=== PATIENT | female | born 1955 | race Caucasian/White ===

== ENCOUNTER 2020-04-06 14:58 | Emergency (ER) | payer OTHER, MEDICARE, SELFPAY ==
[2020-04-06] VITALS (17 sets, daily range): BP systolic 116–147; BP diastolic 59–82; PULSE 64–93; RESP 12–20; TEMP 36.8; O2SAT 99–100
--- NOTE | ~2020-04-06 | CT_ITS ---
EXAMINATION: CT abdomen pelvis w con INDICATION: Epigastric abdominal pain and shortness of breath TECHNIQUE: Computed tomographic images of the abdomen and pelvis were obtained after the administrati on of 100 cc of Omnipaque 350 intravenous contrast. The dose-length product (DLP) was 490.06 mGy-cm. Automated exposure control and iterative reconstruction technique were employed. COMPARISON: 02/19/2013 FINDINGS: The lung bases are clear. The heart size is normal. There are changes of Juan Manuel fundoplicat ion. The gallbladder is surgically absent. There is mild enlargement of the common bile duct and cent ral intrahepatic ducts which is likely due to post cholecystectomy state. The liver, spleen, pancreas , and adrenal glands are normal. Cysts of the kidneys measure up to 11 mm on the right. There is calc ified atherosclerosis of the aorta and many of the other arteries. No pathologically enlarged abdomin al or pelvic lymph nodes are identified. There is no free intraperitoneal gas or evidence of bowel ob struction. There is moderate lumbar spondylosis. IMPRESSION: 1. No CT correlate for the patient's symptoms. Reviewed, dictated and finalized at location A.
--- NOTE | 2020-04-06 15:09 | ECG_ITS ---
Measurements Intervals [place] Rate: 87 P: 73 WI: 164 QRS: -26 QRSD: 104 T: 59 QT: 375 QTc: 453 Interpretive Statements SINUS RHYTHM DELAYED PRECORDIAL R/S TRANSITION BASELINE ARTIFACT- I, II, III, AVR, AVL, AVF BORDERLINE ECG Electronically Signed On 04-06-2020 15:46:51 CDT by Dion Joy D.O.
--- NOTE | 2020-04-06 15:14 | ED.ABDPAIN ---
HPI - Abdominal Pain General Chief Complaint: Chest Pain Stated Complaint: upper abd pain, sob Time Seen by Provider: 04/06/20 15:03 History of Present Illness HPI narrative: Patient is a 64-year-old female with history of anxiety and acid reflux who presents with epigastric pain. Symptoms constant for the last 3 days. Recently started on Carafate for bad acid reflux. Has history of having endoscopy in the past but nothing recently. She has mild nausea but no vomiting. Reports heartburn that goes up into the back of her mouth. No exertional chest pain. When she takes her antacids it does improve her discomfort slightly. Related Data Home Medications Medication Instructions Recorded Confirmed lisinopril-hydrochlorothiazide 1 tablet PO DAILY 04/06/20 Allergies Allergy/AdvReac Type Severity Reaction Status Date / Time ciprofloxacin Allergy Unknown Skin Verified 03/07/20 14:37 Reaction neomycin Allergy Unknown Skin Verified 03/07/20 14:37 Reaction Penicillins Allergy Unknown Unknown Verified 03/07/20 14:37 pitavastatin Allergy Unknown Unknown Verified 03/07/20 14:37 Quinolones Allergy Unknown Unknown Verified 03/07/20 14:37 LATEX Allergy Unknown BLISTERING Uncoded 03/07/20 14:37 RASH Review of Systems Review of Systems: All systems reviewed & are unremarkable except as noted in HPI and below Constitutional: Constitutional: Denies chills, Denies fever(s) and Denies weakness ENT: Denies nasal congestion and Denies sore throat Cardiovascular: Cardiovascular: Denies chest pain and Denies radiating jaw, neck or arm pain Respiratory: Respiratory: Denies cough, Denies dyspnea and Denies wheezing Gastrointestinal: Gastrointestinal: Reports abdominal pain, Reports heartburn, Reports nausea and Denies vomiting PMF Past Medical History Medical History (Updated 04/06/20 @ 17:18 by Gael Red MD) Atherosclerosis of aorta Dyskinesia of esophagus Dyspepsia Essential (primary) hypertension Gastroparesis Hypothyroidism (acquired) Irritable bowel syndrome with diarrhea Metabolic syndrome Mixed hyperlipidemia Patellar tendonitis of right knee Postgastric surgery syndromes Spinal stenosis, unspecified region other than cervical Surgical History Surgical History (Updated 04/06/20 @ 15:18 by Gael Red MD) History of endoscopy Social History Social History Smoking status: Never smoker Alcohol intake: never Gender identity (if verbalized by the patient): Female Exam Narrative: Exam Narrative: GENERAL: Well-appearing, well-nourished, and in no acute distress. HEAD: Normocephalic, atraumatic. ENT: Mucous membranes moist. CHEST: Clear to auscultation. No respiratory distress. HEART: Regular rate and rhythm. Normal peripheral pulses. ABDOMEN: Soft, mild epigastric tenderness without guarding, nondistended. EXTREMITIES: Normal range of motion. No edema. SKIN: Warm, dry, no rash. NEURO: Alert and oriented x3. Course Course Emergency Course: Informed results. Feeling better with Zofran. Will discharge home. Vital Signs Vital signs: Vital Signs Temperature 98.3 F 04/06/20 15:13 Pulse Rate 93 04/06/20 15:13 Respiratory Rate 12 04/06/20 15:13 Blood Pressure 147/82 H 04/06/20 15:13 Pulse Oximetry 100 04/06/20 15:13 Temperature 98.3 F 04/06/20 15:13 Pulse Rate 78 04/06/20 16:49 Respiratory Rate 12 04/06/20 16:49 Blood Pressure 145/67 H 04/06/20 16:01 Pulse Oximetry 100 04/06/20 16:49 MDM - Abdominal Pain Lab Data Result diagrams: 04/06/20 15:24 04/06/20 15:24 Labs: Lab Results 04/06/20 04/06/20 Range/Units 15:24 15:24 WBC 6.1 (4.5-10.0) K/mm3 RBC 3.93 L (4.2-5.4) M/mm3 Hgb 12.4 (12.0-15.0) g/dL Hct 36.9 L (37.0-47.0) % MCV 93.9 (80-100) fl MCH 31.6 (26-34) pg MCHC 33.6 (32-36) g/dl RDW 13.0 (11.5-14.5)
[2020-04-06] MEDS: BELLADONNA ALK/PHENOB ELIX 10 ML, MAG HYDROX/ALUMINUM HYD/SIMETH 30 ML, LIDOCAINE HCL 2... PO (15:24)
[2020-04-06 15:33] LABS: Basophils Percent Auto 0.7 % (0.2-1.2); Eosinophils Absolute Auto 0.1 K/mm3 (0-0.3); Eosinophils Percent Auto 0.8 % (0-4.4); Hematocrit 36.9 % (37.0-47.0); Hemoglobin 12.4 g/dL (12.0-15.0); Immature Granulocyte Absolute 0.02 K/mm3 (0.00-0.031); Immature Granulocyte Percent A 0.3 % (0-0.5); Lymphocytes Absolute Auto 1.26 K/mm3 (0.9-3.2); Lymphocytes Percent Auto 20.8 % (18.3-44.2); Mean Corpuscular HGB Conc 33.6 g/dl (32-36); Mean Corpuscular Hemoglobin 31.6 pg (26-34); Mean Corpuscular Volume 93.9 fl (80-100); Mean Platelet Volume 9.9 fl (7.4-10.4); Monocytes Absolute Auto 0.4 K/mm3 (0.1-0.6); Monocytes Percent Auto 6.4 % (2.6-8.5); Neutrophils Absolute Auto 4.3 K/mm3 (1.3-6.7); Platelet Count Result 242 k/mm3 (150-375); Red Blood Count 3.93 M/mm3 (4.2-5.4); White Blood Count 6.1 K/mm3 (4.5-10.0)
[2020-04-06] MEDS: ONDANSETRON INJ 4 MG/2 ML VIAL IV PUSH ×2 (15:33→16:42)
[2020-04-06 15:44] LABS: Alanine Aminotransferase 16 U/L (4-35); Albumin Level 4.7 g/dL (3.5-5.1); Alkaline Phosphatase 72 U/L (38-126); Aspartate Amino Transferase 25 U/L (14-36); Bilirubin,Total 0.3 mg/dL (0.2-1.3); Blood Urea Nitrogen 13 mg/dL (7-17); Calcium 9.3 mg/dL (8.4-10.2); Carbon Dioxide 25 mmol/L (22-30); Chloride 95 mmol/L (98-107); Estimated CRCL calculation 46 ml/min; Estimated Glomerular Filt Rate 50; Glucose 132 mg/dL (65-105); Lipase 160 U/L (23-300); Potassium 3.3 mmol/L (3.4-5.0); Sodium 132 mmol/L (137-145)
[2020-04-06 15:55] LABS: Troponin I < 0.012 ng/mL (0.000-0.034)
== END 2020-04-06 17:51 | disposition home or self-care (01) ==
PROVIDERS: Emergency Provider Emergency Medicine; PCP Family Medicine
DX: K21.9 Gastro-esophageal reflux disease without esophagitis (principal); R94.31 Abnormal electrocardiogram [ECG] [EKG]; I70.0 Atherosclerosis of aorta; K22.4 Dyskinesia of esophagus; I10 Essential (primary) hypertension; K31.84 Gastroparesis; E03.9 Hypothyroidism, unspecified; K58.0 Irritable bowel syndrome with diarrhea; E78.2 Mixed hyperlipidemia; E88.9 Metabolic disorder, unspecified
CPT/HCPCS: 36415; 74177; 80053; 83690; 84484; 85025; 93005; 96374; 96376; 99284; A9270; J2405; Q9967

== ENCOUNTER 2020-04-07 11:53 | Outpatient (CLI) | payer OTHER, MEDICARE, SELFPAY ==
--- NOTE | ~2020-04-07 | XR_ITS ---
EXAMINATION: XR chest 2V DATE: 04/07/2020 12:20 INDICATION: 2 weeks of cough TECHNIQUE: PA and lateral views of the chest were obtained. COMPARISON: Chest radiograph dated and CT dated 09/24/14 FINDINGS: The lungs remain clear with no focal airspace opacities, pulmonary edema, pleural effusion or pneumot horax. The cardiomediastinal silhouette is normal. Cholecystectomy clips in the right upper quadrant. Mild upper thoracic spondylosis. IMPRESSION: 1. No acute cardiopulmonary disease. Reviewed, dictated and finalized at location A.
== END 2020-04-07 11:54 | disposition home or self-care (01) ==
PROVIDERS: PCP Family Medicine; Visit Provider Family Medicine
DX: R05 Cough (principal)
CPT/HCPCS: 71046

== ENCOUNTER 2020-04-08 00:37 | Outpatient (NON) | payer OTHER, MEDICARE, SELFPAY ==
[2020-04-09 00:18] LABS: SARS-CoV-2 RNA PCR Negative
== END 2020-04-08 00:38 ==
PROVIDERS: PCP Family Medicine; Visit Provider Family Medicine
DX: R05 Cough (principal); Z20.828 Contact with and (suspected) exposure to other viral communicable diseases
CPT/HCPCS: 87635; C9803; U0003

== ENCOUNTER 2020-08-01 15:13 | Outpatient (CLI) | payer OTHER, MEDICARE, SELFPAY ==
--- NOTE | ~2020-08-01 | XR_ITS ---
EXAMINATION: XR chest 2V DATE: 08/01/2020 15:31 INDICATION: Shortness of breath. Cough. TECHNIQUE: Frontal and lateral views of the chest were obtained. COMPARISON: Chest 2 views 04/07/2020 FINDINGS: The chest demonstrates clear lungs without pneumonia, pleural effusion, or pneumothorax. Th e heart size is normal. Surgical clips in the right upper quadrant are likely from cholecystectomy. IMPRESSION: 1. No acute cardiopulmonary disease. Reviewed, dictated and finalized at location A.
== END 2020-08-01 15:14 | disposition home or self-care (01) ==
PROVIDERS: PCP Family Medicine; Visit Provider Family Medicine
DX: R06.02 Shortness of breath (principal); R05 Cough; I10 Essential (primary) hypertension; J44.9 Chronic obstructive pulmonary disease, unspecified
CPT/HCPCS: 71046

== ENCOUNTER 2020-12-05 09:59 | Outpatient (CLI) | payer MEDICARE, SELFPAY ==
--- NOTE | 2020-12-05 | ECG_ITS ---
Measurements Intervals [place] Rate: 68 P: 55 NM: 151 QRS: -12 QRSD: 94 T: 57 QT: 389 QTc: 416 Interpretive Statements SINUS RHYTHM BASELINE WANDER- I, II, AVR, AVL,A VF, V6 NORMAL ECG Electronically Signed On 12-05-2020 11:19:36 PRESENTATION MANAGER by Dion Joy D.O.
[2020-12-05 10:47] LABS: Hematocrit 38.9 % (37.0-47.0); Hemoglobin 13.2 g/dL (12.0-15.0)
[2020-12-05 10:58] LABS: Albumin Level 4.4 g/dL (3.5-5.1); Estimated Glomerular Filt Rate 50; Glucose 102 mg/dL (65-105)
== END 2020-12-05 10:00 | disposition home or self-care (01) ==
PROVIDERS: PCP Family Medicine; Visit Provider Orthopaedic Surgery
DX: J44.9 Chronic obstructive pulmonary disease, unspecified (principal); M17.11 Unilateral primary osteoarthritis, right knee
CPT/HCPCS: 36415; 82040; 82565; 82947; 85014; 85018; 93005

== ENCOUNTER 2020-12-22 09:47 | Outpatient (CLI) | payer MEDICARE, SELFPAY ==
[2020-12-22 11:05] LABS: Basophils Absolute Auto 0.1 K/mm3 (0.0-0.1); Eosinophils Absolute Auto 0.1 K/mm3 (0-0.3); Eosinophils Percent Auto 1.4 % (0-4.4); Hematocrit 38.5 % (37.0-47.0); Hemoglobin 12.8 g/dL (12.0-15.0); Immature Granulocyte Absolute 0.02 K/mm3 (0.00-0.031); Immature Granulocyte Percent A 0.4 % (0-0.5); Lymphocytes Absolute Auto 1.52 K/mm3 (0.9-3.2); Lymphocytes Percent Auto 29.7 % (18.3-44.2); Mean Corpuscular HGB Conc 33.2 g/dl (32-36); Mean Corpuscular Hemoglobin 31.7 pg (26-34); Mean Corpuscular Volume 95.3 fl (80-100); Mean Platelet Volume 9.9 fl (7.4-10.4); Monocytes Absolute Auto 0.4 K/mm3 (0.1-0.6); Monocytes Percent Auto 8.2 % (2.6-8.5); Neutrophils Percent Auto 59.3 % (45.5-73.1); Platelet Count Result 203 k/mm3 (150-375); Red Blood Count 4.04 M/mm3 (4.2-5.4); Red Cell Distribution Width 12.8 % (11.5-14.5); White Blood Count 5.1 K/mm3 (4.5-10.0)
[2020-12-22 11:13] LABS: Hemoglobin A1C 4.7 % (<5.7)
[2020-12-22 11:14] LABS: Urine Cotinine NEGATIVE
[2020-12-22 11:17] LABS: Anion Gap 8 mmol/L (8-16); Blood Urea Nitrogen 17 mg/dL (7-17); Calcium 8.6 mg/dL (8.4-10.2); Carbon Dioxide 29 mmol/L (22-30); Chloride 98 mmol/L (98-107); Estimated Glomerular Filt Rate 55; Glucose 99 mg/dL (65-105); Sodium 135 mmol/L (137-145)
== END 2020-12-22 09:48 | disposition home or self-care (01) ==
LOC: ANHSURGERY 09:54
PROVIDERS: Anesthesiology; PCP Family Medicine; Visit Provider Orthopaedic Surgery
DX: M17.11 Unilateral primary osteoarthritis, right knee (principal); I10 Essential (primary) hypertension; Z01.818 Encounter for other preprocedural examination
CPT/HCPCS: 36415; 80048; 80307; 83036; 85025; 87081

== ENCOUNTER → 2021-01-02 01:35 | Outpatient (CLI) | payer MEDICARE, SELFPAY ==
[2021-01-02 20:13] LABS: SARS-CoV-2 RNA PCR Negative
== END ==
PROVIDERS: PCP Family Medicine; Visit Provider Orthopaedic Surgery
DX: Z01.818 Encounter for other preprocedural examination (principal); Z20.822 Contact with and (suspected) exposure to COVID-19
CPT/HCPCS: C9803; U0003; U0005

== ENCOUNTER 2021-05-25 15:35 | Outpatient (CLI) | payer MEDICARE, SELFPAY ==
--- NOTE | 2021-05-25 | ECG_ITS ---
Measurements Intervals [place] Rate: 62 P: 10 [place]: 143 QRS: -14 QRSD: 97 T: 41 QT: 424 QTc: 432 Interpretive Statements SINUS RHYTHM NORMAL ECG Electronically Signed On 05-25-2021 19:59:11 CDT by Dion Joy D.O.
[2021-05-25 16:58] LABS: Hematocrit 36.1 % (37.0-47.0); Hemoglobin 11.9 g/dL (12.0-15.0)
[2021-05-25 17:08] LABS: Albumin Level 4.6 g/dL (3.5-5.1); Estimated Glomerular Filt Rate 55; Glucose 96 mg/dL (65-110)
== END 2021-05-25 15:36 | disposition home or self-care (01) ==
PROVIDERS: PCP Family Medicine; Visit Provider Orthopaedic Surgery
DX: Z01.818 Encounter for other preprocedural examination (principal); M17.11 Unilateral primary osteoarthritis, right knee; J44.9 Chronic obstructive pulmonary disease, unspecified; I10 Essential (primary) hypertension; I70.0 Atherosclerosis of aorta; E78.2 Mixed hyperlipidemia
CPT/HCPCS: 36415; 82040; 82565; 82947; 85014; 85018; 93005

== ENCOUNTER 2021-06-16 16:30 | Inpatient (IN) | payer MEDICARE, SELFPAY ==
[2021-06-16] VITALS (11 sets, daily range): BP systolic 110–136; BP diastolic 63–88; PULSE 69–88; RESP 12–20; TEMP 36.8; O2SAT 98–100
--- NOTE | ~2021-06-16 | XR_ITS ---
XR soft tissue neck 06/16/2021 17:21 Indication: Aspiration. Procedure: 3 views neck soft tissue is Comparison: 06/26/2017 Findings: No prevertebral soft tissue abnormality. Epiglottis and aryepiglottic folds are normal. No subglottic narrowing. Lung apices are normal. Impression: 1: No significant abnormality of the neck soft tissues. Reviewed, dictated and finalized at location A. Impression: 1: No significant abnormality of the neck soft tissues.
--- NOTE | ~2021-06-16 | CT_ITS ---
EXAMINATION: CT diagnostic chest wo con DATE: 06/16/2021 19:49 INDICATION: Chest pain. Aspiration. TECHNIQUE: Computed tomography (CT) of the chest was performed without intravenous contrast. The dose -length product was 150.96 mGy-cm. Automated exposure control and iterative reconstruction technique were employed. COMPARISON: CT dated 09/24/2014 FINDINGS: Heart size normal. No thoracic lymphadenopathy. There are changes of fundoplication with wr ap at the level of the diaphragm. There is fluid and contrast in the esophagus, consistent with recen t esophagram with possible reflux. Stable chronic rim calcified splenic artery aneurysms. Mild thorac ic spondylosis. No endobronchial lesions. No pneumomediastinum. No pneumothorax. No significant pleural effusion. Tra ce pericardial fluid. No thoracic lymphadenopathy. IMPRESSION: 1. No acute cardiopulmonary disease. Reviewed, dictated and finalized at location A.
--- NOTE | ~2021-06-16 | XR_ITS ---
EXAMINATION: XR chest 2V 06/16/2021 17:21 INDICATION: Possible aspiration. Shortness of breath. PROCEDURE: 2 view chest COMPARISON: Comparison to multiple prior studies sequentially, with oldest reviewed study dated 12/04. FINDINGS: The lungs are clear. The cardiomediastinal silhouette is within normal limits. There are no pleural effusions. There is no pneumothorax suspected. IMPRESSION: 1: NO ACUTE CARDIOPULMONARY DISEASE. Reviewed, dictated and finalized at location A.
--- NOTE | ~2021-06-16 | XR_ITS ---
EXAMINATION: XR barium swallow DATE: 06/16/2021 19:03 CDT INDICATION: Difficulty swallowing. Choking sensation. TECHNIQUE: Thin barium contrast with gas effervescent crystals were administered orally. Fluoroscopi c images of the esophagus were obtained in various projections. The hypopharynx was also examined. Th ereafter, overhead images of the thoracic esophagrus were performed. Fluroscopy time 0.9 minutesDap 2 .7. 62 fluoroscopic images. FINDINGS: The esophagus is normal in caliber, without mucosal lesions or strictures. There is normal esophageal peristalsis. There is no hiatal hernia. No discreet episode of gastroesophageal reflux i s seen during the course of this study. IMPRESSION: 1. Normal barium esophagram. Reviewed, dictated and finalized at location A.
--- NOTE | 2021-06-16 18:05 | ECG_ITS ---
Measurements Intervals [place] Rate: 68 P: 62 [place]: 147 QRS: -8 QRSD: 98 T: 93 QT: 434 QTc: 463 Interpretive Statements SINUS RHYTHM SEPTAL MYOCARDIAL INFARCTION , PROBABLY RECENT BASELINE ARTIFACT- I, II, III, AVR, AVF, V1, V3-V6 ABNORMAL ECG Electronically Signed On 06-16-2021 19:09:27 CDT by Dion Joy D.O.
--- NOTE | 2021-06-16 18:06 | ED.GENADULT ---
HPI - General Adult General Chief complaint: Unspecified <Amaris Abernathy PA-C - Last Filed: 06/16/21 22:30> Stated complaint: COUGHING SPELLS <Amaris Abernathy PA-C - Last Filed: 06/16/21 22:30> Time Seen by Provider: 06/16/21 17:55 <Amaris Abernathy PA-C - Last Filed: 06/16/21 22:30> Source: patient <Amaris Abernathy PA-C - Last Filed: 06/16/21 22:30> Mode of arrival: ambulatory <ALEX Carter Last Filed: 06/16/21 22:30> Limitations: no limitations <Amaris Abernathy PA-C - Last Filed: 06/16/21 22:30> History of Present Illness HPI narrative: This is a 65 year old female that presents to the ER for possible food impaction. Reports she was eating pizza last night and choked on a bite. Reports she was able to spit it back up. Reports since she has had a feeling of a foreign body in the esophagus. Reports a constant aching chest pain. Reports she has been continually coughing. She has been able to eat and drink since then and can tolerate her secretions. Denies fever. <Amaris Abernathy PA-C - Last Filed: 06/16/21 22:30> Related Data Home medications: Home Medications Medication Instructions Recorded Confirmed calcium citrate 200 mg (950 mg) 400 mg PO DAILY tablet 03/15/21 06/15/21 tablet magnesium amino acid chelate 100 166.7 mg PO tablet 03/15/21 06/15/21 mg tablet zinc 15 mg tablet 16.7 mg PO DAILY tablet 03/15/21 06/15/21 diclofenac sodium 1 % topical gel 2 g TOPICAL HS PRN 05/25/21 06/15/21 linaclotide 145 mcg capsule See Rx Instructions .ROUTE 05/25/21 06/15/21 .COMPLEX PRN cap lisinopril 10 See Rx Instructions .ROUTE 05/25/21 06/15/21 mg-hydrochlorothiazide 12.5 mg .COMPLEX tablet tablet cholecalciferol (vitamin D3) 250 750 mcg PO WEEKLY cap 06/15/21 06/15/21 mcg (10,000 unit) capsule <Amaris Abernathy PA-C - Last Filed: 06/16/21 22:30> Allergies/adverse reactions: Allergies Allergy/AdvReac Type Severity Reaction Status Date / Time ciprofloxacin Allergy Unknown Skin Verified 06/16/21 17:10 Reaction neomycin Allergy Unknown Skin Verified 06/16/21 17:10 Reaction Penicillins Allergy Unknown Unknown Verified 06/16/21 17:10 Quinolones Allergy Unknown Unknown Verified 06/16/21 17:10 Mxjwsft-Ijq-Oam Reductase Allergy Unknown Gastrointestinal Verified 06/16/21 17:10 Inhibitor Upset LATEX Allergy Unknown BLISTERING Uncoded 06/16/21 17:10 RASH <Amaris Abernathy PA-C - Last Filed: 06/16/21 22:30> Review of Systems Review of Systems: CONSTITUTIONAL: Denies fever CARDIOVASCULAR: Reports chest pain RESPIRATORY: Reports dyspnea. GASTROINTESTINAL: Denies abdominal pain, nausea, vomiting <Amaris Abernathy PA-C - Last Filed: 06/16/21 22:30> All systems reviewed & are unremarkable except as noted in HPI and below <Amaris Abernathy PA-C - Last Filed: 06/16/21 22:30> [facility] Past Medical History Medical History: Medical History Acquired cavovarus deformity of right foot Arthritis Atherosclerosis of aorta B12 deficiency Ga esophagus Paarowj-Mzgmu-Yjbcw disease Chronic insomnia Depression Dizziness Dyskinesia of esophagus Dyspepsia Esophageal web Essential (primary) hypertension Foot pain Gastroparesis Hypothyroidism Hypothyroidism (acquired) Internal derangement of right knee Irritable bowel syndrome with diarrhea Latex allergy status Metabolic syndrome Mixed hyperlipidemia Nausea and vomiting Neuritis of right sural nerve Other hyperlipidemia Other spondylosis with radiculopathy, cervical region Patellar tendonitis of right knee Peripheral neuropathy Postgastric surgery syndromes Prediabetes Seasonal allergies Secondary osteoarthritis, right shoulder Shellfish allergy Spinal stenosis, unspecified region other than cervical Unspecified vitamin D deficiency Unspecified vitamin D deficiency <Amaris Abernathy PA-C - Last Filed: 06/16/21 22:30
[2021-06-16 18:33] LABS: Basophils Percent Auto 0.5 % (0.2-1.2); Eosinophils Percent Auto 0.5 % (0-4.4); Hematocrit 37.5 % (37.0-47.0); Hemoglobin 12.7 g/dL (12.0-15.0); Immature Granulocyte Absolute 0.04 K/mm3 (0.00-0.031); Immature Granulocyte Percent A 0.5 % (0-0.5); Lymphocytes Absolute Auto 1.11 K/mm3 (0.9-3.2); Lymphocytes Percent Auto 14.1 % (18.3-44.2); Mean Corpuscular HGB Conc 33.9 g/dl (32-36); Mean Corpuscular Hemoglobin 31.7 pg (26-34); Mean Corpuscular Volume 93.5 fl (80-100); Monocytes Absolute Auto 0.5 K/mm3 (0.1-0.6); Monocytes Percent Auto 6.8 % (2.6-8.5); Neutrophils Absolute Auto 6.1 K/mm3 (1.3-6.7); Neutrophils Percent Auto 77.6 % (45.5-73.1); Platelet Count Result 216 k/mm3 (150-375); Red Blood Count 4.01 M/mm3 (4.2-5.4); Red Cell Distribution Width 12.8 % (11.5-14.5); White Blood Count 7.9 K/mm3 (4.5-10.0)
[2021-06-16 18:49] LABS: INR 0.9; Prothrombin Time 11.9 Seconds (11.1-14.7)
[2021-06-16 18:50] LABS: Alanine Aminotransferase 19 U/L (4-35); Albumin Level 4.6 g/dL (3.5-5.1); Alkaline Phosphatase 72 U/L (38-126); Anion Gap 8 mmol/L (8-16); Aspartate Amino Transferase 41 U/L (14-36); Bilirubin,Total 0.3 mg/dL (0.2-1.3); Blood Urea Nitrogen 19 mg/dL (7-17); Calcium 9.5 mg/dL (8.4-10.2); Carbon Dioxide 27 mmol/L (22-30); Chloride 100 mmol/L (98-107); Estimated CRCL calculation 40 ml/min; Estimated Glomerular Filt Rate 45; Glucose 114 mg/dL (65-110); Lipase 129 U/L (23-300); Partial Thromboplastin Time 28.8 SECONDS (22.3-36.8); Sodium 135 mmol/L (137-145)
--- NOTE | 2021-06-16 19:13 | PC.NURSE ---
Assumed care of pt at this time.
[2021-06-16] MEDS: ONDANSETRON INJ 4 MG/2 ML VIAL IV PUSH (20:11)
[2021-06-16] MEDS: MORPHINE SULFATE (*CRX) 4 MG/ML INJ IV PUSH (20:12)
[2021-06-16] MEDS: ASPIRIN 81 MG CHEWABLE TABLET 324 MG PO (21:39)
[2021-06-17] VITALS (25 sets, daily range): BP systolic 96–143; BP diastolic 44–79; PULSE 57–84; RESP 10–20; TEMP 35.7–36.9; O2SAT 10–100; BMI 26.6
[2021-06-17] MEDS: NITROGLYCERIN OINTMENT 1 INCH DOSE TRANSDERM ×5 (00:44→17:01)
--- NOTE | 2021-06-17 01:15 | ADMGEN ---
This patient, Schuyler Gutierrez, was admitted to IMU Room 202-01. Patient/family oriented to hospital policies and general routines including ID bracelet, bed and alarms, visiting hours, pain management, procedures, bathroom and other care routines, personal items, smoking policy, room service/diet, and visiting hours. Information on how to activate the Rapid Response Team has been discussed. Patient/Family are encouraged to report perceived risks to care and to ask questions if they do not understand what they are told or what they should do.
--- NOTE | 2021-06-17 01:23 | PM.IMHP ---
H&P: HPI History of Present Illness Date/Time: 06/17/21 00:23 Chief Complaint: Choked on a piece of pizza Narrative: 65-year-old female with past medical history of Irqolox-Pbqrf-Rqhen muscular dystrophy, hypothyroidism, hyperlipidemia, hypertension, metabolic syndrome and significant family history of coronary artery disease who presented to the ER with chest pain. The patient reported that around 6:00 p.m. on the she choked on a piece of pizza. She felt as if the PCP to may have gotten stuck. She was able to cough the Pizza beat up. She has been able to tolerate secretions and has been able to eat and drink since that time. She has had intermittent coughing spells ever since she choked. In the ER modified barium swallow demonstrated no explanation for the patient's symptoms. She had an EKG performed which demonstrated new Q-waves in V1 and V2 compared to EKG May 25, 2021. The patient reported that about 6 hours after she had her choking episode she actually developed substernal chest pain that was pressure-like in nature and radiated to her back. The pain was a 3/10 in intensity on arrival to the ER but has been as bad as a 6/10 in intensity previously. Pain with company by shortness of breath and intermittent episodes of lightheadedness. The pain would wax and wane but did not completely dissipate. At the time of my evaluation she reported to me that the pain felt as if her chest was going to cave in. Her pain spiked while I was in the room with her was a 6/10 in intensity. She denied any diaphoresis. She reports she has frequent nausea and intermittent heartburn symptoms due to chronic GERD but this pain is different than her usual GERD. What is concerning is that she has also been having dyspnea on exertion on a for the last couple months with symptoms occurring with minimal exertion. She went to her primary care physician's office 06/15/2021 due to lightheadedness occurred with position changes thought to be possible orthostasis. And she reports she had an EKG performed which demonstrated some bradycardia. An outpatient stress test was ordered at that time. In the ER troponin was performed and demonstrated significant elevation of 2.5. Patient had prior stress test in 2014 that was unremarkable. The patient had GI cocktail in the ER which did not improve her symptoms. She has had decreased activity since 2018 when she had Achilles tendon surgery in 2019 with subsequent peroneal tendon repair. She is having dyspnea with minimal exertion but denies chest pain prior to midnight on the . She denies any orthopnea, paroxysmal nocturnal dyspnea or lower extremity swelling. Review of Systems Review of Systems: 12 systems were reviewed with pertinent positives and negatives per HPI. Except as documented in the HPI, all other systems were reviewed and are negative. [facility] Past Medical History Medical History (Updated 06/17/21 @ 02:10 by Velma West DO) Acquired cavovarus deformity of right foot Arthritis Atherosclerosis of aorta B12 deficiency Ga esophagus Somyihj-Pjxjp-Qyjzu disease (~03/2021) Chronic insomnia Depression Dyskinesia of esophagus Esophageal web Essential (primary) hypertension Gastroparesis Hypothyroidism (acquired) Internal derangement of right knee Irritable bowel syndrome with diarrhea Latex allergy status Metabolic syndrome Mixed hyperlipidemia Neuritis of right sural nerve Other hyperlipidemia Other spondylosis with radiculopathy, cervical region Patellar tendonitis of right knee Peripheral neuropathy Postgastric surgery syndromes Prediabetes With last hemoglobin A1c 4.7 Seasonal allergies Secondary osteoarthritis, right shoulder Shellfish allergy Spinal stenosis, unspecified region other than cervical Unspecified vitamin D deficiency Surgical History Surgical History (Updated 06/17/21 @ 02:10 by Velma West DO) History of Achilles tendon repair (~2017) History of arthroscop
--- NOTE | 2021-06-17 01:42 | ECG_ITS ---
Measurements Intervals [place] Rate: 62 P: 63 [place]: 149 QRS: 8 QRSD: 96 T: 94 QT: 436 QTc: 443 Interpretive Statements SINUS RHYTHM SUBTLE ST ELEVATION IN HIGH LATERAL LEADS- CONSIDER ACUTE INFARCT SEPTAL INFARCT, PROBABLY RECENT BASELINE ARTIFACT- I, AVR, AVL ABNORMAL ECG Electronically Signed On 06-17-2021 15:53:13 CDT by Dion Joy D.O.
[2021-06-17] MEDS: MORPHINE SULFATE (*CRX) 2 MG/ML INJ (01:44)
[2021-06-17] MEDS: MORPHINE SULFATE (*CRX) 2 MG/ML INJ IV PUSH ×2 (03:28→08:01)
--- NOTE | 2021-06-17 06:00 | ECHO_ITS ---
Patient Info Name: Schuyler Gutierrez Age: 65 years : 1955 Gender: Female Ht: 64 in Wt: 158 lbs BSA: 1.82 m2 HR: 78 bpm BP: 104 / 51 mmHg Heart Rhythm: Sinus Rhythm Technical Quality: Good Exam Date: 06/17/2021 8:26 AM Exam Location: [facility] Pulmonary Exam Room: [facility] Patient Status: Outpatient Admit Date: 06/16/2021 Staff Ordering Physician: Amaris Abernathy PA-C Health Practice Manager: Fabby Matias RDCS Attending Provider: Velma West DO Referring Physician: Josemanuel BACA; Exam Type: CA echo doppler color flow Study Info Indications - elevated troponins R06.02 - Shortness of breath R07.89 - Other chest pain Complete two-dimensional, color flow and Doppler transthoracic echocardiogram is performed. Summary 1. Complete two-dimensional, color flow and Doppler transthoracic echocardiogram is performed. 2. Left ventricular chamber dimension is normal. 3. Left ventricular systolic function is mildly reduced, estimated at 50-55% with hypokinesis of the apex, apical lateral, mid inferoseptal, and mid anterior bee. There is severe hypokinesis apical septal and akinetic mid anteroseptal wall with relative sparing of the bases. Consider Takotsubo cardiomyopathy.. 4. There is no increased left ventricular wall thickness. 5. There is trace mitral valve regurgitation. 6. There is trace tricuspid valve regurgitation. 7. Mild pulmonary hypertension, estimated pulmonary arterial systolic pressure is 37 mmHg. Left Ventricle Left ventricular chamber dimension is normal. Left ventricular systolic function is mildly reduced, estimated at 50-55% with hypokinesis of the apex, apical lateral, mid inferoseptal, and mid anterior bee. There is severe hypokinesis apical septal and akinetic mid anteroseptal wall with relative sparing of the bases. Consider Takotsubo cardiomyopathy.. There is no increased left ventricular wall thickness. The left ventricular diastolic function is grade I diastolic dysfunction. Global longitudinal strain is mildly elevated at -17 %. Right Ventricle Right ventricular chamber dimension is normal. Right ventricular systolic function is normal. Left Atria Left atrial chamber dimension is normal. Right Atria Right atrial chamber dimension is normal. Aortic Valve The aortic valve is not well visualized. There is mild aortic valve sclerosis. There is no aortic valve stenosis. There is no aortic valve regurgitation. Pulmonic Valve The pulmonic valve is not well visualized. There is mild pulmonic regurgitation. Mitral Valve The mitral valve has normal leaflets. There is trace mitral valve regurgitation. The mitral valve annulus is moderately calcified. Tricuspid Valve The tricuspid valve leaflets are normal. There is trace tricuspid valve regurgitation. Mild pulmonary hypertension, estimated pulmonary arterial systolic pressure is 37 mmHg. Pericardium/Pleural The pericardium appears normal. There is trivial pericardial effusion. Inferior Vena Cava Normal inferior vena cava with >50% collapse upon inspiration consistent with normal right atrial pressure, 5 mmHg. Aorta The aortic root size at the sinus of Valsalva is normal. There is mild aortic atherosclerosis. Left Ventricular Outflow Tract Name Value Normal LVOT 2D ---
[2021-06-17 06:12] LABS: Cholesterol 245 mg/dL (0-200); HDL Direct 53 mg/dL; Triglycerides 76 mg/dL (<150)
[2021-06-17] MEDS: LEVOTHYROXINE SODIUM 75 MCG TABLET PO (06:13)
[2021-06-17 06:23] LABS: LDL Cholesterol Direct 121 mg/dL
--- NOTE | 2021-06-17 09:59 | PM.IMPN ---
Progress Note: A&P Assessment and Plan (1) Chest pain: Qualifiers: Chest pain type: unspecified Qualified Code(s): R07.9 - Chest pain, unspecified Code(s): R07.9 - Chest pain, unspecified Status: Acute (2) Elevated troponin: Code(s): R77.8 - Other specified abnormalities of plasma proteins Status: Acute (3) Dyspnea on exertion: Code(s): R06.00 - Dyspnea, unspecified Status: Acute (4) Non-ST elevation SD (NSTEMI): Code(s): I21.4 - Non-ST elevation (NSTEMI) myocardial infarction Status: Acute Assessment and Plan: EKG changes which are new with new Q-waves and T inversions in septal leads along with elevated troponin peaked at 2.[address]-elevation SD. Will suggest anticoagulation with and IV heparin/full-dose Lovenox Will need cardiac catheterization Cardiology on board await their recommendations Received full-dose aspirin 325 mg last evening. Will continue with aspirin 81 mg daily Beta-rocío will be added if tolerated Nitro paste for chest pain as ordered Add statin lipid profile with 245/53/121/76 goal LDL of less than 70 (5) Choking episode: Code(s): R09.89 - Other specified symptoms and signs involving the circulatory and respiratory systems Status: Acute Assessment and Plan: Likely a single event. CT chest chest x-ray and barium esophagogram unremarkable (6) Mixed hyperlipidemia: Code(s): E78.2 - Mixed hyperlipidemia Status: Acute (7) Metabolic syndrome: Code(s): E88.81 - Metabolic syndrome Status: Acute (8) Obesity (BMI 30.0-34.9): Code(s): E66.9 - Obesity, unspecified Status: Acute (9) Hypothyroidism (acquired): Code(s): E03.9 - Hypothyroidism, unspecified Status: Acute Assessment and Plan: Resume levothyroxine (10) Hypertension: Code(s): I10 - Essential (primary) hypertension Status: Acute Assessment and Plan: Resume home medication Subjective Date/time seen: 06/17/21 09:59 Interval history: HPI:65-year-old female with past medical history of Pejepos-Tqims-Ndvgw muscular dystrophy, hypothyroidism, hyperlipidemia, hypertension, metabolic syndrome and significant family history of coronary artery disease who presented to the ER with chest pain. The patient reported that around 6:00 p.m. on the she choked on a piece of pizza. She felt as if the piece may have gotten stuck. She was able to cough the Pizza beat up. She has been able to tolerate secretions and has been able to eat and drink since that time. She has had intermittent coughing spells ever since she choked. In the ER modified barium swallow demonstrated no explanation for the patient's symptoms. She had an EKG performed which demonstrated new Q-waves in V1 and V2 compared to EKG May 25, 2021. The patient reported that about 6 hours after she had her choking episode she actually developed substernal chest pain that was pressure-like in nature and radiated to her back. The pain was a 3/10 in intensity on arrival to the ER but has been as bad as a 6/10 in intensity previously. Pain with company by shortness of breath and intermittent episodes of lightheadedness. The pain would wax and wane but did not completely dissipate. At the time of my evaluation she reported to me that the pain felt as if her chest was going to cave in. Her pain spiked while I was in the room with her was a 6/10 in intensity. She denied any diaphoresis. She reports she has frequent nausea and intermittent heartburn symptoms due to chronic GERD but this pain is different than her usual GERD. What is concerning is that she has also been having dyspnea on exertion on a for the last couple months with symptoms occurring with minimal exertion. She went to her primary care physician's office 06/15/2021 due to lightheadedness occurred with position changes thought to be possible orthostasis. And she reports
--- NOTE | 2021-06-17 10:24 | PM.CNCAR ---
Assessment and Plan Assessment and plan (1) Non-ST elevation OR (NSTEMI): Code(s): I21.4 - Non-ST elevation (NSTEMI) myocardial infarction Status: Acute Assessment and Plan: Subacute NSTEMI with septal Q-waves, chest pain for nearly 24 hours prior to presentation elevated troponin presentation nearly at peak downward trending thus far. Chest pain is persistent. Etiologies include acute plaque rupture due to underlying CAD versus takotsubo or stress-induced cardiomyopathy secondary to the trauma of choking/possible aspiration resulting in abnormal EKG, elevated troponin and wall motion abnormalities on echocardiogram predominantly apical and mid segments with relative sparing of the bases. EF 50-55% anterior, anteroseptal, apical septal, apical lateral and apical wall motion abnormalities. Discussed with patient at length. All scenarios discussed, all questions answered to her satisfaction. Given the ongoing nature of her symptoms, EKG changes and elevated troponin along with wall motion abnormalities I have recommended coronary angiography to delineate her coronary anatomy. We discussed risks, benefits, alternatives including but not limited to infarction, bleeding, infection, stroke, and/or . Patient verbalized understanding and agreed to proceed with coronary angiography. Will give 4000 units IV heparin now, aspirin. Patient has a statin intolerance. Keep NPO. Discussed case with Dr. Thompson of Interventional Cardiology who agrees to proceed with coronary angiography today. Recommendations to follow. Discontinue subcutaneous enoxaparin for the time being. Continue nitroglycerin, supportive care, telemetry. 75 minutes spent in the care of this patient at bedside, examination, chart review, discussion with colleagues, and medical decision making. (2) Chest pain: Qualifiers: Chest pain type: unspecified Qualified Code(s): R07.9 - Chest pain, unspecified Code(s): R07.9 - Chest pain, unspecified Status: Acute Assessment and Plan: As above. Given abnormal EKG, elevated troponin and symptoms possible acute plaque rupture versus esophageal pain due to mechanical obstruction due to food/aspiration. There is a history of Ga's esophagus, history of Juan Manuel fundoplication, GERD, dysmotility and esophageal stricture status post dilatation remotely. Clearly, choking would not cause in of itself elevated troponin which he could have a subsequent acute cardiac event stemming from the stress of the episode although equally plausible takotsubo as noted above. (3) Choking episode: Code(s): R09.89 - Other specified symptoms and signs involving the circulatory and respiratory systems Status: Acute Assessment and Plan: As above, currently resolved. Will keep NPO for now. Patient denies hemoptysis or suggestion of esophageal tear/rupture as also excluded on barium esophagram and CT. (4) Hypertension: Code(s): I10 - Essential (primary) hypertension Status: Acute Assessment and Plan: Stable, controlled. (5) Mixed hyperlipidemia: Code(s): E78.2 - Mixed hyperlipidemia Status: Acute Assessment and Plan: Intolerant to statins unfortunately. LDL elevated 121. If CAD documented goal LDL less than 70. (6) Statin intolerance: Code(s): Z78.9 - Other specified health status Status: Acute Assessment and Plan: Alternatives we discussed as appropriate. (7) Ga esophagus: Code(s): K22.70 - Ga's esophagus without dysplasia Status: Acute Assessment and Plan: Per primary service, continue PPI. History of Present Illness History of Present Illness Consult date/time: Date of service: 06/17/21 10:24 Cardiology consultation at the request of Dr. West of the [facility] service for opinion regarding elevated troponin chest pain. Requesting physician: Velma West, DO Consult reason: chest pain
[2021-06-17] MEDS: SERTRALINE HCL 50 MG TABLET 100 MG PO (11:04)
[2021-06-17] MEDS: PANTOPRAZOLE 40 MG TABLET PO (11:04)
[2021-06-17] MEDS: lisinopriL 10 MG TABLET PO (11:05)
[2021-06-17] MEDS: HEPARIN SODIUM 5,000 UNITS/ML VIAL 4000 UNITS IV PUSH (11:05)
--- NOTE | 2021-06-17 13:37 | WPDHPUPDATE1 ---
History and Physical Update Update Date/Time: 06/17/21 13:37 History and Physical has been reviewed, including an updated exam of the patient. There are NO changes in the patient's condition. Risks, benefits, and alternatives have been discussed and questions answered. Patient agrees to proceed with procedure.
--- NOTE | 2021-06-17 13:38 | WPDMODSED ---
Moderate Sedation Note-Pt Data Patient Data Allergies Allergy/AdvReac Type Severity Reaction Status Date / Time ciprofloxacin Allergy Unknown Skin Verified 06/16/21 17:10 Reaction neomycin Allergy Unknown Skin Verified 06/16/21 17:10 Reaction Penicillins Allergy Unknown Unknown Verified 06/16/21 17:10 Quinolones Allergy Unknown Unknown Verified 06/16/21 17:10 Liqkvxg-Rly-Ngq Reductase Allergy Unknown Gastrointestinal Verified 06/16/21 17:10 Inhibitor Upset LATEX Allergy Unknown BLISTERING Uncoded 06/16/21 17:10 RASH Home Medications Medication Instructions Recorded Confirmed Type alprazolam 0.25 mg tablet 0.25 mg PO TID PRN #30 tablet 07/13/20 06/17/21 Rx hyoscyamine sulfate 0.125 mg 0.125 mg PO Q4-6H PRN #20 tablet 08/19/20 06/17/21 Rx sublingual tablet levothyroxine 75 mcg tablet 75 mcg PO DAILY #90 tablet 11/09/20 06/17/21 Rx calcium citrate 200 mg (950 mg) 400 mg PO DAILY tablet 03/15/21 06/17/21 History tablet magnesium amino acid chelate 100 166.7 mg PO DAILY tablet 03/15/21 06/17/21 History mg tablet zinc 15 mg tablet 16.7 mg PO DAILY tablet 03/15/21 06/17/21 History diclofenac sodium 1 % topical gel 2 g TOPICAL HS PRN 05/25/21 06/17/21 History linaclotide 145 mcg capsule See Rx Instructions .ROUTE 05/25/21 06/17/21 History .COMPLEX PRN cap lisinopril 10 1 tablet PO DAILY tablet 05/25/21 06/17/21 History mg-hydrochlorothiazide 12.5 mg tablet cholecalciferol (vitamin D3) 250 750 mcg PO WEEKLY cap 06/15/21 06/17/21 History mcg (10,000 unit) capsule hydrocodone 5 mg-acetaminophen 325 1 tablet PO Q6H PRN #30 tablet 06/15/21 06/17/21 Rx mg tablet pantoprazole 40 mg tablet,delayed 40 mg PO QAM #90 tablet 06/15/21 06/17/21 Rx release pseudoephedrine-acetaminophen 2 tablet PO PRN PRN 06/17/21 06/17/21 History [Acetaminophen Sinus Max Str] sertraline 100 mg PO DAILY 06/17/21 06/17/21 History trazodone 50 mg PO QHS PRN 06/17/21 06/17/21 History zolpidem 10 mg PO .q hs PRN 06/17/21 06/17/21 History Current Medications: Active Medications Hydrocodone Bitart/Acetaminophen (Hydrocodone/Acetaminophen (*Crx) 5-325 Mg Tablet) 1 tab PO Q6H PRN PRN Reason: Pain 4-6 Alprazolam (Alprazolam (*Crx) 0.25 Mg Tablet) 0.25 mg PO TID PRN PRN Reason: anxiety Aspirin (Aspirin 81 Mg Enteric Tablet) [facility] [place] Atorvastatin Calcium (Atorvastatin 40 Mg Tablet) 40 mg PO HS [facility] Hydrochlorothiazide (Hydrochlorothiazide 12.5 Mg Capsule) [facility] [place] [facility] Last Admin: 06/17/21 10:55 Dose: Not Given Documented by: Hyoscyamine (Hyoscyamine Sulfate 0.125 Mg Tablet) 0.125 mg PO Q4-6H PRN PRN Reason: dyspepsia Levothyroxine Sodium (Levothyroxine Sodium 75 Mcg Tablet) 75 mcg PO DAILY@0630 [facility] Last Admin: 06/17/21 06:13 Dose: 75 mcg Documented by: Lisinopril (Lisinopril 10 Mg Tablet) 10 mg PO [facility] Last Admin: 06/17/21 11:05 Dose: 10 mg Documented by: Metoprolol Tartrate (Metoprolol Tartrate 6.25 Mg Tablet) 6.25 mg PO Q12HR [facility] Morphine Sulfate (Morphine Sulfate (*Crx) 2 Mg/Ml Inj) 2 mg IV PUSH Q1H PRN PRN Reason: Chest Pain Last Admin: 06/17/21 08:01 Dose: 2 mg Documented by: Nitroglycerin (Nitroglycerin Ointment 1 Inch Dose) 1 inch TRANSDERM Q6HR [facility] Last Admin: 06/17/21 11:07 Dose: 1 inch Documented by: Pantoprazole Sodium (Pantoprazole 40 Mg Tablet) [facility] [place] [place] Last Admin: 06/17/21 11:04 Dose: 40 mg Documented by: Sertraline HCl (Sertraline Hcl 50 Mg Tablet) 100 mg PO DAILY [facility] Last Admin: 06/17/21 11:04 Dose: 100 mg Documented by: Trazodone HCl (Trazodone Hcl 50 Mg Tablet) 50 mg PO HS PRN PRN Reason: Sleep Sedation/Anesthesia: No previous sedation/anesthesia problems (including family history). [facility] Past Medical History Medical History Acquired cavovarus deformity of right foot Arthritis Atherosclerosis of aorta B12 deficiency Ga esophagus Pubygsb-Qwejp-Uarfx disease (
--- NOTE | 2021-06-17 14:35 | P.PCNCC_ITS ---
Cardiac Cath Procedure Note Date of procedure:: 06/17/21 Performing physician:: Richy Thompson MD Date of service 06/17/2021 Indication:: elevated troponins Brief clinical history:: this 65-year-old female with past history of hypothyroidism, depression who apparently choked on pizza. she struggled to get the pizza. after that she started to get chest pain associated with shortness of breath that is constant aggravated by ambulation. Troponins elevated. EKG shows subtle ST elevation in lead 1 and aVL. She has a strong family history for CAD and therefore we brought her in to medical laboratory technical officer to rule out nstemi Procedure Procedure performed:: 1-Moderate sedation that started at 2:09 p.m. and ended at 2:28 p.m.using 2mg of Versed and 50mcg fentanyl. The registered nurse was diana bledsoe. 2-Selective left and right coronary angiogram. 3-Left heart catheterization with measurement of LVEDP and measurement of gradient across aortic valve. 4- LV angiogram. 4-Right common femoral arterial angiogram. 5-Deployment of 6 Arabic Angio-Seal. Sedation/Medication given:: Moderate sedation. Access site:: Right common femoral artery. Estimated blood loss:: 10cc Procedure note:: After informed consent patient was brought in to medical laboratory technical officer with the was draped and prepped in usual manner. Moderate sedation was given and the right groin was infiltrated using 1% lidocaine. Five Arabic sheath was obtained using micropuncture needle and the modified Seldinger technique. Selective left coronary angiogram was done using JL4 catheter with the tip of the catheter placed in the left main coronary artery. Selective right coronary angiogram was done using JR4 catheter with the tip of the catheter placed to the right coronary artery. After that 5 Arabic pigtail catheter was advanced across the aortic valve into the left ventricle with measurement of LVEDP and measurement of gradient across aortic valve. Right common femoral arterial angiogram was done. Findings:: 1- left coronary artery is a large artery that divides into large LAD, large circumflex artery. Left main is Free of disease. 2- left anterior descending artery is a large artery that runs and wraps around the apex. Has proximal 30%. Medium size diagonal branch with minimal irregularities. 3- leftcircumflex artery is a large artery And has minimal irregularities. Medium size OM1 branch comes out proximally and has ostial 20%. 4- right coronary artery is Large artery and dominant and free of disease 5- LVEDP was 6 mm Hg and no gradient across aortic valve. 6- LV angiogram consistent with Takotsubo's cardiomyopathy. 6- opening arterial pressure was 140/80 and closing pressure was 100/70 7- right femoral artery angiogram shows no significant disease in the right common femoral artery. patient has high bifurcation of the femoral artery and the sheath entered the right SFA Conclusion:: takotsubo cardiomyopathy. nonobstructive Cad. Assessment and Plan Additional Plan 1- continue observation. 2- recommend José and beta-rocío. 3- recommend aspirin and Plavix for now. 4- repeat echocardiogram in 4 weeks from now.
[2021-06-17] MEDS: SODIUM CHLORIDE 0.9% IV 1,000 ML 70 ML IV CONT (16:56)
[2021-06-17] MEDS: HYDROcodone/acetaminophen (*CRX) 5-325 MG TABLET 1 TAB PO (20:11)
[2021-06-17] MEDS: METOPROLOL TARTRATE 6.25 MG TABLET PO (21:03)
--- NOTE | 2021-06-17 21:23 | PC.NURSE ---
This patient, Schuyler Gutierrez, was transferred to [ [facility]] on 06/17/21 at 2123. Personal belongings sent with patient. Report given to [ Pratima]. Appropriate documentation sent with patient.
--- NOTE | 2021-06-17 21:54 | PC.NURSE ---
This patient, Schuyler Gutierrez, was received from [ IMU] on 06/17/21 at 2130. Patient/family oriented to unit policies and routines. Pt assisted to bathroom. Right groin site c/d/i. No hematoma noted before or after ambulation to the bathroom
[2021-06-18] VITALS (16 sets, daily range): BP systolic 92–118; BP diastolic 48–66; PULSE 52–80; RESP 9–15; TEMP 36.2–37.7; O2SAT 98–100
[2021-06-18] MEDS: MORPHINE SULFATE (*CRX) 2 MG/ML INJ IV PUSH (00:03)
[2021-06-18] MEDS: LEVOTHYROXINE SODIUM 75 MCG TABLET PO (05:49)
[2021-06-18] MEDS: PANTOPRAZOLE 40 MG TABLET PO ×3 (08:39→20:19)
[2021-06-18] MEDS: ASPIRIN 81 MG ENTERIC TABLET PO (08:39)
[2021-06-18] MEDS: SERTRALINE HCL 50 MG TABLET 100 MG PO (08:39)
--- NOTE | 2021-06-18 09:34 | PM.IMPN ---
Progress Note: A&P Assessment and Plan (1) Chest pain: Qualifiers: Chest pain type: unspecified Qualified Code(s): R07.9 - Chest pain, unspecified Code(s): R07.9 - Chest pain, unspecified Status: Acute (2) Elevated troponin: Code(s): R77.8 - Other specified abnormalities of plasma proteins Status: Acute (3) Dyspnea on exertion: Code(s): R06.00 - Dyspnea, unspecified Status: Acute (4) Non-ST elevation SD (NSTEMI): Code(s): I21.4 - Non-ST elevation (NSTEMI) myocardial infarction Status: Acute (5) Choking episode: Code(s): R09.89 - Other specified symptoms and signs involving the circulatory and respiratory systems Status: Acute (6) Mixed hyperlipidemia: Code(s): E78.2 - Mixed hyperlipidemia Status: Acute (7) Metabolic syndrome: Code(s): E88.81 - Metabolic syndrome Status: Acute (8) Obesity (BMI 30.0-34.9): Code(s): E66.9 - Obesity, unspecified Status: Acute (9) Hypothyroidism (acquired): Code(s): E03.9 - Hypothyroidism, unspecified Status: Acute Assessment and Plan: Resume levothyroxine (10) Hypertension: Code(s): I10 - Essential (primary) hypertension Status: Acute Assessment and Plan: Resume home medication Additional Plan EKG changes which are new with new Q-waves and T inversions in septal leads along with elevated troponin peaked at 2.[address]-elevation SD. Will suggest anticoagulation with and IV heparin/full-dose Lovenox Will need cardiac catheterization Cardiology on board await their recommendations Received full-dose aspirin 325 mg last evening. Will continue with aspirin 81 mg daily Beta-rocío will be added if tolerated Nitro paste for chest pain as ordered Add statin lipid profile with 245/53/121/76 goal LDL of less than 70 choking Likely a single event. however does have h/o Ga's esophagus, history of Juan Manuel fundoplication, GERD, dysmotility and esophageal stricture status post dilatation CT chest, chest x-ray, and barium esophagogram unremarkable Chest pain elevated troponins consistent with non STEMI. The patient's troponin has climbed to 2.93. She has continued to have substernal chest pain that radiates through to her back. Repeat EKG is unchanged from initial 1 in the ER. I ordered nitropaste when I evaluate the patient in the ER. Despite nitropaste the patient is still having chest pain his improved from 6/10 intensity down to 3/10 in intensity. Will continue with p.r.n. morphine. The patient received full-dose aspirin in the ER. Cardiology has been consulted. Given the patient's continuous symptoms despite nitropaste and morphine administration have asked nursing staff to contact Cardiology to update on the patient's condition. Repeat EKG was performed and demonstrated stable Q-waves without any evidence of ST elevation. The patient has been admitted to the IMU. The ER provider told me that Cardiology did not want the patient received therapeutic Lovenox or heparin drip. However will place patient on Lovenox 40 mg subQ daily for DVT prophylaxis. 06/18/21 pt presented w CP after choking event. She has h/o Ga's esophagus, history of Juan Manuel fundoplication, GERD, dysmotility and esophageal stricture status post dilatation -> CT chest, chest x-ray, and barium esophagogram unremarkable will try modified GI cocktail for chest pain elevated troponin taken to labor relations manager -> mild CAD, LV angiogram consistent with Takotsubo's cardiomyopathy pt started on ACEi and BB, today she had had low BP and ACEi decreased and HCTZ d/c by Cardio anticipate dc home tomorrow Subjective Date/time seen: 06/18/21 09:34 patient is doing okay she has recently complained of ongoing chest pain to the nurse substernal Her blood pressures are low and she is symptomatic. This has been discussed with Cardiology recommendations appreciated Exam Narrative:
--- NOTE | 2021-06-18 11:39 | PM.PNCARD ---
Progress Note: A&P Assessment and Plan (1) Takotsubo cardiomyopathy: Code(s): I51.81 - Takotsubo syndrome Status: Acute Assessment and Plan: Chest pain after severe choking with elevated troponin mild LV dysfunction EF 50-55% with apical and mid segment wall motion abnormalities with minimal nonobstructive CAD and LHC consistent with takotsubo cardiomyopathy. -beta-rocío and MARTHA-inhibitor therapy as BP and heart rate permits. Discussed importance of medical support. Anticipate resolution of LV dysfunction and wall motion abnormalities within the next 2 weeks or so. Plan to repeat 2D echocardiogram as outpatient in 1 month. Observe overnight anticipate discharge home tomorrow if able to tolerate medications without symptomatic hypotension or new concerns. (2) CAD (coronary artery disease): Code(s): I25.10 - Atherosclerotic heart disease of elem coronary artery without angina pectoris Status: Acute Assessment and Plan: As above. Aspirin 81 mg daily. Ideally statin therapy advised. Patient intolerant to several statins in the past although she cannot call which ones specifically. Aggressive risk factor modification counseling. CAD incidentally discovered not involved with elevated troponin. Type 2 infarct secondary to takotsubo cardiomyopathy not acute coronary syndrome or NSTEMI as initially considered. Coronary angiography: Findings:: 1- left coronary artery is a large artery that divides into large LAD, large circumflex artery. Left main is Free of disease. 2- left anterior descending artery is a large artery that runs and wraps around the apex. Has proximal 30%. Medium size diagonal branch with minimal irregularities. 3- left circumflex artery is a large artery And has minimal irregularities. Medium size OM1 branch comes out proximally and has ostial 20%. 4- right coronary artery is Large artery and dominant and free of disease 5- LVEDP was 6 mm Hg and no gradient across aortic valve. 6- LV angiogram consistent with Takotsubo's cardiomyopathy. 6- opening arterial pressure was 140/80 and closing pressure was 100/70 (3) Chest pain: Qualifiers: Chest pain type: unspecified Qualified Code(s): R07.9 - Chest pain, unspecified Code(s): R07.9 - Chest pain, unspecified Status: Acute Assessment and Plan: Most likely residual GI from traumatic mechanical inflammation from choking although possible residual from myocardial involvement of takotsubo cardiomyopathy. Symptoms improving over time anticipate will continue in this regard. Discussed with primary service will alter GI medical management in hopes for symptomatic improvement. (4) Hypotension: Code(s): I95.9 - Hypotension, unspecified Status: Acute Assessment and Plan: Symptomatic with position change prompting medications to be held this morning. Will reduce lisinopril to 5 mg daily, discontinued hydrochlorothiazide. Low-dose metoprolol and lisinopril in a.m. as BP permits. Observe tolerance closely. Patient not stable for discharge home today. Check BMP, CBC given hematoma. If significant decline in hemoglobin (>2g) consider arterial Doppler right groin (5) Hematoma following angiography: Status: Acute Assessment and Plan: Stable. Continue to monitor throughout the day. Patient counseled red flag symptoms what report regards to enlargement, worsening pain. Explained natural progression and resolution over time (6) Elevated troponin: Code(s): R77.8 - Other specified abnormalities of plasma proteins Status: Acute Assessment and Plan: As above. Suspect related to type 2 infarction with takotsubo cardiomyopathy as opposed to acute coronary syndrome/plaque rupture as he has nonobstructive stable mild CAD on [facility] with angiogram and echocardiogram consistent with a takotsubo cardiomyopathy. (7) Choking episode: Code(s): R09.89 - Other specified symptoms and si
[2021-06-18 13:01] LABS: Hemoglobin 11.9 g/dL (12.0-15.0); Mean Corpuscular HGB Conc 33.1 g/dl (32-36); Mean Corpuscular Volume 96.8 fl (80-100); Mean Platelet Volume 10.1 fl (7.4-10.4); Platelet Count Result 197 k/mm3 (150-375); Red Blood Count 3.72 M/mm3 (4.2-5.4); Red Cell Distribution Width 13.1 % (11.5-14.5); White Blood Count 6.8 K/mm3 (4.5-10.0)
[2021-06-18 13:11] LABS: Anion Gap 11 mmol/L (8-16); Blood Urea Nitrogen 15 mg/dL (7-17); Calcium 8.8 mg/dL (8.4-10.2); Carbon Dioxide 26 mmol/L (22-30); Chloride 101 mmol/L (98-107); Estimated CRCL calculation 42 ml/min; Estimated Glomerular Filt Rate 55; Glucose 137 mg/dL (65-110); Potassium 3.5 mmol/L (3.4-5.0); Sodium 138 mmol/L (137-145)
[2021-06-18] MEDS: LIDOCAINE HCL 2% VISC SOLN 15 ML UDC PO (14:06)
[2021-06-18] MEDS: MAG HYDROX/AL HYDROX/SIMETH 30 ML UDC PO (14:06)
[2021-06-18] MEDS: SUCRALFATE 1 GM TABLET PO ×2 (16:23→20:20)
[2021-06-18] MEDS: METOPROLOL TARTRATE 6.25 MG TABLET PO (20:19)
[2021-06-18] MEDS: ATORVASTATIN 40 MG TABLET PO (20:20)
[2021-06-18] MEDS: HYDROcodone/acetaminophen (*CRX) 5-325 MG TABLET 1 TAB PO (21:56)
[2021-06-19] VITALS (12 sets, daily range): BP systolic 100–138; BP diastolic 55–77; PULSE 53–71; RESP 14–19; TEMP 36.2–37.1; O2SAT 100
[2021-06-19] MEDS: LEVOTHYROXINE SODIUM 75 MCG TABLET PO (06:32)
[2021-06-19] MEDS: SUCRALFATE 1 GM TABLET PO ×2 (06:34→11:20)
[2021-06-19] MEDS: ONDANSETRON INJ 4 MG/2 ML VIAL IV PUSH (09:23)
[2021-06-19] MEDS: ASPIRIN 81 MG ENTERIC TABLET PO (11:19)
[2021-06-19] MEDS: lisinopriL 10 MG TABLET PO (11:19)
[2021-06-19] MEDS: PANTOPRAZOLE 40 MG TABLET PO (11:20)
[2021-06-19] MEDS: METOPROLOL TARTRATE 6.25 MG TABLET PO (11:20)
[2021-06-19] MEDS: SERTRALINE HCL 50 MG TABLET 100 MG PO (11:20)
--- NOTE | 2021-06-19 12:01 | PM.PNCARD ---
Progress Note: A&P Assessment and Plan (1) Takotsubo cardiomyopathy: Code(s): I51.81 - Takotsubo syndrome Status: Acute Assessment and Plan: Chest pain after severe choking with elevated troponin mild LV dysfunction EF 50-55% with apical and mid segment wall motion abnormalities with minimal nonobstructive CAD and LHC consistent with takotsubo cardiomyopathy. -beta-rocío and MARTHA-inhibitor therapy as BP and heart rate permits. Discussed importance of medical support. Anticipate resolution of LV dysfunction and wall motion abnormalities within the next 2 weeks or so. Plan to repeat 2D echocardiogram as outpatient in 1 month. Blood pressure and heart rate tolerating beta-rocío and MARTHA-inhibitor. (2) CAD (coronary artery disease): Code(s): I25.10 - Atherosclerotic heart disease of [place] coronary artery without angina pectoris Status: Acute Assessment and Plan: As above. Aspirin 81 mg daily. Ideally statin therapy advised. Patient intolerant to several statins in the past although she cannot call which ones specifically. Aggressive risk factor modification counseling. CAD incidentally discovered not involved with elevated troponin. Type 2 infarct secondary to takotsubo cardiomyopathy not acute coronary syndrome or NSTEMI as initially considered. Coronary angiography: Findings:: 1- left coronary artery is a large artery that divides into large LAD, large circumflex artery. Left main is Free of disease. 2- left anterior descending artery is a large artery that runs and wraps around the apex. Has proximal 30%. Medium size diagonal branch with minimal irregularities. 3- left circumflex artery is a large artery And has minimal irregularities. Medium size OM1 branch comes out proximally and has ostial 20%. 4- right coronary artery is Large artery and dominant and free of disease 5- LVEDP was 6 mm Hg and no gradient across aortic valve. 6- LV angiogram consistent with Takotsubo's cardiomyopathy. 6- opening arterial pressure was 140/80 and closing pressure was 100/70 (3) Chest pain: Qualifiers: Chest pain type: unspecified Qualified Code(s): R07.9 - Chest pain, unspecified Code(s): R07.9 - Chest pain, unspecified Status: Acute Assessment and Plan: Most likely residual GI from traumatic mechanical inflammation from choking although possible residual from myocardial involvement of takotsubo cardiomyopathy. Symptoms improving over time anticipate will continue in this regard. Discussed with primary service will alter GI medical management in hopes for symptomatic improvement. (4) Hypotension: Code(s): I95.9 - Hypotension, unspecified Status: Acute Assessment and Plan: Symptomatic with position change prompting medications to be held this morning. Will reduce lisinopril to 5 mg daily, discontinued hydrochlorothiazide. Low-dose metoprolol and lisinopril in a.m. as BP permits. Observe tolerance closely. Patient not stable for discharge home today. Check BMP, CBC given hematoma. If significant decline in hemoglobin (>2g) consider arterial Doppler right groin (5) Hematoma following angiography: Status: Acute Assessment and Plan: Stable. Continue to monitor throughout the day. Patient counseled red flag symptoms what report regards to enlargement, worsening pain. Explained natural progression and resolution over time (6) Elevated troponin: Code(s): R77.8 - Other specified abnormalities of plasma proteins Status: Acute Assessment and Plan: As above. Suspect related to type 2 infarction with takotsubo cardiomyopathy as opposed to acute coronary syndrome/plaque rupture as he has nonobstructive stable mild CAD on [facility] with angiogram and echocardiogram consistent with a takotsubo cardiomyopathy. (7) Choking episode: Code(s): R09.89 - Other specified symptoms and signs involving the circulatory and respiratory systems
--- NOTE | 2021-06-19 13:00 | PC.NURSE ---
UPDATED PRANAV LOTT CORPORATE SAFETY COORDINATOR ON PT. CONDITION AND TOLERANCE OF MEDS TODAY. WILL UPDATE JULIET AGUILAR.
--- NOTE | 2021-06-19 13:55 | PC.NURSE ---
UPDATED JULIET PA ON PT. CONDITION TODAY AND VS, TOLERANCE OF MEDS. PLAN IS FOR DISCHARGE HOME. WILL CONTINUE TO MONITOR.
--- NOTE | 2021-06-19 14:10 | PM.DS ---
DS: Admitting Diagnosis Discharge Date 06/19/21 Admitting Diagnosis Choking episode, chest pain DS: Discharge Diagnosis Discharge Diagnosis (1) Takotsubo cardiomyopathy: Code(s): I51.81 - Takotsubo syndrome Status: Acute Assessment and Plan: She developed chest pain after her choking episode. Echo showed EF 50-55% with wall motion abnormalities and nonobstructive CAD, felt to be consistent with Takotsubo cardiomyopathy. She was seen in consultation by cardiology. Initiated on metoprolol and lisinopril. Repeat echo in 1 month and follow up with cardiology as an outpatient. (2) CAD (coronary artery disease): Code(s): I25.10 - Atherosclerotic heart disease of [place] coronary artery without angina pectoris Status: Acute Assessment and Plan: Had cardiac cath on 06/17/21 which showed nonobstructive CAD. Educated on lifestyle modification to improve cardiac risk factors. (3) Elevated troponin: Code(s): R77.8 - Other specified abnormalities of plasma proteins Status: Acute Assessment and Plan: Related to type 2 infarct secondary to takotsubo cardiomyopathy. Not related to ACS or NSTEMI. (4) Choking episode: Code(s): R09.89 - Other specified symptoms and signs involving the circulatory and respiratory systems Status: Acute Assessment and Plan: Choked on a piece of pizza on 06/15/21. She was able to cough up the pizza. She reports history of Ga's esophagus, Juan Manuel fundoplication, GERD, dysmotility, and esophageal stricture s/p esophageal dilation. Discussed dietary modifications including soft and bite sized diet and sips between bites. Aspiration precautions discussed. 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 (5) Mixed hyperlipidemia: Code(s): E78.2 - Mixed hyperlipidemia Status: Acute Assessment and Plan: Previously intolerant to statins but unsure which. Will trial atorvastatin. Follow up with PCP and cardiology. (6) Hypothyroidism (acquired): Code(s): E03.9 - Hypothyroidism, unspecified Status: Acute Assessment and Plan: Continue levothyroxine (7) Hypertension: Code(s): I10 - Essential (primary) hypertension Status: Acute Assessment and Plan: Blood pressures generally well controlled. She did have some episodes of soft BP following cardiac cath. HCTZ discontinued and lisinopril dose decreased to 5 mg daily. BP was stable with medication changes. DS: Summary Hospital Course Hospital Course: Date of admission: 06/16/2021 Date of discharge: 06/19/2021 Schuyler Gutierrez is a 65-year-old female with a history Ga's esophagus, esophageal dysmotility, gastroparesis, hypothyroidism, hyperlipidemia, and hypertension who presented to the emergency department on 06/16/2021 which she pain change checking today showed and associated aching chest pain. On presentation to the emergency department, her vital signs are stable, she was afebrile, CBC unremarkable, BUN and creatinine slightly elevated with additional electrolytes stable, CXR showed no acute cardiopulmonary findings, barium swallow was normal, chest CT again with no acute findings, and EKG noted to have Q-waves in V1 and V2, troponin was elevated at 2.47. She was admitted to the hospitalist service for further evaluation and management. She was seen in consultation by cardiology. Please see above for further details. She underwent cardiac catheterization and overall presentation felt to be consistent with Takotsubo cardiomyopathy. Her chest pain resolved. She will follow-up with cardiology as an outpatient for further monitoring. She will also follow up with GI as an outpatient for repeat EGD given her choking episode. Given her overall improvement, she was determined to no longer require inpatient care and was felt to be stable for discharge. She felt comfortable with plans for discharge home. Discussed wo
--- NOTE | 2021-06-19 16:20 | PC.NURSE ---
WHILE REVIEWING DISCHARGE INSTRUCTIONS W/ PT. DISCOVERED INCORRECT MEDICATION ON INSTRUCTIONS AND VERIFIED W/ PRANAV LOTT NP. PT. IS TO DISCONTINUE LISINOPRIL/HCTZ COMBINATION AND IS TO START TAKING LISINOPRIL 10MG PO DAILY. PRANAV LOTT NP STATES SHE WILL ELECTRONICALLY TRANSMIT A PRESCRIPTION TO [facility] FOR LISINOPRIL. THIS CLARIFIED W/ PT AND SHE VOICES UNDERSTANDING. ALSO, PT. IS TO BE TAKING METOPROLOL TARTRATE 6.25MG PO BID AND WAS CORRECTED ON DISCHARGE PAPERWORK. BOTH OF THESE DISCOVERED AFTER DISCHARGE MEDICATIONS FINALIZED FOR PRINTING AND COULD NOT BE CHANGED IN COMPUTER. PT. VOICES UNDERSTANDING OF THESE MEDICATION INSTRUCTIONS.
--- NOTE | 2021-06-19 16:40 | PC.NURSE ---
DISCHARGED HOME, OUT VIA WC, TO 'S WAITING CAR WITH ALL PERSONAL BELONGINGS AND DISCHARGE PACKET. R. GROIN SITE STATUS UNCHANGED. R. PEDAL PULSE STRONG. VOICES NO C/O. NO DISTRESS NOTED.
== END 2021-06-19 16:40 | disposition home or self-care (01) | DRG 281 ==
LOC: ANHED 22:01 → ANHIMU 06-17 00:15 → ANHCPC 06-19 07:13 → ANHIMU 06-20 15:07
PROVIDERS: Internal Medicine Cardiovascular Disease; Physician Assistant; Admitting Provider Internal Medicine; Emergency Provider Emergency Medicine; PCP Family Medicine; Visit Provider Physician Assistant
PROC: 4A023N7 Measurement of Cardiac Sampling and Pressure, Left Heart, Percutaneous Approach (ICD-10-PCS; CPT 93452; principal; 2021-06-17 13:35)
DX: I51.81 Takotsubo syndrome (principal); I21.A1 Myocardial infarction type 2; L76.32 Postprocedural hematoma of skin and subcutaneous tissue following other procedure; I25.10 Atherosclerotic heart disease of native coronary artery without angina pectoris; R09.89 Other specified symptoms and signs involving the circulatory and respiratory systems; E78.2 Mixed hyperlipidemia; E03.9 Hypothyroidism, unspecified; I10 Essential (primary) hypertension; K22.70 Barrett's esophagus without dysplasia; K22.8 Other specified diseases of esophagus; K31.84 Gastroparesis; I95.9 Hypotension, unspecified; R77.8 Other specified abnormalities of plasma proteins; R06.00 Dyspnea, unspecified; G71.00 Muscular dystrophy, unspecified; E88.81 Metabolic syndrome and other insulin resistance; E66.9 Obesity, unspecified; Z68.26 Body mass index [BMI] 26.0-26.9, adult; Z79.899 Other long term (current) drug therapy; Z78.9 Other specified health status; Z82.49 Family history of ischemic heart disease and other diseases of the circulatory system
CPT/HCPCS: 36415; 70360; 71046; 71250; 74220; 80048; 80053; 80061; 83690; 84484; 85025; 85027; 85610; 85730; 93005; 93306; 93458; 96374; 96375; 96376; 99285; A9270; C1887; C1894; G0378; J1644; J2250; J2270; J2405; J3010; J7030; J7040

== ENCOUNTER 2021-07-07 02:37 | Day surgery (SDC) | payer MEDICARE, SELFPAY ==
[2021-06-30 08:20] VITALS: BMI 27.5
--- NOTE | 2021-07-06 13:46 | PM.HPGS ---
History of Present Illness History of Present Illness Consent: Risks, benefits, and alternatives have been discussed and questions answered. Patient agrees to proceed with procedure. Chief complaint: dysphagia Narrative: Schuyler Gutierrez is a 65 year old female with dysphagia. Recently she had choked on a piece of the resulted in a hospitalization because of severe chest pain. She has had episodes since then of choking on dunn. Review of Systems Review of Systems: All systems reviewed & are unremarkable except as noted in HPI and below PMFSH Past Medical History Medical History Acquired cavovarus deformity of right foot Arthritis Atherosclerosis of aorta B12 deficiency Ga esophagus Jidacgb-Wqtqa-Ohnji disease (~03/2021) Chronic insomnia Depression Dyskinesia of esophagus Esophageal web Essential (primary) hypertension Gastroparesis Hypothyroidism (acquired) Internal derangement of right knee Irritable bowel syndrome with diarrhea Latex allergy status Metabolic syndrome Mixed hyperlipidemia Neuritis of right sural nerve Other hyperlipidemia Other spondylosis with radiculopathy, cervical region Patellar tendonitis of right knee Peripheral neuropathy Postgastric surgery syndromes Prediabetes With last hemoglobin A1c 4.7 Seasonal allergies Secondary osteoarthritis, right shoulder Shellfish allergy Spinal stenosis, unspecified region other than cervical Unspecified vitamin D deficiency Surgical History Surgical History History of Achilles tendon repair (~2017) History of arthroscopy of right knee History of cholecystectomy (~2009) History of endoscopy History of foot surgery (~2018) tendon repair History of hysterectomy (~1979) Due to uterine prolapse History of lumbar discectomy (~2009) History of Juan Manuel fundoplication (~1996) History of oophorectomy, unilateral History of tonsillectomy (~1959) Family History Family History Grandparent Diabetes mellitus Father Hypertension Family history of elevated blood lipids Acute myocardial infarction, Onset Age: 40 Heart disease Mother Family history of lung cancer Sibling Acute myocardial infarction, Onset Age: 65 [place] Heart disease Other Arthritis Social History Social History Social History: She lives in [place] with her of 47 years. They have 3 children. Her son recently moved back into the home with them and has a small dog. There middle daughter works as a nurse at [employer]. There youngest daughter was murdered. 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 She never smoked. She drinks 1 alcoholic beverage a year on average. She denies illicit substance use. She is a mostly sedentary lifestyle. Primary care physician: Dr. Juan Pablo Easton Code status: Full code Surrogate decision maker: Smoking status: Never smoker Additional smoking assessment comments: DENIES ANY FORM OF TOBACCO USE Alcohol intake: never Alcohol use details: Occasional Substance use: never Living arrangements: with family Gender identity (if verbalized by the patient): Female Spiritual care concerns: No Meds Home Medications and Allergies Home Medications Medication Instructions Recorded Confirmed Type hyoscyamine sulfate 0.125 mg 0.125 mg PO Q4-6H PRN #20 tablet 08/19/20 07/07/21 Rx sublingual tablet levothyroxine 75 mcg tablet 75 mcg PO DAILY #90 tablet 11/09/20 07/07/21 Rx calcium citrate 200 mg (950 mg) 400 mg PO DAILY tablet 03/15/21 07/07/21 History tablet magnesium amino acid chelate 100 166.7 mg PO DAILY tablet 03/15/21 07/07/21 History mg tablet zinc 15 mg tablet 16.7 mg PO DAILY tablet 03/15/21
[2021-07-07 10:39] VITALS: BMI 26.7
[2021-07-07 10:40] VITALS: BP 132/63; PULSE 67; RESP 16; TEMP 36.2; O2SAT 100
[2021-07-07] MEDS: LACTATED RINGERS 1,000 ML 150 ML IV CONT (10:50)
--- NOTE | 2021-07-07 10:52 | WPDANESEPPF ---
Anes - Initial Pre Proc Eval Procedure: Operation Date: 07/07/21 11:00 Proposed Procedures p Esophagogastroduodenoscopy - Sukhdeep Lizarraga MD Date/Time: 07/07/21 10:52 Surgeon: Sukhdeep Lizarraga MD Pre Op Diagnosis: dysphagia Patient Data Age: 65 Gender: F Height: 1.63 m Weight: 70.7 kg Last Vital Signs Temp 97.2 F L 07/07/21 10:40 Pulse 67 07/07/21 10:40 Resp 16 07/07/21 10:40 BP 132/63 07/07/21 10:40 Pulse Ox 100 07/07/21 10:40 Allergies Allergy/AdvReac Type Severity Reaction Status Date / Time ciprofloxacin Allergy Unknown Skin Verified 07/07/21 10:36 Reaction neomycin Allergy Unknown Skin Verified 07/07/21 10:36 Reaction Penicillins Allergy Unknown Unknown Verified 07/07/21 10:36 Quinolones Allergy Unknown Unknown Verified 07/07/21 10:36 Xmlupfm-Wts-Pzx Reductase Allergy Unknown Gastrointestinal Verified 07/07/21 10:36 Inhibitor Upset LATEX Allergy Intermediate BLISTERING Uncoded 07/07/21 10:36 RASH Home Medications Medication Instructions Recorded Confirmed Type hyoscyamine sulfate 0.125 mg 0.125 mg PO Q4-6H PRN #20 tablet 08/19/20 07/07/21 Rx sublingual tablet levothyroxine 75 mcg tablet 75 mcg PO DAILY #90 tablet 11/09/20 07/07/21 Rx calcium citrate 200 mg (950 mg) 400 mg PO DAILY tablet 03/15/21 07/07/21 History tablet magnesium amino acid chelate 100 166.7 mg PO DAILY tablet 03/15/21 07/07/21 History mg tablet zinc 15 mg tablet 16.7 mg PO DAILY tablet 03/15/21 07/07/21 History diclofenac sodium 1 % topical gel 2 g TOPICAL HS PRN 05/25/21 07/07/21 History linaclotide 145 mcg capsule See Rx Instructions .ROUTE 05/25/21 07/07/21 History .COMPLEX PRN cap cholecalciferol (vitamin D3) 250 750 mcg PO WEEKLY cap 06/15/21 07/07/21 History mcg (10,000 unit) capsule hydrocodone 5 mg-acetaminophen 325 1 tablet PO Q6H PRN #30 tablet 06/15/21 07/07/21 Rx mg tablet pseudoephedrine-acetaminophen 2 tablet PO PRN PRN 06/17/21 07/07/21 History sertraline 100 mg PO DAILY 06/17/21 07/07/21 History trazodone 50 mg PO QHS PRN 06/17/21 07/07/21 History zolpidem 10 mg PO .q hs PRN 06/17/21 07/07/21 History albuterol sulfate 1 inh INHALATION QID PRN #6.7 g 06/19/21 07/07/21 Rx aspirin 81 mg PO QAM #30 tablet 06/19/21 07/07/21 Rx atorvastatin 40 mg PO HS #30 tablet 06/19/21 07/07/21 Rx metoprolol tartrate 6.25 mg PO DAILY #30 tablet 06/19/21 07/07/21 Rx pantoprazole [Protonix] 40 mg PO BID #90 tablet 06/19/21 07/07/21 Rx lisinopril 5 mg PO DAILY #30 tablet 06/20/21 07/07/21 Rx alprazolam 0.25 mg tablet 0.25 mg PO TID PRN #30 tablet 06/29/21 07/07/21 Rx Patient hx anesthesia problems: none Family hx anesthesia problems: none Results Review: All pre-operative results and documents have been reviewed as part of the pre-operative evaluation. [facility] Past Medical History Medical History Acquired cavovarus deformity of right foot Arthritis Atherosclerosis of aorta B12 deficiency Ga esophagus Lbdfuie-Phshv-Rqzed disease (~03/2021) Chronic insomnia Depression Dyskinesia of esophagus Esophageal web Essential (primary) hypertension Gastroparesis Hypothyroidism (acquired) Internal derangement of right knee Irritable bowel syndrome with diarrhea Latex allergy status Metabolic syndrome Mixed hyperlipidemia Neuritis of right sural nerve Other hyperlipidemia Other spondylosis with radiculopathy, cervical region Patellar tendonitis of right knee Peripheral neuropathy Postgastric surgery syndromes Prediabetes With last hemoglobin A1c 4.7 Seasonal allergies Secondary osteoarthritis, right shoulder Shellfish allergy Spinal stenosis, unspecified region other than cervical Unspecified vitamin D deficiency Surgical History Surgical History History of Achilles tendon repair (~2017) History of arthroscopy of right knee History of cholecystectomy (~2009) Hi
[2021-07-07 11:21] VITALS: BP 115/60; PULSE 57; RESP 16; O2SAT 100
[2021-07-07 11:31] VITALS: BP 130/66; PULSE 61; RESP 24; O2SAT 100
[2021-07-07 11:41] VITALS: BP 147/66; PULSE 56; RESP 23; O2SAT 100
== END 2021-07-07 11:58 | disposition home or self-care (01) ==
PROVIDERS: PCP Family Medicine; Visit Provider Internal Medicine Gastroenterology
PROC: 0DJ08ZZ Inspection of Upper Intestinal Tract, Via Natural or Artificial Opening Endoscopic (ICD-10-PCS; CPT 43235; principal; 2021-07-07 11:00)
DX: R13.10 Dysphagia, unspecified (principal); Z98.84 Bariatric surgery status; G60.0 Hereditary motor and sensory neuropathy; I10 Essential (primary) hypertension; E78.2 Mixed hyperlipidemia; R73.03 Prediabetes; E55.9 Vitamin D deficiency, unspecified; G62.9 Polyneuropathy, unspecified; F32.9 Major depressive disorder, single episode, unspecified; E03.9 Hypothyroidism, unspecified; K58.0 Irritable bowel syndrome with diarrhea; Z79.82 Long term (current) use of aspirin; Z79.891 Long term (current) use of opiate analgesic; Z79.51 Long term (current) use of inhaled steroids
CPT/HCPCS: 43239; 88305; J7120

== ENCOUNTER 2021-07-11 10:32 | Outpatient (CLI) | payer MEDICARE, SELFPAY ==
--- NOTE | ~2021-07-11 | MM_ITS ---
EXAMINATION: MM screening [facility] BI w sarai HISTORY: Screening mammogram TECHNIQUE: Craniocaudal and mediolateral oblique 3-D tomosynthesis images were obtained and synthetic 2-D images were generated. CAD analysis was submitted and interpreted. COMPARISON: 07/31/2019, 02/07/2017, 09/23/2013 BREAST PARENCHYMAL COMPOSITION: There are scattered areas of fibroglandular density. FINDINGS: There is no evidence of suspicious mass, calcification, or architectural distortion to sugg est malignancy in either breast. There has been no suspicious interval change. IMPRESSION: 1. No mammographic evidence of malignancy. 2. Recommend routine screening mammography in one year. BI-RADS Category 1: Negative Reviewed, dictated and finalized at location A.
== END 2021-07-11 10:33 | disposition home or self-care (01) ==
PROVIDERS: PCP Family Medicine; Visit Provider Physician Assistant Medical
DX: Z12.31 Encounter for screening mammogram for malignant neoplasm of breast (principal)
CPT/HCPCS: 77063; 77067

== ENCOUNTER 2021-08-21 12:30 | Outpatient (CLI) | payer MEDICARE, SELFPAY ==
--- NOTE | 2021-08-21 14:19 | WPDPFTINT ---
PFT Procedure Performed PFT Procedure Performed Plethysmography (Lung Vol) Diffusing Cap (DLCO) Flow Vol Loop Spirometry w/o Bronchodil PFT Interpretation This is a pulmonary function test with spirometry, plethysmography and diffusing capacity. The test was performed and results interpreted in accordance with the 2019 and 2005 ATS/ERS Task Force guidelines respectively using the Global Lung Function Initiative-2012 reference equations. Patient demonstrated good effort and cooperation. Reproducibility criteria were met. The quality of the spirometry maneuver was Grade A. Findings: Spirometry: The contour the inspiratory and expiratory flow tracing are normal. The FVC is 3.18 L, 113% predicted. The FEV1 is 2.18 L, 108% predicted. The FEV1: FVC ratio 69%. Plethysmography: The total lung capacity is 4.92 L, 106% predicted. The functional residual capacity is 3.10 L, 121% predicted. The residual volume is 1.74 L, 96% predicted. Diffusing capacity: The absolute diffusion capacity is 18.1, 92% predicted. The diffusing capacity corrected for alveolar volume is 4.05, 110% predicted. In comparison to previous pulmonary function test in our laboratory on 02/15/2015 the FVC is unchanged from 3.30 L to 3.18 L. The FEV1 is unchanged from 2.33 L to 2.18 L. The total lung capacity is unchanged from 5.07 L to 4.92 L. The functional residual capacity is unchanged from 2.90 L to 3.10 L. The residual volume is unchanged from 1.77 L to 1.74 L. The absolute diffusion capacity is unchanged from 17.3 to 18.1. The diffusing capacity corrected for alveolar volume is unchanged from 3.70 to 4.05. Impression: There is a mild obstructive abnormality with a normal FEV1. The lung volumes are normal. The diffusing capacity is normal. When compared to previous pulmonary function test on 02/15/2015 there has been no significant change in the FVC, FEV1, total lung capacity, functional residual capacity, residual volume, absolute diffusion capacity and diffusing capacity corrected for alveolar volume.
== END 2021-08-21 12:31 | disposition home or self-care (01) ==
LOC: ANHPFT 12:31
PROVIDERS: PCP Family Medicine; Visit Provider Nurse Practitioner Adult Health
DX: Z87.09 Personal history of other diseases of the respiratory system (principal); R94.2 Abnormal results of pulmonary function studies
CPT/HCPCS: 94375; 94726; 94729

== ENCOUNTER → 2021-10-16 04:05 | Outpatient (CLI) | payer MEDICARE, SELFPAY ==
[2021-10-16 20:23] LABS: SARS-CoV-2 RNA PCR Negative
== END ==
PROVIDERS: PCP Family Medicine; Visit Provider Family Medicine
DX: R05.9 Cough, unspecified (principal); R52 Pain, unspecified; Z20.822 Contact with and (suspected) exposure to COVID-19
CPT/HCPCS: 87081; 87426; 87880; 99213; C9803; G0463; U0003; U0005

== ENCOUNTER 2021-10-16 16:52 | Emergency (ER) | payer MEDICARE, SELFPAY ==
[2021-10-16 17:20] VITALS: BP 148/87; PULSE 79; RESP 20; TEMP 36.3; O2SAT 100
--- NOTE | 2021-10-16 17:38 | ED.GENADULT ---
HPI - General Adult General Chief complaint: Upper Respiratory Infection Stated complaint: Runny Nose,Congestion,Headache,Shortness of breath Source: patient Mode of arrival: ambulatory Limitations: no limitations History of Present Illness HPI narrative: 66 y/o female. PMHx ESTRELLA, GERD, Asthma, Hypothyroid, HTN, Dyslipidemia. Presents to ED today with acute complaints of nasal congestion, sore throat, bilateral ear ache, as well as semi-productive cough and intermittent dyspnea for the past 1 week. She notes to have been exposed to two other family members in the home, who have had recent Covid 19 viral illness. Denies fever. No BRENNAN. No chest pain, palpitations, edema No GI upset. She is without additional acute c/o illness upon PE. Related Data Home Medications Medication Instructions Recorded Confirmed calcium citrate 200 mg (950 mg) 400 mg PO DAILY tablet 03/15/21 10/16/21 tablet magnesium amino acid chelate 100 166.7 mg PO DAILY tablet 03/15/21 10/16/21 mg tablet zinc 15 mg tablet 16.7 mg PO DAILY tablet 03/15/21 10/16/21 diclofenac sodium 1 % topical gel 2 g TOPICAL HS PRN 05/25/21 10/16/21 cholecalciferol (vitamin D3) 250 750 mcg PO WEEKLY cap 06/15/21 10/16/21 mcg (10,000 unit) capsule pseudoephedrine-acetaminophen 2 tablet PO PRN PRN 06/17/21 10/16/21 sertraline 100 mg PO DAILY 06/17/21 10/16/21 trazodone 50 mg PO QHS PRN 06/17/21 10/16/21 zolpidem 10 mg PO .q hs PRN 06/17/21 09/07/21 pantoprazole [Protonix] 40 mg PO DAILY 08/11/21 10/16/21 Allergies Allergy/AdvReac Type Severity Reaction Status Date / Time ciprofloxacin Allergy Unknown Skin Verified 10/16/21 17:22 Reaction neomycin Allergy Unknown Skin Verified 10/16/21 17:22 Reaction Penicillins Allergy Unknown Unknown Verified 10/16/21 17:22 Quinolones Allergy Unknown Unknown Verified 10/16/21 17:22 Crqzdel-QOH-AdS Reductase Allergy Unknown Gastrointestinal Verified 10/16/21 17:22 Inhibitor Upset [Bwxfiqe-Ggz-Fsi Reductase Inhibitor] LATEX Allergy Intermediate BLISTERING Uncoded 10/16/21 17:22 RASH Review of Systems Review of Systems: CONSTITUTIONAL: Denies fever, chills, sweats. EYES: Denies visual changes, redness, discharge. ENT: Positive rhinorrhea, congestion, otalgia. No sore throat. CARDIOVASCULAR: Denies chest pain, palpitations, edema. RESPIRATORY: Positive cough, dyspnea. GASTROINTESTINAL: Denies abdominal pain, nausea, vomiting, diarrhea. GENITOURINARY: Denies dysuria, hematuria, abnormal discharge SKIN: Denies rash or itching. MUSCULOSKELETAL: Denies acute back pain, joint pain, or myalgia. NEUROLOGIC: Denies numbness, or focal weakness. PSYCHIATRIC: Denies anxiety or depression. All systems reviewed & are unremarkable except as noted in HPI and below PMFSH Past Medical History Medical History Acquired cavovarus deformity of right foot Arthritis Atherosclerosis of aorta B12 deficiency Ga esophagus Nmdtxye-Osphs-Uzmbi disease (~03/2021) Chronic insomnia Depression Dyskinesia of esophagus Esophageal web Essential (primary) hypertension Gastroparesis Hypothyroidism (acquired) Internal derangement of right knee Irritable bowel syndrome with diarrhea Latex allergy status Metabolic syndrome Mixed hyperlipidemia Neuritis of right sural nerve Other hyperlipidemia Other spondylosis with radiculopathy, cervical region Patellar tendonitis of right knee Peripheral neuropathy Postgastric surgery syndromes Prediabetes With last hemoglobin A1c 4.7 Seasonal allergies Secondary osteoarthritis, right shoulder Shellfish allergy Spinal stenosis, unspecified region other than cervical Unspecified vitamin D deficiency Surgical History Surgical History History of Achilles tendon repair (~2017) History of arthroscopy of right knee History of cholecystectomy (~2009) History of end
== END 2021-10-16 18:05 | disposition home or self-care (01) ==
PROVIDERS: Emergency Provider Nurse Practitioner Adult Health; PCP Family Medicine
DX: J06.9 Acute upper respiratory infection, unspecified (principal); I70.0 Atherosclerosis of aorta; Z20.822 Contact with and (suspected) exposure to COVID-19; K22.70 Barrett's esophagus without dysplasia; I10 Essential (primary) hypertension; E03.9 Hypothyroidism, unspecified; E78.2 Mixed hyperlipidemia; G62.9 Polyneuropathy, unspecified; R73.03 Prediabetes; M19.211 Secondary osteoarthritis, right shoulder; E55.9 Vitamin D deficiency, unspecified
CPT/HCPCS: 87081; 87426; 87880; 99213; C9803; G0463

== ENCOUNTER 2021-11-22 11:00 | Outpatient (RCR) | payer MEDICARE, SELFPAY ==
--- NOTE | 2021-08-24 11:17 | PCCPR ---
08/22/21 Schuyler had bradycardia in the 40's pre and post exercise. Asked if she had been experiencing fatigue some lightheadedness and dizziness. States her [employer] office called and told her to hold her metoprolol x 1 week.
== END 2021-11-22 15:23 | disposition home or self-care (01) ==
LOC: ANHCPREHAB 11:00
PROVIDERS: PCP Family Medicine; Visit Provider Nurse Practitioner Adult Health
DX: I25.2 Old myocardial infarction (principal); I51.81 Takotsubo syndrome
CPT/HCPCS: 93798

== ENCOUNTER 2022-01-05 02:01 | Day surgery (SDC) | payer MEDICARE, SELFPAY ==
[2021-12-27 14:38] VITALS: BMI 26.4
--- NOTE | 2022-01-04 13:58 | WPDANESEPPF ---
Anes - Initial Pre Proc Eval Procedure: Operation Date: 01/05/22 08:00 Proposed Procedures p Colonoscopy - Sukhdeep Lizarraga MD Date/Time: 01/04/22 13:58 Surgeon: Sukhdeep Lizarraga MD Pre Op Diagnosis: Rectal bleeding Patient Data Age: 66 Gender: F Height: 1.63 m Weight: 70 kg Allergies Allergy/AdvReac Type Severity Reaction Status Date / Time ciprofloxacin Allergy Unknown Skin Verified 01/05/22 06:44 Reaction neomycin Allergy Unknown Skin Verified 01/05/22 06:44 Reaction Penicillins Allergy Unknown Unknown Verified 01/05/22 06:44 Quinolones Allergy Unknown Unknown Verified 01/05/22 06:44 Xuruilp-FKM-FeD Reductase Allergy Unknown Gastrointestinal Verified 01/05/22 06:44 Inhibitor Upset [Imuxhyg-Adk-Mzk Reductase Inhibitor] LATEX Allergy Intermediate BLISTERING Uncoded 01/05/22 06:44 RASH Home Medications Medication Instructions Recorded Confirmed Type calcium citrate 200 mg (950 mg) 400 mg PO DAILY tablet 03/15/21 01/05/22 History tablet magnesium amino acid chelate 100 166.7 mg PO DAILY tablet 03/15/21 01/05/22 History mg tablet zinc 15 mg tablet 16.7 mg PO DAILY tablet 03/15/21 01/05/22 History cholecalciferol (vitamin D3) 250 750 mcg PO WEEKLY cap 06/15/21 01/05/22 History mcg (10,000 unit) capsule pseudoephedrine-acetaminophen 2 tablet PO PRN PRN 06/17/21 01/05/22 History sertraline 100 mg PO DAILY 06/17/21 01/05/22 History trazodone 50 mg PO QHS PRN 06/17/21 01/05/22 History aspirin 81 mg PO QAM #30 tablet 06/19/21 01/05/22 Rx pantoprazole [Protonix] 40 mg PO DAILY 08/11/21 01/05/22 History linaclotide 145 mcg capsule See Rx Instructions .ROUTE 08/18/21 01/05/22 Rx .COMPLEX #90 cap albuterol sulfate [ProAir HFA] 2 puff INHALATION QID PRN #8.5 g 10/16/21 01/05/22 Rx atorvastatin 40 mg tablet See Rx Instructions .ROUTE 10/24/21 01/05/22 Rx .COMPLEX #30 tablet alprazolam 0.25 mg tablet 0.25 mg PO TID PRN #30 tablet 10/25/21 01/05/22 Rx levothyroxine 75 mcg tablet 75 mcg PO DAILY #90 tablet 11/20/21 01/05/22 Rx hyoscyamine sulfate 0.125 mg 0.125 mg PO Q4-6H PRN #20 tablet 11/28/21 01/05/22 Rx sublingual tablet cyclobenzaprine 10 mg tablet 10 mg PO TID PRN #30 tablet 12/14/21 01/05/22 Rx hydrocodone 5 mg-acetaminophen 325 1 tablet PO Q6H PRN #30 tablet 12/15/21 01/05/22 Rx mg tablet lisinopril-hydrochlorothiazide 1 tablet PO DAILY 12/27/21 01/05/22 History zolpidem 10 mg PO .q hs 12/27/21 01/05/22 History Patient hx anesthesia problems: none Family hx anesthesia problems: none Results Review: All pre-operative results and documents have been reviewed as part of the pre-operative evaluation. [facility] Past Medical History Medical History (Updated 01/05/22 @ 07:25 by Han Queen MD) Acquired cavovarus deformity of right foot Arthritis Atherosclerosis of aorta B12 deficiency Ga esophagus CAD (coronary artery disease) Oxwboqt-Apqgn-Gawym disease (~03/2021) Chronic insomnia Depression Diastolic CHF Dyskinesia of esophagus Esophageal web Essential (primary) hypertension Gastroparesis Hypothyroidism (acquired) Internal derangement of right knee Irritable bowel syndrome with diarrhea Latex allergy status Metabolic syndrome Mixed hyperlipidemia Neuritis of right sural nerve Non-ST elevation [place] (NSTEMI) Other hyperlipidemia Other spondylosis with radiculopathy, cervical region Patellar tendonitis of right knee Peripheral neuropathy Postgastric surgery syndromes Prediabetes With last hemoglobin A1c 4.7 Seasonal allergies Secondary osteoarthritis, right shoulder Shellfish allergy Spinal stenosis, unspecified region other than cervical Takotsubo cardiomyopathy Unspecified vitamin D deficiency Surgical History Surgical History History of Achilles tendon repair (~2017) History of arthroscopy of right knee History of cholecystectomy (~2009) History of endoscopy History of foot surger
[2022-01-05 06:45] VITALS: BP 121/70; PULSE 94; RESP 16; TEMP 36.7; O2SAT 100
--- NOTE | 2022-01-05 06:46 | WPDGICN ---
Assessment and Plan Assessment and plan (1) Colon cancer screening: Code(s): Z12.11 - Encounter for screening for malignant neoplasm of colon Status: Acute Assessment and Plan: Colonoscopy with possible biopsy or polypectomy or cautery or injection of substances. (2) Rectal bleeding: Code(s): K62.5 - Hemorrhage of anus and rectum Status: Acute Assessment and Plan: Colonoscopy to help determine etiology of bleeding. Suspect hemorrhoids. (3) Irritable bowel syndrome: Code(s): K58.9 - Irritable bowel syndrome without diarrhea Status: Acute Assessment and Plan: she has been using hyoscyamine but it did not help with her last episode GI Consult Note Consult date/time: 01/05/22 06:46 HPI: Schuyler Gutierrez is a 66 year old female Who was referred because of rectal bleeding. She has seen blood in her stools which is generally bright red. this happened after having 1 of her severe irritable bowel attacks characterized by cramping in the left lower quadrant, then the urge to have a bowel movement, becoming lightheaded, diaphoretic and nauseated. She mentioned that with the last attack she ended up on the floor because she was afraid she was going to faint. She does have hyoscyamine, which she takes at the onset of these attacks but it does not always work quickly enough. Review of Systems Review of Systems: All systems reviewed & are unremarkable except as noted in HPI and below PMFSH Past Medical History Medical History Acquired cavovarus deformity of right foot Arthritis Atherosclerosis of aorta B12 deficiency Ga esophagus Bhxsyyp-Zbctg-Dsxde disease (~03/2021) Chronic insomnia Depression Dyskinesia of esophagus Esophageal web Essential (primary) hypertension Gastroparesis Hypothyroidism (acquired) Internal derangement of right knee Irritable bowel syndrome with diarrhea Latex allergy status Metabolic syndrome Mixed hyperlipidemia Neuritis of right sural nerve Other hyperlipidemia Other spondylosis with radiculopathy, cervical region Patellar tendonitis of right knee Peripheral neuropathy Postgastric surgery syndromes Prediabetes With last hemoglobin A1c 4.7 Seasonal allergies Secondary osteoarthritis, right shoulder Shellfish allergy Spinal stenosis, unspecified region other than cervical Unspecified vitamin D deficiency Surgical History Surgical History History of Achilles tendon repair (~2017) History of arthroscopy of right knee History of cholecystectomy (~2009) History of endoscopy History of foot surgery (~2018) tendon repair History of hysterectomy (~1979) Due to uterine prolapse History of lumbar discectomy (~2009) History of Juan Manuel fundoplication (~1996) History of oophorectomy, unilateral History of tonsillectomy (~1959) Family History Family History Grandparent Diabetes mellitus Father Family history of elevated blood lipids Acute myocardial infarction, Onset Age: 40 Heart disease Hypertension Mother Family history of lung cancer Pulmonary disease Sibling Acute myocardial infarction, Onset Age: 65 [place] Heart disease Other Arthritis Social History Social History Social History: She lives in [place] with her of 47 years. They have 3 children. Her son recently moved back into the home with them and has a small dog. There middle daughter works as a nurse at [employer]. There youngest daughter was murdered. 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 She never smoked. She drinks 1 alcoholic beverage a year on average. She denies illicit substance use. She is a mostly sedentary lifestyle. Primary care physician: Dr. Salazar
[2022-01-05] MEDS: LACTATED RINGERS 1,000 ML 150 ML IV CONT (06:55)
[2022-01-05 08:09] VITALS: BP 94/61; PULSE 69; RESP 18; O2SAT 100
[2022-01-05 08:19] VITALS: BP 114/66; PULSE 75; RESP 18; O2SAT 100
[2022-01-05 08:29] VITALS: BP 126/74; PULSE 70; RESP 16; O2SAT 100
== END 2022-01-05 08:42 | disposition home or self-care (01) ==
PROVIDERS: PCP Family Medicine; Visit Provider Internal Medicine Gastroenterology
PROC: 0DJD8ZZ Inspection of Lower Intestinal Tract, Via Natural or Artificial Opening Endoscopic (ICD-10-PCS; CPT 45378; principal; 2022-01-05 08:00)
DX: Z12.11 Encounter for screening for malignant neoplasm of colon (principal); K64.8 Other hemorrhoids; K62.5 Hemorrhage of anus and rectum; K58.9 Irritable bowel syndrome, unspecified; G60.0 Hereditary motor and sensory neuropathy; I10 Essential (primary) hypertension; E03.9 Hypothyroidism, unspecified; E78.2 Mixed hyperlipidemia; F32.9 Major depressive disorder, single episode, unspecified; G62.9 Polyneuropathy, unspecified; R73.03 Prediabetes; E55.9 Vitamin D deficiency, unspecified; Z98.84 Bariatric surgery status; Z79.51 Long term (current) use of inhaled steroids; Z79.82 Long term (current) use of aspirin; E66.9 Obesity, unspecified; Z68.26 Body mass index [BMI] 26.0-26.9, adult
CPT/HCPCS: G0121; J2704; J7120

== ENCOUNTER → 2022-08-21 15:54 | Outpatient (CLI) | payer MEDICARE, SELFPAY ==
--- NOTE | ~2022-08-21 | XR_ITS ---
XR ankle RT min 3V DATE: 08/21/2022 16:15 INDICATION: Neuropathy TECHNIQUE: 4 views COMPARISON: 12/03/2017 right ankle FINDINGS: Moderate plantar and mild posterior calcaneal enthesopathy. There is mild lateral soft tissue swelling of the ankle. No fracture or dislocation of the ankle or d isruption of the ankle mortise. No periosteal reaction or bone destruction. IMPRESSION: Mild lateral ankle soft tissue swelling Plantar and posterior calcaneal enthesopathy Reviewed, dictated and finalized at location A. RA SUPERVISOR
== END ==
PROVIDERS: PCP Family Medicine; Visit Provider Family Medicine
DX: G57.81 Other specified mononeuropathies of right lower limb (principal); M79.89 Other specified soft tissue disorders; M77.31 Calcaneal spur, right foot
CPT/HCPCS: 73610

== ENCOUNTER 2022-09-19 09:30 | Outpatient (CLI) | payer MEDICARE, SELFPAY ==
--- NOTE | 2022-09-19 12:24 | WPDSIXMINUTE ---
Six Minute Walk Procedure Procedure Performed Pulmonary Stress Test (6 min walk) Six Minute Walk Six Minute Walk: This is a 6 minute walk test. The test was performed and interpreted in accordance with the 2014 ERS/ATS task force guidelines. Findings: The patient's resting room air oxygen saturation measured by pulse oximetry was 100% and heart rate was 81 bpm. Patient ambulated for 381 meters and oxygen saturation remained 95 to 99%. Heart rate at the end of the study was 105 bpm. The patient did not qualify for supplemental oxygen at rest or with ambulation. There are no prior studies for comparison.
--- NOTE | 2022-09-19 12:25 | P.PCNPFT_ITS ---
PFT Procedure Performed PFT Procedure Performed Spirometry with Pre/Post Bronchodilator Plethysmography (Lung Vol) Diffusing Cap (DLCO) Flow Vol Loop PFT Interpretation This is a pulmonary function test with pre and post-bronchodilator spirometry, plethysmography and diffusing capacity. The test was performed and results interpreted in accordance with the 2019 and 2005 ATS/ERS Task Force guidelines respectively using the Global Lung Function Initiative-2012 reference equations. Patient demonstrated good effort and cooperation. Reproducibility criteria were met. The quality of the pre bronchodilator spirometry maneuver was Grade B and post bronchodilator spirometry maneuver was Grade B. Findings: Spirometry: The contour the expiratory flow tracing is notch to in 2 of the 3 and normal in 1 of 3 pre bronchodilator efforts and notched in 2 of the 3 and normal in 1 of 3 post bronchodilator efforts. The contour the inspiratory flow tracing is normal. the pre bronchodilator FVC is 3.40 L, 115% predicted. The pre bronchodilator FEV1 is 2.31 L, 100% predicted. The pre bronchodilator FEV1: FVC ratio 68%. The post bronchodilator FVC is 3.23 L, representing a 5% decrease. The post bronchodilator FEV1 is 2.34 L, representing 1% increase. The post bronchodilator FEV1: FVC ratio 72%. Plethysmography: The total lung capacity is 5.18 L, 102% predicted. The functional residual capacity is 3.32 L, 115% predicted. The residual volume is 1.78 L, 83% predicted. Diffusing capacity: The diffusing capacity unadjusted for hemoglobin and carboxyhemoglobin is 16.6, 80% predicted. The diffusing capacity adjusted for alveolar volume is 4.08, 94% predicted. In comparison to prior pulmonary function testing on 08/21/2021 in which no bronchodilator was given the expiratory flow tracing was notched in 1 of 3 efforts, demonstrated a shoulder in 1 of 3 efforts, and was normal in 1 of 3 efforts. The pre bronchodilator FVC is unchanged from 3.18 L to 3.40 L. The pre bronchodilator FEV1 is unchanged from 2.18 L to 2.31 L. The total lung capacity is unchanged from 4.92 L to 5.18 L. The functional residual capacity is unchanged from 3.10 L to 3.32 L. The residual volume is unchanged from 1.74 L to 1.78 L. The diffusing capacity unadjusted for hemoglobin and carboxyhemoglob in is unchanged from 18.1 to 16.6. The diffusing capacity adjusted for alveolar volume is unchanged from 4.05 to 4.08. Impression: The expiratory flow tracing is notched in 2 of the 3 pre bronchod ilator and 2 of the 3 post dilator efforts. The notched pattern has been described with tracheobronchomalacia. Otherwise, the spirometry is normal without evidence of an obstructive abnormality. There is no significant improvement after inhaling a single dose of albuterol. The lung volumes are normal. The diffusing capacity is normal. In comparison to prior pulmonary function testing on 08/21/2021 the expiratory flow tracing was notched in 1 of 3 efforts on that test. There has been no significant change in the pre bronchodilator FVC, FEV1, total lung capacity, functional residual capacity, residual volume or diffusing capacity. Clinical correlation is recommended.
== END 2022-09-19 09:31 | disposition home or self-care (01) ==
PROVIDERS: PCP Family Medicine; Visit Provider Internal Medicine Critical Care Medicine
DX: R06.02 Shortness of breath (principal); R94.2 Abnormal results of pulmonary function studies
CPT/HCPCS: 94060; 94618; 94726; 94729

== ENCOUNTER 2022-11-21 09:12 | Outpatient (CLI) | payer MEDICARE, SELFPAY | END 2022-11-21 09:13 | disposition home or self-care (01) | PROVIDERS: PCP Family Medicine; Visit Provider Internal Medicine Critical Care Medicine | DX: J31.0 Chronic rhinitis (principal); R06.00 Dyspnea, unspecified; R06.89 Other abnormalities of breathing; J45.909 Unspecified asthma, uncomplicated | CPT/HCPCS: 36415; 82785; 86003 ==

== ENCOUNTER 2023-02-12 07:58 | Outpatient (CLI) | payer MEDICARE, SELFPAY ==
--- NOTE | ~2023-02-12 | MM_ITS ---
EXAMINATION: MM screening [facility] BI w sarai HISTORY: Screening mammogram TECHNIQUE: Craniocaudal and mediolateral oblique 3-D tomosynthesis images were obtained and synthetic 2-D images were generated. CAD analysis was submitted and interpreted. COMPARISON: 07/11/2021, 07/31/2019, 02/07/2017 BREAST PARENCHYMAL COMPOSITION: There are scattered areas of fibroglandular density. FINDINGS: No suspicious mass, calcification, or architectural distortion are identified in either edwige ast to suggest malignancy. There has been no suspicious interval change. IMPRESSION: 1. No mammographic evidence of malignancy. 2. Recommend routine screening mammography in one year. BI-RADS Category 1: Negative Reviewed, dictated and finalized at location A.
== END 2023-02-12 07:59 | disposition home or self-care (01) ==
LOC: ANHIMG 08:00
PROVIDERS: PCP Family Medicine; Visit Provider Family Medicine
DX: Z12.31 Encounter for screening mammogram for malignant neoplasm of breast (principal)
CPT/HCPCS: 77063; 77067

== ENCOUNTER 2023-03-14 10:29 | Outpatient (CLI) | payer MEDICARE, SELFPAY ==
[2023-03-14 11:38] LABS: Anion Gap 6 mmol/L (8-16); Blood Urea Nitrogen 19 mg/dL (7-17); Calcium 8.5 mg/dL (8.4-10.2); Carbon Dioxide 31 mmol/L (22-30); Chloride 98 mmol/L (98-107); Estimated Glomerular Filt Rate 49; Glucose 95 mg/dL (65-110); Potassium 3.7 mmol/L (3.4-5.0); Sodium 135 mmol/L (137-145)
== END 2023-03-14 10:30 | disposition home or self-care (01) ==
PROVIDERS: PCP Family Medicine; Visit Provider Nurse Practitioner Adult Health
DX: I42.8 Other cardiomyopathies (principal)
CPT/HCPCS: 36415; 80048

== ENCOUNTER 2023-04-02 16:51 | Outpatient (CLI) | payer MEDICARE, SELFPAY ==
--- NOTE | ~2023-04-02 | DEXA_ITS ---
Bone Density Report Name: ALFONSO HERNANDES Age: 67 Sex: Female Ethnicity: White Date of : 1955 Indication: postmenopausal; screening for osteoporosis; height loss; inflammatory bowel disease; hysterectomy; Referring Provider: ASHLEE AMIN Study: Bone densitometry was performed. Exam Date: April 02, 2023 Accession number: [id number] Bone Density: Region BMD T-score Z-score Classification AP Spine(L2, L3, L4) 1.206 1.2 3.2 Normal Femoral Neck (Left) 0.818 -0.3 1.4 Normal Total Hip (Left) 0.987 0.4 1.8 Normal Femoral Neck (Right) 0.712 -1.2 0.5 Osteopenia Total Hip (Right) 0.956 0.1 1.5 Normal Total Hip Mean 0.972 0.3 1.7 Normal World Health Organization criteria for BMD impression classify patients as: Normal (T-score at or above -1.0), Osteopenia (T-score between -1.0 and -2.5), or Osteoporosis (T-score at or below -2.5). 10-year Fracture Risk(1): Major Osteoporotic Fracture 8.7% Hip Fracture 0.9% Reported Risk Factors: [place] (), Neck BMD=0.712, BMI=31.5 (1) FRAX(R) Version 3.08. Fracture probability calculated for an untreated patient. Fracture probability may be lower if the patient has received treatment. Clinical Information Provided by Patient: Has used the following medications: Vitamin D Has the following medical conditions: Inflammatory bowel diseases, Hysterectomy Patient maximum height was 64 Menopause Age: 27 No regular weight bearing exercise Does not regularly consume dairy products Drinks caffeinated beverages Onset of menses at age 11 Number of children 3 Impression: The patient has low bone mass, based on the Right Femoral Neck T-score. The patient has an estimated ten-year risk of hip fracture of 0.9% and an estimated ten-year risk of major fracture of 8.7%, based on the WHO FRAX algorithm. Discussion: BONE DENSITY IS LOW AT ONE OR MORE SKELETAL SITES. This patient's lowest T-score is low at one or more skeletal sites. It meets the World Health Organization's (WHO) criteria for ?low bone mass? (T-score between -1.0 and -2.5). The patient's 10-year risk of fracture as calculated by FRAX is less than the threshold where pharmacological therapy is recommended by the National Osteoporosis Foundation (NOF). However, all treatment decisions require clinical judgment and consideration of individual patient factors, including patient preferences, comorbidities, previous drug use, risk factors not captured in the FRAX model (e.g., frailty, falls, vitamin D deficiency, increased bone turnover, interval significant decline in bone density) and possible under or overestimation of fracture risk by FRAX. The patient should follow a healthful lifestyle (good nutrition with adequate calcium and vitamin D, and appropriate weight-bearing exercise). F
== END 2023-04-02 16:52 | disposition home or self-care (01) ==
PROVIDERS: PCP Family Medicine; Visit Provider Nurse Practitioner Family
DX: E55.9 Vitamin D deficiency, unspecified (principal); Z79.51 Long term (current) use of inhaled steroids; M85.851 Other specified disorders of bone density and structure, right thigh
CPT/HCPCS: 77080

== ENCOUNTER 2023-07-08 18:32 | Emergency (ER) | payer MEDICARE, SELFPAY ==
--- NOTE | ~2023-07-08 | CT_ITS ---
CT of the Abdomen and Pelvis: Indication: Abdominal pain Technique: 2.5 mm axial scans were obtained through the abdomen and pelvis following intravenous adm inistration of 100 cc of Omnipaque 350. Dose reduction technique was used on this scan by utilizing a utomated exposure control and iterative reconstruction technique. The dose-length product (DLP) was 1 020.10 mGy-cm. COMPARISON: 04/06/2020 Findings: Scans through the lung bases demonstrates small hiatal hernia. The liver, spleen, pancreas, adrenals and kidneys are within normal limits. Cholecystectomy clips not ed. There are atherosclerotic calcifications of the aorta. No lymphadenopathy. No bowel obstruction or bowel wall thickening. There is no evidence to suggest acute appendicitis. Images through the pelvis were performed. Urinary bladder unremarkable. No adnexal mass seen. No asci janna. Impression: Small hiatal hernia, otherwise unremarkable exam. Reviewed, dictated and finalized at [facility]. Impression: Small hiatal hernia, otherwise unremarkable exam.
[2023-07-08 19:01] VITALS: BP 161/62; PULSE 82; RESP 20; TEMP 36.3; O2SAT 99
[2023-07-08 21:45] LABS: Basophils Percent Auto 0.6 % (0.2-1.2); Eosinophils Absolute Auto 0.3 K/mm3 (0-0.3); Eosinophils Percent Auto 3.7 % (0-4.4); Hematocrit 34.5 % (37.0-47.0); Hemoglobin 11.5 g/dL (12.0-15.0); Immature Granulocyte Absolute 0.02 K/mm3 (0.00-0.031); Immature Granulocyte Percent A 0.3 % (0-0.5); Lymphocytes Absolute Auto 1.51 K/mm3 (0.9-3.2); Lymphocytes Percent Auto 22.4 % (18.3-44.2); Mean Corpuscular HGB Conc 33.3 g/dl (32-36); Mean Corpuscular Hemoglobin 31.9 pg (26-34); Mean Corpuscular Volume 95.6 fl (80-100); Mean Platelet Volume 10.2 fl (7.4-10.4); Monocytes Absolute Auto 0.4 K/mm3 (0.1-0.6); Monocytes Percent Auto 6.5 % (2.6-8.5); Neutrophils Absolute Auto 4.5 K/mm3 (1.3-6.7); Neutrophils Percent Auto 66.5 % (45.5-73.1); Platelet Count Result 172 k/mm3 (150-375); Red Blood Count 3.61 M/mm3 (4.2-5.4); Red Cell Distribution Width 12.5 % (11.5-14.5); White Blood Count 6.7 K/mm3 (4.5-10.0)
[2023-07-08 21:53] LABS: Appearance Urine Clear (Clear); Bacteria Urine None Seen /hpf; Bilirubin Urine Negative (Negative); Blood Urine Negative (Negative); Color Urine Yellow (Yellow); Glucose Urine UA Negative (Negative); Ketones Urine Negative (Negative); Leukocyte Esterase Ur 3+ LEU/UL (Negative); Nitrate Urine Negative (Negative); Non Pathogenic Casts 0-2; Protein Urine Negative (Negative); RBC Urine 0-2 /hpf (0-2); Specific Grav Ur 1.005 (1.001-1.035); Squamous Epithelial Cell Urine Occasional /hpf (Few); Urobilinogen Urine 0.2 mg/dL (<2.0); WBC Urine 21-50 /hpf
[2023-07-08 21:55] LABS: Alanine Aminotransferase 29 U/L (6-35); Albumin Level 4.6 g/dL (3.5-5.1); Alkaline Phosphatase 82 U/L (38-126); Anion Gap 6 mmol/L (8-16); Aspartate Amino Transferase 32 U/L (14-36); Bilirubin,Total 0.7 mg/dL (0.2-1.3); Blood Urea Nitrogen 10 mg/dL (7-17); Calcium 8.7 mg/dL (8.4-10.2); Carbon Dioxide 28 mmol/L (22-30); Chloride 93 mmol/L (98-107); Estimated CRCL calculation 47 ml/min; Estimated Glomerular Filt Rate 55; Glucose 102 mg/dL (65-110); Lipase 59 U/L (23-300); Sodium 127 mmol/L (137-145)
[2023-07-08 21:57] LABS: Add Urine Microscopic? YES
[2023-07-09 01:54] VITALS: BP 159/68; PULSE 69; RESP 18; O2SAT 100
--- NOTE | 2023-07-09 02:40 | ED.GENADULT ---
HPI - General Adult General Chief complaint: Abdominal Pain Stated complaint: abd pain Time Seen by Provider: 07/09/23 01:42 History of Present Illness HPI narrative: Patient presents to the emergency department from home with her . She is concerned about left-sided abdominal discomfort that started a couple days ago. For the past few weeks she has had constipation. She is attempted multiple types of medications including enemas without improvement. She has had nausea without vomiting and denies fevers and chills. She feels like her abdomen is distended. She is very pleasant and her exam is grossly benign. Her added that the primary care provider was concerned she may have diverticulitis Related Data Home Medications Medication Instructions Recorded Confirmed losartan 25 mg tablet 25 mg PO DAILY 07/11/22 07/08/23 gabapentin 300 mg capsule 300 mg PO DAILY 01/16/23 07/08/23 Allergies Allergy/AdvReac Type Severity Reaction Status Date / Time shellfish derived Allergy Mild Itching Verified 07/09/23 01:53 ciprofloxacin Allergy Unknown Skin Verified 07/09/23 01:53 Reaction neomycin Allergy Unknown Skin Verified 07/09/23 01:53 Reaction Penicillins Allergy Unknown Unknown Verified 07/09/23 01:53 Quinolones Allergy Unknown Unknown Verified 07/09/23 01:53 Zxedxso-BGJ-GqC Reductase Allergy Unknown Gastrointestinal Verified 07/09/23 01:53 Inhibitor Upset [Dhefmmr-Nva-Zwi Reductase Inhibitor] LATEX Allergy Intermediate BLISTERING Uncoded 07/09/23 01:53 RASH Review of Systems Review of Systems: Review of systems negative except what is documented in the HPI [facility] Past Medical History Medical History Acquired cavovarus deformity of right foot Arthritis Atherosclerosis of aorta B12 deficiency Ga esophagus CAD (coronary artery disease) Qppmocn-Nujwv-Agwlt disease (~03/2021) Chronic insomnia Depression Diastolic CHF Dyskinesia of esophagus Esophageal web Essential (primary) hypertension Gastroparesis Hypothyroidism (acquired) Internal derangement of right knee Irritable bowel syndrome with diarrhea Latex allergy status Metabolic syndrome Mixed hyperlipidemia Neuritis of right sural nerve Non-ST elevation [place] (NSTEMI) Other hyperlipidemia Other spondylosis with radiculopathy, cervical region Patellar tendonitis of right knee Peripheral neuropathy Postgastric surgery syndromes Prediabetes With last hemoglobin A1c 4.7 Seasonal allergies Secondary osteoarthritis, right shoulder Shellfish allergy Spinal stenosis, unspecified region other than cervical Takotsubo cardiomyopathy Unspecified vitamin D deficiency Surgical History Surgical History History of Achilles tendon repair (~2017) History of arthroscopy of right knee History of cholecystectomy (~2009) History of endoscopy History of foot surgery (~2018) tendon repair History of hysterectomy (~1979) Due to uterine prolapse History of lumbar discectomy (~2009) History of Juan Manuel fundoplication (~1996) History of oophorectomy, unilateral History of tonsillectomy (~1959) Family History Family History Grandparent Diabetes mellitus Father Family history of elevated blood lipids Acute myocardial infarction, Onset Age: 40 Heart disease Hypertension Mother Family history of lung cancer Pulmonary disease Sibling Acute myocardial infarction, Onset Age: 65 [place] Heart disease Son History of acquired heart valve infection her son had open heart surgery and a valve replaced a few years ago due to infected valve Other Arthritis Social History Social History (Updated 07/08/23 @ 16:06 by Eden Laird MA) Social History: She lives in [place] with her of 47 years.
[2023-07-09] MEDS: GLYCERIN ADULT 1 SUPP.RECT RECTAL (03:28)
[2023-07-09] MEDS: ONDANSETRON INJ 4 MG/2 ML VIAL IV PUSH (03:28)
[2023-07-09] MEDS: DICYCLOMINE HCL 10 MG CAPSULE PO (03:28)
[2023-07-09] MEDS: cefTRIAXone 2 GM/NS 100 ML 2 GM/100 ML BAG IVPB (04:07)
[2023-07-09] MEDS: SODIUM CHLORIDE 0.9% IV 1,000 ML 999 ML IV CONT (04:07)
[2023-07-09 04:10] VITALS: BP 129/74; PULSE 64; RESP 18; O2SAT 100
[2023-07-09 05:01] VITALS: BP 147/62; PULSE 73; RESP 18; O2SAT 100
[2023-07-09 06:13] VITALS: BP 154/74; PULSE 66; O2SAT 99
[2023-07-09] MEDS: ONDANSETRON HCL ODT 4 MG TABLET (08:10)
[2023-07-09] MEDS: CEPHALEXIN 500 MG CAPSULE (08:10)
== END 2023-07-09 08:10 | disposition home or self-care (01) ==
PROVIDERS: Emergency Provider Emergency Medicine; PCP Family Medicine
DX: N39.0 Urinary tract infection, site not specified (principal); E87.1 Hypo-osmolality and hyponatremia; K59.00 Constipation, unspecified; R10.9 Unspecified abdominal pain; M19.90 Unspecified osteoarthritis, unspecified site; I25.10 Atherosclerotic heart disease of native coronary artery without angina pectoris; I11.0 Hypertensive heart disease with heart failure; I50.9 Heart failure, unspecified; E03.9 Hypothyroidism, unspecified
CPT/HCPCS: 36415; 74177; 80053; 81001; 83690; 85025; 87086; 87088; 96365; 96375; 96376; 99284; A9270; J0696; J2405; J7030; Q9967

== ENCOUNTER 2023-07-11 13:42 | Outpatient (CLI) | payer MEDICARE, SELFPAY ==
[2023-07-11 18:46] LABS: Anion Gap 12 mmol/L (8-16); Blood Urea Nitrogen 15 mg/dL (7-17); Calcium 9.1 mg/dL (8.4-10.2); Carbon Dioxide 26 mmol/L (22-30); Chloride 91 mmol/L (98-107); Estimated Glomerular Filt Rate 55; Glucose 118 mg/dL (65-110); Potassium 3.4 mmol/L (3.4-5.0); Sodium 129 mmol/L (137-145)
== END 2023-07-11 13:43 | disposition home or self-care (01) ==
LOC: ANHGOSHLAB 13:45
PROVIDERS: PCP Family Medicine; Visit Provider Family Medicine
DX: E87.1 Hypo-osmolality and hyponatremia (principal)
CPT/HCPCS: 36415; 80048

== ENCOUNTER 2023-07-12 20:21 | Inpatient (IN) | payer MEDICARE, SELFPAY ==
--- NOTE | ~2023-07-12 | CT_ITS ---
EXAMINATION: CT abdomen pelvis w con DATE: 07/12/2023 21:30 INDICATION: Abdominal pain. Constipation. TECHNIQUE: Computed tomography (CT) of the abdomen and pelvis was performed with 100 mL Omnipaque 350 intravenous contrast. Automated exposure control and iterative reconstruction technique were employe d. The dose-length product was 853.35 mGy-cm. COMPARISON: CT abdomen and pelvis 07/09/2023 FINDINGS: The visualized portions of the lung bases demonstrate mild atelectasis in lingula. No pleur al effusion. The heart size is normal. No pericardial effusion. There is a moderate-sized sliding hia sharad hernia. The liver is normal. There are changes of cholecystectomy. The spleen, pancreas, and adre nal glands are normal. There are cysts in the kidneys measuring up to 15 mm on the right. Aortic athe rosclerosis is noted. There is stool impaction in the sigmoid colon. There is liquid stool in the mor e proximal colon, which is distended. The small bowel is normal in caliber. There are no pathological ly enlarged lymph nodes. There is no free intraperitoneal fluid. Epidural electrodes are noted. There is moderate lumbar spondylosis. IMPRESSION: 1. Stool impaction in the sigmoid colon. 2. Moderate-sized sliding hiatal hernia. Reviewed, dictated and finalized at location E.
--- NOTE | ~2023-07-12 | XR_ITS ---
XR abdomen/kub 1V DATE: 07/14/2023 06:08 INDICATION: Fecal impaction. Abdominal pain. TECHNIQUE: Portable supine AP views on 07/14/2023 at 0601 [id number] hours COMPARISON: 07/12/2023 CT abdomen pelvis FINDINGS: Surgical clips overlie the right upper quadrant consistent with cholecystectomy. Battery pack overlies the posterior upper left back with leads extending to the thoracic spinal canal . Nonspecific bowel gas pattern without evidence of obstruction or significant amount fecal material wi thin the rectum or colon. The psoas shadows are intact. No visceromegaly is evident. The lung bases appear clear. Heart size appears normal. IMPRESSION: Nonspecific abdomen Reviewed, dictated and finalized at Location A. Reviewed, dictated and finalized at location A. IMPRESSION: Nonspecific abdomen
--- NOTE | 2023-07-12 20:31 | ED.ABDPAIN ---
HPI - Abdominal Pain General Chief Complaint: Abdominal Pain Stated Complaint: constipation Time Seen by Provider: 07/12/23 20:31 Source: patient and family History of Present Illness HPI narrative: Patient is 67 years old white female came to the emergency room with abdominal pain which started 2 weeks ago. Patient was seen by her family physician twice, came to our emergency room 1 week ago for the same symptoms with normal CAT scan of the abdomen and pelvis at that time. Last bowel movement 1 month ago. Patient reported eating and drinking well. Denies aggravating or relieving factors. History of IBS, cholecystectomy, hysterectomy, acid reflux surgery, spinal cord implant for chronic right foot pain placed February 2023. Patient had at least 3 Fleet enema, mag citrate at least 3 times, Linzess and MiraLAX without improvement. She denies any fever, chills, nausea, vomiting. Related Data Home Medications Medication Instructions Recorded Confirmed losartan 25 mg tablet 25 mg PO DAILY 07/11/22 07/11/23 gabapentin 300 mg capsule 300 mg PO DAILY 01/16/23 07/11/23 Allergies Allergy/AdvReac Type Severity Reaction Status Date / Time shellfish derived Allergy Mild Itching Verified 07/11/23 13:06 ciprofloxacin Allergy Unknown Skin Verified 07/11/23 13:06 Reaction neomycin Allergy Unknown Skin Verified 07/11/23 13:06 Reaction Penicillins Allergy Unknown Unknown Verified 07/11/23 13:06 Quinolones Allergy Unknown Unknown Verified 07/11/23 13:06 Vghstjz-OSJ-PxH Reductase Allergy Unknown Gastrointestinal Verified 07/11/23 13:06 Inhibitor Upset [Pgxgzhh-Skh-Aea Reductase Inhibitor] LATEX Allergy Intermediate BLISTERING Uncoded 07/11/23 13:06 RASH PMFSH Past Medical History Medical History Acquired cavovarus deformity of right foot Arthritis Atherosclerosis of aorta B12 deficiency Ga esophagus CAD (coronary artery disease) Yzuxten-Fymth-Yfswi disease (~03/2021) Chronic insomnia Depression Diastolic CHF Dyskinesia of esophagus Esophageal web Essential (primary) hypertension Gastroparesis Hypothyroidism (acquired) Internal derangement of right knee Irritable bowel syndrome with diarrhea Latex allergy status Metabolic syndrome Mixed hyperlipidemia Neuritis of right sural nerve Non-ST elevation [place] (NSTEMI) Other hyperlipidemia Other spondylosis with radiculopathy, cervical region Patellar tendonitis of right knee Peripheral neuropathy Postgastric surgery syndromes Prediabetes With last hemoglobin A1c 4.7 Seasonal allergies Secondary osteoarthritis, right shoulder Shellfish allergy Spinal stenosis, unspecified region other than cervical Takotsubo cardiomyopathy Unspecified vitamin D deficiency Surgical History Surgical History History of Achilles tendon repair (~2017) History of arthroscopy of right knee History of cholecystectomy (~2009) History of endoscopy History of foot surgery (~2018) tendon repair History of hysterectomy (~1979) Due to uterine prolapse History of lumbar discectomy (~2009) History of Juan Manuel fundoplication (~1996) History of oophorectomy, unilateral History of tonsillectomy (~1959) Family History Family History Grandparent Diabetes mellitus Father Family history of elevated blood lipids Acute myocardial infarction, Onset Age: 40 Heart disease Hypertension Mother Family history of lung cancer Pulmonary disease Sibling Acute myocardial infarction, Onset Age: 65 [place] Heart disease Son History of acquired heart valve infection her son had open heart surgery and a valve replaced a few years ago due to infected valve Other Arthritis Social History Social History (Updated 07/08/23 @ 16:06 by Eden Laird MA) Social History: She
[2023-07-12 20:34] VITALS: BP 164/86; PULSE 78; RESP 12; TEMP 36.6; O2SAT 100
[2023-07-12] MEDS: SODIUM CHLORIDE 0.9% IV 1,000 ML 999 ML IV CONT (20:52)
[2023-07-12] MEDS: HYDROmorphone HCL INJ (*CRX) 1 MG/ML SYR 0.5 MG IV PUSH (20:53)
[2023-07-12] MEDS: ONDANSETRON INJ 4 MG/2 ML VIAL IV PUSH (20:53)
[2023-07-12 20:55] LABS: Basophils Absolute Auto 0.1 K/mm3 (0.0-0.1); Basophils Percent Auto 0.7 % (0.2-1.2); Eosinophils Absolute Auto 0.1 K/mm3 (0-0.3); Hematocrit 39.1 % (37.0-47.0); Hemoglobin 13.4 g/dL (12.0-15.0); Immature Granulocyte Absolute 0.02 K/mm3 (0.00-0.031); Immature Granulocyte Percent A 0.3 % (0-0.5); Lymphocytes Absolute Auto 1.53 K/mm3 (0.9-3.2); Lymphocytes Percent Auto 22.4 % (18.3-44.2); Mean Corpuscular HGB Conc 34.3 g/dl (32-36); Mean Corpuscular Hemoglobin 32.1 pg (26-34); Mean Corpuscular Volume 93.5 fl (80-100); Mean Platelet Volume 9.5 fl (7.4-10.4); Monocytes Absolute Auto 0.6 K/mm3 (0.1-0.6); Monocytes Percent Auto 9.2 % (2.6-8.5); Neutrophils Absolute Auto 4.5 K/mm3 (1.3-6.7); Neutrophils Percent Auto 65.4 % (45.5-73.1); Platelet Count Result 233 k/mm3 (150-375); Red Blood Count 4.18 M/mm3 (4.2-5.4); Red Cell Distribution Width 12.3 % (11.5-14.5); White Blood Count 6.8 K/mm3 (4.5-10.0)
[2023-07-12 21:07] LABS: Alanine Aminotransferase 36 U/L (6-35); Albumin Level 5.3 g/dL (3.5-5.1); Alkaline Phosphatase 95 U/L (38-126); Anion Gap 10 mmol/L (8-16); Aspartate Amino Transferase 47 U/L (14-36); Bilirubin,Total 0.6 mg/dL (0.2-1.3); Blood Urea Nitrogen 8 mg/dL (7-17); Calcium 9.4 mg/dL (8.4-10.2); Carbon Dioxide 26 mmol/L (22-30); Chloride 94 mmol/L (98-107); Estimated CRCL calculation 51 ml/min; Estimated Glomerular Filt Rate > 60; Glucose 129 mg/dL (65-110); Lipase 109 U/L (23-300); Potassium 3.3 mmol/L (3.4-5.0); Sodium 130 mmol/L (137-145)
[2023-07-12 22:20] LABS: Appearance Urine Clear (Clear); Bilirubin Urine Negative (Negative); Blood Urine Negative (Negative); Color Urine Yellow (Yellow); Glucose Urine UA Negative (Negative); Ketones Urine Negative (Negative); Leukocyte Esterase Ur Negative LEU/UL (Negative); Nitrate Urine Negative (Negative); Protein Urine Negative (Negative); Specific Grav Ur 1.013 (1.001-1.035); Urobilinogen Urine 0.2 mg/dL (<2.0); pH Urine 7.5 (5.0-9.0)
[2023-07-12 22:23] LABS: Add Urine Microscopic? NO
[2023-07-12] MEDS: SODIUM CHLORIDE 0.9% IV 1,000 ML 125 ML IV CONT (22:30)
[2023-07-12 22:42] VITALS: BP 159/76; PULSE 60; RESP 12; O2SAT 100
--- NOTE | 2023-07-12 23:30 | PM.IMHP ---
H&P: HPI History of Present Illness Date/Time: 07/12/23 23:30 Chief Complaint: Patient came to the ER for evaluation with complaints of abdominal pain for last couple of weeks and chronic constipation Narrative: She is a very pleasant 67-year-old white female who has issues with the constipation on a chronic basis. She has a history of IBS and she used to have lot of diarrhea when she was young, which has now giving rise to constipation. She has used many nasy-bcp-vpsrvsh meds for constipation over the last month with minimal stool movements. She came to the ER for evaluation as she is having abdominal pain for the last couple of weeks he is slowly getting worse. Workup was done in the ER which showed stool impaction in the sigmoid colon. GI was consulted who plan to take her to the OR for colonoscopy in a.m. Review of Systems Review of Systems: she denies any chest pain, palpitations, fever rigor chills, dizziness, loss of consciousness PMFSH Past Medical History Medical History Acquired cavovarus deformity of right foot Arthritis Atherosclerosis of aorta B12 deficiency Ga esophagus CAD (coronary artery disease) Rpksuvc-Ikccf-Vbcqy disease (~03/2021) Chronic insomnia Depression Diastolic CHF Dyskinesia of esophagus Esophageal web Essential (primary) hypertension Gastroparesis Hypothyroidism (acquired) Internal derangement of right knee Irritable bowel syndrome with diarrhea Latex allergy status Metabolic syndrome Mixed hyperlipidemia Neuritis of right sural nerve Non-ST elevation [place] (NSTEMI) Other hyperlipidemia Other spondylosis with radiculopathy, cervical region Patellar tendonitis of right knee Peripheral neuropathy Postgastric surgery syndromes Prediabetes With last hemoglobin A1c 4.7 Seasonal allergies Secondary osteoarthritis, right shoulder Shellfish allergy Spinal stenosis, unspecified region other than cervical Takotsubo cardiomyopathy Unspecified vitamin D deficiency Surgical History Surgical History History of Achilles tendon repair (~2017) History of arthroscopy of right knee History of cholecystectomy (~2009) History of endoscopy History of foot surgery (~2018) tendon repair History of hysterectomy (~1979) Due to uterine prolapse History of lumbar discectomy (~2009) History of Juan Manuel fundoplication (~1996) History of oophorectomy, unilateral History of tonsillectomy (~1959) Family History Family History Grandparent Diabetes mellitus Father Family history of elevated blood lipids Acute myocardial infarction, Onset Age: 40 Heart disease Hypertension Mother Family history of lung cancer Pulmonary disease Sibling Acute myocardial infarction, Onset Age: 65 [place] Heart disease Son History of acquired heart valve infection her son had open heart surgery and a valve replaced a few years ago due to infected valve Other Arthritis Social History Social History Social History: She lives in [place] with her of 47 years. They have 3 children. Her son recently moved back into the home with them and has a small dog. There middle daughter works as a nurse at [employer]. There youngest daughter was murdered. 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 She never smoked. She drinks 1 alcoholic beverage a year on average. She denies illicit substance use. She is a mostly sedentary lifestyle. Primary care physician: Dr. Juan Pablo Easton Code status: Full code Surrogate decision maker: Smoking status: Never smoker Additional smoking assessment comments: DENIES ANY FORM OF TOBACCO USE Alcohol intake: never Alcohol use details: Occasional Substance use: never Sub
[2023-07-13 00:39] VITALS: BP 146/77; PULSE 59; RESP 12; O2SAT 100
[2023-07-13 00:55] VITALS: BMI 31.0
[2023-07-13 00:58] VITALS: BP 151/65; PULSE 62; RESP 18; TEMP 36.7; O2SAT 99
--- NOTE | 2023-07-13 01:21 | ADMGEN ---
This patient, Schuyler Gutierrez, was admitted to Medical Room 341-01. Patient/family oriented to hospital policies and general routines including ID bracelet, bed and alarms, visiting hours, pain management, procedures, bathroom and other care routines, personal items, smoking policy, room service/diet, and visiting hours. Information on how to activate the Rapid Response Team has been discussed. Patient/Family are encouraged to report perceived risks to care and to ask questions if they do not understand what they are told or what they should do.
[2023-07-13 04:11] VITALS: BP 160/57; PULSE 65; RESP 16; TEMP 36.8; O2SAT 100
[2023-07-13] MEDS: LEVOTHYROXINE SODIUM 75 MCG TABLET PO (06:07)
[2023-07-13] MEDS: ONDANSETRON INJ 4 MG/2 ML VIAL IV PUSH (06:09)
[2023-07-13] MEDS: KCL 20 MEQ/SW 100 ML 100 ML 50 MEQ IVPB (06:11)
--- NOTE | 2023-07-13 07:13 | WPDGICN ---
Assessment and Plan Assessment and plan (1) Fecal impaction of colon: Code(s): K56.41 - Fecal impaction Status: Acute Assessment and Plan: CT scan shows impaction in the sigmoid colon. The optimal way to address this would be with enemas. She had a colonoscopy last year which was unremarkable. (2) Spinal stenosis, unspecified region other than cervical: Code(s): M48.00 - Spinal stenosis, site unspecified Status: Acute Assessment and Plan: She has a spinal cord stimulator which has been present for a while. She is not on oral opiates (3) Irritable bowel syndrome: Code(s): K58.9 - Irritable bowel syndrome without diarrhea Status: Acute Assessment and Plan: she has had spells where her irritable bowel results in sudden urge to have a bowel movement, sometimes diaphoresis, and nausea. For this she uses hyoscyamine and ondansetron GI Consult Note Consult date/time: 07/13/23 07:13 HPI: Schuyler Gutierrez is a 67 year old female was admitted yesterday to the emergency room because of abdominal pain secondary to not having had a bowel movement for about 4 weeks. Prior to that she states that her bowels are fairly regular but occasionally she would take a Linzess tablet. There was no change in medication or her diet but she became aware the fact that she had not had a bowel movement she finally started taking laxatives, 1st MiraLax and then Linzess tablets. She has taking also citrated magnesium this past week and several Fleet enemas. None of these have resulted in a bowel movement. Since admission she has had a couple of loose stools but no solid has been passed. She does not feel any better than she did on admission. She had been nauseated but is not nauseated this morning. Review of Systems Review of Systems: All systems reviewed & are unremarkable except as noted in HPI and below PMFSH Past Medical History Medical History Acquired cavovarus deformity of right foot Arthritis Atherosclerosis of aorta B12 deficiency [place] esophagus CAD (coronary artery disease) Svbsfcj-Thdti-Wbexz disease (~03/2021) Chronic insomnia Depression Diastolic CHF Dyskinesia of esophagus Esophageal web Essential (primary) hypertension Gastroparesis Hypothyroidism (acquired) Internal derangement of right knee Irritable bowel syndrome with diarrhea Latex allergy status Metabolic syndrome Mixed hyperlipidemia Neuritis of right sural nerve Non-ST elevation [place] (NSTEMI) Other hyperlipidemia Other spondylosis with radiculopathy, cervical region Patellar tendonitis of right knee Peripheral neuropathy Postgastric surgery syndromes Prediabetes With last hemoglobin A1c 4.7 Seasonal allergies Secondary osteoarthritis, right shoulder Shellfish allergy Spinal stenosis, unspecified region other than cervical Takotsubo cardiomyopathy Unspecified vitamin D deficiency Surgical History Surgical History History of Achilles tendon repair (~2017) History of arthroscopy of right knee History of cholecystectomy (~2009) History of endoscopy History of foot surgery (~2018) tendon repair History of hysterectomy (~1979) Due to uterine prolapse History of lumbar discectomy (~2009) History of Juan Manuel fundoplication (~1996) History of oophorectomy, unilateral History of tonsillectomy (~1959) Family History Family History Grandparent Diabetes mellitus Father Family history of elevated blood lipids Acute myocardial infarction, Onset Age: 40 Heart disease Hypertension Mother Family history of lung cancer Pulmonary disease Sibling Acute myocardial infarction, Onset Age: 65 [place] Heart disease Son History of acquired heart valve infection her son had open heart surgery and a v
[2023-07-13] MEDS: SODIUM CHLORIDE 0.9% IV 1,000 ML 125 ML IV CONT ×2 (08:44→17:44)
[2023-07-13] MEDS: GABAPENTIN 300 MG CAPSULE PO (08:45)
[2023-07-13] MEDS: LOSARTAN POTASSIUM 25 MG TABLET PO (08:45)
[2023-07-13] MEDS: PANTOPRAZOLE 40 MG TABLET PO (08:46)
[2023-07-13] MEDS: SERTRALINE HCL 50 MG TABLET 100 MG PO (08:46)
[2023-07-13 09:39] VITALS: PULSE 66; O2SAT 97
--- NOTE | 2023-07-13 10:00 | PM.IMPN ---
Progress Note: A&P Assessment and Plan (1) Fecal impaction of colon: Code(s): K56.41 - Fecal impaction Status: Acute Assessment and Plan: acute on chronic constipation history of constipation and irritable bowel Takes linzess at home as needed Unable to have a substantial bowel movement for weeks CT scan shows impaction in the sigmoid colon. GI consulted and rec's appreciated. (2) Hypothyroidism (acquired): Code(s): E03.9 - Hypothyroidism, unspecified Status: Acute Assessment and Plan: TSH in 06/29 was 2.47, stable continue levothyroxine (3) Essential (primary) hypertension: Code(s): I10 - Essential (primary) hypertension Status: Acute Assessment and Plan: Blood pressures reviewed. stable, mildly HTN continue with home regimen (4) Spinal stenosis, unspecified region other than cervical: Code(s): M48.00 - Spinal stenosis, site unspecified Status: Acute Assessment and Plan: Implanted nerve stimulator pain is controlled No PO opiates Plan Feeding: Full liquids Analgesia:Tylenol and [place], try to limit narcotics Thromboembolic prophylaxis: SCDs Ulcer prophylaxis: PPI Glycemic control: N/A Bowel regimen: Enemas, linzess Lines: PIV Antibiotics: n/a Subjective Date/time seen: 07/13/23 10:00 Interval history: HPI obtained from chart, She is a very pleasant 67-year-old white female who has issues with the constipation on a chronic basis.? She has a history of IBS and she used to have lot of diarrhea when she was young, which has now giving rise to constipation.? She has used many ngim-ksx-vjkcwor meds for constipation over the last month with minimal stool movements.? She came to the ER for evaluation as she is having abdominal pain for the last couple of weeks he is slowly getting worse.? Workup was done in the ER which showed stool impaction in the sigmoid colon.?GI was consulted and rec's are appreciated. Interval history, 07/13- Very pleasant lady, seen today resting in bed and does not appear in acute distress. She states that she Stalls GI already today and they are not planning on colonoscopy at this time. Instead will attempt enemas and bowel motility agents for emptying. She does report bloating, nausea, and abdominal tenderness. She received enema today and only past liquid stool. Review of Systems Review of Systems: All systems reviewed & are unremarkable except as noted in HPI and below Exam Narrative: General: well appearing, well developed, well nourished, appears stated age. HEENT: normocephalic, atraumatic. Mucous membranes moist. EOMI, PERRLA, bilateral sclera anicteric, no conjunctival injection. Neck supple without JVD, lymphadenopathy, or bruit. Respiratory: clear to auscultation bilaterally. No rales/rhonic/wheezes. Cardiovascular: Regular rate and rhythm, normal S1-S2 upon auscultation. No murmurs, rubs, or clicks. PMI is nondisplaced, capillary re-fill less than 3 second. Abdomen: Soft, round, no pulsatile masses, non-distended and mildly tender. No rebound, no guarding. No CVA tenderness, no hepatosplenomegaly. Bowel sounds present hypoactive to four quadrants. No high pitch or tinkling sounds, resonant to percussion. Extremities: No cyanosis, clubbing, or edema present. Pulses are palpable 2/2. Active ROM to all four extremities. Neuro: Alert and orientated x 4. PERRLA. Cranial nerves 2-12 intact without focal deficit. Skin: Warm, dry, and intact, without rash, erythema, or lesion. Lines: piv Incisions:na Psych: pleasant, cooperative, normal speech, normal affect, no hallucinations, no dysarthria Objective Data Vital Signs Vital Signs: Vital Signs - 24 hr 07/12/23 20:34 07/12/23 22:42 07/13/23 00:39 Temperature 97.9 F Pulse Rate 78 60 59 L Respiratory Rate 12 12 12 Blood Pressure 164/86 H 159/76 H 146/77 H Pulse Oximetry 100 100 100 Oxygen Deliver
[2023-07-13] MEDS: BISACODYL 5 MG TABLET EC 20 MG PO (11:44)
[2023-07-13 14:00] VITALS: BP 129/60; PULSE 71; RESP 16; TEMP 36; O2SAT 100
[2023-07-13] MEDS: METOCLOPRAMIDE HCL INJ 10 MG/2 ML VIAL IV PUSH ×3 (14:36→23:48)
[2023-07-13 21:08] VITALS: BP 155/59; PULSE 80; RESP 18; TEMP 36.6; O2SAT 100
[2023-07-13] MEDS: POTASSIUM CHLORIDE 20 MEQ ER TABLET 40 MEQ PO (21:14)
[2023-07-13] MEDS: MONTELUKAST SODIUM 10 MG TABLET PO (21:15)
[2023-07-13] MEDS: traZODone HCL 50 MG TABLET PO (21:15)
[2023-07-13] MEDS: ZOLPIDEM TARTRATE (*CRX) 5 MG TABLET 10 MG PO (21:15)
[2023-07-13] MEDS: ATORVASTATIN 40 MG TABLET PO (21:15)
[2023-07-14 04:19] VITALS: BP 147/75; PULSE 73; RESP 16; TEMP 36.6; O2SAT 99
[2023-07-14] MEDS: SODIUM CHLORIDE 0.9% IV 1,000 ML 125 ML IV CONT (04:35)
[2023-07-14 06:19] LABS: Basophils Percent Auto 0.8 % (0.2-1.2); Eosinophils Absolute Auto 0.2 K/mm3 (0-0.3); Eosinophils Percent Auto 4.1 % (0-4.4); Hematocrit 29.3 % (37.0-47.0); Hemoglobin 9.8 g/dL (12.0-15.0); Immature Granulocyte Absolute 0.01 K/mm3 (0.00-0.031); Immature Granulocyte Percent A 0.2 % (0-0.5); Lymphocytes Absolute Auto 1.38 K/mm3 (0.9-3.2); Mean Corpuscular HGB Conc 33.4 g/dl (32-36); Mean Corpuscular Hemoglobin 32.5 pg (26-34); Mean Platelet Volume 9.8 fl (7.4-10.4); Monocytes Absolute Auto 0.4 K/mm3 (0.1-0.6); Monocytes Percent Auto 8.5 % (2.6-8.5); Neutrophils Absolute Auto 2.9 K/mm3 (1.3-6.7); Neutrophils Percent Auto 58.4 % (45.5-73.1); Platelet Count Result 170 k/mm3 (150-375); Red Blood Count 3.02 M/mm3 (4.2-5.4); Red Cell Distribution Width 12.8 % (11.5-14.5); White Blood Count 4.9 K/mm3 (4.5-10.0)
[2023-07-14 06:34] LABS: Anion Gap 4 mmol/L (8-16); Blood Urea Nitrogen 3 mg/dL (7-17); Calcium 7.5 mg/dL (8.4-10.2); Carbon Dioxide 21 mmol/L (22-30); Chloride 113 mmol/L (98-107); Estimated CRCL calculation 58 ml/min; Estimated Glomerular Filt Rate > 60; Glucose 92 mg/dL (65-110); Magnesium 2.5 mg/dL (1.6-2.3); Phosphorus 2.5 mg/dL (2.5-4.5); Potassium 4.1 mmol/L (3.4-5.0); Sodium 138 mmol/L (137-145)
[2023-07-14] MEDS: LEVOTHYROXINE SODIUM 75 MCG TABLET PO (06:43)
[2023-07-14] MEDS: METOCLOPRAMIDE HCL INJ 10 MG/2 ML VIAL IV PUSH ×2 (06:46→12:44)
--- NOTE | 2023-07-14 08:47 | WPDGIPROGNO ---
Progress Note: A&P Assessment and Plan (1) Fecal impaction of colon: Code(s): K56.41 - Fecal impaction Status: Acute Assessment and Plan: CT scan shows impaction in the sigmoid colon. The optimal way to address this would be with enemas. She had a colonoscopy last year which was unremarkable. 07/14/2023 KUB today looks good. No sign of fecal impaction. She states she had good results with the soapsuds enema and Dulcolax tablets. (2) Spinal stenosis, unspecified region other than cervical: Code(s): M48.00 - Spinal stenosis, site unspecified Status: Acute Assessment and Plan: She has a spinal cord stimulator which has been present for a while. She is not on oral opiates (3) Irritable bowel syndrome: Code(s): K58.9 - Irritable bowel syndrome without diarrhea Status: Acute Assessment and Plan: she has had spells where her irritable bowel results in sudden urge to have a bowel movement, sometimes diaphoresis, and nausea. For this she uses hyoscyamine and ondansetron I advised her to take MiraLax daily after discharge and to adjust accordingly. Plan From my perspective she can be discharged today Subjective Date/time seen: 07/14/23 08:47 she feels much better today. She had several semi formed and loose stools yesterday after the Dulcolax and enema. She feels that she could go home. Tolerating her diet. Exam Const: General: cooperative and healthy appearing Orientation/consciousness: patient oriented x3 HENMT: Head: normal to inspection Ears: hearing grossly normal bilaterally Mouth: Yes Normal oral and palatal mucosa present Eyes: General: appearance normal, both eyes and all related structures Neck: Neck: normal visual inspection Chest: Chest palpation & inspection: normal inspection of the chest Resp: Effort & Inspection: normal respiratory effort Auscultation: clear to auscultation bilaterally Cardio: Rate: regular rate Rhythm: regular rhythm GI: Inspection: normal to inspection GI Palp: No abdominal tenderness, Yes Soft to palpation and No Guarding due to palpation present (GI) Auscultation: normal bowel sounds Skin: General skin exam: normal color and no jaundice Neuro: General: patient oriented x3 Speech: normal speech Objective Data Vital Signs Vital Signs: Vital Signs - 24 hr 07/13/23 09:39 07/13/23 14:00 07/13/23 21:08 Temperature 36.0 C L 36.6 C Pulse Rate 66 71 80 Respiratory Rate 16 18 Blood Pressure 129/60 155/59 H Pulse Oximetry 97 100 100 Oxygen Delivery Room Air 07/13/23 20:00 07/14/23 04:19 Temperature 36.6 C Pulse Rate 73 Respiratory Rate 16 Blood Pressure 147/75 H Pulse Oximetry 99 Oxygen Delivery Room Air Intake/Output Intake/Output: Intake & Output 07/11/23 07/12/23 07/13/23 07/14/23 23:59 23:59 23:59 23:59 Intake Total 1000 3580 1000 Output Total 300 Balance 1000 3280 1000 Meds/Results Medications: Active Medications Generic Name Dose Route Start Last Admin Trade Name Freq PRN Reason Stop Dose Admin Acetaminophen 650 mg 07/13/23 05:18 Acetaminophen 325 Mg Tablet PO Q4H PRN Mild Pain (1-3) or Fever Hydrocodone Bitart/Acetaminophen 1 tab 07/13/23 05:22 Hydrocodone/Acetaminophen (*Crx) 5-325 Mg Tablet PO Q6H PRN Pain Rated 4-6 Al Hydrox/Mg Hydrox/Simethicone 30 ml 07/13/23 05:18 Mag Hydrox/Al Hydrox/Simeth 30 Ml Udc PO QID PRN Dyspepsia Albuterol 2 puff 07/13/23 05:22 Albuterol Sulfate (*Sp) Aerosol 1 Puff INHALATION QID PRN shortness of breath or wheezing Alprazolam 0.25 mg 07/13/23 05:22 Alprazolam (*Crx) 0.25 Mg Tablet PO TID PRN anxiety Atorvastatin Calcium 40 mg 07/13/23 21:00 07/13/23 21:15 Atorvastatin 40 Mg Tablet PO 40 mg QHS DONA Administration Cyclobenzaprine HCl 10 mg 07/13/23 05:22 Cyclobenzaprine Hcl 10 Mg Tablet PO TID PRN muscle spas
[2023-07-14] MEDS: GABAPENTIN 300 MG CAPSULE PO (08:51)
[2023-07-14] MEDS: LOSARTAN POTASSIUM 25 MG TABLET PO (08:52)
[2023-07-14] MEDS: SERTRALINE HCL 50 MG TABLET 100 MG PO (08:52)
[2023-07-14] MEDS: PANTOPRAZOLE 40 MG TABLET PO (08:52)
[2023-07-14] MEDS: HYDROcodone/acetaminophen (*CRX) 5-325 MG TABLET 1 TAB PO (08:55)
--- NOTE | 2023-07-14 09:17 | PM.DS ---
DS: Admitting Diagnosis Discharge Date 07-14 Admitting Diagnosis fecal impaction, abdominal pain DS: Discharge Diagnosis Discharge Diagnosis (1) Fecal impaction of colon: Code(s): K56.41 - Fecal impaction Status: Acute Assessment and Plan: acute on chronic constipation history of constipation and irritable bowel Takes linzess at home as needed Unable to have a substantial bowel movement for weeks CT scan shows impaction in the sigmoid colon. GI consulted and rec's appreciated. (2) Hypothyroidism (acquired): Code(s): E03.9 - Hypothyroidism, unspecified Status: Acute Assessment and Plan: TSH in 06/29 was 2.47, stable continue levothyroxine (3) Essential (primary) hypertension: Code(s): I10 - Essential (primary) hypertension Status: Acute Assessment and Plan: Blood pressures reviewed. stable, mildly HTN continue with home regimen (4) Spinal stenosis, unspecified region other than cervical: Code(s): M48.00 - Spinal stenosis, site unspecified Status: Acute Assessment and Plan: Implanted nerve stimulator pain is controlled No PO opiates Plan Feeding: Full liquids Analgesia:Tylenol and [place], try to limit narcotics Thromboembolic prophylaxis: SCDs Ulcer prophylaxis: PPI Glycemic control: N/A Bowel regimen: Enemas, linzess Lines: PIV Antibiotics: n/a DS: Summary Hospital Course Hospital Course: Interval history: HPI obtained from chart, She is a very pleasant 67-year-old white female who has issues with the constipation on a chronic basis.? She has a history of IBS and she used to have lot of diarrhea when she was young, which has now giving rise to constipation.? She has used many lnei-zvf-orelrmn meds for constipation over the last month with minimal stool movements.? She came to the ER for evaluation as she is having abdominal pain for the last couple of weeks he is slowly getting worse.? Workup was done in the ER which showed stool impaction in the sigmoid colon.?GI was consulted and rec's are appreciated. Interval history, 07/13- Very pleasant lady, seen today resting in bed and does not appear in acute distress.? She states that she Stalls GI already today and they are not planning on colonoscopy at this time.? Instead will attempt enemas and bowel motility agents for emptying.? She does report bloating, nausea, and abdominal tenderness.? She received enema today and only past liquid stool. 07/14- patient reports episodes of 15 stools in the last 24 hours. she said she was able to pass some fecal material as well. She feels well today and is ready to discharge home. GI is okay with discharge. Status at Discharge Cognitive/behavioral status at discharge: A&O x4, pleasant Time Spent with Patient Time attestation: Total time spent providing and/or coordinating discharge services: 40 Exam Narrative: General: well appearing, well developed, well nourished, appears stated age. HEENT: normocephalic, atraumatic. Mucous membranes moist. EOMI, PERRLA, bilateral sclera anicteric, no conjunctival injection. Neck supple without JVD, lymphadenopathy, or bruit. Respiratory: clear to auscultation bilaterally. No rales/rhonic/wheezes. Cardiovascular: Regular rate and rhythm, normal S1-S2 upon auscultation. No murmurs, rubs, or clicks. PMI is nondisplaced, capillary re-fill less than 3 second. Abdomen: Soft, round, no pulsatile masses, non-distended and mildly tender. No rebound, no guarding. No CVA tenderness, no hepatosplenomegaly. Bowel sounds present hypoactive to four quadrants. No high pitch or tinkling sounds, resonant to percussion. Extremities: No cyanosis, clubbing, or edema present. Pulses are palpable 2/2. Active ROM to all four extremities. Neuro: Alert and orientated x 4. PERRLA. Cranial nerves 2-12 intact without focal deficit. Skin: Warm, dry, and intact, without rash, erythema, or lesion.
[2023-07-14 10:47] LABS: Hematocrit 31.4 % (37.0-47.0); Hemoglobin 10.2 g/dL (12.0-15.0); Mean Corpuscular HGB Conc 32.5 g/dl (32-36); Mean Corpuscular Hemoglobin 32.2 pg (26-34); Mean Corpuscular Volume 99.1 fl (80-100); Mean Platelet Volume 9.7 fl (7.4-10.4); Platelet Count Result 168 k/mm3 (150-375); Red Blood Count 3.17 M/mm3 (4.2-5.4); White Blood Count 4.9 K/mm3 (4.5-10.0)
[2023-07-14 13:35] VITALS: BP 137/70; PULSE 74; RESP 16; TEMP 36.3; O2SAT 96
== END 2023-07-14 14:16 | disposition home or self-care (01) | DRG 389 ==
LOC: ANHED 22:12 → ANH3MED 07-14 13:25 → ANH3MEDSUR 07-15 06:42
PROVIDERS: Admitting Provider Family Medicine; Emergency Provider Emergency Medicine; PCP Family Medicine; Visit Provider Nurse Practitioner Acute Care
DX: K56.41 Fecal impaction (principal); I50.32 Chronic diastolic (congestive) heart failure; I51.81 Takotsubo syndrome; I25.10 Atherosclerotic heart disease of native coronary artery without angina pectoris; I70.0 Atherosclerosis of aorta; K58.9 Irritable bowel syndrome, unspecified; K22.70 Barrett's esophagus without dysplasia; K22.4 Dyskinesia of esophagus; K22.2 Esophageal obstruction; K31.84 Gastroparesis; K91.1 Postgastric surgery syndromes; E87.6 Hypokalemia; E03.9 Hypothyroidism, unspecified; E53.8 Deficiency of other specified B group vitamins; E78.2 Mixed hyperlipidemia; E55.9 Vitamin D deficiency, unspecified; I25.2 Old myocardial infarction; R73.03 Prediabetes; M48.00 Spinal stenosis, site unspecified; M47.22 Other spondylosis with radiculopathy, cervical region; M19.211 Secondary osteoarthritis, right shoulder; M21.6X1 Other acquired deformities of right foot; M79.671 Pain in right foot; G89.29 Other chronic pain; G62.9 Polyneuropathy, unspecified; G60.0 Hereditary motor and sensory neuropathy; F32.A Depression, unspecified; Z96.29 Presence of other otological and audiological implants
CPT/HCPCS: 36415; 74018; 74177; 80048; 80053; 81003; 83690; 83735; 84100; 85025; 85027; 96361; 96365; 96374; 96375; 96376; 99284; 99285; A9270; J0696; J1170; J2405; J2765; J3480; J7030; Q9967

== ENCOUNTER 2023-07-18 14:31 | Outpatient (CLI) | payer MEDICARE, SELFPAY ==
--- NOTE | ~2023-07-18 | XR_ITS ---
XR abdomen/kub 1V 07/18/2023 15:04 INDICATION: Constipation TECHNIQUE: KUB COMPARISON: 07/14/2023 FINDINGS: Bowel gas pattern is normal. Moderate colonic fecal loading. There is no evidence of free a ir, mass, organomegaly, ascites or obstruction. No abnormal calculi are seen. The bones appear inta ct. There is a battery pack overlying the left upper abdomen with spinal stimulator leads. There are cholecystectomy clips. There are pelvic phleboliths. There are splenic arterial calcifications. IMPRESSION: 1: No acute abdominal abnormality identified. Reviewed, dictated and finalized at location A.
== END 2023-07-18 14:32 | disposition home or self-care (01) ==
PROVIDERS: PCP Family Medicine; Visit Provider Internal Medicine Gastroenterology
DX: K56.41 Fecal impaction (principal)
CPT/HCPCS: 74018

== ENCOUNTER 2023-07-23 13:58 | Outpatient (CLI) | payer MEDICARE, SELFPAY ==
--- NOTE | ~2023-07-23 | XR_ITS ---
EXAMINATION: XR abdomen/kub 1V DATE: 07/23/2023 14:33 INDICATION: Constipation. Generalized abdominal pain. TECHNIQUE: A supine view of the abdomen on 2 radiographs was obtained. COMPARISON: CT abdomen and pelvis 07/12/2023 FINDINGS: There are no dilated loops of bowel. There is a moderate volume of stool in the colon. Surg ical clips in the right upper quadrant are likely from cholecystectomy. There are phleboliths in the pelvis. Epidural electrodes are noted. IMPRESSION: 1. Nonobstructive bowel gas pattern. Reviewed, dictated and finalized at location E.
== END 2023-07-23 13:59 | disposition home or self-care (01) ==
PROVIDERS: PCP Family Medicine; Visit Provider Physician Assistant
DX: K59.09 Other constipation (principal)
CPT/HCPCS: 74018

== ENCOUNTER 2023-08-05 01:41 | Day surgery (SDC) | payer MEDICARE, SELFPAY ==
[2023-07-29 14:58] VITALS: BMI 30.2
--- NOTE | 2023-08-05 11:46 | PM.HPGS ---
History of Present Illness History of Present Illness Consent: Risks, benefits, and alternatives have been discussed and questions answered. Patient agrees to proceed with procedure. Chief complaint: change in bowel habit, unspecified abdominal pain Narrative: Schuyler Gutierrez is a 67 year old female who was hospitalized earlier this month with fecal impaction.? She was having bowel movements and felt better discharge but she states that now she is miserable.? She is very uncomfortable in her upper abdomen in finds that she cannot eat much.? She has only had 3 small but soft stools since discharge.? This is despite taking Dulcolax? tablets twice a day, MiraLax twice a day, citrated magnesium twice last week, and increasing Linzess to b.i.d..? She was also started on lactulose syrup few days ago by her primary care provider.? She feels that she cannot eat.? She has a very full feeling in her upper abdomen Review of Systems Review of Systems: All systems reviewed & are unremarkable except as noted in HPI and below PMFSH Past Medical History Medical History Acquired cavovarus deformity of right foot Arthritis Atherosclerosis of aorta B12 deficiency Ga esophagus CAD (coronary artery disease) Alcaiwu-Hznoh-Wzqpe disease (~03/2021) Chronic insomnia Depression Diastolic CHF Dyskinesia of esophagus Esophageal web Essential (primary) hypertension Gastroparesis Hypothyroidism (acquired) Internal derangement of right knee Irritable bowel syndrome with diarrhea Latex allergy status Metabolic syndrome Mixed hyperlipidemia Neuritis of right sural nerve Non-ST elevation NE (NSTEMI) Other hyperlipidemia Other spondylosis with radiculopathy, cervical region Patellar tendonitis of right knee Peripheral neuropathy Postgastric surgery syndromes Prediabetes With last hemoglobin A1c 4.7 Seasonal allergies Secondary osteoarthritis, right shoulder Shellfish allergy Spinal stenosis, unspecified region other than cervical Takotsubo cardiomyopathy Unspecified vitamin D deficiency Surgical History Surgical History History of Achilles tendon repair (~2017) History of arthroscopy of right knee History of cholecystectomy (~2009) History of endoscopy History of foot surgery (~2018) tendon repair History of hysterectomy (~1979) Due to uterine prolapse History of lumbar discectomy (~2009) History of Juan Manuel fundoplication (~1996) History of oophorectomy, unilateral History of tonsillectomy (~1959) Family History Family History Grandparent Diabetes mellitus Father Family history of elevated blood lipids Acute myocardial infarction, Onset Age: 40 Heart disease Hypertension Mother Family history of lung cancer Pulmonary disease Sibling Acute myocardial infarction, Onset Age: 65 Massive NE Heart disease Son History of acquired heart valve infection her son had open heart surgery and a valve replaced a few years ago due to infected valve Other Arthritis Social History Social History Social History: She lives in [place] with her of 47 years. They have 3 children. Her son recently moved back into the home with them and has a small dog. There middle daughter works as a nurse at [employer]. There youngest daughter was murdered. 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 She never smoked. She drinks 1 alcoholic beverage a year on average. She denies illicit substance use. She is a mostly sedentary lifestyle. Primary care physician: Dr. Juan Pablo Easton Code status: Full code Surrogate decision maker: Smoking status: Never smoker Additional smoking assessment comments: DENIES ANY FORM O
[2023-08-05 12:25] VITALS: BMI 29.2
[2023-08-05 12:32] VITALS: BP 148/68; PULSE 80; RESP 20; TEMP 36.6; O2SAT 100
[2023-08-05] MEDS: LACTATED RINGERS 1,000 ML 150 ML IV CONT (12:32)
--- NOTE | 2023-08-05 12:33 | WPDANESEPPF ---
Anes - Initial Pre Proc Eval Procedure: Operation Date: 08/05/23 14:30 Proposed Procedures p Esophagogastroduodenoscopy & Colonoscopy - Sukhdeep Lizarraga MD Date/Time: 08/05/23 12:33 Surgeon: Sukhdeep Lizarraga MD Pre Op Diagnosis: change in bowel habit, unspecified abdominal pain Patient Data Age: 67 Gender: F Height: 1.6 m Weight: 75 kg Allergies Allergy/AdvReac Type Severity Reaction Status Date / Time shellfish derived Allergy Mild Itching Verified 08/05/23 12:23 ciprofloxacin Allergy Unknown Skin Verified 08/05/23 12:23 Reaction neomycin Allergy Unknown Skin Verified 08/05/23 12:23 Reaction Penicillins Allergy Unknown Unknown Verified 08/05/23 12:23 Quinolones Allergy Unknown Unknown Verified 08/05/23 12:23 LATEX Allergy Intermediate BLISTERING Uncoded 08/05/23 12:23 RASH Home Medications Medication Instructions Recorded Confirmed Type aspirin 81 mg tablet,delayed 81 mg PO QAM #30 tabs 06/19/21 07/29/23 Rx release albuterol sulfate 90 mcg/actuation 2 puff inhalation QID PRN 10/16/21 07/29/23 Rx aerosol inhaler (ProAir HFA) shortness of breath or wheezing #8.5 grams hyoscyamine sulfate 0.125 mg 0.125 mg PO Q4-6H PRN dyspepsia 11/28/21 07/29/23 Rx sublingual tablet #20 tabs cyclobenzaprine 10 mg tablet 10 mg PO TID PRN muscle spasm #30 12/14/21 07/29/23 Rx tabs losartan 25 mg tablet 25 mg PO DAILY 07/11/22 07/29/23 History gabapentin 300 mg capsule 300 mg PO DAILY PRN Pain 01/16/23 07/29/23 History alprazolam 0.25 mg tablet (Xanax) 0.25 mg PO TID PRN anxiety #30 tabs 04/29/23 07/29/23 Rx hydrocodone 5 mg-acetaminophen 325 1 tablet PO Q6H PRN pain #30 tabs 04/29/23 07/29/23 Rx mg tablet levothyroxine 75 mcg tablet 75 mcg PO DAILY #90 tabs 05/03/23 07/29/23 Rx montelukast 10 mg tablet 10 mg PO QHS #30 tabs 06/11/23 07/29/23 Rx (Singulair) ondansetron 4 mg disintegrating 4 mg PO Q8H PRN nausea and 07/09/23 07/29/23 Rx tablet vomiting #20 tabs zolpidem 10 mg tablet 10 mg PO QHS #30 tabs 07/10/23 07/29/23 Rx atorvastatin 40 mg tablet 40 mg PO QHS 07/13/23 07/29/23 History pantoprazole 40 mg tablet,delayed 40 mg PO QAM 07/13/23 07/29/23 History release (Protonix) sertraline 100 mg tablet 100 mg PO QAM 07/13/23 07/29/23 History trazodone 50 mg tablet 50 mg PO HS PRN Sleep 07/13/23 07/29/23 History lactulose 10 gram/15 mL (15 mL) 10 g (15 mL) PO DAILY PRN 07/19/23 07/29/23 Rx oral solution constipation #600 mL linaclotide 145 mcg capsule See Rx Instructions .Route 07/19/23 07/29/23 Rx (Linzess) .COMPLEX #90 caps Patient hx anesthesia problems: none Family hx anesthesia problems: none Results Review: All pre-operative results and documents have been reviewed as part of the pre-operative evaluation. [facility] Past Medical History Medical History Acquired cavovarus deformity of right foot Arthritis Atherosclerosis of aorta B12 deficiency Ga esophagus CAD (coronary artery disease) Nddpcvm-Kixwg-Yhpgw disease (~03/2021) Chronic insomnia Depression Diastolic CHF Dyskinesia of esophagus Esophageal web Essential (primary) hypertension Gastroparesis Hypothyroidism (acquired) Internal derangement of right knee Irritable bowel syndrome with diarrhea Latex allergy status Metabolic syndrome Mixed hyperlipidemia Neuritis of right sural nerve Non-ST elevation [place] (NSTEMI) Other hyperlipidemia Other spondylosis with radiculopathy, cervical region Patellar tendonitis of right knee Peripheral neuropathy Postgastric surgery syndromes Prediabetes With last hemoglobin A1c 4.7 Seasonal allergies Secondary osteoarthritis, right shoulder Shellfish allergy Spinal stenosis, unspecified region other than cervical Takotsubo cardiomyopathy Unspecified vitamin D deficiency Surgical History Surgical History History of Achilles tendon repair (~2018) Hi
--- NOTE | 2023-08-05 13:00 | SUR.OPER ---
EGD START: 1249; END: 1254. COLONOSCOPY START: 1300; END: 1313.
[2023-08-05 13:15] VITALS: BP 107/59; PULSE 60; RESP 16; O2SAT 100
[2023-08-05 13:25] VITALS: BP 124/64; PULSE 60; RESP 11; O2SAT 100
[2023-08-05 13:35] VITALS: BP 134/68; PULSE 61; RESP 14; O2SAT 100
== END 2023-08-05 13:45 | disposition home or self-care (01) ==
PROVIDERS: PCP Family Medicine; Visit Provider Internal Medicine Gastroenterology
PROC: 0DJ08ZZ Inspection of Upper Intestinal Tract, Via Natural or Artificial Opening Endoscopic (ICD-10-PCS; CPT 43235; principal; 2023-08-05 14:30)
DX: K59.00 Constipation, unspecified (principal); K22.70 Barrett's esophagus without dysplasia; K21.00 Gastro-esophageal reflux disease with esophagitis, without bleeding; K44.9 Diaphragmatic hernia without obstruction or gangrene; I25.10 Atherosclerotic heart disease of native coronary artery without angina pectoris; I11.0 Hypertensive heart disease with heart failure; I50.30 Unspecified diastolic (congestive) heart failure; E03.9 Hypothyroidism, unspecified; E78.2 Mixed hyperlipidemia; I25.2 Old myocardial infarction; E53.8 Deficiency of other specified B group vitamins; G60.0 Hereditary motor and sensory neuropathy; F51.04 Psychophysiologic insomnia; R73.03 Prediabetes; E55.9 Vitamin D deficiency, unspecified; F32.A Depression, unspecified; Z79.82 Long term (current) use of aspirin; Z79.51 Long term (current) use of inhaled steroids; Z79.891 Long term (current) use of opiate analgesic
CPT/HCPCS: 45378; 43239; 87081; 88305; J2001; J2704; J7120

== ENCOUNTER 2023-08-22 08:31 | Outpatient (CLI) | payer MEDICARE, SELFPAY ==
--- NOTE | ~2023-08-22 | NM_ITS ---
EXAM: NM gastric emptying study DATE: 08/22/2023 13:12 INDICATION: Gastroparesis. TECHNIQUE: A gastric emptying study was performed using the methodology of Stu BRENNAN, et al. J Nucl Med 2007; 48:568-572. The patient was given a meal consisting of 2 scrambled eggs labeled with 1.014 mCi Tc-99m sulfur colloid, 2 slices of toast, two packages of jam, and approximately 120 mL of water . Simultaneous anterior and posterior 1-min images of the abdomen were obtained with the patient supi ne at multiple time points over a total period of 4 hours. The geometric mean of anterior and posteri or views was determined, and the percentage retention was calculated for each time point. COMPARISON: Gastric emptying scan 01/16/2017, CT abdomen and pelvis 07/12/2023 FINDINGS: Gastric retention of the radiotracer-labeled meal was 53%, 37%, and 13% at the 1-hour, 2-h our, and 4-hour time points, respectively. With this technique, apparent rapid gastric emptying is dunne ggested by <30% gastric retention at 1 hour. Delayed gastric emptying is defined by gastric retention of >90% at 1 hour, >60% retention at 2 hours, or >10% retention at 4 hours. IMPRESSION: 1. Delayed gastric emptying. Reviewed, dictated and finalized at location A. [employer]ISION [employer]
== END 2023-08-22 08:32 | disposition home or self-care (01) ==
PROVIDERS: PCP Family Medicine; Visit Provider Internal Medicine Gastroenterology
DX: K30 Functional dyspepsia (principal); K31.84 Gastroparesis
CPT/HCPCS: 78264; A9541

== ENCOUNTER 2024-01-19 09:39 | Emergency (ER) | payer MEDICARE, SELFPAY ==
--- NOTE | ~2024-01-19 | CT_ITS ---
EXAMINATION: CT abdomen pelvis w con DATE: 01/19/2024 10:46 INDICATION: Left-sided abdominal pain TECHNIQUE: Computed tomography (CT) of the abdomen and pelvis was performed with 100 mL Omnipaque-350 intravenous contrast. Automated exposure control and iterative reconstruction technique were employe d. The dose-length product was 649.53 mGy-cm. COMPARISON: None FINDINGS: Lung bases are clear. Heart size is normal. No pericardial or pleural effusion. Small sliding-type hi atal hernia. Focal hepatic steatosis at the ligamentum teres. Cholecystectomy clips the gallbladder f maria. There are a couple subcentimeter low-attenuation hepatic cysts. Spleen, pancreas and bilateral adrenal glands are normal. There are bilateral renal cysts the largest on the right measuring 1.8 cm. Bladder is normal. Multiple phleboliths in the pelvis. Bowels including the appendix are normal. No free intraperitoneal gas or fluid. No pathologically enlarged abdominal or pelvic lymphadenopathy. Sp inal stimulator in the subcutaneous tissues at the left flank with leads extending into the central c anal at the level of T12 and extending cephalad beyond the superior margin of the [id number]-fm-pxrb which is at T8-T9. 7 mm anterolisthesis L4 on L5 with moderate associated disc height loss, severe bilater al facet osteoarthritis and without pars interarticularis defects. Otherwise mild lumbar spondylosis and mild to moderate lower thoracic spondylosis. IMPRESSION: 1. No acute intra-abdominal/pelvic process. 2. Small sliding-type hiatal hernia. Reviewed, dictated and finalized at location A.
[2024-01-19 09:37] VITALS: BP 174/78; PULSE 84; RESP 18; TEMP 36.6; O2SAT 100
--- NOTE | 2024-01-19 09:40 | ED.ABDPAIN ---
HPI - Abdominal Pain General Chief Complaint: Abdominal Pain Stated Complaint: Abd pain Time Seen by Provider: 01/19/24 09:40 Source: patient Mode of arrival: ambulatory Limitations: no limitations History of Present Illness HPI narrative: Schuyler is a 68-year-old female patient presenting to the emergency room today with complaints of left-sided abdominal pain for the past 4 days. She reports she does have associated nausea and vomiting with this. Feels as though she is dehydrated. Last bowel movement was 3-4 days ago. History of fecal impaction in July of 2023. Has seen Dr. Lizarraga and had colonoscopy and endoscopy done in July. Reports when this happened last they gave her an enema and that improved her symptoms. Rates her pain 05/16 currently stating it is an aching dull pain and constant. States she has not passed gas over the last 24 hours. She denies any chest pain or shortness of breath. Denies any fever, chills, or body aches. Denies any urinary symptoms. History of Ga's esophagus, hiatal hernia, GERD, and gastroparesis. Related Data Home Medications Medication Instructions Recorded Confirmed losartan 25 mg tablet 25 mg PO DAILY 07/11/22 12/02/23 gabapentin 300 mg capsule 300 mg PO DAILY PRN Pain 01/16/23 12/02/23 atorvastatin 40 mg tablet 40 mg PO QHS 07/13/23 12/02/23 sertraline 100 mg tablet 100 mg PO QAM 07/13/23 12/02/23 trazodone 50 mg tablet 50 mg PO HS PRN Sleep 07/13/23 12/02/23 fluticasone furoate 100 1 inh inhalation DAILY 12/02/23 12/02/23 mcg-vilanterol 25 mcg/dose inhalation powder tizanidine 4 mg capsule 4 mg PO TID PRN 12/02/23 12/02/23 Allergies Allergy/AdvReac Type Severity Reaction Status Date / Time shellfish derived Allergy Mild Itching Verified 01/19/24 09:46 ciprofloxacin Allergy Unknown Skin Verified 01/19/24 09:46 Reaction neomycin Allergy Unknown Skin Verified 01/19/24 09:46 Reaction Penicillins Allergy Unknown Unknown Verified 01/19/24 09:46 Quinolones Allergy Unknown Unknown Verified 01/19/24 09:46 LATEX Allergy Intermediate BLISTERING Uncoded 01/19/24 09:46 RASH Review of Systems Review of Systems: Pertinent positives per HPI. Patient denies any fever, chills, rash, headache, visual changes, dizziness, cough, runny nose, sore throat, shortness of breath, chest pain, palpitations, nausea, vomiting, diarrhea, constipation, or any urinary issues. [facility] Past Medical History Medical History Acquired cavovarus deformity of right foot Arthritis Atherosclerosis of aorta B12 deficiency Ga esophagus CAD (coronary artery disease) Gyuqwdi-Zwjvr-Ucaws disease (~03/2021) Chronic insomnia Depression Diastolic CHF Dyskinesia of esophagus Esophageal web Essential (primary) hypertension Gastroparesis Hypothyroidism (acquired) Internal derangement of right knee Irritable bowel syndrome with diarrhea Latex allergy status Metabolic syndrome Mixed hyperlipidemia Neuritis of right sural nerve Non-ST elevation MS (NSTEMI) Other hyperlipidemia Other spondylosis with radiculopathy, cervical region Patellar tendonitis of right knee Peripheral neuropathy Postgastric surgery syndromes Prediabetes With last hemoglobin A1c 4.7 Seasonal allergies Secondary osteoarthritis, right shoulder Shellfish allergy Spinal stenosis, unspecified region other than cervical Takotsubo cardiomyopathy Unspecified vitamin D deficiency Surgical History Surgical History History of Achilles tendon repair (~2017) History of arthroscopy of right knee History of cholecystectomy (~2009) History of endoscopy History of foot surgery (~2018) tendon repair History of hysterectomy (~1979) Due to uterine prolapse History of lumbar discectomy (~2009) History of Juan Manuel fundoplication (~1996) History of oophorectomy, unilateral History of tonsillectomy (~1959) Family
[2024-01-19] MEDS: SODIUM CHLORIDE 0.9% IV 1,000 ML 999 ML IV CONT (10:05)
[2024-01-19 10:14] LABS: Basophils Absolute Auto 0.1 K/mm3 (0.0-0.1); Basophils Percent Auto 0.5 % (0.2-1.2); Eosinophils Absolute Auto 0.1 K/mm3 (0-0.3); Eosinophils Percent Auto 1.4 % (0-4.4); Hematocrit 41.8 % (37.0-47.0); Hemoglobin 13.9 g/dL (12.0-15.0); Immature Granulocyte Absolute 0.05 K/mm3 (0.00-0.031); Immature Granulocyte Percent A 0.5 % (0-0.5); Lymphocytes Absolute Auto 1.31 K/mm3 (0.9-3.2); Lymphocytes Percent Auto 13.9 % (18.3-44.2); Mean Corpuscular HGB Conc 33.3 g/dl (32-36); Mean Corpuscular Hemoglobin 31.6 pg (26-34); Mean Platelet Volume 9.5 fl (7.4-10.4); Monocytes Absolute Auto 0.6 K/mm3 (0.1-0.6); Monocytes Percent Auto 6.2 % (2.6-8.5); Neutrophils Absolute Auto 7.3 K/mm3 (1.3-6.7); Neutrophils Percent Auto 77.5 % (45.5-73.1); Platelet Count Result 225 k/mm3 (150-375); Red Cell Distribution Width 13.3 % (11.5-14.5); White Blood Count 9.4 K/mm3 (4.5-10.0)
[2024-01-19 10:21] LABS: Appearance Urine Clear (Clear); Bacteria Urine None Seen /hpf; Bilirubin Urine Negative (Negative); Blood Urine Negative (Negative); Color Urine Yellow (Yellow); Glucose Urine UA Negative (Negative); Ketones Urine Trace mg/dL (Negative); Leukocyte Esterase Ur Trace LEU/UL (Negative); Nitrate Urine Negative (Negative); Non Pathogenic Casts 0-2; Protein Urine Negative (Negative); RBC Urine 0-2 /hpf (0-2); Specific Grav Ur 1.022 (1.001-1.035); Squamous Epithelial Cell Urine None Seen /hpf (Few); WBC Urine 0-5 /hpf (0-3)
[2024-01-19 10:28] LABS: Add Urine Microscopic? YES
[2024-01-19 10:28] LABS: Alanine Aminotransferase 36 U/L (6-35); Albumin Level 4.9 g/dL (3.5-5.1); Alkaline Phosphatase 90 U/L (38-126); Anion Gap 9 mmol/L (4-12); Aspartate Amino Transferase 30 U/L (14-36); Bilirubin,Total 0.7 mg/dL (0.2-1.3); Blood Urea Nitrogen 15 mg/dL (7-17); Calcium 9.4 mg/dL (8.4-10.2); Carbon Dioxide 27 mmol/L (22-30); Chloride 95 mmol/L (98-107); Estimated CRCL calculation 44 ml/min; Estimated Glomerular Filt Rate 55; Glucose 126 mg/dL (65-110); Lipase 160 U/L (23-300); Potassium 3.3 mmol/L (3.4-5.0); Sodium 131 mmol/L (137-145)
[2024-01-19 12:24] VITALS: BP 156/96; PULSE 63; RESP 18; O2SAT 100
[2024-01-19] MEDS: MORPHINE SULFATE (*CRX) 2 MG/ML INJ IV PUSH (12:25)
== END 2024-01-19 12:59 | disposition home or self-care (01) ==
PROVIDERS: Emergency Provider Nurse Practitioner Family; PCP Family Medicine
DX: R10.9 Unspecified abdominal pain (principal); K58.9 Irritable bowel syndrome, unspecified; I70.0 Atherosclerosis of aorta; I50.30 Unspecified diastolic (congestive) heart failure; I11.0 Hypertensive heart disease with heart failure; I25.2 Old myocardial infarction; E78.2 Mixed hyperlipidemia; E03.9 Hypothyroidism, unspecified; E53.8 Deficiency of other specified B group vitamins; E55.9 Vitamin D deficiency, unspecified; E88.810 Metabolic syndrome; K21.9 Gastro-esophageal reflux disease without esophagitis; K22.70 Barrett's esophagus without dysplasia; K44.9 Diaphragmatic hernia without obstruction or gangrene; K31.84 Gastroparesis; G60.0 Hereditary motor and sensory neuropathy; G62.9 Polyneuropathy, unspecified; Z90.49 Acquired absence of other specified parts of digestive tract; Z90.710 Acquired absence of both cervix and uterus; Z90.721 Acquired absence of ovaries, unilateral
CPT/HCPCS: 36415; 74177; 80053; 81001; 83690; 85025; 96361; 96374; 99284; J2270; J7030; Q9967

== ENCOUNTER 2024-02-22 09:46 | Outpatient (CLI) | payer MEDICARE, SELFPAY ==
--- NOTE | ~2024-02-22 | MM_ITS ---
EXAMINATION: MM screening jax BI w sarai HISTORY: Screening TECHNIQUE: Craniocaudal and mediolateral oblique 3-D tomosynthesis images were obtained and synthetic 2-D images were generated. CAD analysis was submitted and interpreted. COMPARISON: Comparison to multiple prior studies sequentially, with oldest reviewed study dated 01/2017. BREAST PARENCHYMAL COMPOSITION: Not dense: There are scattered areas of fibroglandular density. FINDINGS: There is no evidence of suspicious mass, calcification, or architectural distortion to sugg est malignancy in either breast. There has been no suspicious interval change. IMPRESSION: 1. No mammographic evidence of malignancy. 2. Recommend routine screening mammography in one year. BI-RADS Category 1: Negative Reviewed, dictated and finalized at location A.
== END 2024-02-22 09:47 | disposition home or self-care (01) ==
PROVIDERS: PCP Family Medicine; Visit Provider Family Medicine
DX: Z12.31 Encounter for screening mammogram for malignant neoplasm of breast (principal)
CPT/HCPCS: 77063; 77067

== ENCOUNTER 2024-12-22 15:16 | Outpatient (CLI) | payer MEDICARE, SELFPAY ==
--- NOTE | ~2024-12-22 | CT_ITS ---
Procedure: CT LE RT wo con Ordering provider: Cornell Salazar MD History: . Preoperative planning . Comparison: None. Technique: Thin slice axial CT of the No IV contrast was given. Sagittal and coronal reformatted imag es were also obtained and reviewed. The dose-length product was 1738.27 mGy-cm. Findings/impression: BONES: No evidence of fracture. JOINT SPACES: Moderate narrowing of the medial compartment suggestive of moderate osteoarthritis.. Ma rginal osteophytes seen in the knee and patella. The ankle joint is unremarkable. Mild to moderate osteoarthritic changes of the right hip is seen. SOFT TISSUES: Minimal knee joint effusion Reviewed, dictated and finalized at location A.
--- OUTSIDE RECORDS SUMMARY | 2024-12-22 17:12 | XMS_ITS | CONTINUITY OF CARE DOCUMENT ---
Author Name jimnupur adalberto Address Unknown Organization [facility] Address [address] [place] [address] Phone [phone] Care Team Providers Care [employer] Name Role Phone Ken Vidales MD Unavailable SHIRA ALBARRAN MD Unavailable [phone] SHIRA ALBARRAN MD Unavailable PROBLEMS Condition Status Date Provider Notes DIZZINESS active Rosaisis Cordobamidt HYPOTHYROIDISM active Rosa Staton HTN-12/13 ECHO LV 65 active ? Ken Vidales MD ENCOUNTERS Date Type Provider Location Encounter Diagnosis - In-person encounter Office Visit Ken Vidales MD [facility] - In-person encounter Office Visit Ken Vidales MD [facility] HTN-12/13 ECHO [address] 65 VITAL SIGNS Date Observation Value Provider blood pressure, diastolic 68 mm[Hg] Sen Murdock RN blood pressure, systolic 136 mm[Hg] Elijah Murdock RN pulse rate 58 /min Elijah Murdock RN oxygen saturation, oximetry 98 % Elijah Murdock RN respiratory rate E&M 16 /min Elijah giron RN weight E&M 174 [lb_av] Elijah Murdock RN blood pressure, diastolic 76 mm[Hg] Sen Murdock RN blood pressure, systolic 126 mm[Hg] Elijah Murdock RN pulse rate 66 /min Elijah Murdock RN oxygen saturation, oximetry 100 % Elijah Murdock RN respiratory rate E&M 18 /min Elijah giron RN weight E&M 179 [lb_av] Elijah Murdock RN RESULTS Date Observation Value Provider Reference Range Interpretation Location cholesterol/HDL ratio, serum 7.0 Vashti Gaitan triglyceride, serum, fasting 153 mg/dL Vashti Gaitan HDL cholesterol, serum 40 mg/dL Vashti Gaitan LDL cholesterol, serum 207 mg/dL Vashti Gaitan cholesterol, serum 278 mg/dL Vashti Gaitan HISTORY OF MEDICATION USE Medication Status Instructions Dates Provider Indications Com ments LISINOPRIL 10 MG ORAL TABLET active ONE TAB. DAILY Ken Vidales MD CRESTOR 10 MG ORAL TABLET active ONE TAB. DAILY Ken Vidales MD AMBIEN 10 MG ORAL TABLET active ONE TAB. AT BEDTIME Elijah Murdock RN CHLOROZOXAZONE active 500mg as needed for pain Elijah Murdock RN VICODIN 5-500 MG TABS active as needed Elijah Murdock RN BYSTOLIC TABLET completed 5mg one tab per day - Ken Vidales MD ZOLOFT 100 MG ORAL TABLET active ONE TAB. DAILY Elijah Murdock RN NEXIUM 40 MG ORAL CAPSULE DELAYED RELEASE active ONE TAB. DAILY Elijah Murdock RN LISINOPRIL-HYDROC HLOROTHIAZIDE 10-12.5 MG ORAL TABLET completed ONE TAB. DAILY - Ken Vidales MD SYNTHROID 75 MCG ORAL TABLET active ONE TAB. DAILY Elijah Murdock RN ASPIRIN 325 MG ORAL TABLET active one tab daily Rosa Staamandamidt SOCIAL HISTORY Date Observation Value Provider social history reviewed E&M reviewed Elijah Murdock RN social history E&M Marital Statu s: L diann with family/friends E thnicity: Elijah Murdock RN social history reviewed E&M reviewed Elijah Murdock RN physical exercise, f requency, days per week no [employer] caffeine use, averag e drinks per day yes [employer] alcohol use, average drinks per day none [employer] smoking status Non-smoker [employer] MENTAL STATUS Date Observation Value Provider assessment of judgme nt and insight E&M Alert and oriented to time, place and person. Mood and affect are normal. Elijah Murdock RN assessment of judgme nt and insight E&M Alert and oriented to time, place and person. Mood and affect are normal. Elijah Murdock RN INSURANCE PROVIDERS Payer name Policy type / Coverage type [employer] red constitution party ID [facility] [id number] TREATMENT PLAN Date Name Performer routine: H er updated medication list for this problem includes: Synthroid 75 Mcg Tabs (Levothyroxine sodium) ..... One tab. daily Labs Reviewed: C hol: 278 (01/28/2009) HDL: 40 (01/28/2009) LDL: 207 (01/28/2009) T (01/28/2009) Ken Vidales MD routine: T he following medications were removed from the medication list: Bystolic Tabs (Nebivolol hcl tabs) ..... 5mg one tab per day Her updated medication list for this problem includes: Aspirin 325 Mg Tabs (Aspirin) ..... One tab daily Lisinopril 10 Mg Tabs (Lisinopril) ..... One tab. daily BP today: 136/68 Prior BP: 126/76 (02/03/2009) N uclear Stress Findings: EF - 71%. L V within normal limits. N o scintigraphic evidence of stress induced ischemia or wall motion abnormality. [facility] (01/03/2009) E chocardiogram: EF - 65%. M itral annular calcification. R ight ventricular enlargement. M ild mitral regurgitaiton. M Ild tricuspid regurgitation. RVSP of 24mmHg. M ild pulmonary regurgitation. [facility] (01/03/2009) Ken Vidales MD routine: T he following medications were removed from the medication list: Bystolic Tabs (Nebivolol hcl tabs) ..... 5mg one tab per day Her updated medication list for this problem includes: Aspirin 325 Mg Tabs (Aspirin) ..... One tab daily Lisinopril 10 Mg Tabs (Lisinopril) ..... One tab. daily BP today: 136/68 Prior BP: 126/76 (02/03/2009) N uclear Stress Findings: EF - 71%. L V within normal limits. N o scintigraphic evidence of stress induced ischemia or wall motion abnormality. [facility] (01/03/2009) C HOL: 278 (01/28/2009) LDL: 207 (01/28/2009) HDL: 40 (01/28/2009) T (01/28/2009) E chocardiogram: EF - 65%. M itral annular calcification. R ight ventricular enlargement. M ild mitral regurgitaiton. M Ild tricuspid regurgitation. RVSP of 24mmHg. M ild pulmonary regurgitation. [facility] (01/03/2009) t his has not recurred Ken Vidales MD follow up: H er updated medication list for this problem includes: Synthroid 75 Mcg Tabs (Levothyroxine sodium) ..... One tab. daily Ken Vidales MD follow up: T he following medications were removed from the medication list: Lisinopril-hydrochlorothiazide 10-12.5 Mg Tabs (Lisinopril-hydrochlorothiazide) ..... One tab. daily Her updated medication list for this problem includes: Aspirin 325 Mg Tabs (Aspirin) ..... One tab daily Bystolic Tabs (Nebivolol hcl tabs) ..... 5mg one tab per day BP today: 126/76 Prior BP: / () N uclear Stress Findings: EF - 71%. L V within normal limits. N o scintigraphic evidence of stress induced ischemia or wall motion abnormality. [facility] (01/03/2009) Ken Vidales MD follow up: T he following medications were removed from the medication list: Lisinopril-hydrochlorothiazide 10-12.5 Mg Tabs (Lisinopril-hydrochlorothiazide) ..... One tab. daily Her updated medication list for this problem includes: Aspirin 325 Mg Tabs (Aspirin) ..... One tab daily Bystolic Tabs (Nebivolol hcl tabs) ..... 5mg one tab per day BP today: 126/76 Prior BP: / () N uclear Stress Findings: EF - 71%. L V within normal limits. N o scintigraphic evidence of stress induced ischemia or wall motion abnormality. [facility] (01/03/2009) Ken Vidales MD follow up: T he following medications were removed from the medication list: Lisinopril-hydrochlorothiazide 10-12.5 Mg Tabs (Lisinopril-hydrochlorothiazide) ..... One tab. daily Her updated medication list for this problem includes: Aspirin 325 Mg Tabs (Aspirin) ..... One tab daily Bystolic Tabs (Nebivolol hcl tabs) ..... 5mg one tab per day BP today: 126/76 will see if stopping prinivil will try her on 5 mg po once daily bystolic . Ken Vidales MD
--- OUTSIDE RECORDS SUMMARY | 2024-12-22 17:13 | XMS_ITS ---
Author Organization [facility] Address [address] [place] [address] Care Team Providers Care Furniture Finisher Helper Name Role Phone Juan Pablo Easton M.D. Primary Care Provider Debbie Tovar Unavailable [phone] Marleen Atwood Unavailable Unavailable REASON FOR VISIT Medication Medications Medication SIG (Take, Route, Frequency, Duration) Notes Start Date End Date Status BREO ELLIPTA 200 mcg-25 mcg/inh 1 puff(s) inhaled once a day for 30 days 03/04/2024 Active Encounters Encounter Location Date Provider Diagnosis [facility] [address] [place] [address] 03/04/2024 Debbie Mccann Plan Of Treatment Medication Medication Name Sig Start Date Stop Date Notes BREO ELLIPTA 200 mcg-25 mcg/inh 1 puff(s ) inhaled once a day for 30 days 03/04/2024 Progress Notes * Marysol GUTIERREZOB:1955 (68 yo F)Acc No.[id number]:03/04/2024 Patient: Schuyler GUILLEN :1955 A ge:68 Y S ex:Female Address:[place] [address] * Refills Start Breo Ellipta powder, 200 mcg-25 mcg/inh, inhaled, 1, 1 puff(s), once a day, 30 days, Refills=5 * true * Date: Generated for Printi ng/Faxing/eTransmitting on: 0 12/22/2024 05:12 PM CDT
--- OUTSIDE RECORDS SUMMARY | 2024-12-22 17:13 | XMS_ITS | Clinical Summary ---
Author Organization [facility] [address] Address [address] [place] [address] Care Team Providers Care Certified Ophthalmic Assistant Name Role Phone Juan Pablo Easton MD Primary Care Provider [phone] Allergies Active Allergy Reactions Criticality Noted Date Comments Ciprofloxacin Rash Medium Latex Rash Medium Reaction: Rash, , Neomycin Other (See comments) Low 12/19/2023 Unknown Penicillins Anaphylaxis High Quinolones Rash Medium Reaction: rash, Shellfish Containing Products Angioedema High 02/15/2022 Medications ALPRAZolam (XANAX) 0.25 mg tabletIndication s:anxiety Take 1 tablet (0.25 mg total) by mouth 3 (three) times a day as needed for anxiety Active hyoscyamine (LEVSIN) 0.125 mg SL tabletIndication s:Irritable Bowel Syndrome Take 1 tablet (0.125 mg total) by mouth as needed for cramping or diarrhea 1 Active linaCLOtide (LINZESS) 145 mcg capsuleIndicatio ns:chronic idiopathic constipation Take 1 capsule (145 mcg total) by mouth Medrol Dose Pack scheduling ONLY Active ondansetron (ZOFRAN) 4 mg tablet Take 1 tablet (4 mg total) by mouth every 8 (eight) hours as needed for nausea or vomiting Active pantoprazole DR (PROTONIX) 40 mg EC tabletIndication s:Treatment of Non-Bleeding Gastric Disorder,reflux Take 1 tablet (40 mg total) by mouth every morning Active sertraline (ZOLOFT) 100 mg tabletIndication s:Anxiety with Depression Take 1 tablet (100 mg total) by mouth every morning 0 Active zolpidem (AMBIEN) 10 mg tabletIndication s:Sleep-Onset Insomnia Take 1 tablet (10 mg total) by mouth nightly as needed for sleep 0 Active traZODone (DESYREL) 50 mg tabletIndication s:insomnia associated with depression Take 1 tablet (50 mg total) by mouth nightly as needed for sleep Active albuterol HFA (PROVENTIL HFA,VENTOLIN HFA,PROAIR HFA) 90 mcg/actuation inhalerIndicatio ns:Chronic Obstructive Pulmonary Disease Inhale 2 puffs every 6 (six) hours as needed for wheezing or shortness of breath Active HYDROcodone-acet aminophen (NORCO) 5-325 mg per tablet Take 1 tablet by mouth every 6 (six) hours as needed for pain 3 Active Constulose 10 gram/15 mL solution Take 15 mL (10 g total) by mouth as needed (constipation) 3 Active polyethylene glycol (MIRALAX) 17 gram/dose bulk powder Take 17 g by mouth every morning Active aspirin 81 mg enteric coated tablet Take 1 tablet (81 mg total) by mouth daily Active fluticasone propion-salmeter oL (ADVAIR DISKUS) 250-50 mcg/dose diskus inhaler Inhale 1 puff 2 (two) times a day 4 Active lidocaine (LIDODERM) 5 % PLACE 1 PATCH ON SKIN EVERY DAY. REMOVE AND DISCARD PATCH WITHIN 12 HOURS OR DIRECTED BY MD 30 patch 3 4 Active traMADoL (ULTRAM) 50 mg tablet Take 1-2 tablets (50-100 mg total) by mouth every 6 (six) hours as needed for pain for up to 7 days 42 tablet 4 Active atorvastatin (LIPITOR) 40 mg tabletIndication s:hyperlipidemia Take 1 tablet (40 mg total) by mouth nightly 90 tablet 3 4 Active cyclobenzaprine (FLEXERIL) 10 mg tabletIndication s:Muscle spasm of back Take 1 tablet (10 mg total) by mouth 3 (three) times a day as needed for muscle spasms 90 tablet 3 4 Active levothyroxine (SYNTHROID) 88 mcg tablet Take 1 tablet (88 mcg total) by mouth daily 4 Active hydroCHLOROthiaz princess (MICROZIDE) 12.5 mg capsule TAKE 1 CAPSULE BY MOUTH DAILY IN THE MORNING 90 capsule 1 4 Active losartan (COZAAR) 25 mg tablet TAKE 1 TABLET(25 MG) BY MOUTH DAILY 90 tablet 1 5 Active celecoxib (CeleBREX) 200 mg capsule Take 1 capsule (200 mg total) by mouth daily 5 Active guaiFENesin-code ine (GUAITUSS AC) liquid 100-10 mg/5 mL Take 5 mL by mouth 4 (four) times a day as needed for congestion 4 025 Discontin ued(Thera py completed ) Active Problems Problem Noted Date Diagnosed Date Sacroiliitis 04/28/2024 Lumbar radiculopathy 02/13/2024 Dorsalgia of thoracic region 02/13/2024 Pain in pacemaker pocket due to device 3 Stage 3a chronic kidney disease 06/28/2023 Postop check 03/05/2023 S/P insertion of spinal cord stimulator 03/01/20 23 Post laminectomy syndrome 01/14/2023 Neuroma 07/31/2022 Orthostatic hypotension 07/03/2022 Abnormal PFTs (pulmonary function tests) 022 Neuroma of lower extremity 06/27/2022 Overview (06/27/2022): Added automatically from request for surgery [id number] Entrapment neuropathy of right sural nerve 04/24 Complex regional pain syndro me type 2 of right lower extremity 04/24/2022 Cough due to MARTHA inhibitor 03/21/2022 Nonischemic cardiomyopathy 10/24/2021 Coronary artery disease 10/24/2021 Statin myopathy 10/24/2021 H/O cardiomyopathy 10/24/2021 Shortness of breath 02/24/2015 Overview (01/10/2017): SOB (shortness of breath) Chest pain 02/24/2015 Overview (01/10/2017): Chest pain Palpitations 02/24/2015 Overview (01/10/2017): Palpitations Hypertension 02/24/2015 Overview (01/10/2017): HTN (hypertension) Mixed hyperlipidemia 02/24/2015 Overview (01/10/2017): HLD (hyperlipidemia) Irritable bowel syndrome 04/20/2013 Diarrhea 08/25/2012 Difficulty in swallowing 08/25/2012 Never smoked tobacco 08/25/2012 Abdominal pain 08/25/2012 Encounters Date Type Department Care Team Description 12/02/2024 7:28 AM STEP FINISHER - 12/02/2024 11:59 PM STEP FINISHER Hospital Encounter [facility] at the [address] [place], [place] [id number] Chelita Ray MD PhD Sacroiliitis (Primary Dx); Lumbar radiculopathy; Chronic pain of right knee; Dorsalgia of thoracic region; S/P insertion of spinal cord stimulator; Post laminectomy syndrome Discharge Disposition: Discharge to home or self care from Last 3 Months Immunizations Immunization Administration Dates Next Due Influenza, Quadrivalent, Hig h Dose, Preservative Free, Intrr 08/01/2022 Surgical History Surgery Date Site/Laterality Comments CHOLECYSTECTOMY 10/07/2009 - 10/06/2010 Cholecystectomy LUMBAR DISCECTOMY 10/07/2007 - 10/06/2008 Discectomy, lumbar CARDIAC CATHETERIZATION 06/17/2021 Nonobstructive CAD KNEE ARTHROSCOPY W/ LATERAL RELEASE 10/07/2019 - 10/06/2020 FRACTURE SURGERY 10/07/2017 - 10/06/2018 ankle, again 2019 HYSTERECTOMY 10/07/1979 - 10/06/1980 TONSILECTOMY, ADENOIDECTOMY, BILATERAL MYRINGOTOMY AND TUBES child NERVE GRAFT 10/07/2021 - 10/06/2022 Right right foot ABDOMINAL SURGERY 1998 FLUORO GUIDED ASPIRATION OR INJECTION INTERMEDIATE JOINT RIGHT 01/10/2023 Right SPINAL CORD STIMULATOR IMPLANT 10/07/2018 - 10/06/2019 Medical History Medical History Date Comments Hx Other Medical surgery for FRANCISCO D; Comments: [facility]U 02/24/2015 - Hx Other Medical IBS, sensitive stomach, hypothyroidism, depression; Comments: [facility] 02/24/2015 - Hx Other Medical Hysterectomy; C omments: ELU 02/24/2015 - Hx Other Medical Chronic back pa in; Comments: ELU 02/24/2015 - Asthma COPD (chronic obstructive pu lmonary disease) ([facility]) Hypertension Thyroid disease Diastolic dysfunction Cardiomyopathy (HCC) 06/16/2021 Takotsubo c ardiomyopathy Bpmnxfr-Vbzhe-Roven disease GERD (gastroesophageal reflu x disease) 1989 Arthritis 2006 Depression 2002 Heart disease 2020 Shortness of breath Cataract 2018 Migraines 2004 PONV (postoperative nausea a nd vomiting) Low back pain Constipation Plantar fasciitis L Family History Medical History Relation Name Comments Early Brother Alek Clark Heart attack Brother Alek Clark Hyperlipidemia Brother Alek Clark Hyperlipidem ia; Early Father Alek Clark Heart attack Father Alek Clark Hypertension Father Alek Clark Other Father Alek Clark [place] 48 yo, CABG 50, of massive [place] 53; Cancer Mother Sybil Clark Lung cancer Mother Sybil Clark Cancer, lung; Other Other Uncle, cousin d ied young of heart dz; Diabetes Paternal Grandmother May Lewis Hyperlipidemia Sister Hyperlipidemi a; Anesthesia problems Neg Hx Relation Name Status Comments Brother Alek Clark Father Alek Clark Mother Sybil Clark Other Paternal Grandmother May Lewis Sister Social History Tobacco Use Types Packs/Day Years Used Date Smoking Tobacco: Never Smokeless Tobacco: Never Tobacco Cessation:Counseling Given: Not Answered Alcohol Use Standard Drinks/Week Comments No 0 (1 standard drink = 0.6 oz pur e alcohol) AUDIT-C Answer Date Recorded Q1: How often do you have a drink containing alcohol? Never 12/02/2024 Q2: How many drinks containi ng alcohol do you have on a typical day when you are drinking? Patient does not drink Q3: How often do you have si x or more drinks on one occasion? Never 12/02/2024 Hunger Vital Sign Answer Date Recorded Within the past 12 months, y ou worried that your food would run out before you got the money to buy more. Never true 06/16/20 24 Within the past 12 months, t he food you bought just didn't last and you didn't have money to get more. Never true 06/16/2024 Personal Safety Answer Date Recorded Have you ever been in or are you currently in a harmful physical or emotional relationship or is someone making you feel afraid or unsafe? Denies 09/04/2023 Comments No Sex and Gender Information Value Date Recorded Sex Assigned at Not on file Legal Sex Female 3:40 AM STEP FINISHER Gender Identity Not on file Sexual Orientation Not on file Obstetrics History Last Filed Vital Signs Vital Sign Reading Time Taken Comments Blood Pressure 161/97 12/02/2024 8:40 AM STEP FINISHER Pulse 89 12/02/2024 8:40 AM STEP FINISHER Temperature 36.3 C (97.3 F) 12/02/2024 7:31 AM STEP FINISHER Respiratory Rate 16 12/02/2024 8:40 AM STEP FINISHER Oxygen Saturation 100% 12/02/2024 8:40 AM STEP FINISHER Inhaled Oxygen Concentration - - Weight 80.4 kg (177 lb 3.2 oz) 12/02/2024 7:31 A M STEP FINISHER Height 161.3 cm (5' 3.5 ) 12/02/2024 7:31 AM STEP FINISHER Body Mass Index 30.9 12/02/2024 7:31 AM STEP FINISHER Plan of Treatment Health Maintenance Due Date Last Done Comments Breast Cancer Screening-Mammogram 1954 Depression Screening 1954 Hepatitis C Screening 1954 Osteoporosis Screening-Bone Density Scan 1954 DTaP/Tdap/Td Vaccine (1 - Tdap) 1965 Hepatitis B Screening 1972 Pneumococcal vaccine 65+ (1 of 1 - PCV) 2004 Zoster Vaccine (1 of 2) 2004 Well Visit 65+ 2019 Colon Cancer Screening-Colonoscopy 11/03/2022 11/03/2012 Covid-19 Vaccine (5 - 2023-2 5 season) 2024 02/23/2022, 08/18/2021, 12/29/2020, Additional history exists Influenza Vaccine (#1) 2024 3, 08/01/2022, 07/07/2020, Additional history exists Fall Risk Assessment 09/04/2024 09/04/2023 Colon Cancer Screening-CT Colonography Discontinued 11/03/2012 Colon Cancer Screening-DNA Stool Discontinued 11/03/19 13 Colon Cancer Screening-FIT Discontinued 11/03/2012 Colon Cancer Screening-Sigmoidoscopy Discontinued 11/03/2012 Goals Goal Patient Goal Type Associated Problems Recent Progress Patient-Stated? Author CCM Chronic Pain Care Plan Chronic Care Management On track(2023 1:38 PM STEP FINISHER) Lizette Hughes RN Note: Problem: Chronic Pain Goals: 1. Minimize further functional decline 2. Maximize quality of life 3. Control pain Strategies: - Activity/exercise program recommendation - Conservative stepwise pain medicine strategy with multi-disciplinary approach - Recommend healthy lifestyle strategies and compensatory methods as needed Medical Devices Implanted Type Area Therapist Physical Device Identifier Shelf Expiration Date Model / Serial / Lot Eterna Implantable Pulse Generator Implanted:Qty: 1 on 02/22/2023 by Chelita Ray MD PhD at [facility] Other - see comments N/A: Back [employer] [id number] 10/17/2024 [id number] / [id number] / Description:Implantable puls e generator reference # 38567 - PART OF KIT [employer] Avance 4-5mm 50mm Allograft Natural Connection Graft Soft Tissue [id number] - [id number] Implanted:Qty: 1 on 07/31/2022 by Padmini Mcnamara MD at [facility] Right: Ankle [employer] 12/05/2023 [id number] / / [id number] Description:Implanted proxim al to right ankle. [employer] Lambert-Lock [place] Lead 1192 - [id number] Implanted:Qty: 2 on 02/22/2023 by Chelita Ray MD PhD at [facility] N/A: Back [employer] [id number] 10/21/2024 1192 / / [id number] [employer] Octrode 60cm 8 Electrode Lead Percutaneous Kit Neurostimulator [id number] - [id number] - [id number] Implanted:Qty: 1 on 02/22/2023 by Chelita Ray MD PhD at [facility] N/A: Back [employer] [id number] 02/04/2025 [id number] / [id number] / [employer] Octrode 60cm 8 Electrode Lead Percutaneous Kit Neurostimulator [id number] - [id number] - [id number] Implanted:Qty: 1 on 02/22/2023 by Chelita Ray MD PhD at [facility] N/A: Back [employer] [id number] 02/04/2025 [id number] / [id number] / [employer] Generator Neurostimulator Spine Rechargeable Eterna [id number] - [id number] Implanted:Qty: 1 on 02/22/2023 by Chelita Ray MD PhD at [facility] N/A: Back [employer] [id number] / / Explanted Type Area Therapist Physical Device Identifier Shelf Expiration Date Model / Serial / Lot [employer] Invisible One Lead Trial System Spinal Cord Stimulation 1-Lead Trial Sys - [id number] - [id number] Implanted:Qty: 1 on 01/10/2023 by Alcon Ayers MD at [facility] Explanted: 023 by Chelita Ray MD PhD (Quantity not on file) [employer] 10/04/2024 1-LEAD TRIAL SYS / [id number] / Procedures Procedure Name Priority Date/Time Associated Diagnosis Comments PAIN MGMT IMAGING SI JOINT LEFT Schedule Routine, Read Routine (OP Routine) 12/02/2024 8:39 AM STEP FINISHER Sacroiliitis COLONOSCOPY REPORT 11/03/2012 from Last 3 Months or Most Recently Relevant to Health Maintenance Results * Imaging SI Joint Injection Left ([id number]) (12/02/2024 8:39 AM STEP FINISHER) Narrative [facility] - 12/02/2024 8:40 AM STEP FINISHER The images from this study are not interpreted by Radiology. Please refer to the physician's procedure / OR operative note. us Chelita Ray MD PhD IMG PAIN MGMT PROCEDURES Final Result [facility] * COLONOSCOPY REPORT (11/03/2012) Anatomical Region Laterality Modality Other Narrative 11/03/2012 Ordered by an unspecified provider. us Historical Provider MD CARVAJAL PROCEDURE ORDERABLES F inal Result from Last 3 Months or Most Recently Relevant to Health Maintenance Insurance MEDICARE [facility] MEDICARE [facility] MEDICARE [facility] Advance Directives For more information, please contact: [phone] * Full Code (Latest Code Status on File) Date Activated Date Inactivated Comments 07/31/2022 4:32 PM 08/01/2022 4:34 PM Care Teams Certified Ophthalmic Assistant Relationship Specialty Start Date End Date Juan Pablo Easton MD PCP - General 02/24/15
--- OUTSIDE RECORDS SUMMARY | 2024-12-22 17:13 | XMS_ITS | Encounter Summary ---
Author Organization [facility] Healthcare Address [address] [place] [address] Care Team Providers Care Rubber Mixer Name Role Phone Juan Pablo Easton MD Primary Care Provider [phone] Encounter Details Date Type Department Care Team (Late st Contact Info) Description 10/30/2023 Telephone [facility] the [place] [facility] [address] [facility] [address] [place] [address] Chelita Ray MD PhD [address] [facility] [id number] [place], [place] [id number] Social History Tobacco Use Types Packs/Day Years Used Date Smoking Tobacco: Never Smokeless Tobacco: Never Alcohol Use Standard Drinks/Week Comments No 0 (1 standard drink = 0.6 oz pur e alcohol) AUDIT-C Answer Date Recorded Q1: How often do you have a drink containing alcohol? Never 11/01/2023 Q2: How many drinks containi ng alcohol do you have on a typical day when you are drinking? Patient does not drink Q3: How often do you have si x or more drinks on one occasion? Never 11/01/2023 Hunger Vital Sign Answer Date Recorded Within the past 12 months, y ou worried that your food would run out before you got the money to buy more. Never true 11/01/19 24 Within the past 12 months, t he food you bought just didn't last and you didn't have money to get more. Never true 11/01/2023 Personal Safety Answer Date Recorded Have you ever been in or are you currently in a harmful physical or emotional relationship or is someone making you feel afraid or unsafe? Denies 09/04/2023 Comments No Sex and Gender Information Value Date Recorded Sex Assigned at Not on file Legal Sex Female 3:40 AM RADIOACTIVITY TECHNICIAN Gender Identity Not on file Sexual Orientation Not on file documented as of this encounter Functional Status * Audit-C Score Answer Date of Assessment Author 0 11/01/2023 1:00 PM Nisreen Leal RN * Question Answer Date of Assessment Author Q1: How often do you have a drink containing alcohol? Never 11/01/2023 1:00 PM Nisreen Leal RN Q2: How many drinks containing alcohol do you have on a typical day when you are drinking? Patient does not drink 11/01/2023 1:00 PM Nisreen Leal RN Q3: How often do you have six or more drinks on one occasion? Never 11/01/2023 1:00 PM Nisreen Leal RN documented as of this encounter Plan of Treatment Not on file documented as of this encounter Goals Goal Patient Goal Type Associated Problems Recent Progress Patient-Stated? Author CCM Chronic Pain Care Plan Chronic Care Management On track(2023 1:38 PM RADIOACTIVITY TECHNICIAN) Lizette Hughes, ASH Note: Problem: Chronic Pain Goals: 1. Minimize further functional decline 2. Maximize quality of life 3. Control pain Strategies: - Activity/exercise program recommendation - Conservative stepwise pain medicine strategy with multi-disciplinary approach - Recommend healthy lifestyle strategies and compensatory methods as needed documented as of this encounter Visit Diagnoses Not on filedocumented in this encounter Care Teams Rubber Mixer Relationship Specialty Start Date End Date Juan Pablo Easton MD PCP - General 02/24/15 documented as of this encounter
--- OUTSIDE RECORDS SUMMARY | 2024-12-22 17:13 | XMS_ITS | Referral Summary ---
Author Organization [facility] [address] Address [address] [place] [address] Care Team Providers Care Vender Name Role Phone Juan Pablo Easton MD Primary Care Provider [phone] [phone] Encounters Date Type Department Care Team Description 12/02/2024 7:28 AM NET DEVELOPMENT MANAGER - 12/02/2024 11:59 PM NET DEVELOPMENT MANAGER Hospital Encounter [facility] [address] [facility] [address] [place] [address] Chelita Ray MD PhD Sacroiliitis (Primary Dx); Lumbar radiculopathy; Chronic pain of right knee; Dorsalgia of thoracic region; S/P insertion of spinal cord stimulator; Post laminectomy syndrome Discharge Disposition: Discharge to home or self care from Last 3 Months Allergies Active Allergy Reactions Criticality Noted Date [...] PATCH WITHIN 12 HOURS OR DIRECTED BY 30 patch 3 4 Active traMADoL (ULTRAM) [...] (06/27/2022): Added automatically from request for surgery [id number] Entrapment neuropathy of right sural nerve 04/24 [...] Never smoked tobacco 08/25/2012 Abdominal pain 08/25/2012 Immunizations Immunization Administration Dates Next Due Influenza, Quadrivalent, Hig h Dose, Preservative Free, Intrr 08/01/2022 Social History Tobacco Use Types Packs/Day Years [...] on file Legal Sex Female 3:40 AM NET DEVELOPMENT MANAGER Gender Identity Not on file Sexual Orientation Not on file Last Filed Vital Signs Vital Sign Reading Time Taken Comments Blood Pressure 161/97 12/02/2024 8:40 AM NET DEVELOPMENT MANAGER Pulse 89 12/02/2024 8:40 AM NET DEVELOPMENT MANAGER Temperature 36.3 C (97.3 F) 12/02/2024 7:31 AM NET DEVELOPMENT MANAGER Respiratory Rate 16 12/02/2024 8:40 AM NET DEVELOPMENT MANAGER Oxygen Saturation 100% 12/02/2024 8:40 AM NET DEVELOPMENT MANAGER Inhaled Oxygen Concentration - - Weight 80.4 kg (177 lb 3.2 oz) 12/02/2024 7:31 A M NET DEVELOPMENT MANAGER Height 161.3 cm (5' 3.5 ) 12/02/2024 7:31 AM NET DEVELOPMENT MANAGER Body Mass Index 30.9 12/02/2024 7:31 AM NET DEVELOPMENT MANAGER Plan of Treatment Not on file Goals Goal Patient Goal Type Associated Problems Recent Progress Patient-Stated? Author CCM Chronic Pain Care Plan Chronic Care Management On track(2023 1:38 PM NET DEVELOPMENT MANAGER) No Lizette Resendiz, ASH Note: Problem: Chronic Pain Goals: 1. Minimize further functional decline 2. Maximize quality of life 3. Control pain Strategies: - Activity/exercise program recommendation - Conservative stepwise pain medicine strategy with multi-disciplinary approach - Recommend healthy lifestyle strategies and compensatory methods as needed Medical Devices Implanted Type Area Criminal Justice Department Chair Device Identifier Shelf Expiration Date Model / Serial / Lot Eterna Implantable Pulse Generator Implanted:Qty: 1 on 02/22/2023 by Chelita Ray MD PhD at [facility] Other - see comments N/A: Back [employer] [id number] 10/17/2024 [id number] / [id number] / Description:Implantable puls e generator reference # 57728 - PART OF KIT [employer] Avance 4-5mm 50mm Allograft Natural Connection Graft Soft Tissue [id number] - [id number] Implanted:Qty: 1 on 07/31/2022 by Padmini Mcnamara MD at [facility] Right: Ankle [employer] 12/05/2023 [id number] / / [id number] Description:Implanted proxim al to right ankle. [employer] Lambert-Lock [place] Lead 1192 - [id number] Implanted:Qty: 2 on 02/22/2023 by Chelita Ray MD PhD at [facility] N/A: Back [employer] [id number] 10/21/2024 1192 / / [id number] [employer] Octrode 60cm 8 Electrode Lead Percutaneous Kit Neurostimulator [id number] - [id number] - [id number] Implanted:Qty: 1 on 02/22/2023 by Chelita Ray MD PhD at [facility] N/A: Back [employer] [id number] 02/04/2025 [id number] / [id number] / [employer] Octrode 60cm 8 Electrode Lead Percutaneous Kit Neurostimulator [id number] - [id number] - [id number] Implanted:Qty: 1 on 02/22/2023 by Chelita Ray MD PhD at [facility] N/A: Back [employer] [id number] 02/04/2025 [id number] / [id number] / [employer] Generator Neurostimulator Spine Rechargeable Eterna [id number] - [id number] Implanted:Qty: 1 on 02/22/2023 by Chelita Ray MD PhD at [facility] N/A: Back [employer] [id number] / / Explanted Type Area Criminal Justice Department Chair Device Identifier Shelf Expiration Date Model / Serial / Lot [employer] Invisible One Lead Trial System Spinal Cord Stimulation 1-Lead Trial s - [id number] - [id number] Implanted:Qty: 1 on 01/10/2023 by Alcon Ayers MD at [facility] Explanted: 023 by Chelita Ray MD PhD (Quantity not on file) [employer] 10/04/2024 1-LEAD TRIAL [facility] / [id number] / Procedures Procedure Name Priority Date/Time Associated Diagnosis Comments PAIN MGMT IMAGING SI JOINT LEFT Schedule Routine, Read Routine (OP Routine) 12/02/2024 8:39 AM NET DEVELOPMENT MANAGER Sacroiliitis COLONOSCOPY REPORT 11/03/2012 from Last 3 Months or Most Recently Relevant to Health Maintenance Results * Imaging SI Joint Injection Left ([id number]) (12/02/2024 8:39 AM NET DEVELOPMENT MANAGER) Narrative [facility] - 12/02/2024 8:40 AM NET DEVELOPMENT MANAGER The images from this study are not interpreted by Radiology. Please refer to the physician's procedure / OR operative note. Chelita Ray MD PhD IMG PAIN MGMT PROCEDURES Final Result [facility] * COLONOSCOPY REPORT (11/03/2012) Anatomical Region Laterality Modality Other Narrative 11/03/2012 Ordered by an unspecified provider. Historical Provider GI PROCEDURE ORDERABLES F inal Result from Last 3 Months or Most Recently Relevant to Health Maintenance [place] [address] [facility] MEDICARE [facility] Member Subscriber Plan / Payer (Ef fective 2020-Present) Name:Schuyler Gutierrez Relation to Subscriber:Self Name:Schuyler Gutierrez Payer ID:[id number] Group ID:[id number] Type:COMMERCIAL Address: [place] [id number] Advance Directives For more information, please contact: [phone] * Full Code (Latest Code Status on File) Date Activated Date Inactivated Comments 07/31/2022 4:32 PM 08/01/2022 4:34 PM Care Teams Vender Relationship Specialty Start Date End Date Juan Pablo Easton MD PCP - General 02/24/15
--- OUTSIDE RECORDS SUMMARY | 2024-12-22 17:13 | XMS_ITS | Encounter Summary ---
Author Organization [facility] Healthcare Address [address] [place] [address] Care Team Providers Care Neonatal Intensive Care Unit Nurse Name Role Phone Juan Pablo Easton MD Primary Care Provider [phone] Encounter Details Date Type Department Care Team (Late st Contact Info) Description 05/16/2022 Documentation [facility] Surgeon [address] [place] [address] Breanne Walter MD [address] [facility] [address] [place] [address] Social History Tobacco Use Types Packs/Day Years Used Date Smoking Tobacco: Never Smokeless Tobacco: Never Alcohol Use Standard Drinks/Week Comments No 0 (1 standard drink = 0.6 oz pur e alcohol) AUDIT-C Answer Date Recorded Q1: How often do you have a drink containing alc ohol? Never 05/08/2022 Q2: How many drinks containi ng alcohol do you have on a typical day when you are drinking? 1 or 2 05/08/2022 Q3: How often do you have six or more drinks on one occasion? 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 Author CCM Chronic Pain Care Plan Chronic Care Management On track(2023 1:38 PM COMPUTER NUMERIC CONTROL SETTER) Lizette Hughes, RN Note: Problem: Chronic Pain Goals: 1. Minimize further functional decline 2. Maximize quality of life 3. Control pain Strategies: - Activity/exercise program recommendation - Conservative stepwise pain medicine strategy with multi-disciplinary approach - Recommend healthy lifestyle strategies and compensatory methods as needed documented as of this encounter Visit Diagnoses Not on filedocumented in this encounter Care Teams Neonatal Intensive Care Unit Nurse Relationship Specialty Start Date End Date Juan Pablo Easton MD PCP - General 02/24/15 documented as of this encounter
--- OUTSIDE RECORDS SUMMARY | 2024-12-22 17:13 | XMS_ITS ---
Author Organization [facility] Address [address] [place] [address] Care Team Providers Care Gasoline Tractor Operator Name Role Phone Juan Pablo Easton M.D. Primary Care Provider Debbie Tovar Unavailable [phone] Marleen Atwood Unavailable Unavailable [employer], Provider Unavailable Unavailab le Allergies Allergen (clinical drug ingredient) Drug/Non Drug Allergy documented on EMR Reaction Allergy Type Onset Date Status Ciprofloxacin Unknown Drug Allergy Act noa neomycin Neomycin Unknown Drug Allergy Active Penicillin rash/shortness of breath Drug Allergy Active quinapril Quinapril Unknown Drug Allergy Active REASON FOR VISIT [facility] To [facility] Conversion Encounter Medications Medication SIG (Take, Route, Frequency, Duration) Notes Start Date End Date Status HYDROcodone Bitartrate ER 10 MG 1 cap(s) orally every 12 hours Active Zanaflex 4 MG 2 cap(s) orally 3 times a day Active Trelegy Ellipta 100 MCG-62.5 MCG-25 MCG/INH 1 PUFF(S) INHALED ONCE A DAY for 30 DAYS *Please review and pick correct strength-formula tion from [facility] options. If intended option is not shown, discontinue and re-order from Quick Search* Active Azelastine HCl 137 MCG/SPRAY 2 spray(s) intranasally 2 times a day for 30 days Active ALBUTEROL (EQV-PROAIR HFA) 90 MCG/INH 2 PUFF(S) INHALED EVERY 6 HOURS for 30 DAYS *Please review for potential replacement for e-prescription and drug interaction check* Active Azithromycin 250 MG 2 tablets on the first day, then 1 tablet daily for 4 days orally once a day for 5 days 11/26/2023 Active Breo Ellipta 200 MCG-25 MCG/INH 1 PUFF(S) INHALED ONCE A DAY for 30 DAYS *Please review and pick correct strength-formula tion from [facility] options. If intended option is not shown, discontinue and re-order from Quick Search* 03/04/2024 Active Levocetirizine Dihydrochloride 5 MG 1 tab(s) orally once a day (in the evening) for 30 days Active Losartan Potassium 25 MG 1 tab(s) orally once a day Active Pantoprazole Sodium 40 MG 1 tab(s) orall y once a day Active Advair Diskus 250 MCG-50 MCG 1 INH INHALED 2 TIMES A DAY for 30 DAYS *Please review and pick correct strength-formula tion from [facility] options. If intended option is not shown, [...] Active Encounters Encounter Location Date Provider Diagnosis [place] [address] [address] 03/21/2024 Provider [facility]-Harry Cough, unspecified R05.9 and [...] MCG-25 MCG/INH 1 PUFF(S) INHALED ONCE A DAY for 30 DAYS *Please review and pick correct strength-formulatio n from [facility] options. If intended option is not shown, discontinue and re-order from Quick Search* Azelastine HCl 137 MCG/SPRAY 2 spray(s) intranasally 2 times a day for 30 days ALBUTEROL (EQV-PROAIR HFA) 90 MCG/INH 2 PUFF(S) INHALED EVERY 6 HOURS for 30 DAYS *Please review for potential replacement for e-prescription and drug interaction check* Azithromycin 250 MG 2 tablets on the first day, then 1 tablet daily for 4 days orally once a day for 5 days 11/26/2023 Breo Ellipta 200 MCG-25 MCG/INH 1 PUFF(S) INHALED ONCE A DAY for 30 DAYS 03/04/2024 *Please review and pick correct strength[facility]ulatio [facility] options. If intended option is not shown, discontinue and re-order from Quick Search* Levocetirizine Dihydrochloride 5 MG 1 tab(s) orally once a day (in the evening) for 30 days Advair Diskus 250 MCG-50 MCG 1 INH INHALED 2 TIMES A DAY for 30 DAYS 11/26/2023 *Please review and pick correct strength-formulatio n from [facility] options. If intended option is not shown, discontinue and re-order from Quick Search* Progress Notes * Marysol GUTIERREZOB:1955 (69 yo F)Acc No.[id number]:03/21/2024 Patient: Schuyler GUILLEN Provider: Shahid Mcdonald :1955 A ge:68 Y S ex:Female Date:03/21/2024 Address:[address] [place], [place] [id number] Pcp:Juan Pablo Easton M.D. Subjective: * Chief Complaints: * 1 . [facility] To [facility] Conversion Encounter. * Medical History: * Medications: [...] * Electronic signature of Kathrin VILLATORO-Migration on 12/22/2024 at 05:13 PM CDT Sign off status: Pending * Provider: Shahid che Migration Date: 0 03/21/2024 Generated for Terence gutierrez/Cris/Aleksander on: 0 12/22/2024 05:13 PM CDT
--- OUTSIDE RECORDS SUMMARY | 2024-12-22 17:13 | XMS_ITS ---
Author Organization [facility] Address [address] [place] [address] Care Team Providers Care Food Service Worker Name Role Phone Juan Pablo Easton M.D. Primary Care Provider Juan [facility] REASON FOR VISIT pain medication Medications Medication SIG (Take, Route, Frequency, Duration) Notes Start Date End Date Status HYDROcodone-Acetaminophen 5-325 MG 1 tablet Orally every 6 hrs As needed; discontinue Tramadol while taking this medication 09/09/2024 Active CeleBREX 200 MG 1 capsule Orally Onc e a day for 30 days 09/09/2024 Active Encounters Encounter Location Date Provider Diagnosis 1 OF [facility] S[facility] [address] [facility] [address] [place] [address] 09/08/2024 Juan Serrano Plan Of Treatment Medication Medication Name Sig Start Date Stop Date Notes HYDROcodone-Acetaminophen 5- 325 MG 1 tablet Orally every 6 hrs 09/09/2024 CeleBREX 200 MG 1 capsule Orally Onc e a day for 30 days 09/09/2024 Progress Notes * Sherwin GUTIERREZ:1955 (68 yo F)Acc No.[id number]:09/08/2024 Patient: Schuyler GUILLEN :1955 A ge:68 Y S ex:Female Address:[address] [place], [address] * Refills Start CeleBREX Capsule, 200 MG, Orally, 30, 1 capsule, Once a day, 30 days, Refills=1 Start HYDROcodone-Acetaminophen Tablet, 5-325 MG, Orally, 10, 1 tablet, every 6 hrs, Refills=0 * true * Date: Generated for Terence gutierrez/Cris/Aleksander on: 0 12/22/2024 05:12 PM CDT
--- OUTSIDE RECORDS SUMMARY | 2024-12-22 17:13 | XMS_ITS ---
Author Organization [facility] Address [address] [place] [address] Care Team Providers Care Complex Director Name Role Phone Juan Pablo Easton M.D. Primary Care Provider Debbie Tovar Unavailable [phone] Marleen Atwood Unavailable Unavailable REASON FOR VISIT [facility] follow-up Encounters Encounter Location Date Provider Diagnosis [facility] [address] [place] [address] 02/18/2024 Debbie Mccann Plan Of Treatment No Information Progress Notes * Arcadio HERNANDESMissyOB:1955 (69 yo F)Acc No.[id number]:02/18/2024 Progress Notes Patient: Schuyler GUILLEN Provider: Vance Mccann MD :1955 A ge:68 Y S ex:Female Date:02/18/2024 [id number] Pcp:Juan Pablo Easton M.D. Subjective: * Chief Complaints: * 1 . [facility] follow-up. * Medical History: Objective: * Vitals: Assessment: Plan: * Treatment: * Billing Information: * Visit Code: * Procedure Codes: * Electronic signature of Sudha Mccann MD on 12/22/2024 at 05:13 PM CDT Sign off status: Pending * Provider: Vance Mccann MD Date: 0 02/18/2024 Generated for Troyi ng/Fagustavo/eTransmitting on: 0 12/22/2024 05:13 PM CDT
--- OUTSIDE RECORDS SUMMARY | 2024-12-22 17:13 | XMS_ITS | Encounter Summary ---
Author Organization [facility] Healthcare Address [address] [place] [address] Care Team Providers Care Wood And Hardware Outfitter Name Role Phone Juan Pablo Easton MD Primary Care Provider [phone] [phone] Reason for Visit * Reason Onset Date Comments PMC Preprocedure 08/24/2024 Encounter Details Date Type Department Care Team (Late st Contact Info) Description 08/24/2024 Telephone [facility] [place] [facility] [address] [facility] [address] [place], [place] [id number] Chelita Ray MD PhD [address] [facility] [phone] [place], [place] [id number] PMC Preprocedure Social History Tobacco Use Types Packs/Day Years Used Date Smoking Tobacco: Never Smokeless Tobacco: Never Alcohol Use Standard Drinks/Week Comments No 0 (1 standard drink = 0.6 oz pur e alcohol) AUDIT-C Answer Date Recorded Q1: How often do you have a drink containing alcohol? Never 08/27/2024 Q2: How many drinks containi ng alcohol do you have on a typical day when you are drinking? Patient does not drink Q3: How often do you have si x or more drinks on one occasion? Never 08/27/2024 Hunger Vital Sign Answer Date Recorded Within [...] on file Legal Sex Female 3:40 AM HEAD OF HISTORY Gender Identity Not on file Sexual Orientation Not on file documented as of this encounter Functional Status documented as of this encounter Plan of Treatment Not on file documented as of this encounter Goals Goal Patient Goal Type Associated Problems Recent Progress Patient-Stated? Author CCM Chronic Pain Care Plan Chronic Care Management On track(2023 1:38 PM HEAD OF HISTORY) No Lizette Resendiz, ASH Note: Problem: Chronic Pain Goals: 1. Minimize further functional decline 2. Maximize quality of life 3. Control pain Strategies: - Activity/exercise program recommendation - Conservative stepwise pain medicine strategy with multi-disciplinary approach - Recommend healthy lifestyle strategies and compensatory methods as needed documented as of this encounter Visit Diagnoses Not on filedocumented in this encounter Care Teams Wood And Hardware Outfitter Relationship Specialty Start Date End Date Juan Pablo Easton MD PCP - General 02/24/15 documented as of this encounter
--- OUTSIDE RECORDS SUMMARY | 2024-12-22 17:13 | XMS_ITS | Encounter Summary ---
Author Organization [facility] Healthcare Address [address] [place] [address] Care Team Providers Care Fbi Sharpshooter Name Role Phone Juan Pablo Easton MD Primary Care Provider [phone] [phone] Reason for Visit * Reason Onset Date Comments Scheduling Appointments 03/20/2024 Encounter Details Date Type Department Care Team (Late st Contact Info) Description 03/20/2024 Telephone [facility] [place] [facility] [address] [facility] [address] [place] [address] Chelita Ray MD PhD [address] [facility] [phone] [place], [place] [id number] Scheduling Appointments Social History Tobacco Use Types Packs/Day Years Used Date Smoking Tobacco: Never Smokeless Tobacco: Never Alcohol Use Standard Drinks/Week Comments No 0 (1 standard drink = 0.6 oz pur e alcohol) AUDIT-C Answer Date Recorded Q1: How often do you have a drink containing alcohol? Never 02/13/2024 Q2: How many drinks containi ng alcohol do you have on a typical day when you are drinking? Patient does not drink Q3: How often do you have si x or more drinks on one occasion? 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 Author CCM Chronic Pain Care Plan Chronic Care Management On track(2023 1:38 PM PLANTING MACHINE CREWMAN) No Lizette Resendiz, ASH Note: Problem: Chronic Pain Goals: 1. Minimize further functional decline 2. Maximize quality of life 3. Control pain Strategies: - Activity/exercise program recommendation - Conservative stepwise pain medicine strategy with multi-disciplinary approach - Recommend healthy lifestyle strategies and compensatory methods as needed documented as of this encounter Visit Diagnoses Not on filedocumented in this encounter Care Teams Fbi Sharpshooter Relationship Specialty Start Date End Date Juan Pablo Easton MD PCP - General 02/24/15 documented as of this encounter
--- OUTSIDE RECORDS SUMMARY | 2024-12-22 17:14 | XMS_ITS | Patient Health Record ---
Author Organization [facility] Address [address] [place] [address] Care Team Providers Care Product Controller Name Role Phone Juan Pablo Easton M.D. Primary Care Provider Jaycee Debbie Viera Unavailable [phone] Marleen Atwood Unavailable Unavailable [employer], Provider Unavailable Unavailab le Allergies Allergen (clinical drug ingredient) Drug/Non Drug Allergy documented on EMR Reaction Allergy Type Onset Date Status Ciprofloxacin Unknown Drug Allergy Act noa neomycin Neomycin Unknown Drug Allergy Active Penicillin rash/shortness of breath Drug Allergy Active quinapril Quinapril Unknown Drug Allergy Active Reason For Referral No Information Medications Medication SIG (Take, Route, Frequency, Duration) Notes Start Date End Date Status traZODone HCl 50 MG as directed orally Active Gabapentin 300 MG 1 cap(s) orally 3 times a day Active HYDROcodone Bitartrate ER 10 MG 1 cap(s) orally every 12 hours Active AZITHROMYCIN 5 DAY DOSE PACK 250 mg 2 tablets on the first day, then 1 tablet daily for 4 days orally once a day for 5 days 11/26/2023 Active Advair Diskus 250 MCG-50 MCG 1 INH INHALED 2 TIMES A DAY for 30 DAYS *Please review and pick correct strength-formula tion from Medispan options. If intended option is not shown, discontinue and re-order from Quick Search* 11/26/2023 Active Zanaflex 4 MG 2 cap(s) orally 3 times a day Active Zolpidem Tartrate 10 MG 1 tab(s) orally once a day (at bedtime) Active BREO ELLIPTA 200 mcg-25 mcg/inh 1 puff(s) inhaled once a day for 30 days 03/04/2024 Active LEVOCETIRIZINE 5 mg 1 tab(s) orally once a day (in the evening) for 30 days Active TRAZODONE 50 mg as directed orally Active AZELASTINE NASAL 137 mcg/inh 2 spray(s) intranasally 2 times a day for 30 days Active Azithromycin 250 MG 2 tablets on the first day, then 1 tablet daily for 4 days orally once a day for 5 days 11/26/2023 Active GABAPENTIN 300 mg 1 cap(s) orally 3 times a day Active HYDROCODONE 10 mg 1 cap(s) orally every 12 hours Active ZANAFLEX 4 mg 2 cap(s) orally 3 times a day Active Breo Ellipta 200 MCG-25 MCG/INH 1 PUFF(S) INHALED ONCE A DAY for 30 DAYS *Please review and pick correct strength-formula tion from PunchTab options. If intended option is not shown, discontinue and re-order from Quick Search* 03/04/2024 Active ASPIRIN 81 mg 1 tab(s) orally once a day Active TRELEGY ELLIPTA 100 mcg-62.5 mcg-25 mcg/inh 1 puff(s) inhaled once a day for 30 days Active HYDROCHLOROTHIAZIDE 12.5 mg 1 tab(s) orally once a day Active ZOLPIDEM 10 mg 1 tab(s) orally once a day (at bedtime) Active Aspirin 81 MG 1 tab(s) orally once a day Active hydroCHLOROthiazide 12.5 MG 1 tab(s) orally once a day Active ALBUTEROL (EQV-PROAIR HFA) 90 MCG/INH 2 PUFF(S) INHALED EVERY 6 HOURS for 30 DAYS *Please review for potential replacement for e-prescription and drug interaction check* Active Losartan Potassium 25 MG 1 tab(s) orally once a day Active Pantoprazole Sodium 40 MG 1 tab(s) orall y once a day Active Levothyroxine Sodium 75 MCG 1 tab(s) orally once a day Active Sertraline HCl 100 MG 1 tab(s) orally once a day Active Trelegy Ellipta 100 MCG-62.5 MCG-25 MCG/INH 1 PUFF(S) INHALED ONCE A DAY for 30 DAYS *Please review and pick correct strength-formula tion from PunchTab options. If intended option is not shown, discontinue and re-order from Quick Search* Active Azelastine HCl 137 MCG/SPRAY 2 spray(s) intranasally 2 times a day for 30 days Active Levocetirizine Dihydrochloride 5 MG 1 tab(s) orally once a day (in the evening) for 30 days Active ADVAIR DISKUS 250 mcg-50 mcg 1 INH inhaled 2 times a day for 30 days 11/26/2023 Active LOSARTAN 25 mg 1 tab(s) orally once a day Active PANTOPRAZOLE 40 mg 1 tab(s) orally once a day Active LEVOTHYROXINE 75 mcg (0.075 mg) 1 tab(s) orally once a day Active SERTRALINE 100 mg 1 tab(s) orally once a day Active Social History Tobacco Use: Social History Observation Description Date Details (start date - stop date) Never Smoker NA - NA Smoking Smart Form: Question Answer Notes Are you a: never smoker Problems Problem Type SNOMED Code ICD Code Onset Dates Problem Status W/U Status Risk Notes Problem Allergy to penicillin (58582097) Allergy status to penicillin (Z88.0) Active confirmed Problem Chronic allergic conjunctivitis (38884160) Other chronic allergic conjunctivitis (H10.45) Active confirmed Problem Allergic rhinitis caused by pollen (disorder) (08386387) Allergic rhinitis due to pollen (J30.1) Active confirmed Problem Allergic rhinitis (26278857) Other allergic rhinitis (J30.89) Active confirmed Problem Allergic rhinitis caused by animal hair and dander (753541658589085) Allergic rhinitis due to animal (cat) (dog) hair and dander (J30.81) Active confirmed Problem Cough (finding) (10692497) Cough, unspecified (R05.9) Active confirmed Encounters Encounter Location Date Provider Diagnosis [address] [address] 03/21/2024 Provider Nivia Cough, unspecified R05.9 and Allergic rhinitis due to pollen J30.1 [facility] [address] [place] [address] 03/04/2024 Debbie Mccann Assessments Encounter Date Diagnosis (ICD Code) Assessment Notes Treatment Notes Treatment Clinical Notes Section Notes 03/21/2024 Cough, unspecified (ICD-10 - R05.9) 03/21/2024 Allergic rhinitis due to pollen (ICD-10 - J30.1) Plan Of Treatment No Information Insurance Providers Payer Name Payer Address Payer Phone Subscriber Number Group Number Insured Name Patient Relationship to Insured Coverage Start Date Coverage End Date [employer] (Medicare) Attention Claims [address] [place] [address] [phone] [id number] Schuyler Gutierrez Self - patient is the insured [facility] [address] [place] [address] [id number] Schuyler Gutierrez Self - patient is the insured Medical (General) History Medical History History ICD Code Hypertension Surgical History Surgery Date(Month/Year) cholecystectomy Foot surgery Tonsillectomy hysterectomy
--- OUTSIDE RECORDS SUMMARY | 2024-12-22 17:14 | XMS_ITS | Clinical Summary ---
Author Organization [facility] [employer] Address [address] [place] [address] Care Team Providers Care Guard Immigration Name Role Phone Juan Pablo Easton MD Primary Care Provider [phone] Source Comments [facility] [employer],non-owned Affiliates and Associated Physician Practices is amultiple site organization consisting of ambulatory clinics and hospital sitesin [place], [place], [place] and [place]. This disclosure is being madepursuant to the Care Everywhere program and may not contain all information available regarding this patient. Last updated 18.[facility] [employer] [facility] Social History Tobacco Use Types Packs/Day Years Used Date Smoking Tobacco: Never Assessed Sex and Gender Information Value Date Recorded Sex Assigned at Not on file Gender Identity Not on file Sexual Orientation Not on file Plan of Treatment Health Maintenance Due Date Last Done Comments BONE DENSITY TESTING 1955 COLOGUARD (AGES 45-75) - COL ON CA SCREENING 1955 COLON MONITORING 1955 COLONOSCOPY - COLON CA SCREENING 1954 CT COLONOGRAPHY - COLON CA SCREENING 1955 Colorectal Cancer Screening 1955 FIT - COLON CA SCREENING 1955 FLEX SIG - COLON CA SCREENING 1955 LIPID TESTING 1955 MAMMOGRAM 1955 MEDICARE AWV 12 MONTHS 1955 HEPATITIS C SCREENING 09/16/1972 DTAP/TDAP/TD VACCINES (1 - Tdap) 1973 PNEUMOCOCCAL VACCINE 50+ (1 of 1 - PCV) 2004 ZOSTER VACCINE (1 of 2) 2004 COVID-19 VACCINE (1 - 2024-2 5 season) 2024 INFLUENZA VACCINE (#1) 2024 DEPRESSION SCREENING 10/07/2024 Respiratory Syncytial Virus (RSV) Vaccine Pt: or over 60 yrs (1 - 1-dose 75+ series) 2029 HEPATITIS B VACCINE Aged Out No longe r eligible based on patient's age to complete this topic HIB VACCINE Aged Out No longer eligi ble based on patient's age to complete this topic HPV VACCINE Aged Out No longer eligi ble based on patient's age to complete this topic MENINGOCOCCAL (Group B) VACC INE SHARED DECISION-MAKING Aged Out No longer eligibl e based on patient's age to complete this topic MENINGOCOCCAL GROUPS A/C/Y/W VACCINE Aged Out No longer eligible b ased on patient's age to complete this topic Care Teams Guard Immigration Relationship Specialty Start Date End Date Juan Pablo Easton MD [address] [place] [id number] PCP - General 10/08/19
--- OUTSIDE RECORDS SUMMARY | 2024-12-22 17:14 | XMS_ITS | Continuity of Care Document ---
Author Organization [facility] Address [address] [place] [address] Phone Care Team Providers Care Credit Union Manager Name Role Phone Ricky Gray Unavailable Unavailable Advance Directives Directive Yes / No Effective Date File Name No Information Encounters Encounter Description Practice Location Reason(s) For Visit Diagnoses Date Provider Providers Copied on Encounter [facility], [address], [place], [place], [id number], [place] tel:[phone] [facility] [place] [facility] No Information Dec-0 6-200 0 Doisy Edward. [address] , [address], [place], [address], [place]. tel:[phone] Family History Family Member Type Diagnosis Age At Onset No Information Payers Payer name Insurance type Covered democrat ID Authoriza tion(s) No Information Social History Type Description Quantity Date Captured Comments Sex Female Smoking Status No Information Chief Complaint And Reason For Visit No Information Reason For Referral Reason For Referral No Information History Of Present Illness Encounter Date Complaint History Of Prese nt Illness No Information Functional Status Date Functional Assessmen t No Information Instructions Date Instruction Additional Infor mation No Information Assessments Type Assessment Date No Information Patient Care Teams Name Effective Dates (start - stop) Status Members No Information
--- OUTSIDE RECORDS SUMMARY | 2024-12-22 17:14 | XMS_ITS | Clinical Summary ---
Author Organization [facility] Address [address] [place] [address] Care Team Providers Care Regional Project Manager Name Role Phone Juan Pablo Easton MD Primary Care Provider [phone] Social History Tobacco Use Types Packs/Day Years Used Date Smoking Tobacco: Never Assessed Comments Unknown Sex and Gender Information Value Date Recorded Sex Assigned at Not on file Legal Sex Female 5:52 PM CDT Gender Identity Not on file Sexual Orientation Not on file Plan of Treatment Health Maintenance Due Date Last Done Comments Colorectal Cancer Screening Colonoscopy (10 Years) 1954 Hepatitis C 1972 DTaP, Tdap and Td Vaccines ( 1 - Tdap) 1973 Mammogram Screening 1994 Zoster Vaccines (1 of 2) 2004 Annual Medicare Wellness Visit 2019 Dexa Scan (General) 2019 Pneumococcal Vaccine: 65+ Years (1 of 1 - PCV) 2019 COVID-19 Vaccine (2 - 2023-2 5 season) 2024 12/01/2020 Influenza Adult (#1) 2024 07/07/2020, 07/23/2019 RSV Immunization or 60+ Years (1 - 1-dose 75+ series) 2029 Meningococcal B Vaccine Aged Out No l onger eligible based on patient's age to complete this topic Meningococcal Vaccine Aged Out No luan freeman eligible based on patient's age to complete this topic RSV Immunizations Under 20 Months Aged Out No longer eligible b ased on patient's age to complete this topic Insurance MEDICARE [facility] Care Teams Regional Project Manager Relationship Specialty Start Date End Date Juan Pablo Easton MD PCP - General FAMILY PRACTICE 01/23/21
--- OUTSIDE RECORDS SUMMARY | 2024-12-22 17:14 | XMS_ITS ---
Author Organization 1 OF Toni carl [facility] Address [address] [place] [address] Care Team Providers Care Railroad Engineer Name Role Phone Juan Pablo Easton M.D. Primary Care Provider Jaycee Juan Eisenberg [facility] REASON FOR VISIT Pain in left foot Encounters Encounter Location Date Provider Diagnosis 1 OF Toni Serrano [facility] [address] [place] [address] 09/08/2024 Juan Serrano Plan Of Treatment No Information Progress Notes * Sherwin GUTIERREZ:1955 (68 yo F)Acc No.[id number]:09/08/2024 Patient: Peter POWERSSALEEMSchuyler :1955 A ge:68 Y S ex:Female Address[place], [address] * true * Date: Generated for Printi ng/Faxing/eTransmitting on: 0 12/22/2024 05:13 PM CDT
--- OUTSIDE RECORDS SUMMARY | 2024-12-22 17:14 | XMS_ITS | Patient Health Record ---
Author Organization 1 ANAIS carl [facility] Address [address] [place] [address] Care Team Providers Care Costing Analyst Name Role Phone Juan Pablo Easton M.D. Primary Care Provider Jaycee Juan Eisenberg Unavailable [phone] Allergies Allergen (clinical drug ingredient) Drug/Non Drug Allergy documented on EMR Reaction Allergy Type Onset Date Status ciprofloxacin (uncoded) Unknown Allergy Active Latex latex (uncoded) Unknown Allergy Acti ve penicillin (uncoded) Unknown Allergy Active Reason For Referral No Information Medications Medication SIG (Take, Route, Frequency, Duration) Notes Start Date End Date Status Flexeril Active traMADol HCl Active Atorvastatin Calcium Active HYDROcodone-Acetaminophen 5-325 MG 1 tablet Orally every 6 hrs As needed; discontinue Tramadol while taking this medication 09/09/2024 Active Pantoprazole Sodium Active Medrol (Vadim) 4 MG as directed Orally a s directed for 6 days 07/23/2024 Active Zolpidem Tartrate Ac tive Levothyroxine Sodium Active Celecoxib 200 MG Take 1 capsule by [facility] once daily for 30 Active Sertraline HCl Activ e Losartan Potassium A ctive Aspirin Active Social History Tobacco Use: Social History Observation Description Date Details (start date - stop date) Never Smoker NA - NA Tobacco Use/Smoking Question Answer Notes Are you a nonsmoker Problems Problem Type SNOMED Code ICD Code Onset Dates Problem Status W/U Status Risk Notes Problem 244765060 Gout of right foot, unspecified cause, unspecified chronicity (M10.9) Active confirmed Problem 22630659904210673 Plantar fasciitis of left foot (M72.2) Active confirmed Problem 360872927 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 Problem 95912782 Vitamin D deficiency (E55.9) Active confirmed Problem 94922168304758916 Congenital pes cavus, 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) Active confirmed Problem 8624377774851193 Gouty arthritis of right foot (M10.9) Active confirmed Problem 622652250 Dzgdmlx-Uzpka-T ooth disease (G60.0) Active confirmed Problem 106761220457846 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 Problem 440457033 Neuritis of right lower extremity (G57.91) Active confirmed Vital Signs Height 63 in 08/31/2024 Weight 170 lbs 08/31/2024 BMI 30.11 kg/m2 08/31/2024 Encounters Encounter Location Date Provider Diagnosis 1 OF Toni Serrano [place] [address] [place] [address] 07/06/2024 Juan Serrano Plantar fasciitis of left foot M72.2 ; Congenital pes cavus, left foot Q66.72 and Foot pain, left M79.672 1 OF Toni Serrano [place] [address] [place] [address] 07/23/2024 Juan Serrano Plantar fasciitis of left foot M72.2 ; Congenital pes cavus, left foot Q66.72 and Foot pain, left M79.672 1 OF Toni Serrano [place] [address] [place] [address] 08/31/2024 Juan Serrano Plantar fasciitis of left foot M72.2 ; Entrapment neuropathy of right sural nerve G57.31 ; Congenital pes cavus, left foot Q66.72 and Foot pain, left M79.672 1 OF Toni Serrano [place] [address] [place] [address] 07/06/2024 Juan Serrano 1 OF Toni Serrano [place] [address] [place] [address] 09/01/2024 Juan Serrano 1 OF Toni Serrano [place] [address] [place] [address] 09/08/2024 Juan Serrano 1 OF Toni Pina Zach [facility] [address] [place] [address] 09/08/2024 Juan Serrano 1 OF Toni Pina Zach [facility] [address] [place] [address] 09/09/2024 Juan Serrano Assessments Encounter Date Diagnosis (ICD Code) Assessment Notes Treatment Notes Treatment Clinical Notes Section Notes 07/06/2024 Plantar fasciitis of left foot (ICD-10 - M72.2) Patient visit today included a review of medical history, review of systems, physical exam and discussion of exam findings, test results, and discussed the nature and etiology of plantar fasciitis as well as treatment options. I discussed the importance of wearing good supportive shoes and avoiding ambulation in slippers, flip flops or walking barefoot and I encouraged the patient to wear a good quality athletic sneaker whenever possible. Recommended local [employer] shoe store or a reputable [employer] specialty store in the area for new shoes SHANNON. Discussed treatment options today including Rx and topical NSAIDs, prefab orthotics, custom orthotics, steroid injections, physical therapy, use of a night splint, immobilization and surgery as a last resort if conservative options fail to provide relief. Dispensed literature regarding plantar fasciitis. Treatment today consisting of: ultra sound guided injection 07/06/2024 Congenital pes cavus, left foot (ICD-10 - Q66.72) 07/23/2024 Plantar fasciitis of left foot (ICD-10 - M72.2) Patient advised her custom orthotic does not provide good support to the left foot and recommended we try building up the medial arch of the left orthotic. Additionally today I applied foot strapping to the left foot for temporary support and will combine this with a Medrol Dosepak. 08/31/2024 Plantar fasciitis of left foot (ICD-10 - M72.2) E[place]ka was added to arch custom orthotics. Considered doing another injection or oral steroid if pain worsens. 08/31/2024 Entrapment neuropathy of right sural nerve (ICD-10 - G57.31) . Rx provided for refill of TPS topical pain cream. Patient reminded she can apply the cream up to qid. Pt to follow up as prn for this condition 08/31/2024 Congenital pes cavus, left foot (ICD-10 - Q66.72) 07/23/2024 Congenital pes cavus, left foot (ICD-10 - Q66.72) Patient does have a significant pes cavus deformity bilateral and last year the patient reported to me at her visit that another bread room hand had told her she had Faxbrqc-Xjxza-Gpqp h disease however today I advised does not appear she has any symptoms of Lznqabk-Heyna-Uulg h and this may not have been a accurate diagnosis. She does have a neurologist that she sees regularly for her continued pain of the right foot and I recommended she consider asking her neurologist whether or not she might have Csmnpjs-Jhatb-Ivro h disease. 07/06/2024 Foot pain, left (ICD-10 - M79.672) 08/31/2024 Foot pain, left (ICD-10 - M79.672) 07/23/2024 Foot pain, left (ICD-10 - M79.672) 08/31/2024 Other Plan Of Treatment No Information Insurance Providers Payer Name Payer Address Payer Phone Subscriber Number Group Number Insured Name Patient Relationship to Insured Coverage Start Date Coverage End Date Medicare [address] [place], [place] [phone] [id number] Schuyler Gutierrez Self - patient is the insured [facility] [address] [place] [address] [id number] plan g Schuyler Gutierrze Self - patient is the insured Medical (General) History Medical History History ICD Code Arthritis, depression, gerd/ reflux, high cholesterol, high blood pressure, migraines, thyroid problems, Heart attack Surgical History Surgery Date(Month/Year) postcalcaneal spur resection 06/2018
--- OUTSIDE RECORDS SUMMARY | 2024-12-22 17:14 | XMS_ITS ---
Author Organization 1 OF Tnoi carl [facility] Address [address] [place] [address] Care Team Providers Care Job Recruiter Name Role Phone Juan Pablo Easton M.D. Primary Care Provider Jaycee Juan Eisenberg [facility] REASON FOR VISIT Left foot Encounters Encounter Location Date Provider Diagnosis 1 OF Toni Serrano [facility] [address] [place] [address] 09/09/2024 Juan Serrano Plan Of Treatment No Information Progress Notes * Sherwin GUTIERREZ:1955 (68 yo F)Acc No.[id number]:09/09/2024 Patient: Schuyler GUILLEN :1955 A ge:68 Y S ex:Female Address:[place], [address] * true * Date: Generated for Troyi ng/Fapamg/eTransmitting on: 0 12/22/2024 05:13 PM CDT
== END 2024-12-22 15:17 | disposition home or self-care (01) ==
PROVIDERS: PCP Family Medicine; Visit Provider Orthopaedic Surgery
DX: Z01.818 Encounter for other preprocedural examination (principal); M17.11 Unilateral primary osteoarthritis, right knee
CPT/HCPCS: 73700

== ENCOUNTER 2025-01-02 08:30 | Outpatient (CLI) | payer MEDICARE, SELFPAY ==
--- OUTSIDE RECORDS SUMMARY | 2025-01-02 08:38 | XMS_ITS ---
Author Organization [facility] Address [address] [place] [address] Care Team Providers Care Grain Commodity Manager Name Role Phone Juan Pablo Easton M.D. Primary Care Provider Debbie Tovar Unavailable [phone] Marleen Atwood Unavailable Unavailable ZZ-Migration, Provider Unavailable Unavailab le Allergies Allergen (clinical drug ingredient) Drug/Non Drug Allergy documented on EMR Reaction Allergy Type Onset Date Status Ciprofloxacin Unknown Drug Allergy Act noa neomycin Neomycin Unknown Drug Allergy Active Penicillin rash/shortness of breath Drug Allergy Active quinapril Quinapril Unknown Drug Allergy Active REASON FOR VISIT [facility] To [facility] Conversion Encounter Medications Medication SIG (Take, Route, Frequency, Duration) Notes Start Date End Date Status HYDROcodone Bitartrate ER 10 MG 1 cap(s) orally every 12 hours Active Zanaflex 4 MG 2 cap(s) orally 3 times a day Active Trelegy Ellipta 100 MCG-62.5 MCG-25 MCG/INH 1 PUFF(S) INHALED ONCE A DAY for 30 DAYS *Please review and pick correct strength-formula tion from [facility] options. If intended option is not shown, [...] review and pick correct strength-formula tion from [employer] options. If intended option is not shown, [...] review and pick correct strength-formula tion from [employer] options. If intended option is not shown, [...] Encounters Encounter Location Date Provider Diagnosis [place] [address] [address] 03/21/2024 Provider IRVING-Harry Cough, unspecified R05.9 and [...] review and pick correct strength-formulatio n from [employer] options. If intended option is not shown, [...] review and pick correct strength-formulatio n from [facility] options. If intended option is not shown, discontinue and re-order from Quick Search* Levocetirizine Dihydrochloride 5 MG 1 tab(s) orally once a day (in the evening) for 30 days Advair Diskus 250 MCG-50 MCG 1 INH INHALED 2 TIMES A DAY for 30 DAYS 11/26/2023 *Please review and pick correct strength-formulatio n from [facility] options. If intended option is not shown, discontinue and re-order from Quick Search* Progress Notes * Marysol GUTIERREZOB:1955 (69 yo F)Acc No.[id number]:03/21/2024 Patient: Schuyler GUILLEN Provider: Shahid Mcdonald :1955 A ge:68 Y S ex:Female Date:03/21/2024 Address:[address] [place], [place] [id number] Pcp:Juan Pablo Easton M.D. Subjective: * Chief Complaints: * [facility] Conversion Encounter. * Medical History: * Medications: [...] * Electronic signature of Kathrin VILLATORO-Migration on 01/02/2025 at 08:38 AM CDT Sign off status: Pending * Provider: Shahid che Migration Date: 0 03/21/2024 Generated for Terence gutierrez/Cris/Aleksander on: 0 01/02/2025 08:38 AM CDT
--- OUTSIDE RECORDS SUMMARY | 2025-01-02 08:38 | XMS_ITS | Encounter Summary ---
Author Organization [facility] Address [address] [place] [address] Care Team Providers Care Industrial Plant Custodian Name Role Phone Juan Pablo Easton MD Primary Care Provider [phone] Reason for Visit * Reason Onset Date Comments Scheduling Appointments 03/20/2024 Encounter Details Date Type Department Care Team (Late st Contact Info) Description 03/20/2024 Telephone [facility] [place] [facility] [address] [facility] [address] [place] [address] Chelita Ray MD PhD [address] [facility] [phone] [place], [place] [id number] Scheduling Appointments Social History Tobacco Use Types [...] on file Legal Sex Female 3:40 AM ECONOMICS PROFESSOR Gender Identity Not on file Sexual Orientation Not on file documented as of this encounter Plan of Treatment Not on file documented as of this encounter Goals Goal Patient Goal Type Associated Problems Recent Progress Patient-Stated? Author CCM Chronic Pain Care Plan Chronic Care Management On track(2023 1:38 PM ECONOMICS PROFESSOR) No Lizette Resendiz, ASH Note: Problem: Chronic Pain Goals: 1. Minimize further functional decline 2. Maximize quality of life 3. Control pain Strategies: - Activity/exercise program recommendation - Conservative stepwise pain medicine strategy with multi-disciplinary approach - Recommend healthy lifestyle strategies and compensatory methods as needed documented as of this encounter Visit Diagnoses Not on filedocumented in this encounter Care Teams Industrial Plant Custodian Relationship Specialty Start Date End Date Juan Pablo Easton MD PCP - General 02/24/15 documented as of this encounter
--- OUTSIDE RECORDS SUMMARY | 2025-01-02 08:38 | XMS_ITS | Continuity of Care Document ---
Author Organization [facility] Address [address] [place] [address] Phone Care Team Providers Care Mental Health Tech Name Role Phone Ricky Gray Unavailable Unavailable Advance Directives Directive Yes / No Effective Date File Name No Information Encounters Encounter Description Practice Location Reason(s) For Visit Diagnoses Date Provider Providers Copied on Encounter [facility], [address], [place], [place], [id number], [place] tel:[phone] No Information Dec-0 6-200 0 Doisy Edward. [address] , [address], [place], [address], [place]. tel:[phone] Family History Family Member Type Diagnosis Age At Onset No Information Payers Payer name Insurance type Covered libertarian ID Authoriza tion(s) No Information Social History [...]
--- OUTSIDE RECORDS SUMMARY | 2025-01-02 08:38 | XMS_ITS ---
Author Organization [facility] Address [address] [place] [address] Care Team Providers Care Filtration Operator Name Role Phone Juan Pablo Easton M.D. Primary Care Provider Debbie Tovar Unavailable [phone] Marleen Atwood Unavailable Unavailable REASON FOR VISIT Medication Medications Medication SIG (Take, Route, Frequency, Duration) Notes Start Date End Date Status BREO ELLIPTA 200 mcg-25 mcg/inh 1 puff(s) inhaled once a day for 30 days 03/04/2024 Active Encounters Encounter Location Date Provider Diagnosis [facility] [address] [place] [address] 03/04/2024 Debbie Mccann Plan Of Treatment Medication Medication Name Sig Start Date Stop Date Notes BREO ELLIPTA 200 mcg-25 mcg/inh 1 puff(s ) inhaled once a day for 30 days 03/04/2024 Progress Notes * Marysol GUTIERREZOB:1955 (68 yo F)Acc No.[id number]:03/04/2024 Patient: Schuyler GUILLEN :1955 A ge:68 Y S ex:Female Address:[place] [address] * Refills Start Breo Ellipta powder, 200 mcg-25 mcg/inh, inhaled, 1, 1 puff(s), once a day, 30 days, Refills=5 * true * Date: Generated for Printi ng/Faxing/eTransmitting on: 0 01/02/2025 08:38 AM CDT
--- OUTSIDE RECORDS SUMMARY | 2025-01-02 08:38 | XMS_ITS | Encounter Summary ---
Author Organization [facility] Healthcare Address [address] [place] [address] Care Team Providers Care Database Dba Name Role Phone Juan Pablo Easton MD Primary Care Provider [phone] Encounter Details Date Type Department Care Team (Late st Contact Info) Description 10/30/2023 Telephone [facility] [place] [facility] [address] [facility] [address] [place] [address] Chelita Ray MD PhD [address] [facility] [phone] [place], [place] [phone] Social History Tobacco Use Types Packs/Day Years [...] on file Legal Sex Female 3:40 AM MANAGER UNIVERSAL Gender Identity Not on file Sexual Orientation [...] Chronic Care Management On track(2023 1:38 PM MANAGER UNIVERSAL) Lizette Hughes, ASH Note: Problem: Chronic Pain Goals: 1. Minimize further functional decline 2. Maximize quality of life 3. Control pain Strategies: - Activity/exercise program recommendation - Conservative stepwise pain medicine strategy with multi-disciplinary approach - Recommend healthy lifestyle strategies and compensatory methods as needed documented as of this encounter Visit Diagnoses Not on filedocumented in this encounter Care Teams Database Dba Relationship Specialty Start Date End Date Juan Pablo Easton MD PCP - General 02/24/15 documented as of this encounter
--- OUTSIDE RECORDS SUMMARY | 2025-01-02 08:38 | XMS_ITS | Clinical Summary ---
Author Organization [facility] [address] Address [address] [place] [address] Care Team Providers Care Store Host Name Role Phone Juan Pablo Easton MD Primary Care Provider [phone] Allergies Active Allergy Reactions Criticality Noted Date [...] mouth as needed for cramping or diarrhea 06/15/20 21 Active linaCLOtide (LINZESS) 145 mcg capsuleIndicatio ns:chronic [...] (100 mg total) by mouth every morning 10/07/18 70 Active zolpidem (AMBIEN) 10 mg tabletIndication s:Sleep-Onset Insomnia Take 1 tablet (10 mg total) by mouth nightly as needed for sleep 10/07/18 70 Active traZODone (DESYREL) 50 mg tabletIndication s:insomnia [...] 6 (six) hours as needed for pain 03/22/20 23 Active Constulose 10 gram/15 mL solution Take 15 mL (10 g total) by mouth as needed (constipation ) 07/19/20 23 Active polyethylene glycol (MIRALAX) 17 gram/dose bulk powder Take 17 g by mouth every morning Active aspirin 81 mg enteric coated tablet Take 1 tablet (81 mg total) by mouth daily Active fluticasone propion-salmeter oL (ADVAIR DISKUS) 250-50 mcg/dose diskus inhaler Inhale 1 puff 2 (two) times a day 11/26/19 24 Active lidocaine (LIDODERM) 5 % PLACE 1 PATCH ON SKIN EVERY DAY. REMOVE AND DISCARD PATCH WITHIN 12 HOURS OR DIRECTED BY MD 30 patch 3 03/13/20 24 Active traMADoL (ULTRAM) 50 mg tablet Take 1-2 tablets (50-100 mg total) by mouth every 6 (six) hours as needed for pain for up to 7 days 42 tablet 04/28/20 24 Active atorvastatin (LIPITOR) 40 mg tabletIndication s:hyperlipidemia Take 1 tablet (40 mg total) by mouth nightly 90 tablet 3 05/07/20 24 Active cyclobenzaprine (FLEXERIL) 10 mg tabletIndication s:Muscle spasm of back Take 1 tablet (10 mg total) by mouth 3 (three) times a day as needed for muscle spasms 90 tablet 3 06/02/20 24 Active levothyroxine (SYNTHROID) 88 mcg tablet Take 1 tablet (88 mcg total) by mouth daily 06/09/20 24 Active losartan (COZAAR) 25 mg tablet TAKE 1 TABLET(25 MG) BY MOUTH DAILY 90 tablet 1 10/19/19 25 Active celecoxib (CeleBREX) 200 mg capsule Take 1 capsule (200 mg total) by mouth daily 11/16/19 25 Active hydroCHLOROthiaz princess (MICROZIDE) 12.5 mg capsule TAKE 1 CAPSULE BY MOUTH DAILY IN THE MORNING 90 capsule 1 12/29/19 25 Active hydroCHLOROthiaz princess (MICROZIDE) 12.5 mg capsule TAKE 1 CAPSULE BY MOUTH DAILY IN THE MORNING 90 capsule 1 06/29/20 24 025 Discontinued Active Problems Problem Noted Date Diagnosed Date [...] (06/27/2022): Added automatically from request for surgery [id number] Entrapment neuropathy of right sural nerve 04/24 [...] Department Care Team Description 12/02/2024 7:28 AM ENGINEER - 12/02/2024 11:59 PM ENGINEER Hospital Encounter [facility] Medicine [address] [facility] [address] [place] [address] Chelita Ray MD PhD Sacroiliitis (Primary Dx); [...] Other Medical surgery for FRANCISCO D; Comments: MADELYNU 02/24/2015 - Hx Other Medical IBS, sensitive stomach, hypothyroidism, depression; Comments: MADELYNU 02/24/2015 - Hx Other Medical Hysterectomy; C omments: DESTIN 02/24/2015 - Hx Other Medical Chronic back pa in; Comments: ELU 02/24/2015 - Asthma COPD (chronic obstructive pu lmonary disease) ([facility]) Hypertension Thyroid disease Diastolic dysfunction Cardiomyopathy (HCC) 06/16/2021 Takotsubo c ardiomyopathy Dfowoyw-Jfftt-Hjoqt disease GERD (gastroesophageal reflu x disease) 1989 [...] Father Alek Clark Other Father Alek Clark [place] 48 yo, CABG 50, of massive [place] 53; Cancer Mother Sybil Clark Lung cancer Mother Sybil Clark Cancer, lung; Other Other Uncle, cousin d ied young of heart dz; Diabetes Paternal Grandmother May Joshua Hyperlipidemia Sister Hyperlipidemi a; Anesthesia problems Neg [...] on file Legal Sex Female 3:40 AM ENGINEER Gender Identity Not on file Sexual Orientation Not on file Obstetrics History Last Filed Vital Signs Vital Sign Reading Time Taken Comments Blood Pressure 161/97 12/02/2024 8:40 AM ENGINEER Pulse 89 12/02/2024 8:40 AM ENGINEER Temperature 36.3 C (97.3 F) 12/02/2024 7:31 AM ENGINEER Respiratory Rate 16 12/02/2024 8:40 AM ENGINEER Oxygen Saturation 100% 12/02/2024 8:40 AM ENGINEER Inhaled Oxygen Concentration - - Weight 80.4 kg (177 lb 3.2 oz) 12/02/2024 7:31 A M ENGINEER Height 161.3 cm (5' 3.5 ) 12/02/2024 7:31 AM ENGINEER Body Mass Index 30.9 12/02/2024 7:31 AM ENGINEER Plan of Treatment Health Maintenance Due Date [...] Chronic Care Management On track(2023 1:38 PM ENGINEER) Lizette Hughes, RN Note: Problem: Chronic Pain Goals: 1. Minimize further functional decline 2. Maximize quality of life 3. Control pain Strategies: - Activity/exercise program recommendation - Conservative stepwise pain medicine strategy with multi-disciplinary approach - Recommend healthy lifestyle strategies and compensatory methods as needed Medical Devices Implanted Type Area Steel Welder Device Identifier Shelf Expiration Date Model / Serial / Lot Eterna Implantable Pulse Generator Implanted:Qty: 1 on 02/22/2023 by Chelita Ray MD PhD at [facility] Other - see comments N/A: Back [employer] [id number] 10/17/2024 [id number] / [id number] / Description:Implantable puls e generator reference # 06073 - PART OF KIT Axogen Inc Avance 4-5mm 50mm Allograft Natural Connection Graft Soft Tissue [id number] - [id number] Implanted:Qty: 1 on 07/31/2022 by Padmini Mcnamara MD at [facility] Right: Ankle [employer] Inc 12/05/2023 [id number] / / [id number] Description:Implanted proxim al to right ankle. [employer] Lambert-Lock [place] Lead 1192 - [id number] Implanted:Qty: 2 on 02/22/2023 by Chelita Ray MD PhD at [facility] N/A: Back [employer] [id number] 10/21/2024 1192 / / [id number] [employer] Octrode 60cm 8 Electrode Lead Percutaneous Kit Neurostimulator 3186ans - [id number] - [id number] Implanted:Qty: 1 on 02/22/2023 by Chelita aRy MD PhD at [facility] N/A: Back [employer] [id number] 02/04/2025 [id number] / [id number] / [employer] Octrode 60cm 8 Electrode Lead Percutaneous Kit Neurostimulator [id number] - [id number] - [id number] Implanted:Qty: 1 on 02/22/2023 by Chelita Ray MD PhD at [facility] N/A: Back [employer] [id number] 02/04/2025 [id number] / [id number] / [employer] Generator Neurostimulator Spine Rechargeable Eterna [id number] - [id number] Implanted:Qty: 1 on 02/22/2023 by Chelita Ray MD PhD at [facility] N/A: Back [employer] [id number] / / Explanted Type Area Steel Welder Device Identifier Shelf Expiration Date Model / Serial / Lot [employer] Invisible One Lead Trial System Spinal Cord Stimulation 1-Lead Trial Sys - [id number] - [id number] Implanted:Qty: 1 on 01/10/2023 by Alcon Ayers MD at [facility] Explanted: 023 by Chelita Ray MD PhD (Quantity not on file) [employer] 10/04/2024 1-LEAD TRIAL SYS / [id number] / Procedures Procedure Name Priority Date/Time Associated Diagnosis Comments PAIN MGMT IMAGING SI JOINT LEFT Schedule Routine, Read Routine (OP Routine) 12/02/2024 8:39 AM ENGINEER Sacroiliitis COLONOSCOPY REPORT 11/03/2012 from Last 3 Months or Most Recently Relevant to Health Maintenance Results * Imaging SI Joint Injection Left (69310) (12/02/2024 8:39 AM ENGINEER) Narrative [facility] - 12/02/2024 8:40 AM ENGINEER The images from this study are not interpreted by Radiology. Please refer to the physician's procedure / OR operative note. us Chelita Ray MD PhD IMG PAIN MGMT PROCEDURES Final Result [facility] * COLONOSCOPY REPORT (11/03/2012) Anatomical Region Laterality Modality Other Narrative 11/03/2012 Ordered by an unspecified provider. us Historical Provider MD GI PROCEDURE ORDERABLES F inal Result from Last 3 Months or Most Recently Relevant to Health Maintenance Insurance MEDICARE [facility] MEDICARE [facility] MEDICARE [facility] Advance Directives For more information, please contact: [phone] * Full Code (Latest Code Status on File) Date Activated Date Inactivated Comments 07/31/2022 4:32 PM 08/01/2022 4:34 PM Care Teams Store Host Relationship Specialty Start Date End Date Juan Pablo Easton MD PCP - General 02/24/15
--- OUTSIDE RECORDS SUMMARY | 2025-01-02 08:38 | XMS_ITS | Referral Summary ---
Author Organization [facility] [address] Address [address] [place] [address] Care Team Providers Care Senior Microstrategy Developer Name Role Phone Juan Pablo Easton MD Primary Care Provider [phone] [phone] Encounters Date Type Department Care Team Description 12/02/2024 7:28 AM ANIMAL SCIENCE PROFESSOR - 12/02/2024 11:59 PM ANIMAL SCIENCE PROFESSOR Hospital Encounter [facility] [place] [facility] [address] [facility] Advanced Medicine [address] [place] [address] Chelita Ray MD PhD Sacroiliitis (Primary Dx); [...] HOURS OR DIRECTED BY 30 patch 3 03/13/20 24 Active traMADoL [...] (06/27/2022): Added automatically from request for surgery [id number] Entrapment neuropathy of right sural nerve 04/24 [...] on file Legal Sex Female 3:40 AM ANIMAL SCIENCE PROFESSOR Gender Identity Not on file Sexual Orientation Not on file Last Filed Vital Signs Vital Sign Reading Time Taken Comments Blood Pressure 161/97 12/02/2024 8:40 AM ANIMAL SCIENCE PROFESSOR Pulse 89 12/02/2024 8:40 AM ANIMAL SCIENCE PROFESSOR Temperature 36.3 C (97.3 F) 12/02/2024 7:31 AM ANIMAL SCIENCE PROFESSOR Respiratory Rate 16 12/02/2024 8:40 AM ANIMAL SCIENCE PROFESSOR Oxygen Saturation 100% 12/02/2024 8:40 AM ANIMAL SCIENCE PROFESSOR Inhaled Oxygen Concentration - - Weight 80.4 kg (177 lb 3.2 oz) 12/02/2024 7:31 A M ANIMAL SCIENCE PROFESSOR Height 161.3 cm (5' 3.5 ) 12/02/2024 7:31 AM ANIMAL SCIENCE PROFESSOR Body Mass Index 30.9 12/02/2024 7:31 AM ANIMAL SCIENCE PROFESSOR Plan of Treatment Not on file Goals Goal Patient Goal Type Associated Problems Recent Progress Patient-Stated? Author CCM Chronic Pain Care Plan Chronic Care Management On track(2023 1:38 PM ANIMAL SCIENCE PROFESSOR) Lizette Hughes, RN Note: Problem: Chronic Pain Goals: 1. Minimize further functional decline 2. Maximize quality of life 3. Control pain Strategies: - Activity/exercise program recommendation - Conservative stepwise pain medicine strategy with multi-disciplinary approach - Recommend healthy lifestyle strategies and compensatory methods as needed Medical Devices Implanted Type Area Director Of Capital Giving Device Identifier Shelf Expiration Date Model / Serial / Lot Eterna Implantable Pulse Generator Implanted:Qty: 1 on 02/22/2023 by Chelita Ray MD PhD at [facility] Other - see comments N/A: Back [employer] [id number] 10/17/2024 04892 / [id number] / Description:Implantable puls e generator reference # 95900 - PART OF KIT [employer]ogen Inc Avance 4-5mm 50mm Allograft Natural Connection Graft Soft Tissue [id number] - [id number] Implanted:Qty: 1 on 07/31/2022 by Padmini Mcnamara MD at [facility] Right: Ankle [employer] Inc 12/05/2023 [id number] / / [id number] Description:Implanted proxim al to right ankle. [employer] Lambert-Lock [place] Lead 1192 - [id number] Implanted:Qty: 2 on 02/22/2023 by Chelita Ray MD PhD at [facility] N/A: Back [employer] [id number] 10/21/2024 1192 / / [id number] [employer] Octrode 60cm 8 Electrode Lead Percutaneous Kit Neurostimulator 3186ans - [id number] - [id number] Implanted:Qty: 1 on 02/22/2023 by Chelita Ray MD PhD at [facility] N/A: Back [employer] [id number] 02/04/2025 [id number] / [id number] / [employer] Octrode 60cm 8 Electrode Lead Percutaneous Kit Neurostimulator 3186ans - [id number] - [id number] Implanted:Qty: 1 on 02/22/2023 by Chelita Ray MD PhD at [facility] N/A: Back [employer] [id number] 02/04/2025 [id number] / [id number] / [employer] Generator Neurostimulator Spine Rechargeable Eterna [id number] - [id number] Implanted:Qty: 1 on 02/22/2023 by Chelita Ray MD PhD at [facility] N/A: Back [employer] [id number] / / Explanted Type Area Director Of Capital Giving Device Identifier Shelf Expiration Date Model / Serial / Lot [employer] Invisible One Lead Trial System Spinal Cord Stimulation 1-Lead Trial Sys - [id number] - [id number] Implanted:Qty: 1 on 01/10/2023 by Alcon Ayers MD at [facility] Explanted: 023 by Chelita Ray MD PhD (Quantity not on file) [employer] 10/04/2024 1-LEAD TRIAL SYS / [id number] / Procedures Procedure Name Priority Date/Time Associated Diagnosis Comments PAIN MGMT IMAGING SI JOINT LEFT Schedule Routine, Read Routine (OP Routine) 12/02/2024 8:39 AM ANIMAL SCIENCE PROFESSOR Sacroiliitis COLONOSCOPY REPORT 11/03/2012 from Last 3 Months or Most Recently Relevant to Health Maintenance Results * Imaging SI Joint Injection Left (72419) (12/02/2024 8:39 AM ANIMAL SCIENCE PROFESSOR) Narrative [facility] - 12/02/2024 8:40 AM ANIMAL SCIENCE PROFESSOR The images from this study are not [...] Recently Relevant to Health Maintenance Insurance MEDICARE [facility] MEDICARE [facility] MEDICARE [facility] Advance Directives For more information, please contact: [phone] * Full Code (Latest Code Status on File) Date Activated Date Inactivated Comments 07/31/2022 4:32 PM 08/01/2022 4:34 PM Care Teams Senior Microstrategy Developer Relationship Specialty Start Date End Date Juan Pablo Easton MD PCP - General 02/24/15
--- OUTSIDE RECORDS SUMMARY | 2025-01-02 08:38 | XMS_ITS ---
Author Organization [facility] Address [address] [place] [address] Care Team Providers Care Screen Examiner Name Role Phone Juan Pablo Easton M.D. Primary Care Provider Debbie Tovar Unavailable [phone] Marleen Atwood Unavailable Unavailable REASON FOR VISIT [facility] follow-up Encounters Encounter Location Date Provider Diagnosis [facility] [address] [place] [address] 02/18/2024 Debbie Mccann Plan Of Treatment No Information Progress Notes * Arcadio GUTIERREZMissyOB:1955 (69 yo F)Acc No.[id number]:02/18/2024 Progress Notes Patient: Schuyler GUILLEN Provider: Vance Mccann MD :1955 A ge:68 Y S ex:Female Date:02/18/2024 [facility] Pcp:Juan Pablo Easton M.D. Subjective: * Chief Complaints: * 1 . [facility] follow-up. * Medical History: Objective: * Vitals: Assessment: Plan: * Treatment: * Billing Information: * Visit Code: * Procedure Codes: * Electronic signature of Sudha Mccann MD on 01/02/2025 at 08:38 AM CDT Sign off status: Pending * Provider: Vance Mccann MD Date: 0 02/18/2024 Generated for Troyi ng/Fagustavo/eTransmitting on: 0 01/02/2025 08:38 AM CDT
--- OUTSIDE RECORDS SUMMARY | 2025-01-02 08:38 | XMS_ITS | CONTINUITY OF CARE DOCUMENT ---
Author Name jimnupur adalberto Address Unknown Organization [facility] Address [address] [place] [address] Phone [phone] Care Team Providers Care Real Estate Loan Processor Name Role Phone Ken Vidales MD Unavailable [phone] SHIRA ALBARRAN MD Unavailable [phone] SHIRA ALBARRAN MD Unavailable PROBLEMS Condition Status Date Provider Notes DIZZINESS active Rosaisis Cordobamidt HYPOTHYROIDISM active Rosa Staton HTN-12/13 ECHO LV 65 active ? Ken Vidales MD ENCOUNTERS Date Type Provider Location Encounter Diagnosis - In-person encounter Office Visit Ken Vidales MD [place] [facility] - In-person encounter Office Visit Ken Vidales MD [place] [facility] HTN-12/13 ECHO LV 65 VITAL SIGNS [...] Payer name Policy type / Coverage type [place] red constitution party ID [facility] [id number] TREATMENT PLAN Date Name Performer routine: H [...] stress induced ischemia or wall motion abnormality. [facility] (01/03/2009) E chocardiogram: EF - 65%. M itral annular calcification. R ight ventricular enlargement. M ild mitral regurgitaiton. M Ild tricuspid regurgitation. RVSP of 24mmHg. M ild pulmonary regurgitation. [facility] (01/03/2009) Ken Vidales MD routine: T he [...] stress induced ischemia or wall motion abnormality. [facility] (01/03/2009) C HOL: 278 (01/28/2009) LDL: 207 (01/28/2009) HDL: 40 (01/28/2009) T (01/28/2009) E chocardiogram: EF - 65%. M itral annular calcification. R ight ventricular enlargement. M ild mitral regurgitaiton. M Ild tricuspid regurgitation. RVSP of 24mmHg. M ild pulmonary regurgitation. [facility] (01/03/2009) t his has not recurred Ken [...] stress induced ischemia or wall motion abnormality. [facility] (01/03/2009) Ken Vidales MD follow up: [...] stress induced ischemia or wall motion abnormality. [facility] (01/03/2009) Ken Vidales MD follow up: [...]
--- OUTSIDE RECORDS SUMMARY | 2025-01-02 08:38 | XMS_ITS | Encounter Summary ---
Author Organization [facility] Healthcare Address [address] [place] [address] Care Team Providers Care Remote Sensing Surveyor Name Role Phone Juan Pablo Easton MD Primary Care Provider [phone] Reason for Visit * Reason Onset Date Comments PMC Preprocedure 08/24/2024 Encounter Details Date Type Department Care Team (Late st Contact Info) Description 08/24/[address] [facility] [address] [facility] [address] [place], [place] [id number] Chelita Ray MD PhD [address] [facility] [id number] [place], [place] [id number] PMC Preprocedure Social History Tobacco Use Types [...] on file Legal Sex Female 3:40 AM SCENE AND LIGHTING DESIGN LECTURER Gender Identity Not on file Sexual Orientation Not on file documented as of this encounter Functional Status documented as of this encounter Plan of Treatment Not on file documented as of this encounter Goals Goal Patient Goal Type Associated Problems Recent Progress Patient-Stated? Author CCM Chronic Pain Care Plan Chronic Care Management On track(2023 1:38 PM SCENE AND LIGHTING DESIGN LECTURER) No Lizette Resendiz, ASH Note: Problem: Chronic Pain Goals: 1. Minimize further functional decline 2. Maximize quality of life 3. Control pain Strategies: - Activity/exercise program recommendation - Conservative stepwise pain medicine strategy with multi-disciplinary approach - Recommend healthy lifestyle strategies and compensatory methods as needed documented as of this encounter Visit Diagnoses Not on filedocumented in this encounter Care Teams Remote Sensing Surveyor Relationship Specialty Start Date End Date Juan Pablo Easton MD PCP - General 02/24/15 documented as of this encounter
--- OUTSIDE RECORDS SUMMARY | 2025-01-02 08:38 | XMS_ITS | Encounter Summary ---
Author Organization [facility] Healthcare Address [address] [place] [address] Care Team Providers Care Control Cabinet Assembler Name Role Phone Juan Pablo Easton MD Primary Care Provider [phone] Encounter Details Date Type Department Care Team (Late st Contact Info) Description 05/16/2022 Documentation [facility] Surgeon [address] [place] [address] Breanne Walter MD [address] [facility] [address] [place] [address] Social History Tobacco Use Types Packs/Day Years [...] on file Legal Sex Female 3:40 AM COMMERCIAL DRONE PILOT Gender Identity Not on file Sexual Orientation Not on file documented as of this encounter Plan of Treatment Not on file documented as of this encounter Goals Goal Patient Goal Type Associated Problems Recent Progress Patient-Stated? Author CCM Chronic Pain Care Plan Chronic Care Management On track(2023 1:38 PM COMMERCIAL DRONE PILOT) Lizette Hughes, RN Note: Problem: Chronic Pain Goals: 1. Minimize further functional decline 2. Maximize quality of life 3. Control pain Strategies: - Activity/exercise program recommendation - Conservative stepwise pain medicine strategy with multi-disciplinary approach - Recommend healthy lifestyle strategies and compensatory methods as needed documented as of this encounter Visit Diagnoses Not on filedocumented in this encounter Care Teams Control Cabinet Assembler Relationship Specialty Start Date End Date Juan Pablo Easton MD PCP - General 02/24/15 documented as of this encounter
--- OUTSIDE RECORDS SUMMARY | 2025-01-02 08:38 | XMS_ITS ---
Author Organization 1 OF Toni carl [facility] Address [address] [place] [address] Care Team Providers Care Chain Splitter Name Role Phone Juan Pablo Easton M.D. Primary Care Provider Juan [facility] REASON FOR VISIT pain medication Medications Medication SIG (Take, Route, Frequency, Duration) Notes Start Date End Date Status HYDROcodone-Acetaminophen 5-325 MG 1 tablet Orally every 6 hrs As needed; discontinue Tramadol while taking this medication 09/09/2024 Active CeleBREX 200 MG 1 capsule Orally Onc e a day for 30 days 09/09/2024 Active Encounters Encounter Location Date Provider Diagnosis 1 OF Toni Serrano [facility] [address] [facility] [address] [place] [address] 09/08/2024 Juan Serrano Plan Of Treatment Medication Medication Name Sig Start Date Stop Date Notes HYDROcodone-Acetaminophen 5- 325 MG 1 tablet Orally every 6 hrs 09/09/2024 CeleBREX 200 MG 1 capsule Orally Onc e a day for 30 days 09/09/2024 Progress Notes * Sherwin GUTIERREZ:1955 (68 yo F)Acc No.[id number]:09/08/2024 Patient: Schuyler GUILLEN :1955 A ge:68 Y S ex:Female Address:[address] [place], [address] * Refills Start CeleBREX Capsule, 200 MG, Orally, 30, 1 capsule, Once a day, 30 days, Refills=1 Start HYDROcodone-Acetaminophen Tablet, 5-325 MG, Orally, 10, 1 tablet, every 6 hrs, Refills=0 * true * Date: Generated for Terence gutierrez/Cris/Aleksander on: 0 01/02/2025 08:38 AM CDT
--- OUTSIDE RECORDS SUMMARY | 2025-01-02 08:39 | XMS_ITS | Patient Health Record ---
Author Organization 1 ANAIS carl [facility] Address [address] [facility] [address] [place] [address] Care Team Providers Care Product Introduction Manager Name Role Phone Juan Pablo Easton M.D. Primary Care Provider Jaycee Juan Eisenberg Unavailable Allergies Allergen (clinical drug ingredient) Drug/Non Drug [...] Zolpidem Tartrate Ac tive Levothyroxine Sodium Active Sertraline HCl Activ e Losartan Potassium A ctive Celecoxib 200 MG Take [address] 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 Problem 94971548 Vitamin D deficiency (E55.9) Active confirmed Problem 38893940053138587 Congenital pes cavus, 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) Active confirmed Problem 7096925103086450 Gouty arthritis of right foot (M10.9) Active confirmed Problem 004824188 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) Active confirmed Problem 337143687118671 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 Problem 238951537 Neuritis of right lower extremity (G57.91) Active confirmed Vital Signs Height 63 in 08/31/2024 Weight 170 lbs 08/31/2024 BMI 30.11 kg/m2 08/31/2024 Encounters Encounter Location Date Provider Diagnosis 1 OF Toni Serrano [place] [address] [place] [address] 07/06/2024 Juan Serrano Plantar fasciitis of left foot M72.2 ; Congenital pes cavus, left foot Q66.72 and Foot pain, left M79.672 1 OF Toni Serrano [place] [address] [place] [address] 07/23/2024 Juan Serrano Plantar fasciitis of left foot M72.2 ; Congenital pes cavus, left foot Q66.72 and Foot pain, left M79.672 1 OF Toni Serrano [place] [address] [place] [address] 08/31/2024 Juan Serrano Plantar fasciitis of left foot M72.2 ; Entrapment neuropathy of right sural nerve G57.31 ; Congenital pes cavus, left foot Q66.72 and Foot pain, left M79.672 1 OF Toni Serrano [place] [address] [place] [address] 07/06/2024 Juan Serrano 1 OF Toni Serrano [place] [address] [place] [address] 09/01/2024 Juan Serrano 1 OF Toni Serrano [place] [address] [place] [address] 09/08/2024 Juan Serrano 1 OF Toni Pina Zach [facility] [address] [place] [address] 09/08/2024 Juan Serrano 1 OF Toni Pina Zach [facility] [address] [place] [address] 09/09/2024 Juan Serrano Assessments Encounter Date Diagnosis [...] [employer] shoe store or a reputable [employer] specialty store in the area for new [...] fasciitis of left foot (ICD-10 - M72.2) [place] was added to arch custom orthotics. Considered [...] to me at her visit that another automotive electrical fitter had told her she had Datstqu-Lonlv-Wddg h disease however today I advised does not appear she has any symptoms of Wfllxup-Rdpmv-Nmli h and this may not have been a accurate diagnosis. She does have a neurologist that she sees regularly for her continued pain of the right foot and I recommended she consider asking her neurologist whether or not she might have Puyfrjq-Qoypn-Radj h disease. 07/06/2024 Foot pain, left (ICD-10 - M79.672) 08/31/2024 Foot pain, left (ICD-10 - M79.672) 07/23/2024 Foot pain, left (ICD-10 - M79.672) 08/31/2024 Other Plan Of Treatment No Information Insurance Providers Payer Name Payer Address Payer Phone Subscriber Number Group Number Insured Name Patient Relationship to Insured Coverage Start Date Coverage End Date Medicare [address] [place], [place] [id number] Schuyler Gutierrez Self - patient is the insured [facility] [address] [place] [address] [id number] plan g Schuyler Gutierrez Self - patient is the insured Medical (General) History Medical History History ICD Code Arthritis, depression, gerd/ reflux, high cholesterol, high blood pressure, migraines, thyroid problems, Heart attack Surgical History Surgery Date(Month/Year) postcalcaneal spur resection 06/2018
--- OUTSIDE RECORDS SUMMARY | 2025-01-02 08:39 | XMS_ITS | Clinical Summary ---
Author Organization [facility] Address [address] [place] [address] Care Team Providers Care Processor Inspector Name Role Phone Juan Pablo Easton MD Primary Care Provider [phone] Source Comments [facility],non-owned Affiliates and Associated Physician Practices is amultiple site organization consisting of ambulatory clinics and hospital sitesin [place], [place], [place] and [place]. This disclosure is being madepursuant to the Care Everywhere program and may not contain all information available regarding this patient. Last updated 18.[facility] Social History Tobacco Use Types Packs/Day Years [...] age to complete this topic Care Teams Processor Inspector Relationship Specialty Start Date End Date Juan Pablo Easton MD [address] [place] [address] PCP - General 10/08/19
--- OUTSIDE RECORDS SUMMARY | 2025-01-02 08:39 | XMS_ITS ---
Author Organization 1 OF Toni carl [facility] Address [address] [place] [address] Care Team Providers Care Curtain Framer Name Role Phone Juan Pablo Easton M.D. Primary Care Provider Jaycee Juan Eisenberg [facility] [phone] REASON FOR VISIT Left foot Encounters Encounter Location Date Provider Diagnosis 1 OF Toni Serrano [facility] [address] [place] [address] 09/09/2024 Juan Serrano Plan Of Treatment No Information Progress Notes * Sherwin GUTIERREZ:1955 (68 yo F)Acc No.[id number]:09/09/2024 Patient: Schuyler GUILLEN :1955 A ge:68 Y S ex:Female Address:[place], [address] * true * Date: Generated for Troyi ng/Fapamg/eTransmitting on: 0 01/02/2025 08:38 AM CDT
--- OUTSIDE RECORDS SUMMARY | 2025-01-02 08:39 | XMS_ITS | Clinical Summary ---
Author Organization [facility] Address [address] [place] [address] Care Team Providers Care Precast Worker Name Role Phone Juan Pablo Easton MD Primary Care Provider [phone] Social History Tobacco Use Types Packs/Day Years [...] age to complete this topic Insurance [facility] Care Teams Precast Worker Relationship Specialty Start Date End Date Juan Pablo Easton MD PCP - General FAMILY PRACTICE 01/23/21
--- OUTSIDE RECORDS SUMMARY | 2025-01-02 08:39 | XMS_ITS ---
Author Organization 1 OF Toni carl [facility] Address [address] [place] [address] Care Team Providers Care Resident In Diagnostic Radiology Name Role Phone Juan Pablo Easton M.D. Primary Care Provider Jaycee Juan Eisenberg [facility] [phone] REASON FOR VISIT Pain in left foot Encounters Encounter Location Date Provider Diagnosis [address] [facility] [address] [place] [address] 09/08/2024 Juan Serrano Plan Of Treatment No Information Progress Notes * Sherwin GUTIERREZ:1955 (68 yo F)Acc No.[id number]:09/08/2024 Patient: Peter POWERSSALEEMSchuyler :1955 A ge:68 Y S ex:Female Address:[place], [address] * true * Date: Generated for Printi ng/Faxing/eTransmitting on: 0 01/02/2025 08:39 AM CDT
[2025-01-02 09:32] LABS: Hematocrit 37.2 % (37.0-47.0); Hemoglobin 12.1 g/dL (12.0-15.0)
[2025-01-02 09:46] LABS: Albumin Level 4.4 g/dL (3.5-5.1); Estimated Glomerular Filt Rate 45
== END 2025-01-02 08:31 | disposition home or self-care (01) ==
LOC: ANHLAB 08:36
PROVIDERS: PCP Family Medicine; Visit Provider Orthopaedic Surgery
DX: I10 Essential (primary) hypertension (principal); E55.9 Vitamin D deficiency, unspecified
CPT/HCPCS: 36415; 82040; 82565; 85014; 85018

== ENCOUNTER 2025-01-11 10:27 | Outpatient (CLI) | payer MEDICARE, SELFPAY ==
--- OUTSIDE RECORDS SUMMARY | 2025-01-11 11:58 | XMS_ITS | CONTINUITY OF CARE DOCUMENT ---
Author Name jimnupur adalberto Address Unknown Organization [facility] Address [address] [facility] [facility] [address] [place] [address] Phone [phone] Care Team Providers Care Supervisor Putty And Caluking Name Role Phone Ken Vidales MD Unavailable SHIRA ALBARRAN MD Unavailable [phone] SHIRA ALBARRAN MD Unavailable PROBLEMS Condition Status Date Provider Notes DIZZINESS active Rosaisis Cordobamidt HYPOTHYROIDISM active Rosa Staton HTN-12/13 ECHO LV 65 active ? Ken Vidales MD ENCOUNTERS Date Type Provider Location Encounter Diagnosis - In-person encounter Office Visit Ken Vidales MD [place] [facility] - In-person encounter Office Visit Ken Vidales MD [place] [facility] HTN-12/13 ECHO LV 65 VITAL SIGNS [...] Payer name Policy type / Coverage type [place] red constitution party ID [facility] [id number] TREATMENT PLAN Date Name Performer routine: H [...] stress induced ischemia or wall motion abnormality. [facility] (01/03/2009) E chocardiogram: EF - 65%. M itral annular calcification. R ight ventricular enlargement. M ild mitral regurgitaiton. M Ild tricuspid regurgitation. RVSP of 24mmHg. M ild pulmonary regurgitation. [facility] (01/03/2009) Ken Vidales MD routine: [...] stress induced ischemia or wall motion abnormality. [facility] (01/03/2009) C HOL: 278 (01/28/2009) LDL: 207 (01/28/2009) HDL: 40 (01/28/2009) T (01/28/2009) E chocardiogram: EF - 65%. M itral annular calcification. R ight ventricular enlargement. M ild mitral regurgitaiton. M Ild tricuspid regurgitation. RVSP of 24mmHg. M ild pulmonary regurgitation. [facility] (01/03/2009) t his has not [...] stress induced ischemia or wall motion abnormality. [facility] (01/03/2009) Ken Vidales MD follow up: [...] stress induced ischemia or wall motion abnormality. [facility] (01/03/2009) Ken Vidales MD follow up: [...]
--- OUTSIDE RECORDS SUMMARY | 2025-01-11 11:59 | XMS_ITS | Encounter Summary ---
Author Organization [facility] Healthcare Address [address] [place] [address] Care Team Providers Care Blueprint Processor Name Role Phone Juan Pablo Easton MD Primary Care Provider [phone] Encounter Details Date Type Department Care Team (Late st Contact Info) Description 05/16/2022 Documentation [facility] Surgeon [address] [place] [address] Breanne Walter MD [address] [place] [address] [place] [address] Social History Tobacco Use Types Packs/Day Years [...] on file Legal Sex Female 3:40 AM LIME HIDE INSPECTOR Gender Identity Not on file Sexual Orientation Not on file documented as of this encounter Plan of Treatment Not on file documented as of this encounter Goals Goal Patient Goal Type Associated Problems Recent Progress Patient-Stated? Author CCM Chronic Pain Care Plan Chronic Care Management On track(2023 1:38 PM LIME HIDE INSPECTOR) Lizette Hughes, RN Note: Problem: Chronic Pain Goals: 1. Minimize further functional decline 2. Maximize quality of life 3. Control pain Strategies: - Activity/exercise program recommendation - Conservative stepwise pain medicine strategy with multi-disciplinary approach - Recommend healthy lifestyle strategies and compensatory methods as needed documented as of this encounter Visit Diagnoses Not on filedocumented in this encounter Care Teams Blueprint Processor Relationship Specialty Start Date End Date Juan Pablo Easton MD PCP - General 02/24/15 documented as of this encounter
--- OUTSIDE RECORDS SUMMARY | 2025-01-11 11:59 | XMS_ITS | Clinical Summary ---
Author Organization [facility] [address] Address [address] [place] [address] Care Team Providers Care Welder Apprentice Arc Name Role Phone Juan Pablo Easton MD Primary Care Provider +1 -[phone] Allergies Active Allergy Reactions Criticality Noted Date [...] (06/27/2022): Added automatically from request for surgery [id number] Entrapment neuropathy of right sural nerve 04/24 [...] Department Care Team Description 12/02/2024 7:28 AM FRAME GATE MORTISER OPERATOR - 12/02/2024 11:59 PM FRAME GATE MORTISER OPERATOR Hospital Encounter [facility] Medicine [address] [facility] [address] [place] [address] Chelita Ray MD PhD Sacroiliitis (Primary Dx); [...] Asthma COPD (chronic obstructive pu lmonary disease) ([facility]) Hypertension Thyroid disease Diastolic dysfunction Cardiomyopathy (HCC) 06/16/2021 Takotsubo c ardiomyopathy Harpfbw-Hvbzz-Calxk disease GERD (gastroesophageal reflu x disease) 1989 [...] Father Alek Clark Other Father Alek Clark [place] 48 yo, CABG 50, of massive [place] 53; Cancer Mother Sybil Clark Lung cancer [...] on file Legal Sex Female 3:40 AM FRAME GATE MORTISER OPERATOR Gender Identity Not on file Sexual Orientation Not on file Obstetrics History Last Filed Vital Signs Vital Sign Reading Time Taken Comments Blood Pressure 161/97 12/02/2024 8:40 AM FRAME GATE MORTISER OPERATOR Pulse 89 12/02/2024 8:40 AM FRAME GATE MORTISER OPERATOR Temperature 36.3 C (97.3 F) 12/02/2024 7:31 AM FRAME GATE MORTISER OPERATOR Respiratory Rate 16 12/02/2024 8:40 AM FRAME GATE MORTISER OPERATOR Oxygen Saturation 100% 12/02/2024 8:40 AM FRAME GATE MORTISER OPERATOR Inhaled Oxygen Concentration - - Weight 80.4 kg (177 lb 3.2 oz) 12/02/2024 7:31 A M FRAME GATE MORTISER OPERATOR Height 161.3 cm (5' 3.5 ) 12/02/2024 7:31 AM FRAME GATE MORTISER OPERATOR Body Mass Index 30.9 12/02/2024 7:31 AM FRAME GATE MORTISER OPERATOR Plan of Treatment Health Maintenance Due Date [...] 2024 02/23/2022, 08/18/2021, 12/29/2020, Additional history exists Fall Risk Assessment 09/04/2024 09/04/2023 Influenza Vaccine (Season Ended) 2025 06/28/2023, 08/01/2022, 07/07/2020, Additional history exists Colon Cancer Screening-CT Colonography Discontinued 11/03/2012 Colon Cancer Screening-DNA Stool Discontinued 11/03/19 13 Colon Cancer Screening-FIT Discontinued 11/03/2012 Colon Cancer Screening-Sigmoidoscopy Discontinued 11/03/2012 Goals Goal Patient Goal Type Associated Problems Recent Progress Patient-Stated? Author CCM Chronic Pain Care Plan Chronic Care Management On track(2023 1:38 PM FRAME GATE MORTISER OPERATOR) Lizette Hughes, RN Note: Problem: Chronic Pain Goals: 1. Minimize further functional decline 2. Maximize quality of life 3. Control pain Strategies: - Activity/exercise program recommendation - Conservative stepwise pain medicine strategy with multi-disciplinary approach - Recommend healthy lifestyle strategies and compensatory methods as needed Medical Devices Implanted Type Area Adolescent Coordinator Device Identifier Shelf Expiration Date Model / Serial / Lot Eterna Implantable Pulse Generator Implanted:Qty: 1 on 02/22/2023 by Chelita Ray MD PhD at [facility] Other - see comments N/A: Back [employer] [id number] 10/17/2024 [id number] / [id number] / Description:Implantable puls e generator reference # 59659 - PART OF KIT Axogen Inc Avance 4-5mm 50mm Allograft Natural Connection Graft Soft Tissue [id number] - [id number] Implanted:Qty: 1 on 07/31/2022 by Padmini Mcnamara MD at [facility] Right: Ankle Axogen Inc 12/05/2023 [id number] / / [id number] Description:Implanted proxim al to right ankle. [employer] Lambert-Lock [place] Lead 1192 - [id number] Implanted:Qty: 2 on 02/22/2023 by Chelita Ray MD PhD at [facility] N/A: Back [employer] [id number] 10/21/2024 1192 / / [id number] [employer] Octrode 60cm 8 Electrode Lead Percutaneous Kit Neurostimulator 3186ans - [id number] - [id number] Implanted:Qty: 1 on 02/22/2023 by Chelita Ray MD PhD at [facility] N/A: Back [employer] [id number] 02/04/2025 [id number] / [id number] / [employer] Octrode 60cm 8 Electrode Lead Percutaneous Kit Neurostimulator 3186ans - [id number] - [id number] Implanted:Qty: 1 on 02/22/2023 by Chelita Ray MD PhD at [facility] N/A: Back [employer] [id number] 02/04/2025 [id number] / [id number] / [employer] Generator Neurostimulator Spine Rechargeable Eterna [id number] - [id number] Implanted:Qty: 1 on 02/22/2023 by Chelita Ray MD PhD at [facility] N/A: Back [employer] [id number] / / Explanted Type Area Adolescent Coordinator Device Identifier Shelf Expiration Date Model / Serial / Lot [employer] Invisible One Lead Trial System Spinal Cord Stimulation 1-Lead Trial Sys - [id number] - [id number] Implanted:Qty: 1 on 01/10/2023 by Alcon Ayers MD at [facility] Explanted: 023 by Chelita Ray MD PhD (Quantity not on file) [employer] 10/04/2024 1-LEAD TRIAL SYS / [id number] / Procedures Procedure Name Priority Date/Time Associated Diagnosis Comments PAIN MGMT IMAGING SI JOINT LEFT Schedule Routine, Read Routine (OP Routine) 12/02/2024 8:39 AM FRAME GATE MORTISER OPERATOR Sacroiliitis COLONOSCOPY REPORT 11/03/2012 from Last 3 Months or Most Recently Relevant to Health Maintenance Results * Imaging SI Joint Injection Left ([id number]) (12/02/2024 8:39 AM FRAME GATE MORTISER OPERATOR) Narrative [facility]_PACS[facility] - 12/02/2024 8:40 AM FRAME GATE MORTISER OPERATOR The images from this study are not [...] Recently Relevant to Health Maintenance Insurance MEDICARE [facility] MEDICARE [facility] MEDICARE [facility] Advance Directives For more information, please contact: [phone] * Full Code (Latest Code Status on File) Date Activated Date Inactivated Comments 07/31/2022 4:32 PM 08/01/2022 4:34 PM Care Teams Welder Apprentice Arc Relationship Specialty Start Date End Date Juan Pablo Easton MD PCP - General 02/24/15
--- OUTSIDE RECORDS SUMMARY | 2025-01-11 11:59 | XMS_ITS ---
Author Organization [facility] Address [address] [place] [address] Care Team Providers Care Secretary Specialist Name Role Phone Juan Pablo Easton M.D. Primary Care Provider Debbie Tovar Unavailable [phone] Marleen Atwood Unavailable Unavailable ZZ-Migration, Provider Unavailable Unavailab le Allergies Allergen (clinical drug ingredient) Drug/Non Drug Allergy documented on EMR Reaction Allergy Type Onset Date Status Ciprofloxacin Unknown Drug Allergy Act noa neomycin Neomycin Unknown Drug Allergy Active Penicillin rash/shortness of breath Drug Allergy Active quinapril Quinapril Unknown Drug Allergy Active REASON FOR VISIT [facility] To [facility] Conversion Encounter Medications Medication SIG (Take, Route, Frequency, Duration) Notes Start Date End Date Status HYDROcodone Bitartrate ER 10 MG 1 cap(s) orally every 12 hours Active Zanaflex 4 MG 2 cap(s) orally 3 times a day Active Trelegy Ellipta 100 MCG-62.5 MCG-25 MCG/INH 1 PUFF(S) INHALED ONCE A DAY for 30 DAYS *Please review and pick correct strength-formula tion from [facility] options. If intended option is not shown, [...] review and pick correct strength-formula tion from [employer] options. If intended option is not shown, [...] review and pick correct strength-formula tion from [employer] options. If intended option is not shown, [...] Encounters Encounter Location Date Provider Diagnosis [place] [address] [address] 03/21/2024 Provider IRVING-Harry Cough, unspecified R05.9 and [...] review and pick correct strength-formulatio n from [employer] options. If intended option is not shown, [...] review and pick correct strength-formulatio n from [facility] options. If intended option is not shown, discontinue and re-order from Quick Search* Levocetirizine Dihydrochloride 5 MG 1 tab(s) orally once a day (in the evening) for 30 days Advair Diskus 250 MCG-50 MCG 1 INH INHALED 2 TIMES A DAY for 30 DAYS 11/26/2023 *Please review and pick correct strength-formulatio n from [facility] options. If intended option is not shown, discontinue and re-order from Quick Search* Progress Notes * Marysol GUTIERREZOB:1955 (69 yo F)Acc No.[id number]:03/21/2024 Patient: Schuyler GUILLEN Provider: Shahid Mcdonald :1955 A ge:68 Y S ex:Female Date:03/21/2024 Address:[address] [place], [place] [id number] Pcp:Juan Pablo Easton M.D. Subjective: * Chief Complaints: * [facility] . [facility] Conversion Encounter. * Medical History: * Medications: [...] * Electronic signature of Kathrin VILLATORO-Migration on 01/11/2025 at 09:24 AM CDT Sign off status: Pending * Provider: Shahid che Migration Date: 0 03/21/2024 Generated for Terence gutierrez/Cris/Aleksander on: 0 01/11/2025 09:24 AM CDT
--- OUTSIDE RECORDS SUMMARY | 2025-01-11 11:59 | XMS_ITS | Clinical Summary ---
Author Organization [facility] Address [address] [place] [address] Care Team Providers Care Gold Prospector Name Role Phone Juan Pablo Easton MD Primary Care Provider [phone]- [phone] Source Comments [facility],non-owned Affiliates and Associated Physician Practices is amultiple site organization consisting of ambulatory clinics and hospital sitesin [place], [place], [place] and [place]. This disclosure is being madepursuant to the Care Everywhere program and may not contain all information available regarding this patient. Last updated 18.[facility] Social History Tobacco Use Types Packs/Day Years [...] VACCINE (1 - 2024-2 5 season) 2024 DEPRESSION SCREENING 10/07/2024 INFLUENZA VACCINE (Season Ended) 2025 Respiratory Syncytial Virus (RSV) Vaccine Pt: or [...] age to complete this topic Care Teams Gold Prospector Relationship Specialty Start Date End Date Juan Pablo Easton MD [address] [place] [id number] PCP - General 10/08/19
--- OUTSIDE RECORDS SUMMARY | 2025-01-11 11:59 | XMS_ITS ---
Author Organization 1 OF Toni carl [facility] Address [address] [place] [address] Care Team Providers Care Reinsurance Accountant Name Role Phone Juan Pablo Easton M.D. Primary Care Provider Juan [facility] REASON FOR VISIT pain medication Medications Medication SIG (Take, Route, Frequency, Duration) Notes Start Date End Date Status HYDROcodone-Acetaminophen 5-325 MG 1 tablet Orally every 6 hrs As needed; discontinue Tramadol while taking this medication 09/09/2024 Active CeleBREX 200 MG 1 capsule Orally Onc e a day for 30 days 09/09/2024 Active Encounters Encounter Location Date Provider Diagnosis 1 OF Toni Serrano [facility] [address] [email or web address] [address] [place] [address] 09/08/2024 Juan Serrano Plan Of Treatment Medication Medication Name Sig Start Date Stop Date Notes HYDROcodone-Acetaminophen 5- 325 MG 1 tablet Orally every 6 hrs 09/09/2024 CeleBREX 200 MG 1 capsule Orally Onc e a day for 30 days 09/09/2024 Progress Notes * Sherwin GUTIERREZ:1955 (68 yo F)Acc No.[id number]:09/08/2024 Patient: Scuhyler GUILLEN :1955 A ge:68 Y S ex:Female Address:[address] [place], [address] * Refills Start CeleBREX Capsule, 200 MG, Orally, 30, 1 capsule, Once a day, 30 days, Refills=1 Start HYDROcodone-Acetaminophen Tablet, 5-325 MG, Orally, 10, 1 tablet, every 6 hrs, Refills=0 * true * Date: Generated for Terence gutierrez/Cris/Aleksander on: 0 01/11/2025 11:58 AM CDT
--- OUTSIDE RECORDS SUMMARY | 2025-01-11 11:59 | XMS_ITS | Encounter Summary ---
Author Organization [facility] Address [address] [place] [address] Care Team Providers Care Car Starter Name Role Phone Juan Pablo Easton MD Primary Care Provider +1 -[phone] Encounter Details Date Type Department Care Team (Late st Contact Info) Description 10/30/2023 Telephone [facility] [place] [facility] [address] [facility] Advanced Medicine [address] [place] [address] Chelita Ray MD PhD [address] [facility] [id number] [place], [place] [id number] Social History Tobacco Use Types Packs/Day Years [...] on file Legal Sex Female 3:40 AM RN APPEALS Gender Identity Not on file Sexual Orientation [...] Chronic Care Management On track(2023 1:38 PM RN APPEALS) Lizette Hughes, ASH Note: Problem: Chronic Pain Goals: 1. Minimize further functional decline 2. Maximize quality of life 3. Control pain Strategies: - Activity/exercise program recommendation - Conservative stepwise pain medicine strategy with multi-disciplinary approach - Recommend healthy lifestyle strategies and compensatory methods as needed documented as of this encounter Visit Diagnoses Not on filedocumented in this encounter Care Teams Car Starter Relationship Specialty Start Date End Date Juan Pablo Easton MD PCP - General 02/24/15 documented as of this encounter
--- OUTSIDE RECORDS SUMMARY | 2025-01-11 11:59 | XMS_ITS | Encounter Summary ---
Author Organization [facility] Address [address] [place] [address] Care Team Providers Care Daytime Caregiver Name Role Phone Juan Pablo Easton MD Primary Care Provider +1 -[phone] Reason for Visit * Reason Onset Date Comments Scheduling Appointments 03/20/2024 Encounter Details Date Type Department Care Team (Late st Contact Info) Description 03/20/2024 Telephone [facility] [place] [facility] [address] [facility] [address] [place] [address] Chelita Ray MD PhD [address] [facility] [id number] [place], [place] [id number] Scheduling Appointments Social History Tobacco Use Types [...] on file 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 Author CCM Chronic Pain Care Plan Chronic Care Management On track(2023 1:38 PM LUBRICATION TECHNICIAN) No Lizette Resendiz, ASH Note: Problem: Chronic Pain Goals: 1. Minimize further functional decline 2. Maximize quality of life 3. Control pain Strategies: - Activity/exercise program recommendation - Conservative stepwise pain medicine strategy with multi-disciplinary approach - Recommend healthy lifestyle strategies and compensatory methods as needed documented as of this encounter Visit Diagnoses Not on filedocumented in this encounter Care Teams Daytime Caregiver Relationship Specialty Start Date End Date Juan Pablo Easton MD PCP - General 02/24/15 documented as of this encounter
--- OUTSIDE RECORDS SUMMARY | 2025-01-11 11:59 | XMS_ITS ---
Author Organization [facility] Address [address] [place] [address] Care Team Providers Care Directional Driller Name Role Phone Juan Pablo Easton M.D. Primary Care Provider Debbie Tovar Unavailable [phone] Marleen Atwood Unavailable Unavailable REASON FOR VISIT [facility] follow-up Encounters Encounter Location Date Provider Diagnosis [facility] [address] [place] [address] 02/18/2024 Debbie Mccann Plan Of Treatment No Information Progress Notes * Marysol GUTIERREZOB:1955 (69 yo F)Acc No.[id number]:02/18/2024 Progress Notes Patient: Schuyler GUILLEN Provider: Vance cMcann MD :1955 A ge:68 Y S ex:Female Date:02/18/2024 [facility] [facility] Pcp:Juan Pablo Easton M.D. Subjective: * Chief Complaints: * 1 . [facility] follow-up. * Medical History: Objective: * Vitals: Assessment: Plan: * Treatment: * Billing Information: * Visit Code: * Procedure Codes: * Electronic signature of Sudha Mccann MD on 01/11/2025 at 11:59 AM CDT Sign off status: Pending * Provider: Vance Mccann MD Date: 0 02/18/2024 Generated for Troyi brenda/Fagustavo/eTransmitting on: 0 01/11/2025 11:59 AM CDT
--- OUTSIDE RECORDS SUMMARY | 2025-01-11 11:59 | XMS_ITS | Referral Summary ---
Author Organization [facility] [address] Address [address] [place] [address] Care Team Providers Care Physical Trainer Name Role Phone Juan Pablo Easton MD Primary Care Provider +1 [phone] Encounters Date Type Department Care Team Description 12/02/2024 7:28 AM J2EE SOFTWARE ENGINEER - 12/02/2024 11:59 PM J2EE SOFTWARE ENGINEER Hospital Encounter [facility] [place] [facility] [address] [facility] Advanced Medicine [address] [place] [address] Chelita Ray MD PhD Sacroiliitis (Primary Dx); [...] (06/27/2022): Added automatically from request for surgery [id number] Entrapment neuropathy of right sural nerve 04/24 [...] on file Legal Sex Female 3:40 AM J2EE SOFTWARE ENGINEER Gender Identity Not on file Sexual Orientation Not on file Last Filed Vital Signs Vital Sign Reading Time Taken Comments Blood Pressure 161/97 12/02/2024 8:40 AM J2EE SOFTWARE ENGINEER Pulse 89 12/02/2024 8:40 AM J2EE SOFTWARE ENGINEER Temperature 36.3 C (97.3 F) 12/02/2024 7:31 AM J2EE SOFTWARE ENGINEER Respiratory Rate 16 12/02/2024 8:40 AM J2EE SOFTWARE ENGINEER Oxygen Saturation 100% 12/02/2024 8:40 AM J2EE SOFTWARE ENGINEER Inhaled Oxygen Concentration - - Weight 80.4 kg (177 lb 3.2 oz) 12/02/2024 7:31 A M J2EE SOFTWARE ENGINEER Height 161.3 cm (5' 3.5 ) 12/02/2024 7:31 AM J2EE SOFTWARE ENGINEER Body Mass Index 30.9 12/02/2024 7:31 AM J2EE SOFTWARE ENGINEER Plan of Treatment Not on file Goals Goal Patient Goal Type Associated Problems Recent Progress Patient-Stated? Author CCM Chronic Pain Care Plan Chronic Care Management On track(2023 1:38 PM J2EE SOFTWARE ENGINEER) Lizette Hughes, RN Note: Problem: Chronic Pain Goals: 1. Minimize further functional decline 2. Maximize quality of life 3. Control pain Strategies: - Activity/exercise program recommendation - Conservative stepwise pain medicine strategy with multi-disciplinary approach - Recommend healthy lifestyle strategies and compensatory methods as needed Medical Devices Implanted Type Area Supervisor Pipe Finishing Device Identifier Shelf Expiration Date Model / Serial / Lot Eterna Implantable Pulse Generator Implanted:Qty: 1 on 02/22/2023 by Chelita Ray MD PhD at [facility] Other - see comments N/A: Back [employer] [id number] 10/17/2024 [id number] / [id number] / Description:Implantable puls e generator reference # 61635 - PART OF KIT [employer] Inc Avance 4-5mm 50mm Allograft Natural Connection Graft Soft Tissue [id number] - [id number] Implanted:Qty: 1 on 07/31/2022 by Padmini Mcnamara MD at [facility] Right: Ankle [employer] Inc 12/05/2023 [id number] / / [id number] Description:Implanted proxim al to right ankle. [employer] Lambert-Lock [place] Lead 1192 - [id number] Implanted:Qty: 2 on 02/22/2023 by Chelita Ray MD PhD at [facility] N/A: Back [employer] [id number] 10/21/2024 1192 / / [id number] [employer] Octrode 60cm 8 Electrode Lead Percutaneous Kit Neurostimulator 3186ans - [id number] - [id number] Implanted:Qty: 1 on 02/22/2023 by Chelita Ray MD PhD at [facility] N/A: Back [employer] [id number] 02/04/2025 [id number] / [id number] / [employer] Octrode 60cm 8 Electrode Lead Percutaneous Kit Neurostimulator 3186ans - [id number] - [id number] Implanted:Qty: 1 on 02/22/2023 by Chelita Ray MD PhD at [facility] N/A: Back [employer] [id number] 02/04/2025 [id number] / [id number] / [employer] Generator Neurostimulator Spine Rechargeable Eterna [id number] - [id number] Implanted:Qty: 1 on 02/22/2023 by Chelita Ray MD PhD at [facility] N/A: Back [employer] [id number] / / Explanted Type Area Supervisor Pipe Finishing Device Identifier Shelf Expiration Date Model / Serial / Lot [employer] Invisible One Lead Trial System Spinal Cord Stimulation 1-Lead Trial Sys - [id number] - [id number] Implanted:Qty: 1 on 01/10/2023 by Alcon Ayers MD at [facility] Explanted: 023 by Chelita Ray MD PhD (Quantity not on file) [employer] 10/04/2024 1-LEAD TRIAL SYS / [id number] / Procedures Procedure Name Priority Date/Time Associated Diagnosis Comments PAIN MGMT IMAGING SI JOINT LEFT Schedule Routine, Read Routine (OP Routine) 12/02/2024 8:39 AM J2EE SOFTWARE ENGINEER Sacroiliitis COLONOSCOPY REPORT 11/03/2012 from Last 3 Months or Most Recently Relevant to Health Maintenance Results * Imaging SI Joint Injection Left ([id number]) (12/02/2024 8:39 AM J2EE SOFTWARE ENGINEER) Narrative [facility]_PACS[facility] - 12/02/2024 8:40 AM J2EE SOFTWARE ENGINEER The images from this study are [...] Recently Relevant to Health Maintenance Insurance MEDICARE [facility] MEDICARE [facility] MEDICARE [facility] Advance Directives For more information, please contact: [phone] * Full Code (Latest Code Status on File) Date Activated Date Inactivated Comments 07/31/2022 4:32 PM 08/01/2022 4:34 PM Care Teams Physical Trainer Relationship Specialty Start Date End Date Juan Pablo Easton MD PCP - General 02/24/15
--- OUTSIDE RECORDS SUMMARY | 2025-01-11 11:59 | XMS_ITS | Clinical Summary ---
Author Organization [facility] Address [address] [place] [address] Care Team Providers Care Advertising Space Clerk Name Role Phone Juan Pablo Easton MD Primary Care Provider +1- [phone] Social History Tobacco Use Types Packs/Day Years [...] Dexa Scan (General) 2019 Pneumococcal Vaccine: 65+ Ye ars (1 of 1 - PCV) 2019 COVID-19 Vaccine (2 - 2023-2 5 season) 2024 12/01/2020 RSV Immunization or 60+ Years (1 - 1-dose 75+ series) 2029 Meningococcal B Vaccine Aged Out No l onger eligible based on patient's age to complete this topic Meningococcal Vaccine Aged Out No luan freeman eligible based on patient's age to complete this topic RSV Immunizations Under 20 Months Aged Out No longer eligible based on patient's age to complete this topic Insurance MEDICARE [facility] Care Teams Advertising Space Clerk Relationship Specialty Start Date End Date Juan Pablo Easton MD PCP - General FAMILY PRACTICE 01/23/21
--- OUTSIDE RECORDS SUMMARY | 2025-01-11 11:59 | XMS_ITS | Encounter Summary ---
Author Organization [facility] Healthcare Address [address] [place] [address] Care Team Providers Care Automation Engineering Technician Name Role Phone Juan Pablo Easton MD Primary Care Provider [phone] Reason for Visit * Reason Onset Date Comments PMC Preprocedure 08/24/2024 Encounter Details Date Type Department Care Team (Late st Contact Info) Description 08/24/2024 Telephone [facility] [address] 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 Author CCM Chronic Pain Care Plan Chronic Care Management On track(2023 1:38 PM PHOTOVOLTAIC INSTALLER) No Lizette Resendiz, ASH Note: Problem: Chronic Pain Goals: 1. Minimize further functional decline 2. Maximize quality of life 3. Control pain Strategies: - Activity/exercise program recommendation - Conservative stepwise pain medicine strategy with multi-disciplinary approach - Recommend healthy lifestyle strategies and compensatory methods as needed documented as of this encounter Visit Diagnoses Not on filedocumented in this encounter Care Teams Automation Engineering Technician Relationship Specialty Start Date End Date Juan Pablo Easton MD PCP - General 02/24/15 documented as of this encounter
--- OUTSIDE RECORDS SUMMARY | 2025-01-11 11:59 | XMS_ITS ---
Author Organization [facility] Address [address] [place] [address] Care Team Providers Care Tetryl Boiling Tub Operator Name Role Phone Juan Pablo Easton M.D. Primary Care Provider Jaycee Juan [facility] [phone] REASON FOR VISIT Left foot Encounters Encounter Location Date Provider Diagnosis [facility] [address] [place] [address] 09/09/2024 Juan Serrano Plan Of Treatment No Information Progress Notes * Sherwin GUTIERREZ:1955 (68 yo F)Acc No.[id number]:09/09/2024 Patient: Schuyler GUILLEN :1955 A ge:68 Y S ex:Female Address:[place], [address] * true * Date: Generated for Troyi brenda/Harinig/eTransmitting on: 0 01/11/2025 11:59 AM CDT
--- OUTSIDE RECORDS SUMMARY | 2025-01-11 11:59 | XMS_ITS | Continuity of Care Document ---
Author Organization [facility] Address [address] [place] [address] Phone Care Team Providers Care Mountain Bike Guide Name Role Phone Ricky Gray Unavailable Unavailable Advance Directives Directive Yes / No Effective Date File Name No Information Encounters Encounter Description Practice Location Reason(s) For Visit Diagnoses Date Provider Providers Copied on Encounter [facility], [address], [place], [place], [id number], [place] tel:[phone] [facility] No Information Dec-0 6-200 0 Doisy Edward. [address] , [address], [place], [address], [place]. tel:[phone] Family History Family Member Type Diagnosis Age [...]
--- OUTSIDE RECORDS SUMMARY | 2025-01-11 12:00 | XMS_ITS | Patient Health Record ---
Author Organization [facility] Address [address] [place] [address] Care Team Providers Care Hair Preparer Name Role Phone Juan Pablo Easton M.D. Primary Care Provider Jaycee Debbie Viera Unavailable [phone] Marleen Atwood Unavailable Unavailable [employer], Provider Unavailable [...] review and pick correct strength-formula tion from LeanData options. If intended option is not shown, [...] review and pick correct strength-formula tion from LeanData options. If intended option is not shown, [...] Status Risk Notes Problem Allergy to penicillin (47533954) Allergy status to penicillin (Z88.0) Active confirmed Problem Chronic allergic conjunctivitis (38560119) Other chronic allergic conjunctivitis (H10.45) Active confirmed Problem Allergic rhinitis caused by pollen (disorder) (75268236) Allergic rhinitis due to pollen (J30.1) Active confirmed Problem Allergic rhinitis (84147223) Other allergic rhinitis (J30.89) Active confirmed Problem Allergic rhinitis caused by animal hair and dander (689606716343663) Allergic rhinitis due to animal (cat) (dog) hair and dander (J30.81) Active confirmed Problem Cough (finding) (58503186) Cough, unspecified (R05.9) Active confirmed Encounters Encounter Location Date Provider Diagnosis [facility] [address] [facility] [address] [place] [address] 03/04/2024 Debbie Mccann [address] [address] 03/21/2024 Provider Nivia Cough, unspecified R05.9 and [...] Coverage Start Date Coverage End Date [employer] (Medicare) Attention Claims [address] [place] [address] [id number] Schuyler Gutierrez Self - patient is the insured [facility] [address] [place] [address] [id number] Schuyler Gutierrez Self - patient is the insured Medical (General) History Medical History History ICD Code Hypertension Surgical History Surgery Date(Month/Year) cholecystectomy Foot surgery Tonsillectomy hysterectomy
[2025-01-11 12:09] LABS: Cholesterol 137 mg/dL (0-200); HDL Direct 61 mg/dL; Triglycerides 83 mg/dL (<150)
[2025-01-11 12:21] LABS: LDL Cholesterol Direct 44 mg/dL
[2025-01-11 12:35] LABS: Vitamin D 25 Hydroxy 19.4 ng/mL
[2025-01-11 13:10] LABS: Hepatitis C Virus Antibody Negative (Negative)
[2025-01-11 20:15] LABS: Add Urine Microscopic? YES; Appearance Urine Clear (Clear); Bacteria Urine None Seen /hpf; Bilirubin Urine Negative (Negative); Blood Urine Negative (Negative); Color Urine Yellow (Yellow); Glucose Urine UA Negative (Negative); Ketones Urine Negative (Negative); Leukocyte Esterase Ur Trace LEU/UL (Negative); Nitrate Urine Negative (Negative); Non Pathogenic Casts 0-2; Protein Urine Negative (Negative); RBC Urine 0-2 /hpf (0-2); Specific Grav Ur 1.009 (1.001-1.035); Squamous Epithelial Cell Urine None Seen /hpf (Few); Urobilinogen Urine 0.2 mg/dL (<2.0); WBC Urine 0-5 /hpf (0-3); pH Urine 7.5 (5.0-9.0)
== END 2025-01-11 10:28 | disposition home or self-care (01) ==
PROVIDERS: PCP Family Medicine; Visit Provider Nurse Practitioner Family
DX: R35.0 Frequency of micturition (principal); E78.2 Mixed hyperlipidemia; E55.9 Vitamin D deficiency, unspecified; Z11.59 Encounter for screening for other viral diseases
CPT/HCPCS: 36415; 80061; 81001; 82306; 86803

== ENCOUNTER 2025-03-31 11:34 | Outpatient (CLI) | payer MEDICARE, SELFPAY ==
--- NOTE | 2025-03-31 12:37 | ECG_ITS ---
Test Date: 2025-03-31 13:04:44 Measurements Intervals [place] Rate: 64 P: 57 UT: 163 QRS: -35 QRSD: 101 T: 37 QT: 423 QTc: 437 Interpretive Statements SINUS RHYTHM LEFT AXIS DEVIATION PATTERN CONSISTENT WITH PULMONARY DISEASE VOLTAGE CRITERIA FOR LVH BASELINE ARTIFACT- I, II, III, AVR, AVL, AVF, V1-V6 BORDERLINE ECG No previous ECG available for comparison Electronically Signed On 03-31-2025 13:16:03 CDT by Dion Joy D.O.
[2025-03-31 13:08] LABS: Basophils Absolute Auto 0.1 K/mm3 (0.0-0.1); Eosinophils Absolute Auto 0.2 K/mm3 (0-0.3); Eosinophils Percent Auto 3.1 % (0-4.4); Hematocrit 35.8 % (37.0-47.0); Hemoglobin 11.7 g/dL (12.0-15.0); Immature Granulocyte Absolute 0.02 K/mm3 (0.00-0.031); Immature Granulocyte Percent A 0.3 % (0-0.5); Lymphocytes Absolute Auto 1.43 K/mm3 (0.9-3.2); Lymphocytes Percent Auto 24.6 % (18.3-44.2); Mean Corpuscular HGB Conc 32.7 g/dl (32-36); Mean Corpuscular Hemoglobin 30.8 pg (26-34); Mean Corpuscular Volume 94.2 fl (80-100); Mean Platelet Volume 9.1 fl (7.4-10.4); Monocytes Absolute Auto 0.4 K/mm3 (0.1-0.6); Monocytes Percent Auto 7.6 % (2.6-8.5); Neutrophils Absolute Auto 3.7 K/mm3 (1.3-6.7); Neutrophils Percent Auto 63.4 % (45.5-73.1); Platelet Count Result 184 k/mm3 (150-375); Red Cell Distribution Width 13.2 % (11.5-14.5); White Blood Count 5.8 K/mm3 (4.5-10.0)
[2025-03-31 13:27] LABS: Urine Cotinine NEGATIVE
[2025-03-31 13:41] LABS: Albumin Level 4.6 g/dL (3.5-5.1)
[2025-03-31 13:42] LABS: Anion Gap 10 mmol/L (4-12); Blood Urea Nitrogen 18 mg/dL (7-17); Calcium 9.3 mg/dL (8.4-10.2); Carbon Dioxide 28 mmol/L (22-30); Chloride 95 mmol/L (98-107); Estimated Glomerular Filt Rate 47; Glucose 101 mg/dL (65-110); Potassium 3.6 mmol/L (3.4-5.0); Sodium 133 mmol/L (137-145)
[2025-03-31 13:46] LABS: Hemoglobin A1C 5.4 % (<5.7)
[2025-03-31 14:18] LABS: MRSA (PCR) NOT DETECTED (NOT DETECTE)
== END 2025-03-31 11:35 | disposition home or self-care (01) ==
PROVIDERS: Anesthesiology; PCP Family Medicine; Visit Provider Orthopaedic Surgery
DX: M17.11 Unilateral primary osteoarthritis, right knee (principal); Z01.818 Encounter for other preprocedural examination; N28.9 Disorder of kidney and ureter, unspecified; Z79.899 Other long term (current) drug therapy
CPT/HCPCS: 36415; 80048; 80307; 82040; 83036; 85025; 87641; 93005

== ENCOUNTER 2025-04-25 10:58 | Emergency (ER) | payer MEDICARE, SELFPAY ==
--- NOTE | ~2025-04-25 | CT_ITS ---
CT of the Abdomen and Pelvis: Indication: Flank pain Technique: 2.5 mm axial scans were obtained through the abdomen and pelvis following intravenous adm inistration of 100 cc of Omnipaque 350. Dose reduction technique was used on this scan by utilizing a utomated exposure control and iterative reconstruction technique. The dose-length product (DLP) was 5 83.51 mGy-cm. Findings: Scans through the lung bases are unremarkable. Small hiatal hernia present. The liver, spleen, pancreas, adrenals and kidneys are within normal limits. Cholecystectomy clips are present. There are atherosclerotic calcifications of the aorta. No lymphadenopathy. No bowel obstruction or bowel wall thickening. There is no evidence to suggest acute appendicitis. Images through the pelvis were performed. Urinary bladder unremarkable. Status post hysterectomy. No pelvic mass. No ascites. Impression: No acute abnormality. Small hiatal hernia. Reviewed, dictated and finalized at [facility]. Impression: No acute abnormality. Small hiatal hernia.
--- OUTSIDE RECORDS SUMMARY | 2025-04-25 11:01 | XMS_ITS | Patient Health Record ---
Author Organization [facility] [place] ([address]) Address [address] [place] [address] Care Team Providers Care Public Health Doctor Name Role Phone Juan Pablo Easton M.D. Primary Care Provider Debbie Tovar Unavailable [phone] Marleen Atwood Unavailable Unavailable Allergies Allergen (clinical drug ingredient) Drug/Non [...] a day; Duration: 5 days 11/26/2023 Active Advair Diskus 250 [...] mcg-25 mcg/inh 1 puff(s) inhaled once a day; Duration: 30 days 03/04/2024 Active LEVOCETIRIZINE 5 mg 1 tab(s) orally once a day (in the evening); Duration: 30 days Active TRAZODONE 50 mg as directed orally Active AZELASTINE NASAL 137 mcg/inh 2 spray(s) intranasally 2 times a day; Duration: 30 days Active Azithromycin 250 MG 2 tablets on the first day, then 1 tablet daily for 4 days orally once a day; Duration: 5 days 11/26/2023 Active GABAPENTIN 300 mg 1 cap(s) orally 3 times a day Active HYDROCODONE 10 mg 1 cap(s) orally every 12 hours Active ZANAFLEX 4 mg 2 cap(s) orally 3 times a day Active Breo Ellipta 200 MCG-25 MCG/INH 1 PUFF(S) INHALED ONCE A DAY; Duration: 30 DAYS *Please review and pick correct strength-formula tion from Everfi options. If intended option is not shown, discontinue and re-order from Quick Search* 03/04/2024 Active ASPIRIN 81 mg 1 tab(s) orally once a day Active TRELEGY ELLIPTA 100 mcg-62.5 mcg-25 mcg/inh 1 puff(s) inhaled once a day; Duration: 30 days Active HYDROCHLOROTHIAZIDE 12.5 mg 1 [...] review and pick correct strength-formula tion from Everfi options. If intended option is not shown, discontinue and re-order from Quick Search* Active Azelastine HCl 137 MCG/SPRAY 2 spray(s) intranasally 2 times a day; Duration: 30 days Active Levocetirizine Dihydrochloride 5 MG 1 tab(s) orally once a day (in the evening); Duration: 30 days Active ADVAIR DISKUS 250 mcg-50 mcg 1 INH inhaled 2 times a day; Duration: 30 days 11/26/2023 Active LOSARTAN 25 mg [...] Status Risk Notes Problem Allergy to penicillin (44575025) Allergy status to penicillin (Z88.0) Active confirmed Problem Chronic allergic conjunctivitis (83670036) Other chronic allergic conjunctivitis (H10.45) Active confirmed Problem Allergic rhinitis caused by pollen (disorder) (62414043) Allergic rhinitis due to pollen (J30.1) Active confirmed Problem Allergic rhinitis (18244537) Other allergic rhinitis (J30.89) Active confirmed Problem Allergic rhinitis caused by animal hair and dander (380063480710183) Allergic rhinitis due to animal (cat) (dog) hair and dander (J30.81) Active confirmed Problem Cough (finding) (50027634) Cough, unspecified (R05.9) Active confirmed Plan Of Treatment No Information Insurance Providers Payer Name Payer Address Payer Phone Subscriber Number Group Number Insured Name Patient Relationship to Insured Coverage Start Date Coverage End Date [employer] (Medicare) Attention Claims [address] [place] [address] [id number] Schuyler Gutierrez Self - patient is the insured [facility] [address] [place] [address] [id number] Schuyler Gutierrez Self - patient is the insured Medical (General) History Medical History History ICD Code Hypertension Surgical History Surgery Date(Month/Year) cholecystectomy Foot surgery Tonsillectomy hysterectomy
--- OUTSIDE RECORDS SUMMARY | 2025-04-25 11:01 | XMS_ITS | Clinical Summary ---
Author Organization [facility] [address] Address [address] [place] [address] Care Team Providers Care Hospital Attendant Name Role Phone Juan Pablo Easton MD Primary Care Provider [phone] Allergies Active Allergy Reactions Criticality Noted Date [...] 2 (two) times a day 4 Active traMADoL (ULTRAM) 50 mg tablet Take 1-2 tablets (50-100 mg total) by mouth every 6 (six) hours as needed for pain for up to 7 days 42 tablet 4 Active atorvastatin (LIPITOR) 40 mg tabletIndication s:hyperlipidemia Take 1 tablet (40 mg total) by mouth nightly 90 tablet 3 4 Active levothyroxine (SYNTHROID) 88 mcg tablet Take 1 tablet (88 mcg total) by mouth daily 4 Active losartan (COZAAR) 25 mg tablet TAKE 1 TABLET(25 MG) BY MOUTH DAILY 90 tablet 1 5 Active celecoxib (CeleBREX) 200 mg capsule Take 1 capsule (200 mg total) by mouth daily 5 Active cyclobenzaprine (FLEXERIL) 10 mg tabletIndication s:Muscle spasm of back TAKE 1 TABLET(10 MG) BY MOUTH THREE TIMES DAILY NEEDED FOR MUSCLE SPASMS 90 tablet 3 5 Active hydroCHLOROthiaz princess (HYDRODIURIL) 25 mg tablet Take 1 tablet (25 mg total) by mouth daily 5 Active lidocaine (LIDODERM) 5 % Place 1 patch on the skin daily for 12 hours Remove & discard patch within 12 hours or as directed by . 30 patch 3 5 Active lidocaine (LIDODERM) 5 % PLACE 1 PATCH ON SKIN EVERY DAY. REMOVE AND DISCARD PATCH WITHIN 12 HOURS OR DIRECTED BY 30 patch 3 4 025 Discontin ued(Reord er) Active Problems Problem Noted Date Diagnosed Date [...] (06/27/2022): Added automatically from request for surgery [id number] Entrapment neuropathy of right sural nerve 04/24 [...] Never smoked tobacco 08/25/2012 Abdominal pain 08/25/2012 Resolved Problems Problem Noted Date Diagnosed Date Resolved Date Preoperative cardiovascular examination 03/04/2025 03/04/2025 Encounters Date Type Department Care Team Description 03/04/2025 11:30 AM CDT Office Visit [facility] Card[facility] [address] [place] [address] Tamiko Wiley MD Coronary artery disease involving nez perce coronary artery of nez perce heart without angina pectoris (Primary Dx); Primary hypertension; Mixed hyperlipidemia; Statin myopathy; H/O cardiomyopathy; Preoperative cardiovascular examination from Last 3 Months Immunizations Immunization Administration [...] Asthma COPD (chronic obstructive pu lmonary disease) ([facility]) Hypertension Thyroid disease Diastolic dysfunction Cardiomyopathy (HCC) 06/16/2021 Takotsubo c ardiomyopathy Cmhqkec-Hlzoy-Vaxzo disease GERD (gastroesophageal reflu x disease) 1989 Arthritis 2006 Depression 2002 Heart disease 2020 Shortness of breath Cataract 2019 Migraines 2004 PONV (postoperative nausea a nd vomiting) Low back pain Constipation Plantar fasciitis L Family History Medical History Relation Name Comments Early Brother Alek Clark Heart attack Brother Alek Clark Hyperlipidemia Brother Alek Clark Hyperlipidem ia; Early Father Alek Clark Heart attack Father Alek Clark Hypertension Father Alek Clark Other Father Alek Clark [place] 48 yo, CABG 50, of massive [place] 53; Cancer Mother Sybil Clark Lung cancer [...] on file Legal Sex Female 3:40 AM POLICEWOMAN Gender Identity Not on file Sexual Orientation Not on file Obstetrics History Last Filed Vital Signs Vital Sign Reading Time Taken Comments Blood Pressure 130/62 03/04/2025 11:34 AM CDT Pulse 83 03/04/2025 11:34 AM CDT Temperature 36.3 C (97.3 F) 12/02/2024 7:31 AM POLICEWOMAN Respiratory Rate 16 12/02/2024 8:40 AM POLICEWOMAN Oxygen Saturation 98% 03/04/2025 11:34 AM CDT Inhaled Oxygen Concentration - - Weight 80.3 kg (177 lb) 03/04/2025 11:34 AM CDT Height 160 cm (5' 3) 03/04/2025 11:34 AM CDT Body Mass Index 31.35 03/04/2025 11:34 AM CDT Plan of Treatment Health Maintenance Due Date [...] Fall Risk Assessment 09/04/2024 09/04/2023 Influenza Vaccine (#1) 2025 3, 08/01/2022, 07/07/2020, Additional history exists Colon Cancer Screening-CT Colonography Discontinued 11/03/2012 Colon Cancer Screening-DNA Stool Discontinued 11/03/19 13 Colon Cancer Screening-FIT Discontinued 11/03/2012 Colon Cancer Screening-Sigmoidoscopy Discontinued 11/03/2012 Goals Goal Patient Goal Type Associated Problems Recent Progress Patient-Stated? Author CCM Chronic Pain Care Plan Chronic Care Management On track(2023 1:38 PM POLICEWOMAN) Lizette Hughes, RN Note: Problem: Chronic Pain Goals: 1. Minimize further functional decline 2. Maximize quality of life 3. Control pain Strategies: - Activity/exercise program recommendation - Conservative stepwise pain medicine strategy with multi-disciplinary approach - Recommend healthy lifestyle strategies and compensatory methods as needed Medical Devices Implanted Type Area Civil Drafter Device Identifier Shelf Expiration Date Model / Serial / Lot Eterna Implantable Pulse Generator Implanted:Qty: 1 on 02/22/2023 by Chelita Ray MD PhD at [facility] Other - see comments N/A: Back [employer] [id number] 10/17/2024 [id number] / [id number] / Description:Implantable puls e generator reference # 72128 - PART OF KIT [employer] Avance 4-5mm 50mm Allograft Natural Connection Graft Soft Tissue [id number] - [id number] Implanted:Qty: 1 on 07/31/2022 by Padmini Mcnamara MD at [facility] Right: Ankle [employer] 12/05/2023 [id number] / / [id number] Description:Implanted proxim al to right ankle. [employer] [place] Lead 1192 - [id number] Implanted:Qty: 2 on 02/22/2023 by Chelita Ray MD PhD at [facility] N/A: Back [employer] [id number] 10/21/2024 1192 / / [id number] [employer] Octrode 60cm 8 Electrode Lead Percutaneous Kit Neurostimulator [id number] - [id number] - [id number] Implanted:Qty: 1 on 02/22/2023 by Chelita Ray MD PhD at [facility] N/A: Back [employer] [id number] 02/04/2025 [id number] / [id number] / [employer] Octrode 60cm 8 Electrode Lead Percutaneous Kit Neurostimulator [id number] - [id number] - [id number] Implanted:Qty: 1 on 02/22/2023 by Chelita Ray MD PhD at [facility] N/A: Back [employer] [id number] 02/04/2025 [id number] / [id number] / [employer] Generator Neurostimulator Spine Rechargeable Eterna [id number] - [id number] Implanted:Qty: 1 on 02/22/2023 by Chelita Ray MD PhD at [facility] N/A: Back [employer] [id number] / / Explanted Type Area Civil Drafter Device Identifier Shelf Expiration Date Model / Serial / Lot [employer] Invisible One Lead Trial System Spinal Cord Stimulation 1-Lead Trial s - [id number] - [id number] Implanted:Qty: 1 on 01/10/2023 by Alcon Ayers MD at [facility] Explanted: 023 by Chelita Ray MD PhD (Quantity not on file) [employer] 10/04/2024 1-LEAD TRIAL SYS / [id number] / Procedures Procedure Name Priority Date/Time Associated Diagnosis Comments ELECTROCARDIOGRAM REPORT Routine 025 11:58 AM CDT Primary hypertension H/O cardiomyopathy Preoperative cardiovascular examination POCT LIPID PANEL Routine 03/04/2025 11:2 9 AM CDT Mixed hyperlipidemia Coronary artery disease involving nez perce coronary artery of nez perce heart without angina pectoris COLONOSCOPY REPORT 11/03/2012 from Last 3 Months or Most Recently Relevant to Health Maintenance Results * Electrocardiogram Report (03/04/2025 11:58 AM CDT) us [facility] Allan Wiley MD ECG ORDERABLES Final R esult * POCT lipid panel (03/04/2025 11:29 AM CDT) Cholesterol, POC 127 <200 MG/DL HDL, POC 57 >=40 mg/dL Triglycerides, POC 83 <=149 mg/dL LDL Cholesterol POC 54 <=129 mg/dL Chol/HDL Ratio, POC 0.9 NONE Non-HDL Cholesterol, POC 70 NONE mg/dL Cholesterol Total, POC 127 30 - 199 mg/dL Capillary blood 03/04/2025 1 1:29 AM CDT [facility] Allan Wiley MD POINT OF CARE TEST ORDAlejandra MANLEY Final Result * COLONOSCOPY REPORT (11/03/2012) Anatomical Region Laterality Modality Other Narrative 11/03/2012 Ordered by an unspecified provider. Historical Provider GI PROCEDURE ORDERABLES F inal Result from Last 3 Months or Most Recently Relevant to Health Maintenance Insurance MEDICARE [facility] MEDICARE [facility] MEDICARE [facility] Advance Directives For more information, please contact: [phone] * Full Code (Latest Code Status on File) Date Activated Date Inactivated Comments 07/31/2022 4:32 PM 08/01/2022 4:34 PM Care Teams Hospital Attendant Relationship Specialty Start Date End Date Juan Pablo Easton MD PCP - General 02/24/15
--- OUTSIDE RECORDS SUMMARY | 2025-04-25 11:01 | XMS_ITS | Referral Summary ---
Author Organization [facility] [address] [facility] [address] Address [address] [place] [address] Care Team Providers Care Supervisor Mold Cleaning And Storage Name Role Phone Juan Pablo Easton MD Primary Care Provider +1 -[phone] Encounters Date Type Department Care Team Description 03/04/2025 11:30 AM CDT Office Visit [facility] Cardiology [address] [place] [address] Tamiko Wiley MD Coronary artery disease involving buckland coronary artery of buckland heart without angina pectoris (Primary Dx); Primary hypertension; Mixed hyperlipidemia; Statin myopathy; H/O cardiomyopathy; Preoperative cardiovascular examination from Last 3 Months Allergies Active Allergy [...] mouth as needed for cramping or diarrhea Active linaCLOtide (LINZESS) 145 mcg capsuleIndicatio ns:chronic [...] within 12 hours or as directed by MD. 30 patch 3 5 Active lidocaine (LIDODERM) 5 % PLACE 1 PATCH ON SKIN EVERY DAY. REMOVE AND DISCARD PATCH WITHIN 12 HOURS OR DIRECTED BY MD 30 patch 3 4 025 Discontin ued(Reord [...] (06/27/2022): Added automatically from request for surgery [id number] Entrapment neuropathy of right sural nerve 04/24 [...] Resolved Date Preoperative cardiovascular examination 03/04/2025 03/04/2025 Immunizations Immunization Administration Dates Next Due Influenza, [...] on file Legal Sex Female 3:40 AM TAR ROOFER Gender Identity Not on file Sexual Orientation Not on file Last Filed Vital Signs Vital Sign Reading Time Taken Comments Blood Pressure 130/62 03/04/2025 11:34 AM CDT Pulse 83 03/04/2025 11:34 AM CDT Temperature 36.3 C (97.3 F) 12/02/2024 7:31 AM TAR ROOFER Respiratory Rate 16 12/02/2024 8:40 AM TAR ROOFER Oxygen Saturation 98% 03/04/2025 11:34 AM CDT Inhaled Oxygen Concentration - - Weight 80.3 kg (177 lb) 03/04/2025 11:34 AM CDT Height 160 cm (5' 3) 03/04/2025 11:34 AM CDT Body Mass Index 31.35 03/04/2025 11:34 AM CDT Plan of Treatment Not on file Goals Goal Patient Goal Type Associated Problems Recent Progress Patient-Stated? Author CCM Chronic Pain Care Plan Chronic Care Management On track(2023 1:38 PM TAR ROOFER) No Lizette Resendiz, ASH Note: Problem: Chronic Pain Goals: 1. Minimize further functional decline 2. Maximize quality of life 3. Control pain Strategies: - Activity/exercise program recommendation - Conservative stepwise pain medicine strategy with multi-disciplinary approach - Recommend healthy lifestyle strategies and compensatory methods as needed Medical Devices Implanted Type Area Service Unit Operator Device Identifier Shelf Expiration Date Model / Serial / Lot Eterna Implantable Pulse Generator Implanted:Qty: 1 on 02/22/2023 by Chelita Ray MD PhD at [facility] Other - see comments N/A: Back [employer] [id number] 10/17/2024 [id number] / [id number] / Description:Implantable puls e generator reference # [id number] - PART OF KIT [employer] Avance 4-5mm 50mm Allograft Natural Connection Graft Soft Tissue [id number] - [id number] Implanted:Qty: 1 on 07/31/2022 by Padmini Mcnamara MD at [facility] Right: Ankle [employer] 12/05/2023 [id number] / / [id number] Description:Implanted proxim al to right ankle. [employer] Lambert-Lock [place] Lead 1192 - [id number] Implanted:Qty: 2 on 02/22/2023 by Chelita Ray MD PhD at [facility] N/A: Back [employer] [id number] 10/21/2024 1192 / / [id number] [employer] Octrode 60cm 8 Electrode Lead Percutaneous Kit Neurostimulator [id number] - [id number] - [id number] Implanted:Qty: 1 on 02/22/2023 by Chelita Ray MD PhD at [facility] N/A: Back [employer] [id number] 02/04/2025 [id number] / [id number] / [employer] Octrode 60cm 8 Electrode Lead Percutaneous Kit Neurostimulator [id number] - [id number] - [id number] Implanted:Qty: 1 on 02/22/2023 by Chelita Ray MD PhD at [facility] N/A: Back [employer] [id number] 02/04/2025 [id number] / [id number] / [employer] Generator Neurostimulator Spine Rechargeable Eterna [id number] - [id number] Implanted:Qty: 1 on 02/22/2023 by Chelita Ray MD PhD at [facility] N/A: Back [employer] [id number] / / Explanted Type Area Service Unit Operator Device Identifier Shelf Expiration Date Model / Serial / Lot [employer] Invisible One Lead Trial System Spinal Cord Stimulation 1-Lead Trial Sys - [id number] - [id number] Implanted:Qty: 1 on 01/10/2023 by Alcon Ayers MD at [facility] Explanted: 023 by Chelita Ray MD PhD (Quantity not on file) [employer] 10/04/2024 1-LEAD TRIAL SYS / [id number] / Procedures Procedure Name Priority Date/Time Associated Diagnosis Comments ELECTROCARDIOGRAM REPORT Routine 025 11:58 AM CDT Primary hypertension H/O cardiomyopathy Preoperative cardiovascular examination POCT LIPID PANEL Routine 03/04/2025 11:2 9 AM CDT Mixed hyperlipidemia Coronary artery disease involving buckland coronary artery of buckland heart without angina pectoris COLONOSCOPY REPORT 11/03/2012 from Last 3 Months or Most Recently Relevant to Health Maintenance Results * Electrocardiogram Report (03/04/2025 11:58 AM CDT) Tamiko Wiley MD ECG ORDERABLES Final R esult * POCT lipid panel (03/04/2025 11:29 AM CDT) Cholesterol, POC 127 <200 MG/DL HDL, POC 57 >=40 mg/dL Triglycerides, POC 83 <=149 mg/dL LDL Cholesterol POC 54 <=129 mg/dL Chol/HDL Ratio, POC 0.9 NONE Non-HDL Cholesterol, POC 70 NONE mg/dL Cholesterol Total, POC 127 30 - 199 mg/dL Capillary blood 03/04/2025 1 1:29 AM CDT Tamiko Wiley MD POINT OF CARE TEST ORDE RABLES Final Result * COLONOSCOPY REPORT (11/03/2012) Anatomical Region Laterality Modality Other Narrative 11/03/2012 Ordered by an unspecified provider. [facility] Provider GI PROCEDURE ORDERABLES F inal Result from Last 3 Months or Most Recently Relevant to Health Maintenance Insurance MEDICARE [facility] MEDICARE [facility] MEDICARE AARP Advance Directives For more information, please contact: [phone] * Full Code (Latest Code Status on File) Date Activated Date Inactivated Comments 07/31/2022 4:32 PM 08/01/2022 4:34 PM Care Teams Supervisor Mold Cleaning And Storage Relationship Specialty Start Date End Date Juan Pablo Easton MD PCP - General 02/24/15
--- OUTSIDE RECORDS SUMMARY | 2025-04-25 11:01 | XMS_ITS | Encounter Summary ---
Author Organization [facility] Address [address] [place] [address] Care Team Providers Care Aerial Sprayer Name Role Phone Juan Pablo Easton MD Primary Care Provider [phone] [phone] Encounter Details Date Type Department Care Team (Late st Contact Info) Description 10/30/2023 Telephone [facility] [place] [facility] [address] 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 Minimize further functional decline 2. Maximize quality of life 3. Control pain Strategies: - Activity/exercise program recommendation - Conservative stepwise pain medicine strategy with multi-disciplinary approach - Recommend healthy lifestyle strategies and compensatory methods as needed documented as of this encounter Visit Diagnoses Not on filedocumented in this encounter Care Teams Aerial Sprayer Relationship Specialty Start Date End Date Juan Pablo Easton MD PCP - General 02/24/15 documented as of this encounter
--- OUTSIDE RECORDS SUMMARY | 2025-04-25 11:01 | XMS_ITS | Clinical Summary ---
Author Organization [facility] Address [address] [place] [address] Care Team Providers Care Trucksmith Name Role Phone Juan Pablo Easton MD Primary Care Provider +1- [phone] Source Comments [facility],non-owned Affiliates and Associated Physician Practices is amultiple site organization consisting of ambulatory clinics and hospital sitesin [place], [place], [place] and [place]. This disclosure is being madepursuant to the Care Everywhere program and may not contain all information available regarding this patient. Last updated 18.[facility] Trending Taste Social History Tobacco Use Types Packs/Day Years Used Date Smoking Tobacco: Never Assessed Comments Unknown Sex and Gender Information Value Date Recorded Sex Assigned at Not on file Legal Sex Female 6:31 AM PROFESSOR OF SPECIAL EDUCATION Gender Identity Not on file Sexual Orientation [...] VACCINE (1 of 2) 2004 COVID-19 VACCINE (2023-2 5 season) 2024 DEPRESSION SCREENING 10/07/2024 INFLUENZA VACCINE (#1) 2025 Respiratory Syncytial Virus (RSV) Vaccine Pt: [...] patient's age to complete this topic Insurance [facility] MEDICARE MEDICARE Care Teams Trucksmith Relationship Specialty Start Date End Date Juan Pablo Easton MD [address] [place] [address] PCP - General 10/08/19
--- OUTSIDE RECORDS SUMMARY | 2025-04-25 11:01 | XMS_ITS | Patient Health Record ---
Author Organization [address] [facility] Address [address] [facility] [place] [address] Care Team Providers Care Business Administration Professor Name Role Phone Juan Pablo Easton M.D. [...] 4 MG as directed Orally a s directed; Duration: 6 days 07/23/2024 Active Zolpidem Tartrate Ac tive Celecoxib 200 MG Take 1 capsule by [facility] once daily; Duration: 30 days Active Levothyroxine Sodium Active Sertraline HCl Activ e Losartan Potassium A ctive Aspirin Active Social History Tobacco Use: Social History Observation Description Date Details (start date - stop date) Never Smoker NA - NA Tobacco Use/Smoking Question Answer Notes Are you a nonsmoker Problems Problem Type SNOMED Code ICD Code Onset Dates Problem Status W/U Status Risk Notes Problem Gout (45759626) Gout of right foot, unspecified cause, unspecified chronicity (M10.9) Active confirmed Problem Plantar fasciitis of left foot (36066092694187248) Plantar fasciitis of left foot (M72.2) Active confirmed 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 Problem Vitamin D deficiency (42293357) Vitamin D deficiency (E55.9) Active confirmed Problem 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) (28110030644325451) Congenital pes cavus, 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) Active confirmed Problem Gouty arthritis of right foot (9107331976822057) Gouty arthritis of right foot (M10.9) Active confirmed 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) Qvghvmn-Nwkyz-B ooth disease (G60.0) Active confirmed Problem Common peroneal nerve lesion (795841492) 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 Problem Mononeuropathy of lower limb (275854774) Neuritis of right lower extremity (G57.91) Active confirmed Vital Signs Height 63 in 08/31/2024 Weight 170 lbs 08/31/2024 BMI 30.11 kg/m2 08/31/2024 Encounters Encounter Location Date Provider Diagnosis 1 OF Toni Serrano [facility] [address] [place] [address] 07/06/2024 Juan Serrano Plantar fasciitis of left foot M72.2 ; Congenital pes cavus, left foot Q66.72 and Foot pain, left M79.672 1 OF Toni Serrano [facility] [address] [place] [address] 07/23/2024 Juan Serrano Plantar fasciitis of left foot M72.2 ; Congenital pes cavus, left foot Q66.72 and Foot pain, left M79.672 1 OF Toni Serrano [facility] [address] [place] [address] 08/31/2024 Juan Serrano Plantar fasciitis of left foot M72.2 ; Entrapment neuropathy of right sural nerve G57.31 ; Congenital pes cavus, left foot Q66.72 and Foot pain, left M79.672 1 OF Toni Serrano [facility] [address] [place] [address] 07/06/2024 Juan Serrano 1 OF Toni Serrano [facility] [address] [place] [address] 09/01/2024 Juan Serrano 1 OF Toni Serrano [facility] [address] [place] [address] 09/08/2024 Juan Serrano 1 OF Toni Serrano [facility] [address] [place] [address] 09/08/2024 Juan Serrano 1 OF Toni Serrano [facility] [address] [place] [address] 09/09/2024 Juan Serrano Assessments Encounter Date Diagnosis [...] [employer] shoe store or a reputable running specialty store in the area for new [...] fasciitis of left foot (ICD-10 - M72.2) [place] was added to arch custom orthotics. Considered [...] to me at her visit that another neurology specialist had told her she had Ircwuea-Rnuqc-Vcpm h disease however today I advised does not appear she has any symptoms of Taxgniw-Wpafa-Ebil h and this may not have been a accurate diagnosis. She does have a neurologist that she sees regularly for her continued pain of the right foot and I recommended she consider asking her neurologist whether or not she might have Sczanow-Nnrrz-Ftdp h disease. 07/06/2024 Foot pain, left (ICD-10 - M79.672) 08/31/2024 Foot pain, left (ICD-10 - M79.672) 07/23/2024 Foot pain, left (ICD-10 - M79.672) 08/31/2024 Other Plan Of Treatment No Information Insurance Providers Payer Name Payer Address Payer Phone Subscriber Number Group Number Insured Name Patient Relationship to Insured Coverage Start Date Coverage End Date Medicare [address] [facility], [place] [id number] Schuyler Gutierrez Self - patient is the insured [facility] MEDICARE SUPPLEMENT [address] [place] [address] [id number] plan g Schuyler Gutierrez Self - patient is the insured Medical (General) History Medical History History ICD Code Arthritis, depression, gerd/ reflux, high cholesterol, high blood pressure, migraines, thyroid problems, Heart attack Surgical History Surgery Date(Month/Year) postcalcaneal spur resection 06/2018
--- OUTSIDE RECORDS SUMMARY | 2025-04-25 11:01 | XMS_ITS | Encounter Summary ---
Author Organization [facility] Healthcare Address [address] [place] [address] Care Team Providers Care Mental Health Consultant Name Role Phone Juan Pablo Easton MD Primary Care Provider [phone] Reason for Visit * Reason Onset Date Comments PMC Preprocedure 08/24/2024 Encounter Details Date Type Department Care Team (Late st Contact Info) Description 08/24/2024 Telephone [facility] [place] [facility] [address] [facility] Advanced Medicine [address] [place], [place] [phone] Chelita Ray MD PhD [address] [facility] [phone] [place], [place] [id number] PMC Preprocedure Social History Tobacco Use Types [...] on file Legal Sex Female 3:40 AM PROCUREMENT CLERK Gender Identity Not on file Sexual Orientation Not on file documented as of this encounter Functional Status documented as of this encounter Plan of Treatment Not on file documented as of this encounter Goals Goal Patient Goal Type Associated Problems Recent Progress Patient-Stated? Author CCM Chronic Pain Care Plan Chronic Care Management On track(2023 1:38 PM PROCUREMENT CLERK) No Lizette Resendiz, ASH Note: Problem: Chronic Pain Goals: 1. Minimize further functional decline 2. Maximize quality of life 3. Control pain Strategies: - Activity/exercise program recommendation - Conservative stepwise pain medicine strategy with multi-disciplinary approach - Recommend healthy lifestyle strategies and compensatory methods as needed documented as of this encounter Visit Diagnoses Not on filedocumented in this encounter Care Teams Mental Health Consultant Relationship Specialty Start Date End Date Juan Pablo Easton MD PCP - General 02/24/15 documented as of this encounter
--- OUTSIDE RECORDS SUMMARY | 2025-04-25 11:01 | XMS_ITS | Encounter Summary ---
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 Author CCM Chronic Pain Care Plan Chronic Care Management On track(2023 1:38 PM FITNESS SUPERVISOR) No Lizette Resendiz RN Note: Problem: Chronic Pain Goals: 1. Minimize further functional decline 2. Maximize quality of life 3. Control pain Strategies: - Activity/exercise program recommendation - Conservative stepwise pain medicine strategy with multi-disciplinary approach - Recommend healthy lifestyle strategies and compensatory methods as needed documented as of this encounter Procedures Procedure Name Priority Date/Time Associated Diagnosis Comments SCAN - LABS 12/04/2024 documented in this encounter Results * SCAN - LABS (12/04/2024) us Provider Scanning Final Result documented in this encounter Visit Diagnoses Not on filedocumented in this encounter Care Teams Clinical Research Analyst Relationship Specialty Start Date End Date Juan Pablo Easton MD PCP - General 02/24/15 documented as of this encounter
--- OUTSIDE RECORDS SUMMARY | 2025-04-25 11:01 | XMS_ITS | Clinical Summary ---
Author Organization [facility] Address [address] [place] [address] Care Team Providers Care Slip Tender Name Role Phone Juan Pablo Easton MD Primary Care Provider +1- [phone] Social History Tobacco Use Types Packs/Day Years [...] 1 - Tdap) 1973 Mammogram Screening 1994 Pneumococcal Vaccine: 50+ Ye ars (1 of 1 - PCV) 2004 Zoster Vaccines (1 of 2) 2004 Annual Medicare Wellness Visit 2019 Dexa Scan (General) 2019 COVID-19 Vaccine (2 - 2023-2 5 [...] age to complete this topic Insurance MEDICARE [facility] Care Teams Slip Tender Relationship Specialty Start Date End Date Juan Pablo Easton MD PCP - General FAMILY PRACTICE 01/23/21
--- OUTSIDE RECORDS SUMMARY | 2025-04-25 11:01 | XMS_ITS | Continuity of Care Document ---
Author Organization [facility] Address [address] [place] [address] Phone Care Team Providers Care Circuits Engineer Name Role Phone Ricky Gray Unavailable Unavailable Advance Directives Directive Yes / No Effective Date File Name No Information Encounters Encounter Description Practice Location Reason(s) For Visit Diagnoses Date Provider Providers Copied on Encounter [facility], [address], [place], [place], [id number], [place] tel:[phone] [facility] No Information Dec-0 6-200 0 Doisy Edward. [address], [place], [address], [place]. tel:[phone] Family History Family Member Type Diagnosis Age At Onset No Information Payers Payer name Insurance type Covered constitution party ID Authoriza tion(s) No Information Social History [...]
--- OUTSIDE RECORDS SUMMARY | 2025-04-25 11:01 | XMS_ITS | Encounter Summary ---
Author Organization [facility] Healthcare Address [address] [place] [address] Care Team Providers Care Electric Motor Winder Name Role Phone Juan Pablo Easton MD Primary Care Provider [phone] [phone] Reason for Visit * Reason Onset Date Comments Scheduling Appointments 01/19/2025 Encounter Details Date Type Department Care Team (Late st Contact Info) Description 01/19/2025 Telephone [facility] at the [place] [facility] [address] [facility] Advanced Medicine [address] [place] [address] Chelita Ray MD PhD [address] [facility] [phone] [place], [place] [phone] Scheduling Appointments Social History Tobacco Use Types [...] on file 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 Author CCM Chronic Pain Care Plan Chronic Care Management On track(2023 1:38 PM SUPERVISORY FORESTER) No Lizette Resendiz, ASH Note: Problem: Chronic Pain Goals: 1. Minimize further functional decline 2. Maximize quality of life 3. Control pain Strategies: - Activity/exercise program recommendation - Conservative stepwise pain medicine strategy with multi-disciplinary approach - Recommend healthy lifestyle strategies and compensatory methods as needed documented as of this encounter Visit Diagnoses Not on filedocumented in this encounter Care Teams Electric Motor Winder Relationship Specialty Start Date End Date Juan Pablo Easton MD PCP - General 02/24/15 documented as of this encounter
--- OUTSIDE RECORDS SUMMARY | 2025-04-25 11:01 | XMS_ITS ---
Author Organization [facility] [place] ([address]) Address [address] [place] [address] Care Team Providers Care Sas Bi Developer Name Role Phone Juan Pablo Easton M.D. Primary Care Provider Jaycee Debbie Viera Unavailable [phone] Marleen Atwood Unavailable Unavailable REASON FOR VISIT ARC follow-up Encounters Encounter Location Date Provider Diagnosis [facility] [place] [address] [place] [address] 02/18/2024 Debbie Mccann Plan Of Treatment No Information Progress Notes * Marysol HERNANDESOB:1955 (69 yo F)Acc No.[id number]:02/18/2024 Progress Notes Patient: Schuyler GUILLEN Provider: Vance Mccann MD :1955 A ge:68 Y S ex:Female Date:02/18/2024 [facility] Pcp:Juan Pablo Easton M.D. Subjective: * Chief Complaints: * 1 . ARC follow-up. * Medical History: Objective: * Vitals: Assessment: Plan: * Treatment: * Billing Information: * Visit Code: * Procedure Codes: * Electronic signature of Sudha Mccann MD on 04/25/2025 at 11:01 AM CDT Sign off status: Pending * Provider: Vance Mccann MD Date: 0 02/18/2024 Generated for Printi ng/Faxing/eTransmitting on: 0 04/25/2025 11:01 AM CDT
--- OUTSIDE RECORDS SUMMARY | 2025-04-25 11:01 | XMS_ITS | Encounter Summary ---
Author Organization [facility] Healthcare Address [address] [place] [address] Care Team Providers Care Salesperson Yard Goods Name Role Phone Juan Pablo Easton MD Primary Care Provider [phone] [phone] Reason for Visit * Reason Onset Date Comments Scheduling Appointments 03/20/2024 Encounter Details Date Type Department Care Team (Late st Contact Info) Description 03/20/2024 Telephone [facility] at [facility] [place] [facility] [address] [facility] Advanced Medicine [address] [place] [address] Chelita Ray MD PhD [address] [facility] [phone] [place], [place] [phone] Scheduling Appointments Social History Tobacco Use Types [...] on file 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 Author CCM Chronic Pain Care Plan Chronic Care Management On track(2023 1:38 PM STRATEGY CONSULTANT) No Lizette Resendiz, ASH Note: Problem: Chronic Pain Goals: 1. Minimize further functional decline 2. Maximize quality of life 3. Control pain Strategies: - Activity/exercise program recommendation - Conservative stepwise pain medicine strategy with multi-disciplinary approach - Recommend healthy lifestyle strategies and compensatory methods as needed documented as of this encounter Visit Diagnoses Not on filedocumented in this encounter Care Teams Salesperson Yard Goods Relationship Specialty Start Date End Date Juan Pablo Easton MD PCP - General 02/24/15 documented as of this encounter
--- OUTSIDE RECORDS SUMMARY | 2025-04-25 11:01 | XMS_ITS ---
Author Organization [email or web address] ([address]) Address [address] [place] [address] Care Team Providers Care Poultry Husbandman Name Role Phone Juan Pablo Easton M.D. Primary Care Provider Jaycee Debbie Viera Unavailable [phone] Marleen Atwood Unavailable Unavailable [employer], Provider Unavailable Unavailab le Allergies Allergen (clinical drug ingredient) Drug/Non Drug Allergy documented on EMR Reaction Allergy Type Onset Date Status Ciprofloxacin Unknown Drug Allergy Act noa neomycin Neomycin Unknown Drug Allergy Active Penicillin rash/shortness of breath Drug Allergy Active quinapril Quinapril Unknown Drug Allergy Active [facility] Conversion Encounter Medications Medication SIG (Take, Route, Frequency, Duration) Notes Start Date End Date Status HYDROcodone Bitartrate ER 10 MG 1 cap(s) orally every 12 hours Active Zanaflex 4 MG 2 cap(s) orally 3 times a day Active Trelegy Ellipta 100 MCG-62.5 MCG-25 MCG/INH 1 PUFF(S) INHALED ONCE A DAY; Duration: 30 DAYS *Please review and pick correct strength-formula tion from [facility] options. If intended option is not [...] review and pick correct strength-formula tion from [employer] options. If intended option is not shown, [...] review and pick correct strength-formula tion from [employer] options. If intended option is not shown, [...] Active Encounters Encounter Location Date Provider Diagnosis [address] [address] 03/21/2024 Provider IRVING-Harry Cough, unspecified R05.9 and [...] review and pick correct strength-formulatio n from [employer] options. If intended option is not shown, [...] review and pick correct strength-formulatio n from [facility] [employer] options. If intended option is not shown, discontinue and re-order from [employer]* Levocetirizine Dihydrochloride 5 MG 1 tab(s) orally once a day (in the evening); Duration: 30 days Advair Diskus 250 MCG-50 MCG 1 INH INHALED 2 TIMES A DAY; Duration: 30 DAYS 11/26/2023 *Please review and pick correct strength-formulatio n from [employer] options. If intended option is not shown, discontinue and re-order from Quick Search* Progress Notes * Arcadio GUTIERREZMissyOB:1955 (69 yo F)Acc No.[id number]:03/21/2024 Patient: Schuyler GUILLEN Provider: Shahid Mcdonald :1955 A ge:68 Y S ex:Female Date:03/21/2024 Address:[address] [place], [place] [id number] Pcp:Juan Pablo Easton M.D. Subjective: * Chief Complaints: * [facility] . [facility]. * Medical History: * Medications: [...] * Electronic signature of Kathrin VILLATORO-Migration on 04/25/2025 at 11:01 AM CDT Sign off status: Pending * Provider: Shahid che Migration Date: 03/21/2024 Generated for Terence gutierrez/Cris/Aleksander on: 04/25/2025 11:01 AM CDT
--- OUTSIDE RECORDS SUMMARY | 2025-04-25 11:02 | XMS_ITS | Patient Health Record ---
Author Organization [facility] Address [address] [place] [address] Support Name Relationship Address Phone Unavailable Emergency Contact Unknown Unavailabl e Schuyler Gutierrez Guarantor Unknown [phone] Allergies Allergen (clinical drug ingredient) Drug/Non Drug Allergy documented on EMR Reaction Allergy Type Onset Date Status Latex Gloves Unknown Drug Allergy Acti ve Penicillins Unknown Drug Allergy Activ e Reason For Referral No Information Medications Medication SIG (Take, Route, Fr equency, Duration) Notes Start Date End Date Status Lisinopril Active Esomeprazole Sodium Active Levothyroxine Sodium Active Sertraline HCl Activ e Livalo Active Problems Problem Type SNOMED Code ICD Code Onset Dates Problem Status W/U Status Risk Notes Problem Essential hypertension (I10) Active confirmed Problem 11953844 Hypothyroidism, unspecified type (E03.9) Active confirmed Plan Of Treatment No Information Insurance Providers Payer Name Payer Address Payer Phone Subscriber Number Group Number Insured Name Patient Relationship to Insured Coverage Start Date Coverage End Date [facility] RE- CHOICE PLUS (HRA) [address] [address] [place] [address] [id number] Schuyler Gutierrez Self - patient is the insured 6 Medical (General) History Medical History History ICD Code Essential hypertension I10 Hypothyroidism, unspecified type Surgical History Surgery Date(Month/Year) hysterectomy Gallbladder back surgery
--- OUTSIDE RECORDS SUMMARY | 2025-04-25 11:02 | XMS_ITS ---
Author Organization 1 OF Toni carl [facility] Address [address] [facility] [address] [place] [address] Care Team Providers Care Communications Engineer Name Role Phone Juan Pablo Easton M.D. Primary Care Provider Juan Lancaster REASON FOR VISIT LT PF Encounters Encounter Location Date Provider Diagnosis 1 OF Toni Serrano [facility] [address] [facility] [address] [place] [address] 08/20/2024 Juan Serrano Plan Of Treatment No Information Progress Notes * Marysol GUTIERREZOB:1955 (69 yo F)Acc No.[id number]:08/20/2024 Progress Notes Patient: Schuyler GUILLEN Provider: Toni Serrano DPM :1955 A ge:68 Y S ex:Female Date:08/20/2024 [address] [id number] Pcp:Juan Pablo Easton M.D. Subjective: * Chief Complaints: * 1 . LT PF. * HPI: Marie Rondon assisting with visit:: HPI/Rooming: . ..... P rimary reason for visit:: 68 year old female RTO for LT PF. At the last visit patient was given medrol pack, her f oot was strapped, and pt was advised to discuss possible CMT with her neurologist. Today the pt reports. * Medical History: Objective: * Vitals: * Examination: G eneral Examination: Constitutional / Appearance: N o acute distress , Well nourished, Appropriate personal hygiene. Mental status: C ooperative, Oriented to person, place and time, Mood and affect: normal, Judgement and intellect: normal with appropriate response to questions. Shoes today: X XXX. Exam unchanged from prior visit: w ith no significant changes in appearance or condition of feet . Assessment: Plan: * Treatment: * Images: * Electronic signature of Laurie Serrano DPM on 04/25/2025 at 11:01 AM CDT Sign off status: Pending * Provider: Toni Serrano DPM Date: 1 10/20/2023 Generated for Terence gutierrez/Cris/Aleksander on: 0 04/25/2025 11:01 AM CDT History and Physical Notes * HPI (History [...]
[2025-04-25 11:05] VITALS: BP 151/54; PULSE 99; RESP 18; TEMP 36.9; O2SAT 100
--- NOTE | 2025-04-25 11:11 | PC.NURSE ---
Pt c/o lower abdominal and back pain. Bowel sounds present in all 4 quads. Tender on palpation to suprapubic area.
--- OUTSIDE RECORDS SUMMARY | 2025-04-25 11:29 | XMS_ITS | Clinical Summary ---
Author Organization [facility] Address [address] [place] [address] Care Team Providers Care Skilled Nursing Facilities Professional Name Role Phone Juan Pablo Easton MD Primary Care Provider [phone]- [phone] Social History Tobacco Use Types Packs/Day Years [...] age to complete this topic Insurance MEDICARE [facility] Care Teams Skilled Nursing Facilities Professional Relationship Specialty Start Date End Date Juan Pablo Easton MD PCP - General FAMILY PRACTICE 01/23/21
--- OUTSIDE RECORDS SUMMARY | 2025-04-25 11:29 | XMS_ITS | Clinical Summary ---
Author Organization [facility] Address [address] [place] [address] Care Team Providers Care Residential Direct Support Professional Name Role Phone Juan Pablo Easton MD Primary Care Provider +1- [phone] Source Comments [facility],non-owned Affiliates and Associated Physician Practices is amultiple site organization consisting of ambulatory clinics and hospital sitesin [place], [place], [place] and [place]. This disclosure is being madepursuant to the Care Everywhere program and may not contain all information available regarding this patient. 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
--- OUTSIDE RECORDS SUMMARY | 2025-04-25 11:29 | XMS_ITS | Encounter Summary ---
Author Organization [facility] Healthcare Address [address] [place] [address] Care Team Providers Care Housekeeper/Custodian/Laundry Worker Name Role Phone Juan Pablo Easton MD Primary Care Provider [phone] [phone] Reason for Visit * Reason Onset Date Comments Scheduling Appointments 03/20/2024 Encounter Details Date Type Department Care Team (Late st Contact Info) Description 03/20/2024 Telephone [facility] Center at the [place] [facility] [address] [facility] Advanced Medicine [address] [place] [address] Chelita Ray MD PhD [address] [facility] [phone] [place], [place] [phone] Scheduling Appointments Social History Tobacco Use Types [...] on file 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 Author CCM Chronic Pain Care Plan Chronic Care Management On track(2023 1:38 PM FOREST ENGINEER) No Lizette Resendiz, ASH Note: Problem: Chronic Pain Goals: 1. Minimize further functional decline 2. Maximize quality of life 3. Control pain Strategies: - Activity/exercise program recommendation - Conservative stepwise pain medicine strategy with multi-disciplinary approach - Recommend healthy lifestyle strategies and compensatory methods as needed documented as of this encounter Visit Diagnoses Not on filedocumented in this encounter Care Teams Housekeeper/Custodian/Laundry Worker Relationship Specialty Start Date End Date Juan Pablo Easton MD PCP - General 02/24/15 documented as of this encounter
--- OUTSIDE RECORDS SUMMARY | 2025-04-25 11:29 | XMS_ITS | Encounter Summary ---
Author Organization [facility] Healthcare Address [address] [place] [address] Care Team Providers Care Real Estate Loan Officer Name Role Phone Juan Pablo Easton MD Primary Care Provider [phone] -[phone] Encounter Details Date Type Department Care Team (Late st Contact Info) Description 10/30/2023 Telephone [facility] [place] [facility] [address] 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 Minimize further functional decline 2. Maximize quality of life 3. Control pain Strategies: - Activity/exercise program recommendation - Conservative stepwise pain medicine strategy with multi-disciplinary approach - Recommend healthy lifestyle strategies and compensatory methods as needed documented as of this encounter Visit Diagnoses Not on filedocumented in this encounter Care Teams Real Estate Loan Officer Relationship Specialty Start Date End Date Juan Pablo Easton MD PCP - General 02/24/15 documented as of this encounter
--- OUTSIDE RECORDS SUMMARY | 2025-04-25 11:29 | XMS_ITS | Encounter Summary ---
Author Organization [facility] Healthcare Address [address] [place] [address] Care Team Providers Care Boring Machine Set Up Operator Name Role Phone Juan Pablo Easton MD Primary Care Provider [phone] -[phone] Reason for Visit * Reason Onset Date Comments Scheduling Appointments 01/19/2025 Encounter Details Date Type Department Care Team (Late st Contact Info) Description 01/19/2025 Telephone [facility] at the [place] [facility] [address] [facility] Advanced Medicine [address] [place] [address] Chelita Ray MD PhD [address] [facility] [phone] [place], [place] [phone] Scheduling Appointments Social History Tobacco Use Types [...] file 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 Author CCM Chronic Pain Care Plan Chronic Care Management On track(2023 1:38 PM COMMERCIAL ACCOUNT EXECUTIVE) No Lizette Resendiz, ASH Note: Problem: Chronic Pain Goals: 1. Minimize further functional decline 2. Maximize quality of life 3. Control pain Strategies: - Activity/exercise program recommendation - Conservative stepwise pain medicine strategy with multi-disciplinary approach - Recommend healthy lifestyle strategies and compensatory methods as needed documented as of this encounter Visit Diagnoses Not on filedocumented in this encounter Care Teams Boring Machine Set Up Operator Relationship Specialty Start Date End Date Juan Pablo Easton MD PCP - General 02/24/15 documented as of this encounter
--- OUTSIDE RECORDS SUMMARY | 2025-04-25 11:29 | XMS_ITS | Encounter Summary ---
Author Organization [facility] Healthcare Address [address] [place] [address] Care Team Providers Care Retail Solar Advisor Name Role Phone Juan Pablo Easton MD Primary Care Provider [phone] [phone] Encounter Details Date Type Department Care Team (Late st Contact Info) Description 12/04/2024 Orders Only [facility] Health Information Management [address] [place] [address] Scanning, Provider Social History Tobacco Use Types [...] on file Legal Sex Female 3:40 AM OXIDIZED FINISH PLATER Gender Identity Not on file Sexual Orientation Not on file documented as of this encounter Plan of Treatment Not on file documented as of this encounter Goals Goal Patient Goal Type Associated Problems Recent Progress Patient-Stated? Author CCM Chronic Pain Care Plan Chronic Care Management On track(2023 1:38 PM OXIDIZED FINISH PLATER) No Lizette Resendiz RN Note: Problem: Chronic [...] on filedocumented in this encounter Care Teams Retail Solar Advisor Relationship Specialty Start Date End Date Juan Pablo Easton MD PCP - General 02/24/15 documented as of this encounter
--- OUTSIDE RECORDS SUMMARY | 2025-04-25 11:29 | XMS_ITS | Encounter Summary ---
Author Organization [facility] Healthcare Address [address] [place] [address] Care Team Providers Care County Administrator Name Role Phone Juan Pablo Easton MD Primary Care Provider [phone] -[phone] Reason for Visit * Reason Onset Date Comments PMC Preprocedure 08/24/2024 Encounter Details Date Type Department Care Team (Late st Contact Info) Description 08/24/2024 Telephone [facility] Pain Center at the [place] for [facility] [address] [facility] Advanced Medicine [address] [place], [place] [phone] Chelita Ray MD PhD [address] [facility] [phone] [place], [place] [phone] PMC Preprocedure Social History Tobacco Use Types [...] on file Legal Sex Female 3:40 AM CASE THERAPIST Gender Identity Not on file Sexual Orientation Not on file documented as of this encounter Functional Status documented as of this encounter Plan of Treatment Not on file documented as of this encounter Goals Goal Patient Goal Type Associated Problems Recent Progress Patient-Stated? Author CCM Chronic Pain Care Plan Chronic Care Management On track(2023 1:38 PM CASE THERAPIST) No Lizette Resendiz, ASH Note: Problem: Chronic Pain Goals: 1. Minimize further functional decline 2. Maximize quality of life 3. Control pain Strategies: - Activity/exercise program recommendation - Conservative stepwise pain medicine strategy with multi-disciplinary approach - Recommend healthy lifestyle strategies and compensatory methods as needed documented as of this encounter Visit Diagnoses Not on filedocumented in this encounter Care Teams County Administrator Relationship Specialty Start Date End Date Juan Pablo Easton MD PCP - General 02/24/15 documented as of this encounter
--- OUTSIDE RECORDS SUMMARY | 2025-04-25 11:29 | XMS_ITS | Continuity of Care Document ---
Author Organization [facility] Address [address] [place] [address] Phone Care Team Providers Care Water Resources Business Segment Leader Name Role Phone Ricky Gray Unavailable Unavailable Advance Directives Directive Yes / No Effective Date File Name No Information Encounters Encounter Description Practice Location Reason(s) For Visit Diagnoses Date Provider Providers Copied on Encounter [facility], [address], [place], [place], [id number], [place] tel:[phone] [facility] No Information Dec-0 6-200 0 Doisy Edward. [address], [place], [address], [place]. tel:[phone] Family History Family Member Type Diagnosis Age At Onset No Information Payers Payer name Insurance type Covered alliance party ID Authoriza tion(s) No Information Social [...]
--- OUTSIDE RECORDS SUMMARY | 2025-04-25 11:29 | XMS_ITS | Referral Summary ---
Author Organization [facility] [place] [address] [facility] [address] Address [address] [place] [address] Care Team Providers Care Farmer Diversified Crops Name Role Phone Juan Pablo Easton MD Primary Care Provider [phone] Encounters Date Type Department Care Team Description 03/04/2025 11:30 AM CDT Office Visit [facility] Cardiology [address] [place] [address] Tamiko Wiley MD Coronary artery disease involving [place] coronary artery of [place] heart without angina pectoris (Primary Dx); Primary [...] (06/27/2022): Added automatically from request for surgery [id number] Entrapment neuropathy of right sural nerve 04/24 [...] on file Legal Sex Female 3:40 AM SUPERVISOR PUMPING STATION Gender Identity Not on file Sexual Orientation Not on file Last Filed Vital Signs Vital Sign Reading Time Taken Comments Blood Pressure 130/62 03/04/2025 11:34 AM CDT Pulse 83 03/04/2025 11:34 AM CDT Temperature 36.3 C (97.3 F) 12/02/2024 7:31 AM SUPERVISOR PUMPING STATION Respiratory Rate 16 12/02/2024 8:40 AM SUPERVISOR PUMPING STATION Oxygen Saturation 98% 03/04/2025 11:34 AM CDT [...] Chronic Care Management On track(2023 1:38 PM SUPERVISOR PUMPING STATION) No Lizette Resendiz, ASH Note: Problem: Chronic Pain Goals: 1. Minimize further functional decline 2. Maximize quality of life 3. Control pain Strategies: - Activity/exercise program recommendation - Conservative stepwise pain medicine strategy with multi-disciplinary approach - Recommend healthy lifestyle strategies and compensatory methods as needed Medical Devices Implanted Type Area Fixing Carpenter Device Identifier Shelf Expiration Date Model / Serial / Lot Eterna Implantable Pulse Generator Implanted:Qty: 1 on 02/22/2023 by Chelita Ray MD PhD at [facility] Other - see comments N/A: Back [employer] [id number] 10/17/2024 [id number] / [id number] / Description:Implantable puls e generator reference # 02528 - PART OF KIT [employer]ogen Inc Avance 4-5mm 50mm Allograft Natural Connection Graft Soft Tissue [id number] - [id number] Implanted:Qty: 1 on 07/31/2022 by Padmini Mcnamara MD at [facility] Right: Ankle [employer] Inc 12/05/2023 [id number] / / [id number] Description:Implanted proxim al to right ankle. [employer] Lambert-Lock [place] Lead 1192 - [id number] Implanted:Qty: 2 on 02/22/2023 by Chelita Ray MD PhD at [facility] N/A: Back [employer] [id number] 10/21/2024 1192 / / [id number] [employer] Octrode 60cm 8 Electrode Lead Percutaneous Kit Neurostimulator [id number] - [id number] - [id number] Implanted:Qty: 1 on 02/22/2023 by Chelita Ray MD PhD at [facility] N/A: Back [employer] [id number] 02/04/2025 [id number] / [id number] / [employer] Octrode 60cm 8 Electrode Lead Percutaneous Kit Neurostimulator [id number] - [id number] - [id number] Implanted:Qty: 1 on 02/22/2023 by Chelita Ray MD PhD at [facility] N/A: Back [employer] [id number] 02/04/2025 [id number] / [id number] / [employer] Generator Neurostimulator Spine Rechargeable Eterna [id number] - [id number] Implanted:Qty: 1 on 02/22/2023 by Chelita Ray MD PhD at [facility] N/A: Back [employer] [id number] / / Explanted Type Area Fixing Carpenter Device Identifier Shelf Expiration Date Model / Serial / Lot [employer] Invisible One Lead Trial System Spinal Cord Stimulation 1-Lead Trial Sys - [id number] - [id number] Implanted:Qty: 1 on 01/10/2023 by Alcon Ayers MD at [facility] Explanted: 023 by Chelita Ray MD PhD (Quantity not on file) [employer] 10/04/2024 1-LEAD TRIAL SYS / [id number] / Procedures Procedure Name Priority Date/Time Associated Diagnosis Comments ELECTROCARDIOGRAM REPORT Routine 025 11:58 AM CDT Primary hypertension H/O cardiomyopathy Preoperative cardiovascular examination POCT LIPID PANEL Routine 03/04/2025 11:2 9 AM CDT Mixed hyperlipidemia Coronary artery disease involving [place] coronary artery of [place] heart without angina pectoris COLONOSCOPY REPORT 11/03/2012 [...] Narrative 11/03/2012 Ordered by an unspecified provider. [facility] Provider GI PROCEDURE ORDERABLES F inal Result from Last 3 Months or Most Recently Relevant to Health Maintenance Insurance MEDICARE [facility] MEDICARE [facility] MEDICARE AARP Advance Directives For more information, please contact: [phone] * Full Code (Latest Code Status on File) Date Activated Date Inactivated Comments 07/31/2022 4:32 PM 08/01/2022 4:34 PM Care Teams Farmer Diversified Crops Relationship Specialty Start Date End Date Juan Pablo Easton MD PCP - General 02/24/15
--- OUTSIDE RECORDS SUMMARY | 2025-04-25 11:29 | XMS_ITS | Clinical Summary ---
Author Organization [facility] [address] Address [address] [place] [address] Care Team Providers Care Electron Tube Assembler Name Role Phone Juan Pablo Easton MD Primary Care Provider [phone] Allergies Active Allergy Reactions Criticality Noted Date [...] (06/27/2022): Added automatically from request for surgery [id number] Entrapment neuropathy of right sural nerve 04/24 [...] Description 03/04/2025 11:30 AM CDT Office Visit [facility] Medical [facility] Cardiology [address] [place] [address] Tamiko Wiley MD Coronary artery disease involving [place] coronary artery of [place]ust[place] heart without angina pectoris (Primary Dx); Primary [...] (chronic obstructive pu lmonary disease) ([facility]) Hypertension Thyroid disease Diastolic dysfunction Cardiomyopathy (HCC) 06/16/2021 Takotsubo c ardiomyopathy Jsuormp-Nfbqf-Xalnx disease GERD (gastroesophageal reflu x disease) 1989 [...] Father Alek Clark Other Father Alek Clark [place] 48 yo, CABG 50, of massive [place] 53; Cancer Mother Sybil Clark Lung cancer [...] on file Legal Sex Female 3:40 AM MATRIX SUPERVISOR Gender Identity Not on file Sexual Orientation Not on file Obstetrics History Last Filed Vital Signs Vital Sign Reading Time Taken Comments Blood Pressure 130/62 03/04/2025 11:34 AM CDT Pulse 83 03/04/2025 11:34 AM CDT Temperature 36.3 C (97.3 F) 12/02/2024 7:31 AM MATRIX SUPERVISOR Respiratory Rate 16 12/02/2024 8:40 AM MATRIX SUPERVISOR Oxygen Saturation 98% 03/04/2025 11:34 AM CDT [...] Chronic Care Management On track(2023 1:38 PM MATRIX SUPERVISOR) Lizette Hughes, RN Note: Problem: Chronic Pain Goals: 1. Minimize further functional decline 2. Maximize quality of life 3. Control pain Strategies: - Activity/exercise program recommendation - Conservative stepwise pain medicine strategy with multi-disciplinary approach - Recommend healthy lifestyle strategies and compensatory methods as needed Medical Devices Implanted Type Area Fruit Bar Maker Device Identifier Shelf Expiration Date Model / Serial / Lot Eterna Implantable Pulse Generator Implanted:Qty: 1 on 02/22/2023 by Chelita Ray MD PhD at [facility] Other - see comments N/A: Back [employer] [id number] 10/17/2024 [id number] / [id number] / Description:Implantable puls e generator reference # 96495 - PART OF KIT [employer] Avance 4-5mm 50mm Allograft Natural Connection Graft Soft Tissue [id number] - [id number] Implanted:Qty: 1 on 07/31/2022 by Padmini Mcnamara MD at [facility] Right: Ankle [employer] Inc 12/05/2023 [id number] / / [id number] Description:Implanted proxim al to right ankle. [employer] Lambert-Lock [place] Lead 1192 - [id number] Implanted:Qty: 2 on 02/22/2023 by Chelita Ray MD PhD at [facility] N/A: Back [employer] [id number] 10/21/2024 1192 / / [id number] [employer] Octrode 60cm 8 Electrode Lead Percutaneous Kit Neurostimulator 3186ans - [id number] - [id number] Implanted:Qty: 1 on 02/22/2023 by Chelita Ray MD PhD at [facility] N/A: Back [employer] [id number] 02/04/2025 [id number] / [id number] / [employer] Octrode 60cm 8 Electrode Lead Percutaneous Kit Neurostimulator [id number] - [id number] - [id number] Implanted:Qty: 1 on 02/22/2023 by Chelita Ray MD PhD at [facility] N/A: Back [employer] [id number] 02/04/2025 [id number] / [id number] / [employer] Generator Neurostimulator Spine Rechargeable Eterna [id number] - [id number] Implanted:Qty: 1 on 02/22/2023 by Chelita Ray MD PhD at [facility] N/A: Back [employer] [id number] / / Explanted Type Area Fruit Bar Maker Device Identifier Shelf Expiration Date Model / Serial / Lot [employer] Invisible One Lead Trial System Spinal Cord Stimulation 1-Lead Trial s - [id number] - [id number] Implanted:Qty: 1 on 01/10/2023 by Alcon Ayers MD at [facility] Explanted: 023 by Chelita Ray MD PhD (Quantity not on file) [employer] 10/04/2024 1-LEAD TRIAL SYS / [id number] / Procedures Procedure Name Priority Date/Time Associated Diagnosis Comments ELECTROCARDIOGRAM REPORT Routine 025 11:58 AM CDT Primary hypertension H/O cardiomyopathy Preoperative cardiovascular examination POCT LIPID PANEL Routine 03/04/2025 11:2 9 AM CDT Mixed hyperlipidemia Coronary artery disease involving aug[place] coronary artery of august[place] heart without angina pectoris COLONOSCOPY REPORT 11/03/2012 from Last 3 Months or Most Recently Relevant to Health Maintenance Results * Electrocardiogram Report (03/04/2025 11:58 AM CDT) [facility] Allan Wiley MD ECG ORDERABLES Final R esult * POCT lipid panel (03/04/2025 11:29 AM CDT) Cholesterol, POC 127 <200 MG/DL HDL, POC 57 >=40 mg/dL Triglycerides, POC 83 <=149 mg/dL LDL Cholesterol POC 54 <=129 mg/dL Chol/HDL Ratio, POC 0.9 NONE Non-HDL Cholesterol, POC 70 NONE mg/dL Cholesterol Total, POC 127 30 - 199 mg/dL Capillary blood 03/04/2025 1 1:29 AM CDT [facility] Allan Wiley MD POINT OF CARE TEST ORDAlejandra MANLEY Final Result * COLONOSCOPY REPORT (11/03/2012) Anatomical Region Laterality Modality Other Narrative 11/03/2012 Ordered by an unspecified provider. Historical Provider GI PROCEDURE ORDERABLES F inal Result from Last 3 Months or Most Recently Relevant to Health Maintenance Insurance [facility]ICARE [facility] MEDICARE [facility] MEDICARE [facility] Advance Directives For more information, please contact: [phone] * Full Code (Latest Code Status on File) Date Activated Date Inactivated Comments 07/31/2022 4:32 PM 08/01/2022 4:34 PM Care Teams Electron Tube Assembler Relationship Specialty Start Date End Date Juan Pablo Easton MD PCP - General 02/24/15
[2025-04-25 11:32] LABS: Hematocrit 34.1 % (37.0-47.0); Hemoglobin 11.2 g/dL (12.0-15.0); Immature Granulocyte Percent A 0.4 % (0-0.5); Lymphocytes Absolute Auto 1.45 K/mm3 (0.9-3.2); Mean Corpuscular HGB Conc 32.8 g/dl (32-36); Mean Corpuscular Hemoglobin 30.7 pg (26-34); Mean Corpuscular Volume 93.4 fl (80-100); Nucleated Red Blood Cells Absolute Auto 0.000 K/mm3 (0.0-0.012); Nucleated Red Blood Cells Perc 0.0 % (0.0-0.2); Platelet Count Result 184 k/mm3 (150-375); Red Blood Count 3.65 M/mm3 (4.2-5.4); White Blood Count 7.5 K/mm3 (4.5-10.0)
--- NOTE | 2025-04-25 11:33 | ED_ITS ---
HPI - General Adult General Chief complaint: Urogenital-Female Stated complaint: ?UTI Time Seen by Provider: 04/25/25 11:12 History of Present Illness HPI narrative: 69-year-old female presenting to the emergency department for complaint of left flank pain and lower back pain that has been ongoing since . Patient does have prior history of UTIs but denies any prior history of kidney stones although she does report a family history of kidney stones. Patient denies any blood in her urine. Patient denies any specific burning with urination. Patient is well-appearing at time evaluation. Patient does have a history of CHF, CAD, takotsubo, high cholesterol, hypertension, osteoarthritis Related Data Home Medications ?Medication ?Instructions ?Recorded ?Confirmed ?Last Taken ?Type losartan 25 mg tablet 25 mg PO DAILY 07/11/22 03/31/25 08/04/23 History atorvastatin 40 mg tablet 40 mg PO QHS 07/13/23 03/31/25 08/04/23 History lidocaine 5 % topical patch 1 patch topical Q24H back pain 02/21/24 03/31/25 Unknown History cyclobenzaprine 10 mg tablet 10 mg PO TID 05/27/24 03/31/25 Unknown History cholecalciferol (vitamin D3) 62.5 62.5 mcg PO DAILY 03/31/25 03/31/25 Unknown History mcg (2,500 unit) capsule Allergies Allergy/AdvReac Type Severity Reaction Status Date / Time shellfish derived Allergy Mild Itching Verified 04/25/25 11:36 ciprofloxacin Allergy Unknown Skin Verified 04/25/25 11:36 Reaction neomycin Allergy Unknown Skin Verified 04/25/25 11:36 Reaction Penicillins Allergy Unknown Unknown Verified 04/25/25 11:36 Quinolones Allergy Unknown Unknown Verified 04/25/25 11:36 cephalexin AdvReac Mild Gastrointestinal Verified 04/25/25 11:36 Upset LATEX Allergy Intermediate BLISTERING Uncoded 04/25/25 11:36 RASH Review of Systems 2 Review of Systems: All systems reviewed & are unremarkable except as noted in HPI and below PMFSH Past Medical History Medical History Encounter for administration of vaccine Diastolic CHF CAD (coronary artery disease) Takotsubo cardiomyopathy Non-ST elevation CT (NSTEMI) Shellfish allergy Seasonal allergies Arthritis Depression Qkwnyvp-Ydaox-Githq disease (~03/2021) Peripheral neuropathy Neuritis of right sural nerve Acquired cavovarus deformity of right foot Chronic insomnia Unspecified vitamin D deficiency Ga esophagus Atherosclerosis of aorta B12 deficiency Dyskinesia of esophagus Esophageal web Essential (primary) hypertension Gastroparesis Hypothyroidism (acquired) Internal derangement of right knee Irritable bowel syndrome with diarrhea Latex allergy status Metabolic syndrome Mixed hyperlipidemia Other hyperlipidemia Other spondylosis with radiculopathy, cervical region Patellar tendonitis of right knee Postgastric surgery syndromes Prediabetes With last hemoglobin A1c 4.7 Secondary osteoarthritis, right shoulder Spinal stenosis, unspecified region other than cervical Surgical History Surgical History History of oophorectomy, unilateral History of arthroscopy of right knee History of foot surgery (~2018) tendon repair History of tonsillectomy (~1959) History of cholecystectomy (~2009) History of lumbar discectomy (~2009) History of Achilles tendon repair (~2017) History of Juan Manuel fundoplication (~1996) History of hysterectomy (~1979) Due to uterine prolapse History of endoscopy Family History Family History Grandparent Diabetes mellitus Father Family history of elevated blood lipids Acute myocardial infarction, Onset Age: 40 Heart disease Hypertension Mother Family history of lung cancer Pulmonary disease Sibling Acute myocardial infarction, Onset Age: [address] Heart disease Son History of acquired heart valve infection her son had open heart surgery and a valve replaced a few years ago due to infected valve Other Arthritis Social History Social History Social History: She lives in [place] with her of 47 years. They have 3 children. Her son recently moved back into the home with them and has a small dog. There middle daughter works as a nurse at [employer]. There youngest daughter was murdered. 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 She never smoked. She drinks 1 alcoholic beverage a year on average. She denies illicit substance use. She is a mostly sedentary lifestyle. Primary care physician: Dr. Juan Pablo Easton Code status: Full code Surrogate decision maker: Smoking status: Never smoker Additional smoking assessment comments: DENIES ANY FORM OF TOBACCO USE Alcohol intake: never Alcohol use details: Occasional Substance use: never Substance use type: does not use Do You Feel Safe in your Home?: Yes Lack of Transportation: No Lack of Food: Never True Current Housing: I Have Housing Concerned About Future Housing: No Difficulty Paying Gas/Electric Bills: No Difficulty Paying for Meds: No Currently Unemployed: No Education: Associate Degree Difficulty w/ Childcare or Family Care: No Living arrangements: with family Additional living arrangements comments: Gender identity (if verbalized by the patient): Female Spiritual care concerns: No Exam 2 Narrative: APPEARANCE: Well appearing, no pain, no distress, well-nourished. HEAD: normocephalic, atraumatic. EYES: PERRLA/EOMI, conjunctivae clear. NOSE: Normal no drainage EARS:TMS clear with good light reflex. THROAT: Pharynx clear, no exudate. NECK: Supple. No adenopathy, no masses. RESPIRATORY: Airway patent, respirations nonlabored. Clear to auscultation bilaterally, no rales, rhonchi, wheezing. CARDIOVASCULAR: Regular rate and rhythm without murmurs rubs or gallops. ABDOMINAL: Left CVA tenderness to palpation MUSCULOSKELETAL: Moves all extremities. Strength/ROM intact, No edema, No calf tenderness. NEURO: Alert. Cranial nerves II through XII intact. Grossly intact SKIN: Warm, dry. Normal Color Course Vital Signs Vital signs: Vital Signs Temperature 98.4 F 04/25/25 11:05 Pulse Rate 99 04/25/25 11:05 Respiratory Rate 18 04/25/25 11:05 Blood Pressure 151/54 H 04/25/25 11:05 Pulse Oximetry 100 04/25/25 11:05 Oxygen Delivery Room Air 04/25/25 11:05 Temperature 97.8 F 04/25/25 13:15 Pulse Rate 87 04/25/25 13:15 Respiratory Rate 20 04/25/25 13:15 Blood Pressure 121/65 04/25/25 13:15 Pulse Oximetry 98 04/25/25 13:15 Oxygen Delivery Room Air 04/25/25 11:05 Medical Decision Making MDM Narrative Medical decision making narrative: 69-year-old female presented emergency department for evaluation for left flank pain had lower back pain. Patient is currently afebrile with no leukocytosis hemoglobin 11.2. Patient has no significant acute abnormalities on her CMP. UA was negative for infection and hematuria. CT scan shows no acute abnormality. Patient and family were updated on the results of the workup. All questions concerns were addressed. Patient's symptoms may be secondary to a mesenteric adenitis or lymphadenopathy. No evidence ureteral calculi, urinary tract infection, colitis, diverticulitis. Patient was comfortable with plan for discharge and close follow-up. Differential Diagnosis Differential Diagnosis: Ureteral calculi, UTI, colitis, diverticulitis, gastritis, muscular strain Vital Signs Vital Signs: Vital Signs Temperature 98.4 F 04/25/25 11:05 Pulse Rate 99 04/25/25 11:05 Respiratory Rate 18 04/25/25 11:05 Blood Pressure 151/54 H 04/25/25 11:05 Pulse Oximetry 100 04/25/25 11:05 Oxygen Delivery Room Air 04/25/25 11:05 Temperature 97.8 F 04/25/25 13:15 Pulse Rate 87 04/25/25 13:15 Respiratory Rate 20 04/25/25 13:15 Blood Pressure 121/65 04/25/25 13:15 Pulse Oximetry 98 04/25/25 13:15 Oxygen Delivery Room Air 04/25/25 11:05 Lab Data Lab results reviewed: Yes I reviewed the patient's lab results. 04/25/25 11:25 04/25/25 11:25 Labs: Lab Results 04/25/25 04/25/25 Range/Units 11:25 11:39 WBC 7.5 (4.5-10.0) K/mm3 RBC 3.65 L (4.2-5.4) M/mm3 Hgb 11.2 L (12.0-15.0) g/dL Hct 34.1 L (37.0-47.0) % MCV 93.4 (80-100) fl MCH 30.7 (26-34) pg MCHC 32.8 (32-36) g/dl RDW 13.2 (11.5-14.5) % Plt Count 184 (150-375) k/mm3 MPV 9.5 (7.4-10.4) fl Immature Gran % (Auto) 0.4 (0-0.5) % Neut % (Auto) 70.4 (45.5-73.1) % Lymph % (Auto) 19.4 (18.3-44.2) % [place] % (Auto) 7.8 (2.6-8.5) % Eos % (Auto) 1.5 (0-4.4) % Baso % (Auto) 0.5 (0.2-1.2) % Lymph # (Auto) 1.45 (0.9-3.2) K/mm3 [place] # (Auto) 0.6 (0.1-0.6) K/mm3 Eos # (Auto) 0.1 (0-0.3) K/mm3 Baso # (Auto) 0.0 (0.0-0.1) K/mm3 Abs Immat Gran (auto) 0.03 (0.00-0.031) K/mm3 Absolute Neuts (auto) 5.3 (1.3-6.7) K/mm3 Absolute Nucleated RBC 0.000 (0.0-0.012) K/mm3 Nucleated RBC % 0.0 (0.0-0.2) % Sodium 130 L (137-145) mmol/L Potassium 3.3 L (3.4-5.0) mmol/L Chloride 96 L (98-107) mmol/L Carbon Dioxide 26 (22-30) mmol/L Anion Gap 8 (4-12) mmol/L BUN 16 (7-17) mg/dL Creatinine 1.01 H (0.7-1.0) mg/dL Estim Creat Clear Calc 45 ml/min Estimated GFR 54 L (59 - ) Glucose 114 H (65-110) mg/dL Calcium 9.0 (8.4-10.2) mg/dL Total Bilirubin 0.4 (0.2-1.3) mg/dL AST 35 (14-36) U/L ALT 25 (6-35) U/L Alkaline Phosphatase 91 (38-126) U/L Total Protein 6.9 (6.3-8.2) g/dL Albumin 4.1 (3.5-5.1) g/dL Lipase 84 (23-300) U/L Urine Color Yellow (Yellow) Urine Appearance Clear (Clear) Urine pH 7.5 (5.0-9.0) Ur Specific Mayo 1.008 (1.001-1.035) Urine Protein Negative (Negative) mg/dL Urine Glucose (UA) Negative (Negative) mg/dL Urine Ketones Negative (Negative) mg/dL Ur Blood (Man) Negative (Negative) Urine Nitrate Negative (Negative) Urine Bilirubin Negative (Negative) Urine Urobilinogen 1.0 (<2.0) mg/dL Leukocyte Esterase Rfl Negative (Negative) MARY/UL Imaging Data Radiologist's impression: Impressions Abdomen/Pelvis CT 04/25/25 12:33 Impression: No acute abnormality. Small hiatal hernia. Discharge Plan Discharge Clinical Impression: Costovertebral angle tenderness, Low back pain Patient Disposition: Home Condition: Stable Instructions: Antibiotic Form, Acute Low Back Pain (ED), Flank Pain (ED) Additional Instructions: Home medications for pain control has needed. Avoid NSAIDs for preop. Have close follow-up with your primary care physician. If you have any worsening symptoms then please call or return emergency department. Patient Language: Rwandan Prescriptions: No Action cyclobenzaprine 10 mg tablet 10 mg PO TID zolpidem 10 mg tablet 10 mg PO QHS Qty: 90 3RF Rx Instructions: I am aware she is taking with narcotic and has been for a long time without complications hydrochlorothiazide 25 mg tablet 25 mg PO DAILY Qty: 90 2RF cephalexin 500 mg capsule 500 mg PO Q12H Qty: 14 0RF losartan 25 mg tablet 25 mg PO DAILY lidocaine 5 % adhesive patch,medicated 1 patch topical Q24H ondansetron 4 mg tablet,disintegrating 4 mg PO Q8H PRN (Reason: nausea and vomiting) Qty: 20 0RF atorvastatin 40 mg tablet 40 mg PO QHS aspirin 81 mg Tablet,Delayed Release (Dr/Ec) 81 mg PO QAM Qty: 30 0RF Patient Comments: HOLD FOR 7 DAYS PRIOR cholecalciferol (vitamin D3) 62.5 mcg (2,500 unit) capsule 62.5 mcg PO DAILY albuterol sulfate 90 mcg/actuation HFA aerosol inhaler 2 puff inhalation QID PRN (Reason: shortness of breath or wheezing) Qty: 8.5 5RF sertraline 100 mg tablet 150 mg PO DAILY Qty: 135 2RF pantoprazole [Protonix] 40 mg tablet,delayed release (DR/EC) 40 mg PO QAM Qty: 90 1RF tramadol 50 mg tablet 50 mg PO Q6H PRN (Reason: pain) Qty: 180 1RF oxybutynin chloride 5 mg tablet extended release 24hr 5 mg PO DAILY Qty: 30 2RF Patient Comments: HS levothyroxine 88 mcg tablet See Rx Instructions .ROUTE .COMPLEX Qty: 90 0RF Dose Instruction: TAKE 1 TABLET BY MOUTH DAILY Rx Instructions: TAKE 1 TABLET BY MOUTH DAILY trazodone 50 mg tablet See Rx Instructions .ROUTE .COMPLEX Qty: 90 1RF Dose Instruction: TAKE 1 TABLET BY MOUTH AT BEDTIME NEEDED FOR SLEEP Rx Instructions: TAKE 1 TABLET BY MOUTH AT BEDTIME NEEDED FOR SLEEP Linzess 145 mcg capsule See Rx Instructions .ROUTE .COMPLEX Qty: 90 1RF Dose Instruction: TAKE 1 CAPSULE BY MOUTH DAILY NEEDED FOR CONSTIPATION Rx Instructions: TAKE 1 CAPSULE BY MOUTH DAILY NEEDED FOR CONSTIPATION hyoscyamine sulfate 0.125 mg tablet, sublingual 0.125 mg PO Q4-6H PRN (Reason: dyspepsia) Qty: 20 3RF alprazolam 0.25 mg tablet 0.25 mg PO TID PRN (Reason: anxiety) Qty: 30 2RF hydrocodone-acetaminophen 5-325 mg tablet 1 tablet PO Q6H PRN (Reason: pain) Qty: 30 0RF Follow-up/Referrals: Juan Pablo Easton MD [Primary Care Provider] -
[2025-04-25] MEDS: ONDANSETRON INJ 4 MG/2 ML VIAL IV PUSH (11:37)
[2025-04-25 11:45] LABS: Alanine Aminotransferase 25 U/L (6-35); Albumin Level 4.1 g/dL (3.5-5.1); Alkaline Phosphatase 91 U/L (38-126); Anion Gap 8 mmol/L (4-12); Aspartate Amino Transferase 35 U/L (14-36); Bilirubin,Total 0.4 mg/dL (0.2-1.3); Blood Urea Nitrogen 16 mg/dL (7-17); Calcium 9.0 mg/dL (8.4-10.2); Carbon Dioxide 26 mmol/L (22-30); Chloride 96 mmol/L (98-107); Estimated CRCL calculation 45 ml/min; Estimated Glomerular Filt Rate 54; Glucose 114 mg/dL (65-110); Lipase 84 U/L (23-300); Potassium 3.3 mmol/L (3.4-5.0); Sodium 130 mmol/L (137-145); Total Protein 6.9 g/dL (6.3-8.2)
[2025-04-25 11:47] LABS: Add Urine Microscopic? NO; Appearance Urine Clear (Clear); Glucose Urine UA Negative (Negative); Leukocyte Esterase Ur Negative LEU/UL (Negative); Nitrate Urine Negative (Negative); Specific Grav Ur 1.008 (1.001-1.035)
[2025-04-25 13:15] VITALS: BP 121/65; PULSE 87; RESP 20; TEMP 36.6; O2SAT 98
== END 2025-04-25 13:17 | disposition home or self-care (01) ==
PROVIDERS: Emergency Provider Emergency Medicine; PCP Family Medicine
DX: M54.50 Low back pain, unspecified (principal); R10.819 Abdominal tenderness, unspecified site; I25.10 Atherosclerotic heart disease of native coronary artery without angina pectoris; I11.0 Hypertensive heart disease with heart failure; I50.30 Unspecified diastolic (congestive) heart failure; I25.2 Old myocardial infarction; I70.0 Atherosclerosis of aorta; E55.9 Vitamin D deficiency, unspecified; E53.8 Deficiency of other specified B group vitamins; E03.9 Hypothyroidism, unspecified; E88.810 Metabolic syndrome; E78.2 Mixed hyperlipidemia; R73.03 Prediabetes; K31.84 Gastroparesis; K58.0 Irritable bowel syndrome with diarrhea; G62.9 Polyneuropathy, unspecified; M19.90 Unspecified osteoarthritis, unspecified site; F51.04 Psychophysiologic insomnia; F32.A Depression, unspecified; Z90.721 Acquired absence of ovaries, unilateral; Z90.49 Acquired absence of other specified parts of digestive tract; Z90.710 Acquired absence of both cervix and uterus; K44.9 Diaphragmatic hernia without obstruction or gangrene; Z79.82 Long term (current) use of aspirin; Z79.899 Other long term (current) drug therapy
CPT/HCPCS: 36415; 74177; 80053; 81003; 83690; 85025; 96374; 99284; J2405; Q9967

== ENCOUNTER 2025-04-27 00:32 | Day surgery (SDC) | payer MEDICARE, SELFPAY ==
[2025-03-31 12:13] VITALS: BP 150/81; PULSE 67; RESP 16; TEMP 36.8; O2SAT 100; BMI 31.1
--- NOTE | 2025-03-31 12:29 | PC.NURSE ---
Report to the Outpatient Waiting Room, entrance under the green pavilion located off [facility], at time __0830am on date __04/27/25 . Planned Procedure Time: _10:30am .? Time changes happen often and if your time is changed the preop area will call you the afternoon before. - You and your visitor will be asked to self-screen and do not enter if you have any COVID symptoms. Please call surgeon if you need to reschedule. - A mask is optional within the hospital at this time. Patients may have clear liquids (water, carbonated beverages, clear teas, apple juice) until 3 hours prior to surgery with a maximum of 20 ounces. - No food from midnight until time of surgery and no smoking, or chewing tobacco (or any form of nicotine). No chewing gum, candy or mints. (07:30am) Take only the following medications with a SIP of water on the morning of surgery: ___ Sertraline, Levothyroxine, Alprazolam if needed, Cyclobenzaprine if needed, Hydrocodone or Tramadol if needed ,Albuteral inhaler if needed DO NOT STOP ANY OF YOUR OTHER PRESCRIPTION MEDICATIONS PRIOR TO SURGERY EXCEPT THE FOLLOWING Hold all vitamins and supplements for 3 days per anesthesiologist.Date to take last dose is 04/23/25. Medications to discontinue per physician ___Hold Aspirin for [address] Wiley/Martin Date to take last dose____04/19/25 Please no make-up, nail welsh, hairspray, perfume, deodorant, or body powder the day of surgery.? No jewelry (including any body piercings) or valuables the day of surgery, leave them at home.? Please take a shower or bath the night before, or the morning of, surgery with an antibacterial soap.? Wear comfortable, loose fitting clothing.? Bring overnight bag, cell phone/plate glass polisher too - Jewelry must be removed prior to entering the operating room.? Rings and piercings that are not removed may be cut off. - The hospital will not accept responsibility for valuables.? - Please leave all valuables, including medications, at home the day of surgery. If you are going home after surgery, a licensed hazmat truck driver must drive you home.? - NO public transportation without another adult if you receive anesthesia. - We recommend that an adult stay with you for 24 hours following discharge. - We also recommend that you do not drive, make important decision, drink alcoholic beverages, or take any drugs that were not prescribed by your health care provider for at least 24 hours after your discharge time. Follow any additional instructions given to you from your surgeon. Telephone instructions given to _Patient and asked if any additional questions and then verbalized understanding. Patient advised to call surgeon office or pre surgery nurse liaison [phone] if any additional questions.
[2025-04-27] VITALS (16 sets, daily range): BP systolic 126–162; BP diastolic 59–72; PULSE 66–99; RESP 12–20; TEMP 36.1–37.1; O2SAT 97–100; BMI 31.1
--- NOTE | ~2025-04-27 | XR_ITS ---
EXAM: [id number] DATE: 04/27/2025 14:54 HISTORY: POST-OP RIGHT TKA . COMPARISON: CT lower extremity right 12/22/2024. FINDINGS: Left total knee osteoblastic hardware in good position. Gas and fluid over the joint space . Gas tracking up into the mid thigh. No hardware fracture. No osseous fracture. No abnormal perihard victor lucency. No unexpected radiopaque foreign body. IMPRESSION: Expected postsurgical changes, with no radiographic evidence of procedure or hardware rel ated complication. Reviewed, dictated and finalized at location K. IMPRESSION: Expected postsurgical changes, with no radiographic evidence of pro cedure or hardware related complication.
--- OUTSIDE RECORDS SUMMARY | 2025-04-27 00:34 | XMS_ITS | Clinical Summary ---
Author Organization [facility] [address] Address [address] [place] [address] Care Team Providers Care Baking Factory Worker Name Role Phone Juan Pablo Easton MD Primary Care Provider [phone] [phone] Allergies Active Allergy Reactions Criticality Noted Date Comments Ciprofloxacin Rash Medium Latex Rash Medium Reaction: Rash, , Neomycin Other (See comments) Low 12/19/2023 Unknown Penicillins Anaphylaxis High Quinolones Rash Medium Reaction: rash, Shellfish Containing Products Angioedema High 02/15/2022 Medications ALPRAZolam (XANAX) 0.25 mg tabletIndicatio ns:anxiety Take 1 tablet (0.25 mg total) by mouth 3 (three) times a day as needed for anxiety Active hyoscyamine (LEVSIN) 0.125 mg SL tabletIndicatio ns:Irritable Bowel Syndrome Take 1 tablet (0.125 mg total) by mouth as needed for cramping or diarrhea 06/15/20 21 Active linaCLOtide (LINZESS) 145 mcg capsuleIndicati ons:chronic idiopathic constipation Take 1 capsule (145 mcg total) by mouth Medrol Dose Pack scheduling ONLY Active ondansetron (ZOFRAN) 4 mg tablet Take 1 tablet (4 mg total) by mouth every 8 (eight) hours as needed for nausea or vomiting Active pantoprazole DR (PROTONIX) 40 mg EC tabletIndicatio ns:Treatment of Non-Bleeding Gastric Disorder,reflux Take 1 tablet (40 mg total) by mouth every morning Active sertraline (ZOLOFT) 100 mg tabletIndicatio ns:Anxiety with Depression Take 1 tablet (100 mg total) by mouth every morning 10/07/18 70 Active zolpidem (AMBIEN) 10 mg tabletIndicatio ns:Sleep-Onset Insomnia Take 1 tablet (10 mg total) by mouth nightly as needed for sleep 10/07/18 70 Active traZODone (DESYREL) 50 mg tabletIndicatio ns:insomnia associated with depression Take 1 tablet (50 mg total) by mouth nightly as needed for sleep Active albuterol HFA (PROVENTIL HFA,VENTOLIN HFA,PROAIR HFA) 90 mcg/actuation inhalerIndicati ons:Chronic Obstructive Pulmonary Disease Inhale 2 puffs every 6 (six) hours as needed for wheezing or shortness of breath Active HYDROcodone-martha taminophen (NORCO) 5-325 mg per tablet Take 1 [...] mg total) by mouth daily Active fluticasone propion-salmete roL (ADVAIR DISKUS) 250-50 mcg/dose diskus inhaler Inhale 1 puff 2 (two) times a day 11/26/19 24 Active traMADoL (ULTRAM) 50 mg tablet Take 1-2 tablets (50-100 mg total) by mouth every 6 (six) hours as needed for pain for up to 7 days 42 tablet 04/28/20 24 Active atorvastatin (LIPITOR) 40 mg tabletIndicatio ns:hyperlipidem ia Take 1 tablet (40 mg total) by mouth nightly 90 tablet 3 05/07/20 24 Active levothyroxine (SYNTHROID) 88 mcg tablet Take 1 tablet (88 mcg total) by mouth daily 06/09/20 24 Active celecoxib (CeleBREX) 200 mg capsule Take 1 capsule (200 mg total) by mouth daily 11/16/19 25 Active cyclobenzaprine (FLEXERIL) 10 mg tabletIndicatio ns:Muscle spasm of back TAKE 1 TABLET(10 MG) BY MOUTH THREE TIMES DAILY NEEDED FOR MUSCLE SPASMS 90 tablet 3 03/02/20 25 Active hydroCHLOROthia zide (HYDRODIURIL) 25 mg tablet Take 1 tablet (25 mg total) by mouth daily 02/03/20 25 Active lidocaine (LIDODERM) 5 % Place 1 patch on the skin daily for 12 hours Remove & discard patch within 12 hours or as directed by . 30 patch 3 04/10/20 25 Active losartan (COZAAR) 25 mg tablet TAKE 1 TABLET(25 MG) BY MOUTH DAILY 90 tablet 1 04/26/20 25 Active lidocaine (LIDODERM) 5 % PLACE 1 PATCH ON SKIN EVERY DAY. REMOVE AND DISCARD PATCH WITHIN 12 HOURS OR DIRECTED BY MD 30 patch 3 03/13/20 24 025 Discontinued(R eorder) losartan (COZAAR) 25 mg tablet TAKE 1 TABLET(25 MG) BY MOUTH DAILY 90 tablet 1 10/19/19 25 025 Discontinued Active Problems Problem Noted Date [...] (06/27/2022): Added automatically from request for surgery [id number] Entrapment neuropathy of right sural nerve 04/24 [...] Description 03/04/2025 11:30 AM CDT Office Visit [facility] Cardiology [address] [place] [address] Tamiko Wiley MD Coronary artery disease involving ramona coronary artery of ramona heart without angina pectoris (Primary Dx); Primary [...] - Hx Other Medical Hysterectomy; C omments: U 02/24/2015 - Hx Other Medical Chronic back pa in; Comments: U 02/24/2015 - Asthma COPD (chronic obstructive pu lmonary disease) ([facility]) Hypertension Thyroid disease Diastolic dysfunction Cardiomyopathy (HCC) 06/16/2021 Takotsubo c ardiomyopathy Cfthxor-Shfeq-Iwehn disease GERD (gastroesophageal reflu x disease) 1989 Arthritis 2005 Depression 2002 Heart disease 2020 Shortness of breath Cataract 2018 Migraines 2003 PONV (postoperative nausea a nd vomiting) Low back pain Constipation Plantar fasciitis L Family History Medical History Relation Name Comments Early Brother Alek Clark Heart attack Brother Alek Clark Hyperlipidemia Brother Alek Clark Hyperlipidem ia; Early Father Alek Clark Heart attack Father Alek Clark Hypertension Father Alek Clark Other Father Alek Clark [place] 48 yo, CABG 50, of massive [place] 53; Cancer Mother Sybil Clark Lung cancer [...] on file Legal Sex 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 Minimize further functional decline 2. Maximize quality of life 3. Control pain Strategies: - Activity/exercise program recommendation - Conservative stepwise pain medicine strategy with multi-disciplinary approach - Recommend healthy lifestyle strategies and compensatory methods as needed Medical Devices Implanted Type Area Oracle Etl Developer Device Identifier Shelf Expiration Date Model / Serial / Lot Eterna Implantable Pulse Generator Implanted:Qty: 1 on 02/22/2023 by Chelita Ray MD PhD at [facility] Other - see comments N/A: Back [employer] Inc [id number] 10/17/2024 [id number] / [id number] / Description:Implantable puls e generator reference # 85862 - PART OF KIT Axogen Inc Avance 4-5mm 50mm Allograft Natural Connection Graft Soft Tissue [id number] - [id number] Implanted:Qty: 1 on 07/31/2022 by Padmini Mcnamara MD at [facility] Right: Ankle Axogen Inc 12/05/2023 [id number] / / [id number] Description:Implanted proxim al to right ankle. [employer] [place] Lead 1192 - [id number] Implanted:Qty: 2 on 02/22/2023 by Chelita Ray MD PhD at [facility] N/A: Back [employer] [id number] 10/21/2024 1192 / / [id number] [employer] Octrode 60cm 8 Electrode Lead Percutaneous Kit Neurostimulator 3186ans - [id number] - [id number] Implanted:Qty: 1 on 02/22/2023 by Chelita Ray MD PhD at [facility] N/A: Back [employer] [id number] 02/04/2025 [id number] / [id number] / [employer] Octrode 60cm 8 Electrode Lead Percutaneous Kit Neurostimulator [id number] - [id number] - [id number] Implanted:Qty: 1 on 02/22/2023 by Chelita Ray MD PhD at [facility] N/A: Back [employer] [id number] 02/04/2025 [id number] / [id number] / [employer] Generator Neurostimulator Spine Rechargeable Eterna [id number] - [id number] Implanted:Qty: 1 on 02/22/2023 by Chelita Ray MD PhD at [facility] N/A: Back [employer] [id number] / / Explanted Type Area Oracle Etl Developer Device Identifier Shelf Expiration Date Model / Serial / Lot [employer] Invisible One Lead Trial System Spinal Cord Stimulation 1-Lead Trial s - [id number] - [id number] Implanted:Qty: 1 on 01/10/2023 by Alcon Ayers MD at [facility] Explanted: 023 by Chelita Ray MD PhD (Quantity not on file) [employer] 10/04/2024 1-LEAD TRIAL SYS / [id number] / Procedures Procedure Name Priority Date/Time Associated Diagnosis Comments ELECTROCARDIOGRAM REPORT Routine 025 11:58 AM CDT Primary hypertension H/O cardiomyopathy Preoperative cardiovascular examination POCT LIPID PANEL Routine 03/04/2025 11:2 9 AM CDT Mixed hyperlipidemia Coronary artery disease involving ramona coronary artery of ramona heart without angina pectoris COLONOSCOPY REPORT 11/03/2012 from Last 3 Months or Most Recently Relevant to Health Maintenance Results * Electrocardiogram Report (03/04/2025 11:58 AM CDT) [facility] Allan Wiley MD ECG ORDERABLES Final R esult * POCT lipid panel (03/04/2025 11:29 AM CDT) Cholesterol, POC 127 <200 MG/DL HDL, POC 57 >=40 mg/dL Triglycerides, POC 83 <=149 mg/dL LDL Cholesterol POC 54 <=129 mg/dL Chol/HDL Ratio, POC 0.9 NONE Non-HDL Cholesterol, POC 70 NONE mg/dL Cholesterol Total, POC 127 30 - 199 mg/dL Capillary blood 03/04/2025 1 1:29 AM CDT [facility] Allan Wiley MD POINT OF CARE TEST ORDAlejandra RABLES Final Result * COLONOSCOPY REPORT (11/03/2012) Anatomical Region Laterality Modality Other Narrative 11/03/2012 Ordered by an unspecified provider. Historical Provider GI PROCEDURE ORDERABLES F inal Result from Last 3 Months or Most Recently Relevant to Health Maintenance Insurance MEDICARE [facility] MEDICARE [facility] MEDICARE [facility] Advance Directives For more information, please contact: [phone] * Full Code (Latest Code Status on File) Date Activated Date Inactivated Comments 07/31/2022 4:32 PM 08/01/2022 4:34 PM Care Teams Baking Factory Worker Relationship Specialty Start Date End Date Juan Pablo Easton MD PCP - General 02/24/15
--- OUTSIDE RECORDS SUMMARY | 2025-04-27 00:34 | XMS_ITS ---
Author Organization [facility] [place] ([address]) Address [address] [place] [address] Care Team Providers Care Chief Nursing Officer Name Role Phone Juan Pablo Easton M.D. Primary Care Provider Jaycee Debbie Viera Unavailable [phone] Marleen Atwood Unavailable Unavailable ZZ-Migration, Provider Unavailable Unavailab le Allergies Allergen (clinical drug ingredient) Drug/Non Drug Allergy documented on EMR Reaction Allergy Type Onset Date Status Ciprofloxacin Unknown Drug Allergy Act noa neomycin Neomycin Unknown Drug Allergy Active Penicillin rash/shortness of breath Drug Allergy Active quinapril Quinapril Unknown Drug Allergy Active REASON FOR VISIT [facility] Conversion Encounter Medications Medication SIG (Take, Route, Frequency, Duration) Notes Start Date End Date Status HYDROcodone Bitartrate ER 10 MG 1 cap(s) orally every 12 hours Active Zanaflex 4 MG 2 cap(s) orally 3 times a day Active Trelegy Ellipta 100 MCG-62.5 MCG-25 MCG/INH 1 PUFF(S) INHALED ONCE A DAY; Duration: 30 DAYS *Please review and pick correct strength-formula tion from [facility] options. If intended option is not [...] review and pick correct strength-formula tion from [employer] options. If intended option is not shown, [...] review and pick correct strength-formula tion from [employer] options. If intended option is not shown, [...] Active Encounters Encounter Location Date Provider Diagnosis [address] [address] 03/21/2024 Provider IRVING-Harry Cough, unspecified R05.9 and [...] review and pick correct strength-formulatio n from [employer] options. If intended option is not shown, [...] review and pick correct strength-formulatio n from [employer] options. If intended option is not shown, discontinue and re-order from Quick Search* Levocetirizine Dihydrochloride 5 MG 1 tab(s) orally once a day (in the evening); Duration: 30 days Advair Diskus 250 MCG-50 MCG 1 INH INHALED 2 TIMES A DAY; Duration: 30 DAYS 11/26/2023 *Please review and pick correct strength-formulatio n from [employer] options. If intended option is not shown, discontinue and re-order from Quick Search* Progress Notes * Arcadio GUTIERREZMissyOB:1955 (69 yo F)Acc No.[id number]:03/21/2024 Patient: Schuyler GUILLEN Provider: Shahid Mcdonald :1955 A ge:68 Y S ex:Female Date:03/21/2024 Address:[address] [place], [place] [id number] Pcp:Juan Pablo Easton M.D. Subjective: * Chief Complaints: * 1 . [facility] To [facility] Conversion Encounter. * Medical History: * Medications: [...] Procedure Codes: * Electronic signature of Kathrin FisherZ-Migration on 04/27/2025 at 12:34 AM CDT Sign off status: Pending * Provider: Shahid che Migration Date: 03/21/2024 Generated for Terence gutierrez/Cris/Aleksnader on: 04/27/2025 12:34 AM CDT
--- OUTSIDE RECORDS SUMMARY | 2025-04-27 00:34 | XMS_ITS | Referral Summary ---
Author Organization [facility] [address] [facility] [address] Address [address] [place] [address] Care Team Providers Care Airplane Designer Name Role Phone Juan Pablo Easton MD Primary Care Provider [phone] [phone] Encounters Date Type Department Care Team Description 03/04/2025 11:30 AM CDT Office Visit [facility] Cardiology [address] [place] [address] Tamiko Wiley MD Coronary artery disease involving [place] coronary artery of [place] heart without angina pectoris (Primary Dx); Primary [...] as directed by MD. 30 patch 3 04/10/20 25 Active losartan (COZAAR) 25 mg tablet TAKE 1 TABLET(25 MG) BY MOUTH DAILY 90 tablet 1 04/26/20 25 Active lidocaine (LIDODERM) 5 % PLACE 1 PATCH ON SKIN EVERY DAY. 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 Minimize further functional decline 2. Maximize quality of life 3. Control pain Strategies: - Activity/exercise program recommendation - Conservative stepwise pain medicine strategy with multi-disciplinary approach - Recommend healthy lifestyle strategies and compensatory methods as needed Medical Devices Implanted Type Area Domestic Violence Advocate Device Identifier Shelf Expiration Date Model / Serial / Lot Eterna Implantable Pulse Generator Implanted:Qty: 1 on 02/22/2023 by Chelita Ray MD PhD at [facility] Other - see comments N/A: Back [employer] Sp[employer] Inc [id number] 10/17/2024 25685 / [id number] / Description:Implantable puls e generator reference # 26914 - PART OF KIT [employer] Avance 4-5mm 50mm Allograft Natural Connection Graft Soft Tissue [id number] - [id number] Implanted:Qty: 1 on 07/31/2022 by Padmini Mcnamara MD at [facility] [place] Right: Ankle [employer]ogen Inc 12/05/2023 [id number] / / [id number] Description:Implanted proxim al to right ankle. [employer] Lead 1192 - [id number] Implanted:Qty: 2 on 02/22/2023 by Chelita Ray MD PhD at [facility] Medicine N/A: Back [employer] [id number] 10/21/2024 1192 / / [id number] [employer] Octrode 60cm 8 Electrode Lead Percutaneous Kit Neurostimulator 3186ans - [id number] - [id number] Implanted:Qty: 1 on 02/22/2023 by Chelita Ray MD PhD at [facility] N/A: Back [employer] [id number] 02/04/2025 [id number] / [id number] / [employer] Octrode 60cm 8 Electrode Lead Percutaneous Kit Neurostimulator [id number] - [id number] - [id number] Implanted:Qty: 1 on 02/22/2023 by Chelita Ray MD PhD at [facility] N/A: Back [employer] Inc [id number] 02/04/2025 [id number] / [id number] / [employer] Generator Neurostimulator Spine Rechargeable Eterna [id number] - [id number] Implanted:Qty: 1 on 02/22/2023 by Chelita Ray MD PhD at [facility] Medicine N/A: Back [employer] Inc [id number] / / Explanted Type Area Domestic Violence Advocate Device Identifier Shelf Expiration Date Model / Serial / Lot [employer] Inc Invisible One Lead Trial System Spinal Cord Stimulation 1-Lead Trial Sys - [id number] - [id number] Implanted:Qty: 1 on 01/10/2023 by Alcon Ayers MD at [facility] Explanted: 023 by Chelita Ray MD PhD (Quantity not on file) [employer] 10/04/2024 1-LEAD TRIAL S / [id number] / Procedures Procedure Name Priority Date/Time Associated Diagnosis Comments ELECTROCARDIOGRAM REPORT Routine 025 11:58 AM CDT Primary hypertension H/O cardiomyopathy Preoperative cardiovascular examination POCT LIPID PANEL Routine 03/04/2025 11:2 9 AM CDT Mixed hyperlipidemia Coronary artery disease involving [place] coronary artery of [place] heart without angina pectoris COLONOSCOPY REPORT 11/03/2012 [...] Narrative 11/03/2012 Ordered by an unspecified provider. Bal Provider GI PROCEDURE ORDERABLES F inal Result from Last 3 Months or Most Recently Relevant to Health Maintenance Insurance [facility]ICARE [facility] Member Subscriber Plan / Payer (Ef fective 2020-Present) Name:Schuyler Gutierrez Relation to Subscriber:Self Name:Schuyler Gutierrez Payer ID:[id number] Group ID:[id number] Type:[place] Address: [facility] [id number] [place] [id number] MEDICARE [facility] MEDICARE [facility] Advance Directives For more information, please contact: [phone] * Full Code (Latest Code Status on File) Date Activated Date Inactivated Comments 07/31/2022 4:32 PM 08/01/2022 4:34 PM Care Teams Airplane Designer Relationship Specialty Start Date End Date Juan Pablo Easton MD PCP - General 02/24/15
--- OUTSIDE RECORDS SUMMARY | 2025-04-27 00:34 | XMS_ITS | Encounter Summary ---
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 Author CCM Chronic Pain Care Plan Chronic Care Management On track(2023 1:38 PM DAIRY 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 TECHNOLOGIST) No Lizette Resendiz RN Note: Problem: Chronic [...] on filedocumented in this encounter Care Teams Veterinarian Assistant Relationship Specialty Start Date End Date Juan Pablo Easton MD PCP - General 02/24/15 documented as of this encounter
--- OUTSIDE RECORDS SUMMARY | 2025-04-27 00:35 | XMS_ITS | Encounter Summary ---
Author Organization [facility] Healthcare Address [address] [place] [address] Care Team Providers Care Hot Dipper Name Role Phone Juan Pablo Easton MD Primary Care Provider +1 -[phone] Encounter Details Date Type Department Care Team (Late st Contact Info) Description 10/30/2023 Telephone [facility] [place] [facility] [address] [facility] [address] [place] [address] Chelita Ray MD PhD [address] [facility] [address] [place], [place] [id number] Social History Tobacco Use Types Packs/Day Years [...] on file Legal Sex Female 3:40 AM TECHNICAL ADJUSTER Gender Identity Not on file Sexual Orientation [...] Chronic Care Management On track(2023 1:38 PM TECHNICAL ADJUSTER) Lizette Hughes, ASH Note: Problem: Chronic Pain Goals: 1. Minimize further functional decline 2. Maximize quality of life 3. Control pain Strategies: - Activity/exercise program recommendation - Conservative stepwise pain medicine strategy with multi-disciplinary approach - Recommend healthy lifestyle strategies and compensatory methods as needed documented as of this encounter Visit Diagnoses Not on filedocumented in this encounter Care Teams Hot Dipper Relationship Specialty Start Date End Date Juan Pablo Easton MD PCP - General 02/24/15 documented as of this encounter
--- OUTSIDE RECORDS SUMMARY | 2025-04-27 00:35 | XMS_ITS | Clinical Summary ---
Author Organization [facility] Address [address] [place] [address] Care Team Providers Care Integrity Specialist Name Role Phone Juan Pablo Easton MD Primary Care Provider +1- [phone] Source Comments [facility],non-owned Affiliates and Associated Physician Practices is amultiple site organization consisting of ambulatory clinics and hospital sitesin [place], [place], [place] and [place]. This disclosure is being madepursuant to the Care Everywhere program and may not contain all information available regarding this patient. 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
--- OUTSIDE RECORDS SUMMARY | 2025-04-27 00:35 | XMS_ITS ---
Author Organization 1 OF Toni carl [facility] Address [address] [facility] [address] [place] [address] Care Team Providers Care Wood Die Maker Name Role Phone Juan Pablo Easton M.D. Primary Care Provider Juan Lancaster [phone] REASON FOR VISIT LT PF Encounters Encounter Location Date Provider Diagnosis 1 OF Toni Serrano [facility] [address] [facility] [address] [place] [address] 08/20/2024 Juan Serrano Plan Of Treatment No Information Progress Notes * Marysol GUTIERREZOB:1955 (69 yo F)Acc No.[id number]:08/20/2024 Progress Notes Patient: Schuyler GUILLEN Provider: Toni Serrano DPM :1955 A ge:68 Y S ex:Female Date:08/20/2024 [facility] [facility] Pcp:Juan Pablo Easton M.D. Subjective: * Chief [...] Electronic signature of Laurie Serrano DPM on 04/27/2025 at 12:35 AM CDT Sign off status: Pending * Provider: Toni Serrano DPM Date: 1 10/20/2023 Generated for Terence gutierrez/Cris/Aleksander on: 0 04/27/2025 12:35 AM CDT History and Physical Notes * [...]
--- OUTSIDE RECORDS SUMMARY | 2025-04-27 00:35 | XMS_ITS | Patient Health Record ---
Author Organization 1 ANAIS carl [facility] Address [address] [facility] [address] [place] [address] Care Team Providers Care Icu Clerk Name Role Phone Juan Pablo Easton M.D. 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) (84831104602282211) Congenital pes cavus, 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) Active confirmed Problem Gouty arthritis of right foot (4040013700049567) Gouty arthritis of right foot (M10.9) Active confirmed 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) Ngclytp-Cwucy-X ooth disease (G60.0) Active confirmed Problem Common peroneal nerve lesion (915331000) 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 Problem Mononeuropathy of lower limb (204054644) Neuritis of right lower extremity (G57.91) Active confirmed Vital Signs Height 63 in 08/31/2024 Weight 170 lbs 08/31/2024 BMI 30.11 kg/m2 08/31/2024 Encounters Encounter Location Date Provider Diagnosis 1 OF Toni Serrano [facility] [address] [employer] [address] [place] [address] 07/06/2024 Juan Serrano Plantar fasciitis of left foot M72.2 ; Congenital pes cavus, left foot Q66.72 and Foot pain, left M79.672 1 OF Toni Serrano [facility] [address] [place] [address] 07/23/2024 Juan Serrano Plantar fasciitis of left foot M72.2 ; Congenital pes cavus, left foot Q66.72 and Foot pain, left M79.672 1 OF Toni Serrano [facility] [address] [place] [address] 08/31/2024 Juan Serrano Plantar fasciitis of left foot M72.2 ; Entrapment neuropathy of right sural nerve G57.31 ; Congenital pes cavus, left foot Q66.72 and Foot pain, left M79.672 1 OF Toni Serrano [facility] [address] [place] [address] 07/06/2024 Juan Serarno 1 OF Toni Serrano [facility] [address] [place] [address] 09/01/2024 Juan Serrano 1 OF Toni Serrano [facility] [address] [place] [address] 09/08/2024 Juan Serrano 1 OF Toni Serrano [facility] [address] [place] [address] 09/08/2024 Juan Serrano 1 OF Toni Serrano [facility] [address] [place] [address] 09/09/2024 Juan Serrano Assessments Encounter Date Diagnosis [...] fasciitis of left foot (ICD-10 - M72.2) [place] was added to [employer]. Considered [...] to me at her visit that another accounts payable representative had told her she had Gdukqls-Cwrfh-Rbyu h disease however today I advised does not appear she has any symptoms of Yfldqrw-Ciywv-Bhji h and this may not have been a accurate diagnosis. She does have a neurologist that she sees regularly for her continued pain of the right foot and I recommended she consider asking her neurologist whether or not she might have Qdxrhrc-Ghyau-Pelo h disease. 07/06/2024 Foot pain, left (ICD-10 - M79.672) 08/31/2024 Foot pain, left (ICD-10 - M79.672) 07/23/2024 Foot pain, left (ICD-10 - M79.672) 08/31/2024 Other Plan Of Treatment No Information Insurance Providers Payer Name Payer Address Payer Phone Subscriber Number Group Number Insured Name Patient Relationship to Insured Coverage Start Date Coverage End Date Medicare [address] [facility], [place] [id number] Schuyler Gutierrez Self - patient is the insured [facility] MEDICARE SUPPLEMENT [address] [place] [address] [id number] plan g Schuyler Gutierrez Self - patient is the insured Medical (General) History Medical History History ICD Code Arthritis, depression, gerd/ reflux, high cholesterol, high blood pressure, migraines, thyroid problems, Heart attack Surgical History Surgery Date(Month/Year) postcalcaneal spur resection 06/2018
--- OUTSIDE RECORDS SUMMARY | 2025-04-27 00:35 | XMS_ITS | Encounter Summary ---
Author Organization [facility] Address [address] [place] [address] Care Team Providers Care Sound Technician Supervisor Name Role Phone Juan Pablo Easton MD Primary Care Provider [phone] Reason for Visit * Reason Onset Date Comments Scheduling Appointments 01/19/2025 Encounter Details Date Type Department Care Team (Late st Contact Info) Description 01/19/2025 Telephone 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 Author CCM Chronic Pain Care Plan Chronic Care Management On track(2023 1:38 PM DRAFTING ENGINEER) No Lizette Resendiz, ASH Note: Problem: Chronic Pain Goals: 1. Minimize further functional decline 2. Maximize quality of life 3. Control pain Strategies: - Activity/exercise program recommendation - Conservative stepwise pain medicine strategy with multi-disciplinary approach - Recommend healthy lifestyle strategies and compensatory methods as needed documented as of this encounter Visit Diagnoses Not on filedocumented in this encounter Care Teams Sound Technician Supervisor Relationship Specialty Start Date End Date Juan Pablo Easton MD PCP - General 02/24/15 documented as of this encounter
--- OUTSIDE RECORDS SUMMARY | 2025-04-27 00:35 | XMS_ITS | Clinical Summary ---
Author Organization [facility] Address [address] [place] [address] Care Team Providers Care Java Web Architect Name Role Phone Juan Pablo Easton MD Primary Care Provider [phone]- [phone] Social History Tobacco Use Types Packs/Day Years [...] age to complete this topic Insurance MEDICARE [facility] Care Teams Java Web Architect Relationship Specialty Start Date End Date Juan Pablo Easton MD PCP - General FAMILY PRACTICE 01/23/21
--- OUTSIDE RECORDS SUMMARY | 2025-04-27 00:35 | XMS_ITS | Patient Health Record ---
Author Organization [facility] [place] ([address]) Address [address] [place] [address] Care Team Providers Care Hemodialysis Rn Name Role Phone Juan Pablo Easton M.D. Primary Care Provider Debbie Tovar Unavailable [phone] Marleen Atwood Unavailable Unavailable Allergies Allergen (clinical [...] review and pick correct strength-formula tion from [employer] options. If intended option is not shown, [...] review and pick correct strength-formula tion from [employer] options. If intended option is not shown, [...] Status Risk Notes Problem Allergy to penicillin (54131185) Allergy status to penicillin (Z88.0) Active confirmed Problem Chronic allergic conjunctivitis (02710242) Other chronic allergic conjunctivitis (H10.45) Active confirmed Problem Allergic rhinitis caused by pollen (disorder) (77377814) Allergic rhinitis due to pollen (J30.1) Active confirmed Problem Allergic rhinitis (43299702) Other allergic rhinitis (J30.89) Active confirmed Problem Allergic rhinitis caused by animal hair and dander (136230343223162) Allergic rhinitis due to animal (cat) (dog) hair and dander (J30.81) Active confirmed Problem Cough (finding) (13874210) Cough, unspecified (R05.9) Active confirmed Plan Of Treatment No Information Insurance Providers Payer Name Payer Address Payer Phone Subscriber Number Group Number Insured Name Patient Relationship to Insured Coverage Start Date Coverage End Date [employer] (Medicare) Attention Claims [address] [place] [address] [phone] [id number] Schuyler Gutierrez Self - patient is the insured [facility] [address] [place] [address] [id number] Schuyler Gutierrez Self - patient is the insured Medical (General) History Medical History History ICD Code Hypertension Surgical History Surgery Date(Month/Year) cholecystectomy Foot surgery Tonsillectomy hysterectomy
--- OUTSIDE RECORDS SUMMARY | 2025-04-27 00:35 | XMS_ITS ---
Author Organization [facility] [place] ([address]) Address [address] [place] [address] Care Team Providers Care Associate Professor Of Education Name Role Phone Juan Pablo Easton M.D. Primary Care Provider Jaycee Debbie Viera Unavailable [phone] Marleen Atwood Unavailable Unavailable REASON FOR VISIT ARC follow-up Encounters Encounter Location Date Provider Diagnosis [facility] - [place] [address] [place] [address] 02/18/2024 Debbie Mccann Plan Of Treatment No Information Progress Notes * Marysol HERNANDESOB:1955 (69 yo F)Acc No.[id number]:02/18/2024 Progress Notes Patient: Schuyler GUILLEN Provider: Vance Mccann MD :1955 A ge:68 Y S ex:Female Date:02/18/2024 [facility] Pcp:Juan Pablo Easton M.D. Subjective: * Chief Complaints: * 1 . ARC follow-up. * Medical History: Objective: * Vitals: Assessment: Plan: * Treatment: * Billing Information: * Visit Code: * Procedure Codes: * Electronic signature of Sudha Mccann MD on 04/27/2025 at 12:34 AM CDT Sign off status: Pending * Provider: Vance Mccann MD Date: 0 02/18/2024 Generated for Printi ng/Faxing/eTransmitting on: 0 04/27/2025 12:34 AM CDT
--- OUTSIDE RECORDS SUMMARY | 2025-04-27 00:35 | XMS_ITS | Encounter Summary ---
Author Organization [facility] Address [address] [place] [address] Care Team Providers Care Supply Chain Assistant Name Role Phone Juan Pablo Easton MD Primary Care Provider [phone] [phone] Reason for Visit * Reason Onset Date Comments Scheduling Appointments 03/20/2024 Encounter Details Date Type Department Care Team (Late st Contact Info) Description 03/20/2024 Telephone [facility] at the [place] [facility] [address] [facility] Advanced Medicine [address] [place] [address] Chelita Ray MD PhD [address] [facility] [phone] [place], [place] [phone] Scheduling Appointments Social History Tobacco Use Types [...] on file 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 Author CCM Chronic Pain Care Plan Chronic Care Management On track(2023 1:38 PM LEAD TELLER) No Lizette Resendiz, ASH Note: Problem: Chronic Pain Goals: 1. Minimize further functional decline 2. Maximize quality of life 3. Control pain Strategies: - Activity/exercise program recommendation - Conservative stepwise pain medicine strategy with multi-disciplinary approach - Recommend healthy lifestyle strategies and compensatory methods as needed documented as of this encounter Visit Diagnoses Not on filedocumented in this encounter Care Teams Supply Chain Assistant Relationship Specialty Start Date End Date Jua nPablo Easton MD PCP - General 02/24/15 documented as of this encounter
--- OUTSIDE RECORDS SUMMARY | 2025-04-27 00:35 | XMS_ITS | Patient Health Record ---
Author Organization [facility] Address [address] [place] [address] Support Name Relationship Address Phone Unavailable Emergency Contact Unknown Unavailabl e Schuyler Gutierrez Guarantor Unknown [phone] Allergies Allergen (clinical drug ingredient) Drug/Non Drug [...] Problem Essential hypertension (I10) Active confirmed Problem 64073209 Hypothyroidism, unspecified type (E03.9) Active confirmed Plan Of Treatment No Information Insurance Providers Payer Name Payer Address Payer Phone Subscriber Number Group Number Insured Name Patient Relationship to Insured Coverage Start Date Coverage End Date [facility] [employer] [address] [address] [place] [address] [id number] Schuyler Gutierrez Self - patient is the insured 6 Medical (General) History Medical History History ICD Code Essential hypertension I10 Hypothyroidism, unspecified type Surgical History Surgery Date(Month/Year) hysterectomy Gallbladder back surgery
--- OUTSIDE RECORDS SUMMARY | 2025-04-27 00:35 | XMS_ITS | Encounter Summary ---
Author Organization [facility] Address [address] [place] [address] Care Team Providers Care Snapper On Name Role Phone Juan Pablo Easton MD Primary Care Provider [phone] [phone] Reason for Visit * Reason Onset Date Comments PMC Preprocedure 08/24/2024 Encounter Details Date Type Department Care Team (Late st Contact Info) Description 08/24/2024 Telephone [facility] at the [place] [facility] [address] [facility] Advanced Medicine [address] [place], [place] [phone] Chelita Ray MD PhD [address] [facility] [phone] [place], [place] [phone] PMC Preprocedure Social History Tobacco Use Types [...] on file 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 Author CCM Chronic Pain Care Plan Chronic Care Management On track(2023 1:38 PM ASSOCIATE PROFESSOR OF MEDICINE) No Lizette Resendiz, ASH Note: Problem: Chronic Pain Goals: 1. Minimize further functional decline 2. Maximize quality of life 3. Control pain Strategies: - Activity/exercise program recommendation - Conservative stepwise pain medicine strategy with multi-disciplinary approach - Recommend healthy lifestyle strategies and compensatory methods as needed documented as of this encounter Visit Diagnoses Not on filedocumented in this encounter Care Teams Snapper On Relationship Specialty Start Date End Date Juan Pablo Easton MD PCP - General 02/24/15 documented as of this encounter
--- OUTSIDE RECORDS SUMMARY | 2025-04-27 00:35 | XMS_ITS | Continuity of Care Document ---
Author Organization [facility] Address [address] [place] [address] Phone Care Team Providers Care Wire Tinner Name Role Phone Ricky Gray Unavailable Unavailable Advance Directives Directive Yes / No Effective Date File Name No Information Encounters Encounter Description Practice Location Reason(s) For Visit Diagnoses Date Provider Providers Copied on Encounter [facility], [address], [place], [place], [address], [place] tel:[phone] [facility] No Information Dec-0 6-200 0 Doisy Edward. [address], [place], [address], [place]. tel:[phone] Family History Family Member Type Diagnosis Age [...]
--- OUTSIDE RECORDS SUMMARY | 2025-04-27 08:25 | XMS_ITS | Continuity of Care Document ---
Author Organization [facility] Address [address] [place] [address] Phone Care Team Providers Care Pet Sitter Name Role Phone Ricky Gray Unavailable Unavailable Advance Directives Directive Yes / No Effective Date File Name No Information Encounters Encounter Description Practice Location Reason(s) For Visit Diagnoses Date Provider Providers Copied on Encounter [facility], [address], [place], [place], [address], [place] tel:[phone] [facility] No Information Dec-0 6-200 0 Doisy Edward. [address] , [address], [place], [address], [place]. tel:[phone] Family History Family Member Type Diagnosis Age [...]
--- OUTSIDE RECORDS SUMMARY | 2025-04-27 08:25 | XMS_ITS | Clinical Summary ---
Author Organization [facility] [address] Address [address] [place] [address] Care Team Providers Care Tray Line Worker Name Role Phone Juan Pablo Easton MD Primary Care Provider [phone] [phone] Allergies Active Allergy Reactions Criticality Noted Date [...] (06/27/2022): Added automatically from request for surgery [id number] Entrapment neuropathy of right sural nerve 04/24 [...] Description 03/04/2025 11:30 AM CDT Office Visit [facility] [address] [place] [address] Tamiko Wiley MD Coronary artery disease involving big sandy coronary artery of big sandy heart without angina pectoris (Primary Dx); Primary [...] Asthma COPD (chronic obstructive pu lmonary disease) ([facility]) Hypertension Thyroid disease Diastolic dysfunction Cardiomyopathy (HCC) 06/16/2021 Takotsubo c ardiomyopathy Xomnadh-Ujwqz-Bnqon disease GERD (gastroesophageal reflu x disease) 1989 [...] on file 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 Minimize further functional decline 2. Maximize quality of life 3. Control pain Strategies: - Activity/exercise program recommendation - Conservative stepwise pain medicine strategy with multi-disciplinary approach - Recommend healthy lifestyle strategies and compensatory methods as needed Medical Devices Implanted Type Area Dress Shoe Inspector Device Identifier Shelf Expiration Date Model / Serial / Lot Eterna Implantable Pulse Generator Implanted:Qty: 1 on 02/22/2023 by Chelita Ray MD PhD at [facility] Other - see comments N/A: Back [employer] [id number] 10/17/2024 [id number] / [id number] / Description:Implantable puls e generator reference # 83336 - PART OF KIT [employer] Avance 4-5mm 50mm Allograft Natural Connection Graft Soft Tissue [id number] - [id number] Implanted:Qty: 1 on 07/31/2022 by Padmini Mcnamara MD at [facility] Right: Ankle [employer] 12/05/2023 [id number] / / [id number] Description:Implanted proxim al to right ankle. [employer] Lambert-Lock Carver Lead 1192 - [id number] Implanted:Qty: 2 on 02/22/2023 by Chelita Ray MD PhD at [facility] N/A: Back [employer] [id number] 10/21/2024 1192 / / [id number] [employer] Octrode 60cm 8 Electrode Lead Percutaneous Kit Neurostimulator [id number] - [id number] - [id number] Implanted:Qty: 1 on 02/22/2023 by Chelita Ray MD PhD at [facility] N/A: Back [employer] [id number] 02/04/2025 [id number] / [id number] / [employer] Octrode 60cm 8 Electrode Lead Percutaneous Kit Neurostimulator [id number] - [id number] - [id number] Implanted:Qty: 1 on 02/22/2023 by Chelita Ray MD PhD at [facility] N/A: Back [employer] [id number] 02/04/2025 [id number] / [id number] / [employer] Generator Neurostimulator Spine Rechargeable [employer] [id number] - [id number] Implanted:Qty: 1 on 02/22/2023 by Chelita Ray MD PhD at [facility] N/A: Back [employer] [id number] / / Explanted Type Area Dress Shoe Inspector Device Identifier Shelf Expiration Date Model / Serial / Lot [employer] Invisible One Lead Trial System Spinal Cord Stimulation 1-Lead Trial s - [id number] - [id number] Implanted:Qty: 1 on 01/10/2023 by Alcon Ayers MD at [facility] Explanted: 023 by Chelita Ray MD PhD (Quantity not on file) [employer] 10/04/2024 1-LEAD TRIAL SYS / [id number] / Procedures Procedure Name Priority Date/Time Associated Diagnosis Comments ELECTROCARDIOGRAM REPORT Routine 025 11:58 AM CDT Primary hypertension H/O cardiomyopathy Preoperative cardiovascular examination POCT LIPID PANEL Routine 03/04/2025 11:2 9 AM CDT Mixed hyperlipidemia Coronary artery disease involving big sandy coronary artery of big sandy heart without angina pectoris COLONOSCOPY REPORT 11/03/2012 from Last 3 Months or Most Recently Relevant to Health Maintenance Results * Electrocardiogram Report (03/04/2025 11:58 AM CDT) [facility] Allan Wiley MD ECG ORDERABLES Final R [...] 1 1:29 AM CDT [facility] Allan Wiley MD POINT OF CARE TEST ORDAlejandra RABLES Final Result * COLONOSCOPY REPORT (11/03/2012) Anatomical Region Laterality Modality Other Narrative 11/03/2012 Ordered by an unspecified provider. Historical Provider GI PROCEDURE ORDERABLES F inal Result from Last 3 Months or Most Recently Relevant to Health Maintenance Insurance MEDICARE [facility] MEDICARE [facility] MEDICARE [facility] Advance Directives For more information, please contact: [phone] * Full Code (Latest Code Status on File) Date Activated Date Inactivated Comments 07/31/2022 4:32 PM 08/01/2022 4:34 PM Care Teams Tray Line Worker Relationship Specialty Start Date End Date Juan Pablo Easton MD PCP - General 02/24/15
--- OUTSIDE RECORDS SUMMARY | 2025-04-27 08:25 | XMS_ITS | Clinical Summary ---
Author Organization [facility] Address [address] [place] [address] Care Team Providers Care Vamp Seamer Name Role Phone Juan Pablo Easton MD Primary Care Provider +1- [phone] Social History Tobacco Use Types Packs/Day Years [...] age to complete this topic Insurance [facility] Care Teams Vamp Seamer Relationship Specialty Start Date End Date Juan Pablo Easton MD PCP - General FAMILY PRACTICE 01/23/21
--- OUTSIDE RECORDS SUMMARY | 2025-04-27 08:25 | XMS_ITS | Referral Summary ---
Author Organization [facility] [address] [facility] [address] Address [address] [place] [address] Care Team Providers Care Party Plan Demonstrator Name Role Phone Juan Pablo Easton MD Primary Care Provider +1 [phone] Encounters Date Type Department Care Team Description 03/04/2025 11:30 AM CDT Office Visit [facility] Cardiology [address] [place] [address] Tamiko Wiley MD Coronary artery disease involving match-e-be-nash-she-wish band coronary artery of match-e-be-nash-she-wish band heart without angina pectoris (Primary Dx); Primary [...] (06/27/2022): Added automatically from request for surgery [id number] Entrapment neuropathy of right sural nerve 04/24 [...] on file Legal Sex 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 Minimize further functional decline 2. Maximize quality of life 3. Control pain Strategies: - Activity/exercise program recommendation - Conservative stepwise pain medicine strategy with multi-disciplinary approach - Recommend healthy lifestyle strategies and compensatory methods as needed Medical Devices Implanted Type Area Dynamometer Mechanic Device Identifier Shelf Expiration Date Model / Serial / Lot Eterna Implantable Pulse Generator Implanted:Qty: 1 on 02/22/2023 by Chelita Ray MD PhD at [facility] Other - see comments N/A: Back [employer] [id number] 10/17/2024 [id number] / [id number] / Description:Implantable puls e generator reference # 99954 - PART OF KIT [employer] Avance 4-5mm 50mm Allograft Natural Connection Graft Soft Tissue [id number] - [id number] Implanted:Qty: 1 on 07/31/2022 by Padmini Mcnamara MD at [facility] Right: Ankle [employer] 12/05/2023 [id number] / / [id number] Description:Implanted proxim al to right ankle. [employer] Lambert-Lock Crockett Lead 1192 - [id number] Implanted:Qty: 2 on 02/22/2023 by Chelita Ray MD PhD at [facility] N/A: Back [employer] [id number] 10/21/2024 1192 / / [id number] [employer] Octrode 60cm 8 Electrode Lead Percutaneous Kit Neurostimulator [id number] - [id number] - [id number] Implanted:Qty: 1 on 02/22/2023 by Chelita Ray MD PhD at [facility] N/A: Back [employer] [id number] 02/04/2025 [id number] / [id number] / [employer] Octrode 60cm 8 Electrode Lead Percutaneous Kit Neurostimulator [id number] - [id number] - [id number] Implanted:Qty: 1 on 02/22/2023 by Chelita Ray MD PhD at [facility] N/A: Back [employer] [id number] 02/04/2025 [id number] / [id number] / [employer] Generator Neurostimulator Spine Rechargeable Eterna [id number] - [id number] Implanted:Qty: 1 on 02/22/2023 by Chelita Ray MD PhD at [facility] N/A: Back [employer] [id number] / / Explanted Type Area Dynamometer Mechanic Device Identifier Shelf Expiration Date Model / Serial / Lot [employer] Invisible One Lead Trial System Spinal Cord Stimulation 1-Lead Trial Sys - [id number] - [id number] Implanted:Qty: 1 on 01/10/2023 by Alcon Ayers MD at [facility] Explanted: 023 by Chelita Ray MD PhD (Quantity not on file) [employer] 10/04/2024 1-LEAD TRIAL S / [id number] / Procedures Procedure Name Priority Date/Time Associated Diagnosis Comments ELECTROCARDIOGRAM REPORT Routine 025 11:58 AM CDT Primary hypertension H/O cardiomyopathy Preoperative cardiovascular examination POCT LIPID PANEL Routine 03/04/2025 11:2 9 AM CDT Mixed hyperlipidemia Coronary artery disease involving match-e-be-nash-she-wish band coronary artery of match-e-be-nash-she-wish band heart without angina pectoris COLONOSCOPY REPORT 11/03/2012 [...] Relevant to Health Maintenance Insurance MEDICARE [facility] Member Subscriber Plan / Payer (Ef fective 2020-Present) Name:Schuyler Gutierrez Relation to Subscriber:Self Name:Schuyler Gutierrez Payer ID:[id number] Group ID:[id number] Type:[place] Address: [facility] [id number] [place] [id number] [facility] MEDICARE [facility] Advance Directives For more information, please contact: [phone] * Full Code (Latest Code Status on File) Date Activated Date Inactivated Comments 07/31/2022 4:32 PM 08/01/2022 4:34 PM Care Teams Party Plan Demonstrator Relationship Specialty Start Date End Date Juan Pablo Easton MD PCP - General 02/24/15
--- OUTSIDE RECORDS SUMMARY | 2025-04-27 08:25 | XMS_ITS | Encounter Summary ---
Author Organization [facility] Healthcare Address [address] [place] [address] Care Team Providers Care Floor Renovator Name Role Phone Juan Pablo Easton MD Primary Care Provider [phone] [phone] Encounter Details Date Type Department Care Team (Late st Contact Info) Description 10/30/2023 Telephone [facility] [place] [facility] [address] [facility] Advanced Medicine [address] [place] [address] Chelita Ray MD PhD [address] [facility] [phone] [place], [place] [id number] Social History Tobacco Use Types Packs/Day Years [...] on file 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 Minimize further functional decline 2. Maximize quality of life 3. Control pain Strategies: - Activity/exercise program recommendation - Conservative stepwise pain medicine strategy with multi-disciplinary approach - Recommend healthy lifestyle strategies and compensatory methods as needed documented as of this encounter Visit Diagnoses Not on filedocumented in this encounter Care Teams Floor Renovator Relationship Specialty Start Date End Date Juan Pablo Easton MD PCP - General 02/24/15 documented as of this encounter
--- OUTSIDE RECORDS SUMMARY | 2025-04-27 08:25 | XMS_ITS | Encounter Summary ---
Author Organization [facility] Healthcare Address [address] [place] [address] Care Team Providers Care Supervisor Paper Coating Name Role Phone Juan Pablo Easton MD Primary Care Provider [phone] -[phone] Reason for Visit * Reason Onset Date Comments Scheduling Appointments 01/19/2025 Encounter Details Date Type Department Care Team (Late st Contact Info) Description 01/19/2025 Telephone [facility] [place] [facility] [address] [facility] [address] [place] [address] Chelita Ray MD PhD [address] [facility] [phone] [place], [place] [id number] Scheduling Appointments Social History Tobacco Use Types [...] on file Legal Sex Female 3:40 AM SECONDARY CONNECTOR ARMATURE Gender Identity Not on file Sexual Orientation Not on file documented as of this encounter Plan of Treatment Not on file documented as of this encounter Goals Goal Patient Goal Type Associated Problems Recent Progress Patient-Stated? Author CCM Chronic Pain Care Plan Chronic Care Management On track(2023 1:38 PM SECONDARY CONNECTOR ARMATURE) No Lizette Resendiz, ASH Note: Problem: Chronic Pain Goals: 1. Minimize further functional decline 2. Maximize quality of life 3. Control pain Strategies: - Activity/exercise program recommendation - Conservative stepwise pain medicine strategy with multi-disciplinary approach - Recommend healthy lifestyle strategies and compensatory methods as needed documented as of this encounter Visit Diagnoses Not on filedocumented in this encounter Care Teams Supervisor Paper Coating Relationship Specialty Start Date End Date Juan Pablo Easton MD PCP - General 02/24/15 documented as of this encounter
--- OUTSIDE RECORDS SUMMARY | 2025-04-27 08:25 | XMS_ITS | Encounter Summary ---
Author Organization [facility] Healthcare Address [address] [place] [address] Care Team Providers Care Resident Services Director Name Role Phone Juan Pablo Easton MD Primary Care Provider [phone] [phone] Encounter Details Date Type Department Care Team (Late st Contact Info) Description 12/04/[address] 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 Author CCM Chronic Pain Care Plan Chronic Care Management On track(2023 1:38 PM TIE INSPECTOR) No Lizette Resendiz RN Note: Problem: Chronic [...] on filedocumented in this encounter Care Teams Resident Services Director Relationship Specialty Start Date End Date Juan Pablo Easton MD PCP - General 02/24/15 documented as of this encounter
--- OUTSIDE RECORDS SUMMARY | 2025-04-27 08:25 | XMS_ITS | Encounter Summary ---
Author Organization [facility] Healthcare Address [address] [place] [address] Care Team Providers Care Surveying Or Spatial Science Technician Name Role Phone Juan Pablo Easton MD Primary Care Provider [phone] [phone] Reason for Visit * Reason Onset Date Comments Scheduling Appointments 03/20/2024 Encounter Details Date Type Department Care Team (Late st Contact Info) Description 03/20/2024 Telephone [facility] [place] [facility] [address] 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 Author CCM Chronic Pain Care Plan Chronic Care Management On track(2023 1:38 PM DIRECTOR ONLINE MARKETING) No Lizette Resendiz, ASH Note: Problem: Chronic Pain Goals: 1. Minimize further functional decline 2. Maximize quality of life 3. Control pain Strategies: - Activity/exercise program recommendation - Conservative stepwise pain medicine strategy with multi-disciplinary approach - Recommend healthy lifestyle strategies and compensatory methods as needed documented as of this encounter Visit Diagnoses Not on filedocumented in this encounter Care Teams Surveying Or Spatial Science Technician Relationship Specialty Start Date End Date Juan Pablo Easton MD PCP - General 02/24/15 documented as of this encounter
--- OUTSIDE RECORDS SUMMARY | 2025-04-27 08:25 | XMS_ITS | Encounter Summary ---
Author Organization [facility] Healthcare Address [address] [place] [address] Care Team Providers Care Reaming Machine Operator For Plastic Name Role Phone Juan Pablo Easton MD Primary Care Provider [phone] [phone] Reason for Visit * Reason Onset Date Comments PMC Preprocedure 08/24/2024 Encounter Details Date Type Department Care Team (Late st Contact Info) Description 08/24/2024 Telephone [facility] at [facility] [place] [facility] [address] [facility] Advanced Medicine [address] [place], [place] [id number] Chelita Ray MD PhD [address] [facility] [phone] [place], [place] [id number] PMC Preprocedure Social History Tobacco Use Types [...] on file Legal Sex Female 3:40 AM SPRING SETTER Gender Identity Not on file Sexual Orientation Not on file documented as of this encounter Functional Status documented as of this encounter Plan of Treatment Not on file documented as of this encounter Goals Goal Patient Goal Type Associated Problems Recent Progress Patient-Stated? Author CCM Chronic Pain Care Plan Chronic Care Management On track(2023 1:38 PM SPRING SETTER) No Lizette Resendiz, ASH Note: Problem: Chronic Pain Goals: 1. Minimize further functional decline 2. Maximize quality of life 3. Control pain Strategies: - Activity/exercise program recommendation - Conservative stepwise pain medicine strategy with multi-disciplinary approach - Recommend healthy lifestyle strategies and compensatory methods as needed documented as of this encounter Visit Diagnoses Not on filedocumented in this encounter Care Teams Reaming Machine Operator For Plastic Relationship Specialty Start Date End Date Juan Pablo Easton MD PCP - General 02/24/15 documented as of this encounter
--- OUTSIDE RECORDS SUMMARY | 2025-04-27 08:25 | XMS_ITS | Clinical Summary ---
Author Organization [facility] Address [address] [place] [place] [address] Care Team Providers Care Prize Jacker Name Role Phone Juan Pablo Easton MD Primary Care Provider [phone]- [phone] Source Comments [facility],non-owned Affiliates and Associated Physician Practices is amultiple site organization consisting of ambulatory clinics and hospital sitesin [place], [place], [place]. This disclosure is being madepursuant to the Care Everywhere program and may not contain all information available regarding this patient. 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
[2025-04-27] MEDS: LACTATED RINGERS 1,000 ML 30 ML IV CONT ×2 (09:45→12:42)
--- NOTE | 2025-04-27 09:46 | WPDHPUPDATE1 ---
History and Physical Update Update Date/Time: 04/27/25 09:46 History and Physical has been reviewed, including an updated exam of the patient. There are NO changes in the patient's condition. Risks, benefits, and alternatives have been discussed and questions answered. Patient agrees to proceed with procedure.
[2025-04-27] MEDS: ACETAMINOPHEN 500 MG TABLET 1000 MG PO (09:55)
[2025-04-27 09:58] LABS: Anion Gap 8 mmol/L (4-12); Blood Urea Nitrogen 17 mg/dL (7-17); Calcium 9.2 mg/dL (8.4-10.2); Carbon Dioxide 28 mmol/L (22-30); Chloride 97 mmol/L (98-107); Estimated CRCL calculation 42 ml/min; Estimated Glomerular Filt Rate 48; Glucose 90 mg/dL (65-110); Potassium 3.8 mmol/L (3.4-5.0); Sodium 133 mmol/L (137-145)
[2025-04-27] MEDS: TRANEXAMIC ACID 1,000MG/ISO100 1,000 MG/100 ML BAG 200 MG IVPB (10:00)
--- NOTE | 2025-04-27 10:14 | WPDANESEPPF ---
Anes - Initial Pre Proc Eval Procedure: Operation Date: 04/27/25 10:30 Proposed Procedures p Right Custom Total Knee Arthroplasty - Cornell Salazar MD Date/Time: 04/27/25 10:14 Surgeon: Cornell Salazar MD Pre Op Diagnosis: primary OA right knee Patient Data Age: 69 Gender: F Height: 1.6 m Weight: 79.8 kg Last Vital Signs Temp 36.7 C 04/27/25 08:52 Pulse 91 04/27/25 08:52 Resp 14 04/27/25 08:52 BP 126/60 04/27/25 08:52 Pulse Ox 100 04/27/25 08:52 O2 Del Method Room Air 04/27/25 08:52 Allergies Allergy/AdvReac Type Severity Reaction Status Date / Time Latex, Natural Rubber Allergy Intermediate Blistering Verified 04/27/25 10:03 Rash shellfish derived Allergy Mild Itching Verified 04/27/25 10:03 ciprofloxacin Allergy Unknown Skin Verified 04/27/25 10:03 Reaction neomycin Allergy Unknown Skin Verified 04/27/25 10:03 Reaction Penicillins Allergy Unknown Unknown Verified 04/27/25 10:03 Quinolones Allergy Unknown Unknown Verified 04/27/25 10:03 cephalexin AdvReac Mild Gastrointestinal Verified 04/27/25 10:03 Upset Home Medications ?Medication ?Instructions ?Recorded ?Confirmed ?Type aspirin 81 mg tablet,delayed 81 mg PO QAM #30 tabs 06/19/21 04/27/25 Rx release losartan 25 mg tablet 25 mg PO DAILY 07/11/22 04/27/25 History ondansetron 4 mg disintegrating 4 mg PO Q8H PRN nausea and 07/09/23 03/31/25 Rx tablet vomiting #20 tabs atorvastatin 40 mg tablet 40 mg PO QHS 07/13/23 04/27/25 History lidocaine 5 % topical patch 1 patch topical Q24H back pain 02/21/24 03/31/25 History cyclobenzaprine 10 mg tablet 10 mg PO TID 05/27/24 04/27/25 History albuterol sulfate 90 mcg/actuation 2 puff inhalation QID PRN 08/25/24 03/31/25 Rx aerosol inhaler shortness of breath or wheezing #8.5 grams zolpidem 10 mg tablet 10 mg PO QHS #90 tabs 01/11/25 03/31/25 Rx sertraline 100 mg tablet 150 mg (1.5 x 100 mg) PO DAILY 01/13/25 04/27/25 Rx #135 tabs pantoprazole 40 mg tablet,delayed 40 mg PO QAM #90 tabs 02/01/25 04/27/25 Rx release (Protonix) hydrochlorothiazide 25 mg tablet 25 mg PO DAILY #90 tabs 02/02/25 04/27/25 Rx tramadol 50 mg tablet 50 mg PO Q6H PRN pain #180 tabs 02/08/25 04/27/25 Rx oxybutynin chloride 5 mg 5 mg PO DAILY #30 tabs 03/09/25 04/27/25 Rx tablet,extended release 24 hr levothyroxine 88 mcg tablet See Rx Instructions .Route 03/15/25 04/27/25 Rx .COMPLEX #90 tabs cholecalciferol (vitamin D3) 62.5 62.5 mcg PO DAILY 03/31/25 04/27/25 History mcg (2,500 unit) capsule trazodone 50 mg tablet See Rx Instructions .Route 03/31/25 04/27/25 Rx .COMPLEX #90 tabs hyoscyamine sulfate 0.125 mg 0.125 mg PO Q4-6H PRN dyspepsia 04/07/25 04/27/25 Rx sublingual tablet #20 tabs alprazolam 0.25 mg tablet 0.25 mg PO TID PRN anxiety #30 tabs 04/13/25 04/27/25 Rx hydrocodone 5 mg-acetaminophen 325 1 tablet PO Q6H PRN pain #30 tabs 04/13/25 04/27/25 Rx mg tablet linaclotide 145 mcg capsule See Rx Instructions .Route .COMPLEX 04/27/25 04/27/25 History (Linzess) Laboratory Tests 04/27/25 09:03 Sodium 133 L mmol/L (137-145) Potassium 3.8 mmol/L (3.4-5.0) Chloride 97 L mmol/L (98-107) Carbon Dioxide 28 mmol/L (22-30) Anion Gap 8 mmol/L (4-12) BUN 17 mg/dL (7-17) Creatinine 1.12 H mg/dL (0.7-1.0) Estim Creat Clear Calc 42 ml/min Estimated GFR 48 L (59 - ) Glucose 90 mg/dL (65-110) Calcium 9.2 mg/dL (8.4-10.2) Blood Type A Positive Antibody Screen Pending Patient hx anesthesia problems: none Family hx anesthesia problems: none Results Review: All pre-operative results and documents have been reviewed as part of the pre-operative evaluation. [facility] Past Medical History Medical History Encounter for administration of vaccine Diastolic CHF CAD (coronary artery disease) Takotsubo cardiomyopathy Non-ST elevation HI (NSTEMI) Shellfish allergy Seasonal allergies Arthritis Depression Dvzoscv-Pwaup-Xuuip disease (~03/2021) Peripheral neuropathy Neuritis of right sural nerve Acquired cavovarus deformity of right foot Chronic insomnia Unspecified vitamin D deficiency Ga esophagus Atherosclerosis of aorta B12 deficiency Dyskinesia of esophagus Esophageal web Essential (primary) hypertension Gastroparesis Hypothyroidism (acquired) Internal derangement of right knee Irritable bowel syndrome with diarrhea Latex allergy status Metabolic syndrome Mixed hyperlipidemia Other hyperlipidemia Other spondylosis with radiculopathy, cervical region Patellar tendonitis of right knee Postgastric surgery syndromes Prediabetes With last hemoglobin A1c 4.7 Secondary osteoarthritis, right shoulder Spinal stenosis, unspecified region other than cervical Surgical History Surgical History History of oophorectomy, unilateral History of arthroscopy of right knee History of foot surgery (~2018) tendon repair History of tonsillectomy (~1959) History of cholecystectomy (~2009) History of lumbar discectomy (~2009) History of Achilles tendon repair (~2017) History of Juan Manuel fundoplication (~1996) History of hysterectomy (~1979) Due to uterine prolapse History of endoscopy Family History Family History Grandparent Diabetes mellitus Father Family history of elevated blood lipids Acute myocardial infarction, Onset Age: 40 Heart disease Hypertension Mother Family history of lung cancer Pulmonary disease Sibling Acute myocardial infarction, Onset Age: 65 Massive [place] Heart disease Son History of acquired heart valve infection her son had open heart surgery and a valve replaced a few years ago due to infected valve Other Arthritis Social History Social History (Reviewed 03/31/25 @ 08:47 by DILLON Muniz Social History: She lives in [place] with her of 47 years. They have 3 children. Her son recently moved back into the home with them and has a small dog. There middle daughter works as a nurse at [employer]. There youngest daughter was murdered. 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 She never smoked. She drinks 1 alcoholic beverage a year on average. She denies illicit substance use. She is a mostly sedentary lifestyle. Primary care physician: Dr. Juan Pablo Easton Code status: Full code Surrogate decision maker: Smoking status: Never smoker Additional smoking assessment comments: DENIES ANY FORM OF TOBACCO USE Alcohol intake: never Alcohol use details: Occasional Substance use: never Substance use type: does not use Do You Feel Safe in your Home?: Yes Lack of Transportation: No Lack of Food: Never True Current Housing: I Have Housing Concerned About Future Housing: No Difficulty Paying Gas/Electric Bills: No Difficulty Paying for Meds: No Currently Unemployed: No Education: Associate Degree Difficulty w/ Childcare or Family Care: No Living arrangements: with family Additional living arrangements comments: Gender identity (if verbalized by the patient): Female Spiritual care concerns: No Anes - Eval Final PreProcedure Day of Procedure 04/27/25 10:14 Patient weight: obese Heart: regular rate and rhythm Lungs: clear to auscultation Airway: Mallampati scale class II Neurological: alert and oriented Last oral intake: >/= 8 hours ASA classification: III Emergent: no Anesthetic plan: proceed Anesthesia type and monitoring: general LMA and standard monitoring Results Review: All pre-operative results and documents have been reviewed as part of the pre-operative evaluation. Informed Consent: The patient's anesthetic plan and its attendant risks and benefits were discussed with the patient/family/POA. Questions were solicited and answers provided to the satisfaction of the patient/family/POA.
[2025-04-27] MEDS: FAMOTIDINE 20 MG/2 ML VIAL IV PUSH (10:32)
[2025-04-27] MEDS: ONDANSETRON INJ 4 MG/2 ML VIAL IV PUSH (10:32)
[2025-04-27] MEDS: ceFAZolin 2 GM in SODIUM CHLORIDE 0.9% IV 50 ML 100 ML IVPB (10:38)
[2025-04-27] MEDS: SODIUM CHLORIDE 0.9% IV 37.7 ML, MORPHINE SULFATE INJ (*CRX) 2 MG, ROPivacaine HCL 1% 2... INFILTRATE (11:21)
[2025-04-27] MEDS: GENTAMICIN BONE CEMENT REFOBACIN 1 EACH TOPICAL (12:03)
[2025-04-27] MEDS: TRANEXAMIC ACID 1,000 MG/10 ML AMPUL 1000 MG IV PUSH (12:26)
[2025-04-27] MEDS: fentaNYL CITRATE INJ (*CRX) 100 MCG/2 ML VIAL 25 MCG IV PUSH ×8 (13:10→13:55)
--- NOTE | 2025-04-27 13:28 | P.OP_ITS ---
Procedure Note - Detailed Date of Procedure 04/27/25 Pre-op Diagnosis Right knee degenerative arthritis. Post-op Diagnosis Same Procedure Performed Custom total knee arthroplasty, right. Surgeon Cornell Salazar MD Anesthesia General Findings Mild valgus disease. No releases required. Description of Procedure Preoperative antibiotics were given. The limb was prepped and draped in the usual sterile fashion with a well-padded tourniquet high on the thigh. The limb was exsanguinated and the tourniquet inflated to 300 mmHg during exposure and cementation. A longitudinal incision was created just medial to the patella. A trivector approach to the knee was performed. Arthrotomy was taken down through the joint capsule. No significant releases were initially taken. The femur was exposed and the F1 jig was applied. The coring tool was used to remove the cartilage for the F2 jig to sit flush with the bone. The jig was pinned and the distal cut carefully taken. Caliper measurements confirmed appropriate bony resections according to the preoperative templated plan. The F4 cutting jig for the femur was applied, at the standard rotation. The AP and anterior chamfer cuts were taken. The F5 jig was applied and the posterior chamfer cuts were ele en. The tibia was prepared using the T1 jig, after removing cartilage for the jig contact points. Proper alignment was checked with the alignment yue. The tibia was cut using the T1u guide. Gap balancing was performed. Gap measurements were taken and the knee was trialed. Excellent alignment and soft tissue balancing was confirmed. The posterior cruciate ligament was recessed along the proximal tibia. The patella was cut for resurfacing. Three lug holes were drilled. Meniscal remnants were removed. The trial components were assembled. Excellent range of motion and proper soft tissue balancing were confirmed throughout the full range of motion. Patellar tracking was excellent. The knee was copiously irrigated periodically throughout the procedure. The real implants were cemen desi into position. Excess cement was carefully removed. The wound was closed in layers with interrupted #1 Vicryl suture, 2-0 strata fix suture, 0 strata fix suture, 2-0 strata fix suture. Steri-Strips placed on the skin with the knee flexed. Sterile bulky dressing applied. The patient was brought to the recovery room in stable condition. There were no complications. Implants Conformis Custom total knee arthroplasty. Cemented. Cruciate retaining. 7A insert. 32 mm oval patella. Estimated Blood Loss 50 Drains No Complications No immediate complications Condition Stable Disposition PACU [facility] Billing Surgery - Charge Forward: Surgery Billing
[2025-04-27] MEDS: HYDROmorphone HCL INJ (*CRX) 1 MG/ML SYR 0.5 MG IV PUSH ×2 (14:40→14:46)
[2025-04-27] MEDS: oxyCODONE/ACETAMINOPHEN (*CRX) 5-325 MG TABLET 1 TABLET PO ×2 (15:50→20:27)
[2025-04-27] MEDS: ceFAZolin 2 GM/D5W 50 ML 2 GM/50 ML BAG IVPB (17:37)
[2025-04-27] MEDS: ASPIRIN 81 MG ENTERIC TABLET PO (17:37)
[2025-04-28 00:52] VITALS: BP 142/73
[2025-04-28] MEDS: oxyCODONE/ACETAMINOPHEN (*CRX) 5-325 MG TABLET 1 TABLET PO ×3 (02:40→12:27)
[2025-04-28] MEDS: ceFAZolin 2 GM/D5W 50 ML 2 GM/50 ML BAG IVPB ×2 (02:41→08:49)
[2025-04-28 03:07] VITALS: BP 149/61; PULSE 62; RESP 16; TEMP 36.2; O2SAT 100
[2025-04-28 05:58] LABS: Hematocrit 30.6 % (37.0-47.0); Hemoglobin 9.7 g/dL (12.0-15.0); Immature Granulocyte Percent A 0.6 % (0-0.5); Lymphocytes Absolute Auto 1.39 K/mm3 (0.9-3.2); Mean Corpuscular HGB Conc 31.7 g/dl (32-36); Mean Corpuscular Hemoglobin 31.4 pg (26-34); Mean Corpuscular Volume 99.0 fl (80-100); Nucleated Red Blood Cells Absolute Auto 0.000 K/mm3 (0.0-0.012); Nucleated Red Blood Cells Perc 0.0 % (0.0-0.2); Platelet Count Result 158 k/mm3 (150-375); Red Blood Count 3.09 M/mm3 (4.2-5.4); White Blood Count 8.4 K/mm3 (4.5-10.0)
[2025-04-28 06:24] LABS: Anion Gap 4 mmol/L (4-12); Blood Urea Nitrogen 18 mg/dL (7-17); Calcium 8.2 mg/dL (8.4-10.2); Carbon Dioxide 25 mmol/L (22-30); Chloride 99 mmol/L (98-107); Estimated CRCL calculation 41 ml/min; Estimated Glomerular Filt Rate 47; Glucose 89 mg/dL (65-110); Potassium 4.1 mmol/L (3.4-5.0); Sodium 128 mmol/L (137-145)
[2025-04-28 08:00] VITALS: BP 150/74; PULSE 74; RESP 18; TEMP 36.1; O2SAT 98
[2025-04-28] MEDS: SENNA/DOCUSATE SODIUM TABLET 2 TAB PO (08:49)
[2025-04-28] MEDS: ASPIRIN 81 MG ENTERIC TABLET PO (08:49)
[2025-04-28 12:00] VITALS: BP 133/71; PULSE 71; RESP 16; TEMP 35.8; O2SAT 100
== END 2025-04-28 12:55 | disposition home or self-care (01) ==
LOC: ANHSURGERY 13:30 → ANH3MEDSUR 15:23
PROVIDERS: Anesthesiology; PCP Family Medicine; Visit Provider Orthopaedic Surgery
PROC: (CPT 27447; principal; 2025-04-27 10:30)
DX: M17.11 Unilateral primary osteoarthritis, right knee (principal); I11.0 Hypertensive heart disease with heart failure; I50.30 Unspecified diastolic (congestive) heart failure; I25.10 Atherosclerotic heart disease of native coronary artery without angina pectoris; F32.A Depression, unspecified; G60.0 Hereditary motor and sensory neuropathy; G62.9 Polyneuropathy, unspecified; F51.04 Psychophysiologic insomnia; E55.9 Vitamin D deficiency, unspecified; I70.0 Atherosclerosis of aorta; E53.8 Deficiency of other specified B group vitamins; E03.9 Hypothyroidism, unspecified; K58.0 Irritable bowel syndrome with diarrhea; E88.810 Metabolic syndrome; E78.49 Other hyperlipidemia; M47.22 Other spondylosis with radiculopathy, cervical region; M48.02 Spinal stenosis, cervical region; K91.1 Postgastric surgery syndromes; E66.9 Obesity, unspecified; Z68.31 Body mass index [BMI] 31.0-31.9, adult; Z79.82 Long term (current) use of aspirin; Z79.51 Long term (current) use of inhaled steroids; Z79.891 Long term (current) use of opiate analgesic; Z79.899 Other long term (current) drug therapy; Z98.890 Other specified postprocedural states; Z90.49 Acquired absence of other specified parts of digestive tract; Z98.1 Arthrodesis status; Z87.19 Personal history of other diseases of the digestive system; Z80.1 Family history of malignant neoplasm of trachea, bronchus and lung; Z82.49 Family history of ischemic heart disease and other diseases of the circulatory system
CPT/HCPCS: 27447; 36415; 73560; 80048; 85025; 86850; 86900; 86901; 97110; 97161; 97165; J0690; A9270; C1713; C1776; J0166; J1100; J1171; J1200; J1885; J2003; J2270; J2371; J2405; J2704; J2795; J3010; J7120; J7512

== ENCOUNTER 2025-06-24 00:25 | Day surgery (SDC) | payer MEDICARE, SELFPAY ==
[2025-06-23 12:45] VITALS: BMI 33.8
--- OUTSIDE RECORDS SUMMARY | 2025-06-24 00:28 | XMS_ITS | Clinical Summary ---
Author Organization [facility] [address] Address [address] [place] [address] Care Team Providers Care Poacher Operator Name Role Phone Juan Pablo Easton MD Primary Care Provider [phone] Allergies Active Allergy Reactions Criticality Noted Date Comments Ciprofloxacin Rash Medium Latex Rash Medium Reaction: Rash, , Neomycin Other (See comments) Low 12/19/2023 Unknown Penicillins Anaphylaxis High Quinolones Rash Medium Reaction: rash, Shellfish Containing Products Angioedema High 02/15/2022 Medications ALPRAZolam (XANAX) 0.25 mg tabletIndications :anxiety Take 1 tablet (0.25 mg total) by mouth 3 (three) times a day as needed for anxiety Active hyoscyamine (LEVSIN) 0.125 mg SL tabletIndications :Irritable Bowel Syndrome Take 1 tablet (0.125 mg total) by mouth as needed for cramping or diarrhea 1 Active linaCLOtide (LINZESS) 145 mcg capsuleIndication s:chronic idiopathic constipation Take 1 capsule (145 mcg total) by mouth Medrol Dose Pack scheduling ONLY Active ondansetron (ZOFRAN) 4 mg tablet Take 1 tablet (4 mg total) by mouth every 8 (eight) hours as needed for nausea or vomiting Active pantoprazole DR (PROTONIX) 40 mg EC tabletIndications :Treatment of Non-Bleeding Gastric Disorder,reflux Take 1 tablet (40 mg total) by mouth every morning Active sertraline (ZOLOFT) 100 mg tabletIndications :Anxiety with Depression Take 1 tablet (100 mg total) by mouth every morning 0 Active zolpidem (AMBIEN) 10 mg tabletIndications :Sleep-Onset Insomnia Take 1 tablet (10 mg total) by mouth nightly as needed for sleep 0 Active traZODone (DESYREL) 50 mg tabletIndications :insomnia associated with depression Take 1 tablet (50 mg total) by mouth nightly as needed for sleep Active albuterol HFA (PROVENTIL HFA,VENTOLIN HFA,PROAIR HFA) 90 mcg/actuation inhalerIndication s:Chronic Obstructive Pulmonary Disease Inhale 2 puffs every 6 (six) hours as needed for wheezing or shortness of breath Active HYDROcodone-aceta minophen (NORCO) 5-325 mg per tablet Take 1 [...] mg total) by mouth daily Active fluticasone propion-salmetero L (ADVAIR DISKUS) 250-50 mcg/dose diskus inhaler Inhale 1 puff 2 (two) times a day 4 Active traMADoL (ULTRAM) 50 mg tablet Take 1-2 tablets (50-100 mg total) by mouth every 6 (six) hours as needed for pain for up to 7 days 42 tablet 4 Active levothyroxine (SYNTHROID) 88 mcg tablet Take 1 tablet (88 mcg total) by mouth daily 4 Active celecoxib (CeleBREX) 200 mg capsule Take 1 capsule (200 mg total) by mouth daily 5 Active cyclobenzaprine (FLEXERIL) 10 mg tabletIndications :Muscle spasm of back TAKE 1 TABLET(10 MG) BY MOUTH THREE TIMES DAILY NEEDED FOR MUSCLE SPASMS 90 tablet 3 5 Active hydroCHLOROthiazi de (HYDRODIURIL) 25 mg tablet Take 1 tablet (25 mg total) by mouth daily 5 Active lidocaine (LIDODERM) 5 % Place 1 patch on the skin daily for 12 hours Remove & discard patch within 12 hours or as directed by . 30 patch 3 5 Active losartan (COZAAR) 25 mg tablet TAKE 1 TABLET(25 MG) BY MOUTH DAILY 90 tablet 1 5 Active atorvastatin (LIPITOR) 40 mg tablet TAKE 1 TABLET(40 MG) BY MOUTH EVERY NIGHT 90 tablet 2 5 Active Active Problems Problem Noted Date Diagnosed Date [...] (06/27/2022): Added automatically from request for surgery [id number] Entrapment neuropathy of right sural nerve 04/24 [...] Medical IBS, sensitive stomach, hypothyroidism, depression; Comments: U 02/24/2015 - Hx Other Medical Hysterectomy; C omments: [facility] 02/24/2015 - Hx Other Medical Chronic back pa in; Comments: [facility] 02/24/2015 - Asthma COPD (chronic obstructive pu lmonary disease) Hypertension Thyroid disease Diastolic dysfunction Cardiomyopathy 06/16/2021 Takotsubo cardio myopathy Msijvep-Ugnvv-Objnc disease GERD (gastroesophageal reflu x disease) 1989 [...] Father Alek Clark Other Father Alek Clark [place] 48 yo, CABG 50, of massive [place] 53; Cancer Mother Sybil Clark Lung cancer Mother Sybil Clark Cancer, lung; Other Other Uncle, cousin d ied young of heart dz; Diabetes Paternal Grandmother May Joshua Hyperlipidemia Sister Hyperlipidemi a; Anesthesia problems Neg Hx Relation Name Status Comments Brother Alek Clark Father Alek Clark Mother Sybil Clark Other Paternal Grandmother May Joshua Sister Social History Tobacco Use Types Packs/Day [...] on file Legal Sex Female 3:40 AM 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 SPECIALIST Gender Identity Not on file Sexual Orientation Not on file Obstetrics History Last Filed Vital Signs Vital Sign Reading Time Taken Comments Blood Pressure 130/62 03/04/2025 11:34 AM CDT Pulse 83 03/04/2025 11:34 AM CDT Temperature 36.3 C (97.3 F) 12/02/2024 7:31 AM 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 SPECIALIST Respiratory Rate 16 12/02/2024 8:40 AM 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 SPECIALIST Oxygen Saturation 98% 03/04/2025 11:34 AM CDT [...] 65+ 2019 Colon Cancer Screening-Colonoscopy 11/03/2022 11/03/2012 Fall Risk Assessment 09/04/2024 09/04/2023 Covid-19 Vaccine (5 - 2024-2 6 season) 2025 02/23/2022, 08/18/2021, 12/29/2020, Additional history exists Influenza Vaccine (#1) 2025 , 08/01/2022, 07/07/2020, Additional history exists Colon Cancer Screening-CT Colonography Discontinued 11/03/2012 Colon Cancer Screening-DNA Stool Discontinued 11/03/19 13 Colon Cancer Screening-FIT Discontinued 11/03/2012 Colon Cancer Screening-Sigmoidoscopy Discontinued 11/03/2012 Goals Goal Patient Goal Type Associated Problems Recent Progress Patient-Stated? Author CCM Chronic Pain Care Plan Chronic Care Management On track(2023 1:38 PM 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 SPECIALIST) Lizette Hughes, RN Note: Problem: Chronic Pain Goals: 1. Minimize further functional decline 2. Maximize quality of life 3. Control pain Strategies: - Activity/exercise program recommendation - Conservative stepwise pain medicine strategy with multi-disciplinary approach - Recommend healthy lifestyle strategies and compensatory methods as needed Medical Devices Implanted Type Area Ammonia Worker Device Identifier Shelf Expiration Date Model / Serial / Lot Eterna Implantable Pulse Generator Implanted:Qty: 1 on 02/22/2023 by Chelita Ray MD PhD at [facility] Other - see comments N/A: Back [employer] [id number] 10/17/2024 [id number] / [id number] / Description:Implantable puls e generator reference # 13545 - PART OF KIT [employer] Avance 4-5mm 50mm Allograft Natural Connection Graft Soft Tissue [id number] - [id number] Implanted:Qty: 1 on 07/31/2022 by Padmini Mcnamara MD at [facility] Right: Ankle [employer] 12/05/2023 [id number] / / [id number] Description:Implanted proxim al to right ankle. [employer] Lambert-Lock Lena Lead 1192 - [id number] Implanted:Qty: 2 on 02/22/2023 by Chelita Ray MD PhD at [facility] N/A: Back [employer] [id number] 10/21/2024 1192 / / [id number] [employer] Octrode 60cm 8 Electrode Lead Percutaneous Kit Neurostimulator [id number] - [id number] - [id number] Implanted:Qty: 1 on 02/22/2023 by Chelita Ray MD PhD at [facility] N/A: Back [employer] [id number] 02/04/2025 [id number] / [id number] / [employer] Octrode 60cm 8 Electrode Lead Percutaneous Kit Neurostimulator [id number] - [id number] - [id number] Implanted:Qty: 1 on 02/22/2023 by Chelita Ray MD PhD at [facility] N/A: Back [employer] [id number] 02/04/2025 [id number] / [id number] / [employer] Generator Neurostimulator Spine Rechargeable Eterna [id number] - [id number] Implanted:Qty: 1 on 02/22/2023 by Chelita Ray MD PhD at [facility] Medicine N/A: Back [employer] [id number] / / Explanted Type Area Ammonia Worker Device Identifier Shelf Expiration Date Model / Serial / Lot [employer] Invisible One Lead Trial System Spinal Cord Stimulation 1-Lead Trial Sys - [id number] - [id number] Implanted:Qty: 1 on 01/10/2023 by Alcon Ayers MD at [facility] Explanted: 023 by Chelita Ray MD PhD (Quantity not on file) [employer] 10/04/2024 1-LEAD TRIAL S / [id number] / Procedures Procedure Name Priority Date/Time Associated Diagnosis Comments COLONOSCOPY REPORT 11/03/2012 from Last 3 Months or Most Recently Relevant to Health Maintenance Results * COLONOSCOPY REPORT (11/03/2012) Anatomical Region Laterality Modality Other Narrative 11/03/2012 Ordered by an unspecified provider. us Historical Provider GI PROCEDURE ORDERABLES F inal Result from Last 3 Months or Most Recently Relevant to Health Maintenance Insurance MEDICARE [facility] MEDICARE [facility] MEDICARE [facility] Advance Directives For more information, please contact: [phone] * Full Code (Latest Code Status on File) Date Activated Date Inactivated Comments 07/31/2022 4:32 PM 08/01/2022 4:34 PM Care Teams Poacher Operator Relationship Specialty Start Date End Date Juan Pablo Easton MD PCP - General 02/24/15
--- OUTSIDE RECORDS SUMMARY | 2025-06-24 00:28 | XMS_ITS | Encounter Summary ---
Author Organization [facility] Address [address] [place] [address] Care Team Providers Care Sheetmetal Patternmaker Name Role Phone Juan Pablo Easton MD Primary Care Provider [phone] Reason for Visit * Reason Onset Date Comments PMC Preprocedure 08/24/2024 Encounter Details Date Type Department Care Team (Late st Contact Info) Description 08/24/2024 Telephone [facility] [address] [facility] [address] [place], [place] [id number] Chelita Ray MD PhD [address] [facility] [address] 02-14-916 [place], [place] [id number] PMC Preprocedure Social History Tobacco Use Types [...] on file Legal Sex Female 3:40 AM EVAPORATOR HELPER Gender Identity Not on file Sexual Orientation Not on file documented as of this encounter Functional Status documented as of this encounter Plan of Treatment Not on file documented as of this encounter Goals Goal Patient Goal Type Associated Problems Recent Progress Patient-Stated? Author CCM Chronic Pain Care Plan Chronic Care Management On track(2023 1:38 PM EVAPORATOR HELPER) No Lizette Resendiz, ASH Note: Problem: Chronic Pain Goals: 1. Minimize further functional decline 2. Maximize quality of life 3. Control pain Strategies: - Activity/exercise program recommendation - Conservative stepwise pain medicine strategy with multi-disciplinary approach - Recommend healthy lifestyle strategies and compensatory methods as needed documented as of this encounter Visit Diagnoses Not on filedocumented in this encounter Care Teams Sheetmetal Patternmaker Relationship Specialty Start Date End Date Juan Pablo Easton MD PCP - General 02/24/15 documented as of this encounter
--- OUTSIDE RECORDS SUMMARY | 2025-06-24 00:28 | XMS_ITS | Encounter Summary ---
Author Organization [facility] Healthcare Address [address] [place] [address] Care Team Providers Care Wellness Assistant Name Role Phone Juan Pablo Easton MD Primary Care Provider [phone] [phone] Encounter Details Date Type Department Care Team (Late st Contact Info) Description 12/04/2024 Orders Only [facility] Information Management [address] [place] [id number] Scanning, Provider Social History Tobacco Use Types [...] on file Legal Sex Female 3:40 AM REGULATORY SUBMISSIONS SPECIALIST Gender Identity Not on file Sexual Orientation Not on file documented as of this encounter Plan of Treatment Not on file documented as of this encounter Goals Goal Patient Goal Type Associated Problems Recent Progress Patient-Stated? Author CCM Chronic Pain Care Plan Chronic Care Management On track(2023 1:38 PM REGULATORY SUBMISSIONS SPECIALIST) No Lizette Resendiz RN Note: Problem: Chronic [...] on filedocumented in this encounter Care Teams Wellness Assistant Relationship Specialty Start Date End Date Juan Pablo Easton MD PCP - General 02/24/15 documented as of this encounter
--- OUTSIDE RECORDS SUMMARY | 2025-06-24 00:29 | XMS_ITS | Clinical Summary ---
Author Organization [facility] Address [address] [place] [address] Care Team Providers Care Photographer Model Name Role Phone Juan Pablo Easton MD Primary Care Provider [phone]- [phone] Social History Tobacco Use Types Packs/Day Years [...] Scan (General) 2019 COVID-19 Vaccine (2 - 2024-2 6 season) 2025 12/01/2020 RSV Immunization or 60+ Years (1 [...] age to complete this topic Insurance MEDICARE [facility] Care Teams Photographer Model Relationship Specialty Start Date End Date Juan Pablo Easton MD PCP - General FAMILY PRACTICE 01/23/21
--- OUTSIDE RECORDS SUMMARY | 2025-06-24 00:29 | XMS_ITS | Clinical Summary ---
Author Organization [facility] Address [address] [place] [address] Care Team Providers Care Ships Or Barges Loader Name Role Phone Juan Pablo Easton MD Primary Care Provider [phone]- [phone] Source Comments [facility],non-owned Affiliates and Associated Physician Practices is amultiple site organization consisting of ambulatory clinics and hospital sitesin [place], [place], [place] and [place]. This disclosure is being madepursuant to the Care Everywhere program and may not contain all information available regarding this patient. 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
--- OUTSIDE RECORDS SUMMARY | 2025-06-24 00:29 | XMS_ITS | Encounter Summary ---
Author Organization [facility] Healthcare Address [address] [place] [address] Care Team Providers Care Filling And Packing Supervisor Name Role Phone Juan Pablo Easton MD Primary Care Provider [phone] [phone] Encounter Details Date Type Department Care Team (Late st Contact Info) Description 10/30/2023 Telephone [facility] [place] [facility] [address] [facility] Advanced [facility] [address] [place], [place] [id number] Chelita Ray MD PhD [address] [facility] [id number] [place], [place] [id number] Social History Tobacco Use Types Packs/Day Years [...] on file 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 Minimize further functional decline 2. Maximize quality of life 3. Control pain Strategies: - Activity/exercise program recommendation - Conservative stepwise pain medicine strategy with multi-disciplinary approach - Recommend healthy lifestyle strategies and compensatory methods as needed documented as of this encounter Visit Diagnoses Not on filedocumented in this encounter Care Teams Filling And Packing Supervisor Relationship Specialty Start Date End Date Juan Pablo Easton MD PCP - General 02/24/15 documented as of this encounter
--- OUTSIDE RECORDS SUMMARY | 2025-06-24 00:29 | XMS_ITS | Encounter Summary ---
Author Organization [facility] Healthcare Address [address] [place] [address] Care Team Providers Care Plating Equipment Tender Name Role Phone Juan Pablo Easton MD Primary Care Provider [phone] [phone] Reason for Visit * Reason Onset Date Comments Scheduling Appointments 03/20/2024 Encounter Details Date Type Department Care Team (Late st Contact Info) Description 03/20/2024 Telephone [facility] [address] 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 Author CCM Chronic Pain Care Plan Chronic Care Management On track(2023 1:38 PM SUPERVISOR SMALL APPLIANCE ASSEMBLY) No Lizette Resendiz, ASH Note: Problem: Chronic Pain Goals: 1. Minimize further functional decline 2. Maximize quality of life 3. Control pain Strategies: - Activity/exercise program recommendation - Conservative stepwise pain medicine strategy with multi-disciplinary approach - Recommend healthy lifestyle strategies and compensatory methods as needed documented as of this encounter Visit Diagnoses Not on filedocumented in this encounter Care Teams Plating Equipment Tender Relationship Specialty Start Date End Date Juan Pablo Easton MD PCP - General 02/24/15 documented as of this encounter
--- OUTSIDE RECORDS SUMMARY | 2025-06-24 00:29 | XMS_ITS | Encounter Summary ---
Author Organization [facility] Healthcare Address [address] [place] [address] Care Team Providers Care Financial Underwriter Name Role Phone Juan Pablo Easton MD Primary Care Provider [phone] [phone] Reason for Visit * Reason Onset Date Comments Scheduling Appointments 01/19/2025 Encounter Details Date Type Department Care Team (Late st Contact Info) Description 01/19/2025 Telephone [facility] [place] [facility] [address] [facility] Advanced Medicine [address] [place] [address] Chelita Ray MD PhD [address] [facility] [phone] [place], [place] [id number] Scheduling Appointments Social History Tobacco Use Types [...] on file 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 Author CCM Chronic Pain Care Plan Chronic Care Management On track(2023 1:38 PM TELEPHONE SERVICE REPRESENTATIVE) No Lizette Resendiz, ASH Note: Problem: Chronic Pain Goals: 1. Minimize further functional decline 2. Maximize quality of life 3. Control pain Strategies: - Activity/exercise program recommendation - Conservative stepwise pain medicine strategy with multi-disciplinary approach - Recommend healthy lifestyle strategies and compensatory methods as needed documented as of this encounter Visit Diagnoses Not on filedocumented in this encounter Care Teams Financial Underwriter Relationship Specialty Start Date End Date Juan Pablo Easton MD PCP - General 02/24/15 documented as of this encounter
[2025-06-24 10:01] VITALS: BP 124/67; PULSE 103; RESP 16; TEMP 36.6; O2SAT 100; BMI 32.9
[2025-06-24] MEDS: LACTATED RINGERS 1,000 ML 150 ML IV CONT (10:08)
--- NOTE | 2025-06-24 10:29 | WPDANESEPPF ---
Anes - Initial Pre Proc Eval Procedure: Operation Date: 06/24/25 11:30 Proposed Procedures p Esophagogastroduodenoscopy - Christofer Phipps MD Date/Time: 06/24/25 10:29 Surgeon: Christofer Phipps MD Pre Op Diagnosis: Dysphagia, unspecified Patient Data Age: 69 Gender: F Height: 1.57 m Weight: 81.7 kg Last Vital Signs Temp 36.6 C 06/24/25 10:01 Pulse 103 H 06/24/25 10:01 Resp 16 06/24/25 10:01 BP 124/67 06/24/25 10:01 Pulse Ox 100 06/24/25 10:01 O2 Del Method Room Air 06/24/25 10:01 Allergies Allergy/AdvReac Type Severity Reaction Status Date / Time Latex, Natural Rubber Allergy Intermediate Blistering Verified 06/24/25 09:59 Rash shellfish derived Allergy Mild Itching Verified 06/24/25 09:59 ciprofloxacin Allergy Unknown Skin Verified 06/24/25 09:59 Reaction neomycin Allergy Unknown Skin Verified 06/24/25 09:59 Reaction Penicillins Allergy Unknown Unknown Verified 06/24/25 09:59 Quinolones Allergy Unknown Unknown Verified 06/24/25 09:59 cephalexin AdvReac Mild Gastrointestinal Verified 06/24/25 09:59 Upset Home Medications ?Medication ?Instructions ?Recorded ?Confirmed ?Type aspirin 81 mg tablet,delayed 81 mg PO QAM #30 tabs 06/19/21 06/24/25 Rx release losartan 25 mg tablet 25 mg PO DAILY 07/11/22 06/23/25 History atorvastatin 40 mg tablet 40 mg PO QHS 07/13/23 06/24/25 History lidocaine 5 % topical patch 1 patch topical Q24H back pain 02/21/24 06/23/25 History cyclobenzaprine 10 mg tablet 10 mg PO TID 05/27/24 06/23/25 History albuterol sulfate 90 mcg/actuation 2 puff inhalation QID PRN 08/25/24 06/24/25 Rx aerosol inhaler shortness of breath or wheezing #8.5 grams zolpidem 10 mg tablet 10 mg PO QHS #90 tabs 01/11/25 06/23/25 Rx sertraline 100 mg tablet 150 mg (1.5 x 100 mg) PO DAILY 01/13/25 06/24/25 Rx #135 tabs pantoprazole 40 mg tablet,delayed 40 mg PO QAM #90 tabs 02/01/25 06/24/25 Rx release (Protonix) hydrochlorothiazide 25 mg tablet 25 mg PO DAILY #90 tabs 02/02/25 06/24/25 Rx tramadol 50 mg tablet 50 mg PO Q6H PRN pain #180 tabs 02/08/25 06/23/25 Rx oxybutynin chloride 5 mg 5 mg PO DAILY #30 tabs 03/09/25 06/24/25 Rx tablet,extended release 24 hr cholecalciferol (vitamin D3) 62.5 62.5 mcg PO DAILY 03/31/25 06/24/25 History mcg (2,500 unit) capsule trazodone 50 mg tablet See Rx Instructions .Route 03/31/25 06/23/25 Rx .COMPLEX #90 tabs hyoscyamine sulfate 0.125 mg 0.125 mg PO Q4-6H PRN dyspepsia 04/07/25 06/23/25 Rx sublingual tablet #20 tabs alprazolam 0.25 mg tablet 0.25 mg PO TID PRN anxiety #30 tabs 04/13/25 06/23/25 Rx hydrocodone 5 mg-acetaminophen 325 1 tablet PO Q6H PRN pain #30 tabs 04/13/25 06/23/25 Rx mg tablet linaclotide 145 mcg capsule See Rx Instructions .Route .COMPLEX 04/27/25 06/23/25 History (Linzess) prednisone 5 mg tablet 5 mg PO DAILY #21 tabs 04/27/25 06/24/25 Rx ondansetron 4 mg disintegrating 4 mg PO Q8H PRN nausea and 05/07/25 06/23/25 Rx tablet vomiting #20 tabs levothyroxine 88 mcg tablet See Rx Instructions .Route 06/17/25 06/24/25 Rx .COMPLEX #90 tabs mupirocin 2 % topical ointment 1 applic topical BID #22 grams 06/21/25 06/24/25 Rx (Centany) oxycodone-acetaminophen 5 mg-325 1 tablet PO Q8H PRN pain, severe 06/21/25 06/23/25 Rx mg tablet #30 tabs pantoprazole 40 mg tablet,delayed 40 mg PO BID GERD 30 days #60 tabs 06/22/25 06/24/25 Rx release Patient hx anesthesia problems: none Family hx anesthesia problems: none Results Review: All pre-operative results and documents have been reviewed as part of the pre-operative evaluation. [facility] Past Medical History Medical History Encounter for administration of vaccine Diastolic CHF CAD (coronary artery disease) Takotsubo cardiomyopathy Non-ST elevation [place] (NSTEMI) Shellfish allergy Seasonal allergies Arthritis Depression Ggjfowk-Mhlvc-Ntqeb disease (~03/2021) Peripheral neuropathy Neuritis of right sural nerve Acquired cavovarus deformity of right foot Chronic insomnia Unspecified vitamin D deficiency Ga esophagus Atherosclerosis of aorta B12 deficiency Dyskinesia of esophagus Esophageal web Essential (primary) hypertension Gastroparesis Hypothyroidism (acquired) Internal derangement of right knee Irritable bowel syndrome with diarrhea Latex allergy status Metabolic syndrome Mixed hyperlipidemia Other hyperlipidemia Other spondylosis with radiculopathy, cervical region Patellar tendonitis of right knee Postgastric surgery syndromes Prediabetes With last hemoglobin A1c 4.7 Secondary osteoarthritis, right shoulder Spinal stenosis, unspecified region other than cervical Surgical History Surgical History Status post total right knee replacement (~04/27/25) Custom (Conformis) History of oophorectomy, unilateral History of arthroscopy of right knee History of foot surgery (~2018) tendon repair History of tonsillectomy (~1959) History of cholecystectomy (~2009) History of lumbar discectomy (~2009) History of Achilles tendon repair (~2017) History of Juan Manuel fundoplication (~1996) History of hysterectomy (~1979) Due to uterine prolapse History of endoscopy Family History Family History Grandparent Diabetes mellitus Father Family history of elevated blood lipids Acute myocardial infarction, Onset Age: 40 Heart disease Hypertension Mother Family history of lung cancer Pulmonary disease Sibling Acute myocardial infarction, Onset Age: 65 Massive [place] Heart disease Son History of acquired heart valve infection her son had open heart surgery and a valve replaced a few years ago due to infected valve Other Arthritis Social History Social History Social History: She lives in [place] with her of 47 years. They have 3 children. Her son recently moved back into the home with them and has a small dog. There middle daughter works as a nurse at [employer]. There youngest daughter was murdered. 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 She never smoked. She drinks 1 alcoholic beverage a year on average. She denies illicit substance use. She is a mostly sedentary lifestyle. Primary care physician: Dr. Juan Pablo Easton Code status: Full code Surrogate decision maker: Smoking status: Never smoker Additional smoking assessment comments: DENIES ANY FORM OF TOBACCO USE Alcohol intake: never Alcohol use details: rare Substance use: never Substance use type: does not use Do You Feel Safe in your Home?: Yes Lack of Transportation: No Lack of Food: Never True Current Housing: I Have Housing Concerned About Future Housing: No Difficulty Paying Gas/Electric Bills: No Difficulty Paying for Meds: No Currently Unemployed: No Education: Associate Degree Difficulty w/ Childcare or Family Care: No Living arrangements: with family Additional living arrangements comments: Gender identity (if verbalized by the patient): Female Spiritual care concerns: No Anes - Eval Final PreProcedure Day of Procedure 06/24/25 10:29 Patient weight: obese Heart: regular rate and rhythm Lungs: clear to auscultation Airway: Mallampati scale class II Neurological: alert and oriented Last oral intake: >/= 8 hours ASA classification: III Emergent: no Anesthetic plan: proceed Anesthesia type and monitoring: general GIVS and standard monitoring Results Review: All pre-operative results and documents have been reviewed as part of the pre-operative evaluation. Informed Consent: The patient's anesthetic plan and its attendant risks and benefits were discussed with the patient/family/POA. Questions were solicited and answers provided to the satisfaction of the patient/family/POA.
--- NOTE | 2025-06-24 11:05 | PM.IMHP ---
H&P: HPI History of Present Illness Date/Time: 06/24/25 11:05 Chief Complaint: GERD Narrative: patient seen in my office for consultation 2 days ago, complaining of daily heartburn and dysphagia. She has a history of a Juan Manuel fundoplication in 1998. She is now here for EGD. Review of Systems Review of Systems: All systems reviewed & are unremarkable except as noted in HPI and below [facility] Past Medical History Medical History Encounter for administration of vaccine Diastolic CHF CAD (coronary artery disease) Takotsubo cardiomyopathy Non-ST elevation [place] (NSTEMI) Shellfish allergy Seasonal allergies Arthritis Depression Zapzkep-Iiedu-Kbgoz disease (~03/2021) Peripheral neuropathy Neuritis of right sural nerve Acquired cavovarus deformity of right foot Chronic insomnia Unspecified vitamin D deficiency Ga esophagus Atherosclerosis of aorta B12 deficiency Dyskinesia of esophagus Esophageal web Essential (primary) hypertension Gastroparesis Hypothyroidism (acquired) Internal derangement of right knee Irritable bowel syndrome with diarrhea Latex allergy status Metabolic syndrome Mixed hyperlipidemia Other hyperlipidemia Other spondylosis with radiculopathy, cervical region Patellar tendonitis of right knee Postgastric surgery syndromes Prediabetes With last hemoglobin A1c 4.7 Secondary osteoarthritis, right shoulder Spinal stenosis, unspecified region other than cervical Surgical History Surgical History Status post total right knee replacement (~04/27/25) Custom (Conformis) History of oophorectomy, unilateral History of arthroscopy of right knee History of foot surgery (~2018) tendon repair History of tonsillectomy (~1959) History of cholecystectomy (~2009) History of lumbar discectomy (~2009) History of Achilles tendon repair (~2017) History of Juan Manuel fundoplication (~1996) History of hysterectomy (~1979) Due to uterine prolapse History of endoscopy Family History Family History Grandparent Diabetes mellitus Father Family history of elevated blood lipids Acute myocardial infarction, Onset Age: 40 Heart disease Hypertension Mother Family history of lung cancer Pulmonary disease Sibling Acute myocardial infarction, Onset Age: 65 Massive [place] Heart disease Son History of acquired heart valve infection her son had open heart surgery and a valve replaced a few years ago due to infected valve Other Arthritis Social History Social History Social History: She lives in [place] with her of 47 years. They have 3 children. Her son recently moved back into the home with them and has a small dog. There middle daughter works as a nurse at [employer]. There youngest daughter was murdered. 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 She never smoked. She drinks 1 alcoholic beverage a year on average. She denies illicit substance use. She is a mostly sedentary lifestyle. Primary care physician: Dr. Juan Pablo Easton Code status: Full code Surrogate decision maker: Smoking status: Never smoker Additional smoking assessment comments: DENIES ANY FORM OF TOBACCO USE Alcohol intake: never Alcohol use details: rare Substance use: never Substance use type: does not use Do You Feel Safe in your Home?: Yes Lack of Transportation: No Lack of Food: Never True Current Housing: I Have Housing Concerned About Future Housing: No Difficulty Paying Gas/Electric Bills: No Difficulty Paying for Meds: No Currently Unemployed: No Education: Associate Degree Difficulty w/ Childcare or Family Care: No Living arrangements: with family Additional living arrangements comments: Gender identity (if verbalized by the patient): Female Spiritual care concerns: No Meds Home Medications and Allergies Home Medications ?Medication ?Instructions ?Recorded ?Confirmed ?Type aspirin 81 mg tablet,delayed 81 mg PO QAM #30 tabs 06/19/21 06/24/25 Rx release losartan 25 mg tablet 25 mg PO DAILY 07/11/22 06/23/25 History atorvastatin 40 mg tablet 40 mg PO QHS 07/13/23 06/24/25 History lidocaine 5 % topical patch 1 patch topical Q24H back pain 02/21/24 06/23/25 History cyclobenzaprine 10 mg tablet 10 mg PO TID 05/27/24 06/23/25 History albuterol sulfate 90 mcg/actuation 2 puff inhalation QID PRN 08/25/24 06/24/25 Rx aerosol inhaler shortness of breath or wheezing #8.5 grams zolpidem 10 mg tablet 10 mg PO QHS #90 tabs 01/11/25 06/23/25 Rx sertraline 100 mg tablet 150 mg (1.5 x 100 mg) PO DAILY 01/13/25 06/24/25 Rx #135 tabs pantoprazole 40 mg tablet,delayed 40 mg PO QAM #90 tabs 02/01/25 06/24/25 Rx release (Protonix) hydrochlorothiazide 25 mg tablet 25 mg PO DAILY #90 tabs 02/02/25 06/24/25 Rx tramadol 50 mg tablet 50 mg PO Q6H PRN pain #180 tabs 02/08/25 06/23/25 Rx oxybutynin chloride 5 mg 5 mg PO DAILY #30 tabs 03/09/25 06/24/25 Rx tablet,extended release 24 hr cholecalciferol (vitamin D3) 62.5 62.5 mcg PO DAILY 03/31/25 06/24/25 History mcg (2,500 unit) capsule trazodone 50 mg tablet See Rx Instructions .Route 03/31/25 06/23/25 Rx .COMPLEX #90 tabs hyoscyamine sulfate 0.125 mg 0.125 mg PO Q4-6H PRN dyspepsia 04/07/25 06/23/25 Rx sublingual tablet #20 tabs alprazolam 0.25 mg tablet 0.25 mg PO TID PRN anxiety #30 tabs 04/13/25 06/23/25 Rx hydrocodone 5 mg-acetaminophen 325 1 tablet PO Q6H PRN pain #30 tabs 04/13/25 06/23/25 Rx mg tablet linaclotide 145 mcg capsule See Rx Instructions .Route .COMPLEX 04/27/25 06/23/25 History (Linzess) prednisone 5 mg tablet 5 mg PO DAILY #21 tabs 04/27/25 06/24/25 Rx ondansetron 4 mg disintegrating 4 mg PO Q8H PRN nausea and 05/07/25 06/23/25 Rx tablet vomiting #20 tabs levothyroxine 88 mcg tablet See Rx Instructions .Route 06/17/25 06/24/25 Rx .COMPLEX #90 tabs mupirocin 2 % topical ointment 1 applic topical BID #22 grams 06/21/25 06/24/25 Rx (Centany) oxycodone-acetaminophen 5 mg-325 1 tablet PO Q8H PRN pain, severe 06/21/25 06/23/25 Rx mg tablet #30 tabs pantoprazole 40 mg tablet,delayed 40 mg PO BID GERD 30 days #60 tabs 06/22/25 06/24/25 Rx release Allergies Allergy/AdvReac Type Severity Reaction Status Date / Time Latex, Natural Rubber Allergy Intermediate Blistering Verified 06/24/25 09:59 Rash shellfish derived Allergy Mild Itching Verified 06/24/25 09:59 ciprofloxacin Allergy Unknown Skin Verified 06/24/25 09:59 Reaction neomycin Allergy Unknown Skin Verified 06/24/25 09:59 Reaction Penicillins Allergy Unknown Unknown Verified 06/24/25 09:59 Quinolones Allergy Unknown Unknown Verified 06/24/25 09:59 cephalexin AdvReac Mild Gastrointestinal Verified 06/24/25 09:59 Upset Vital Signs Vital Signs - 24 hr 06/24/25 10:01 Temperature 97.9 F Pulse Rate 103 H Respiratory Rate 16 Blood Pressure 124/67 Pulse Oximetry 100 Oxygen Delivery Room Air Exam Const: General: cooperative and healthy appearing Resp: Effort & Inspection: normal respiratory effort and able to speak in complete sentences Auscultation: clear to auscultation bilaterally Cardio: Rate: regular rate Rhythm: regular rhythm GI: Inspection: normal to inspection GI Palp: No No hepatosplenomegaly present Auscultation: normal bowel sounds Rectal Exam: deferred Skin: General skin exam: normal color Psych: Appearance: grossly normal Mental Status: mental status grossly normal Assessment and Plan Assessment and plan (1) Dysphagia: Code(s): R13.10 - Dysphagia, unspecified Status: Acute Assessment and Plan: The patient is deemed a good candidate for the procedure. Consent signed. Will proceed.
--- NOTE | 2025-06-24 11:15 | S_PTH ---
PATIENT: Schuyler Gutierrez LOC: [facility] U#:[id number] AGE/SX: 69/F ROOM: RE06/24/[address]: Christofer Phipps MD : 1955 BED: DIS: 06/24/2025 SPEC #: [id number] RECD: 06/24/25 11:37 STATUS: JOSIE REFabrizio #: [id number] RAFY: 06/24/25 11:[address]: Christofer Phipps DEPT: [facility] Surgical RECD BY: Haley Holland ENTERED: 06/24/25 11:37 SP TYPE: Surgical OTHR DR: Juan Pablo Easton MD Tissues: A - Gastric Biopsy B - Gastric Biopsy Procedures: Hematoxylin and Eosin Stain Gross and Microscopic Level 4
[2025-06-24 11:19] VITALS: BP 116/67; PULSE 66; RESP 18; O2SAT 100
[2025-06-24 11:29] VITALS: BP 120/64; PULSE 65; RESP 18; O2SAT 100
[2025-06-24 11:39] VITALS: BP 152/72; PULSE 70; RESP 17; O2SAT 100
== END 2025-06-24 11:46 | disposition home or self-care (01) ==
PROVIDERS: PCP Family Medicine; Referring Provider Family Medicine; Visit Provider Internal Medicine Gastroenterology
PROC: 0DJ08ZZ Inspection of Upper Intestinal Tract, Via Natural or Artificial Opening Endoscopic (ICD-10-PCS; CPT 43235; principal; 2025-06-24 11:30)
DX: K21.00 Gastro-esophageal reflux disease with esophagitis, without bleeding (principal); K29.30 Chronic superficial gastritis without bleeding; K31.89 Other diseases of stomach and duodenum; E03.9 Hypothyroidism, unspecified; E78.2 Mixed hyperlipidemia; K58.0 Irritable bowel syndrome with diarrhea; E88.810 Metabolic syndrome; I11.0 Hypertensive heart disease with heart failure; I50.30 Unspecified diastolic (congestive) heart failure; I25.10 Atherosclerotic heart disease of native coronary artery without angina pectoris; E55.9 Vitamin D deficiency, unspecified; I70.0 Atherosclerosis of aorta; E53.8 Deficiency of other specified B group vitamins; M47.22 Other spondylosis with radiculopathy, cervical region; M19.211 Secondary osteoarthritis, right shoulder; F32.A Depression, unspecified; G60.0 Hereditary motor and sensory neuropathy; G62.9 Polyneuropathy, unspecified; F51.04 Psychophysiologic insomnia; K91.1 Postgastric surgery syndromes; E66.9 Obesity, unspecified; Z68.32 Body mass index [BMI] 32.0-32.9, adult; Z79.82 Long term (current) use of aspirin; Z79.51 Long term (current) use of inhaled steroids; Z79.891 Long term (current) use of opiate analgesic; Z79.52 Long term (current) use of systemic steroids; Z98.890 Other specified postprocedural states; Z90.49 Acquired absence of other specified parts of digestive tract; Z98.1 Arthrodesis status; Z87.19 Personal history of other diseases of the digestive system; Z80.1 Family history of malignant neoplasm of trachea, bronchus and lung; Z82.49 Family history of ischemic heart disease and other diseases of the circulatory system
CPT/HCPCS: 43235; 88305; J2003; J2704; J7120

== ENCOUNTER 2025-07-08 09:30 | Outpatient (CLI) | payer MEDICARE, SELFPAY ==
--- OUTSIDE RECORDS SUMMARY | 2024-02-18 12:30 | XMS_ITS ---
Author Organization [facility] [place] ([phone]) Address [address] [place] [address] Care Team Providers Care Bologna Lacer Name Role Phone Juan Pablo Easton M.D. Primary Care Provider Jaycee Debbie Viera Unavailable [phone] Marleen Atwood Unavailable Unavailable REASON FOR VISIT [facility] follow-up Encounters Encounter Location Date Provider Diagnosis [facility] [place] [address] [place] [address] 02/18/2024 Debbie Mccann Plan Of Treatment No Information Progress Notes * Marysol HERNANDESOB:1955 (69 yo F)Acc No.[id number]:02/18/2024 Progress Notes Patient: Schuyler GUILLEN Provider: Vance Mccann MD :1955 A ge:68 Y S ex:Female Date:02/18/2024 [facility] [id number] Pcp:Juan Pablo Easton M.D. Subjective: * Chief Complaints: * 1 . [facility] follow-up. * Medical History: Objective: * Vitals: Assessment: Plan: * Treatment: * Billing Information: * Visit Code: * Procedure Codes: * Electronic signature of Sudha Mccann MD on 07/08/2025 at 10:08 AM CDT Sign off status: Pending * Provider: Vance Mccann MD Date: 0 02/18/2024 Generated for Printi ng/Faxing/eTransmitting on: 1 10:08 AM CDT
--- OUTSIDE RECORDS SUMMARY | 2024-03-21 16:30 | XMS_ITS ---
Author Organization [facility] [employer] [place] ([address]) Address [address] [place] [address] Care Team Providers Care Automotive Service Advisor Name Role Phone Juan Pablo Easton M.D. Primary Care Provider Jaycee Debbie Viera Unavailable [phone] Marleen Atwood Unavailable Unavailable [employer], Provider Unavailable Unavailab le Allergies Allergen (clinical drug ingredient) Drug/Non Drug Allergy documented on EMR Reaction Allergy Type Onset Date Status Ciprofloxacin Unknown Drug Allergy Act noa neomycin Neomycin Unknown Drug Allergy Active Penicillin rash/shortness of breath Drug Allergy Active quinapril Quinapril Unknown Drug Allergy Active [facility] Conversion Encounter Medications Medication SIG (Take, Route, Frequency, Duration) Notes Start Date End Date Status HYDROcodone Bitartrate ER 10 MG 1 cap(s) orally every 12 hours Active Zanaflex 4 MG 2 cap(s) orally 3 times a day Active Trelegy Ellipta 100 MCG-62.5 MCG-25 MCG/INH 1 PUFF(S) INHALED ONCE A DAY; Duration: 30 DAYS *Please review and pick correct strength-formula tion from [facility] options. If intended option is not shown, discontinue and re-order from Quick Search* Active Azelastine HCl 137 MCG/SPRAY 2 spray(s) intranasally 2 times a day; Duration: 30 days Active ALBUTEROL (EQV-PROAIR HFA) 90 MCG/INH 2 PUFF(S) INHALED EVERY 6 HOURS; Duration: 30 DAYS *Please review for potential replacement for e-prescription and drug interaction check* Active Azithromycin 250 MG 2 tablets on the first day, then 1 tablet daily for 4 days orally once a day; Duration: 5 days 11/26/2023 Active Breo Ellipta 200 MCG-25 MCG/INH 1 PUFF(S) INHALED ONCE A DAY; Duration: 30 DAYS *Please review and pick correct strength-formula tion from [employer] options. If intended option is not shown, discontinue and re-order from Quick Search* 03/04/2024 Active Levocetirizine Dihydrochloride 5 MG 1 tab(s) orally once a day (in the evening); Duration: 30 days Active Losartan Potassium 25 MG 1 tab(s) orally once a day Active Pantoprazole Sodium 40 MG 1 tab(s) orall y once a day Active Advair Diskus 250 MCG-50 MCG 1 INH INHALED 2 TIMES A DAY; Duration: 30 DAYS *Please review and pick correct strength-formula tion from [employer] options. If intended option is not shown, discontinue and re-order from Quick Search* 11/26/2023 Active Aspirin 81 MG 1 tab(s) orally once a day Active hydroCHLOROthiazide 12.5 MG 1 tab(s) orally once a day Active Levothyroxine Sodium 75 MCG 1 tab(s) orally once a day Active Sertraline HCl 100 MG 1 tab(s) orally once a day Active traZODone HCl 50 MG as directed orally Active Gabapentin 300 MG 1 cap(s) orally 3 times a day Active Zolpidem Tartrate 10 MG 1 tab(s) orally once a day (at bedtime) Active Encounters Encounter Location Date Provider Diagnosis [address] [address] 03/21/2024 Provider IRVING-Harry Cough, unspecified R05.9 and Allergic rhinitis due to pollen J30.1 Assessments Encounter Date Diagnosis (ICD Code) Assessment Notes Treatment Notes Treatment Clinical Notes Section Notes 03/21/2024 Cough, unspecified (ICD-10 - R05.9) 03/21/2024 Allergic rhinitis due to pollen (ICD-10 - J30.1) Plan Of Treatment Medication Medication Name Sig Start Date Stop Date Notes Trelegy Ellipta 100 MCG-62.5 MCG-25 MCG/INH 1 PUFF(S) INHALED ONCE A DAY; Duration: 30 DAYS *Please review and pick correct strength-formulatio n from [employer] options. If intended option is not shown, discontinue and re-order from Quick Search* Azelastine HCl 137 MCG/SPRAY 2 spray(s) intranasally 2 times a day; Duration: 30 days ALBUTEROL (EQV-PROAIR HFA) 90 MCG/INH 2 PUFF(S) INHALED EVERY 6 HOURS; Duration: 30 DAYS *Please review for potential replacement for e-prescription and drug interaction check* Azithromycin 250 MG 2 tablets on the first day, then 1 tablet daily for 4 days orally once a day; Duration: 5 days 11/26/2023 Breo Ellipta 200 MCG-25 MCG/INH 1 PUFF(S) INHALED ONCE A DAY; Duration: 30 DAYS 03/04/2024 *Please review and pick correct strength-formulatio n from [employer] options. If intended option is not shown, discontinue and re-order from Quick Search* Levocetirizine Dihydrochloride 5 MG 1 tab(s) orally once a day (in the evening); Duration: 30 days Advair Diskus 250 MCG-50 MCG 1 INH INHALED 2 TIMES A DAY; Duration: 30 DAYS 11/26/2023 *Please review and pick correct strength-formulatio n from [employer] options. If intended option is not shown, discontinue and re-order from Quick Search* Progress Notes * Arcadio GUTIERREZMissyOB:1955 (69 yo F)Acc No.[id number]:03/21/2024 Patient: Schuyler GUILLEN Provider: Shahid Mcdonald :1955 A ge:68 Y S ex:Female Date:03/21/2024 Address:[address] [place], [place] [id number] Pcp:Juan Pablo Easton M.D. Subjective: * Chief Complaints: * 1 . [facility]. * Medical History: * Medications: T aking Zanaflex 4 MG Capsule 2 cap(s) orally 3 times a day , Taking HYDROcodone Bitartrate ER 10 MG Capsule Extended Release 12 Hour 1 cap(s) orally every 12 hours , Taking Gabapentin 300 MG Capsule 1 cap(s) orally 3 times a day , Taking traZODone HCl 50 MG Tablet as directed orally , Taking Zolpidem Tartrate 10 MG Tablet 1 tab(s) orally once a day (at bedtime) , Taking hydroCHLOROthiazide 12.5 MG Tablet 1 tab(s) orally once a day , Taking Aspirin 81 MG Tablet Delayed Release 1 tab(s) orally once a day , Taking Sertraline HCl 100 MG Tablet 1 tab(s) orally once a day , Taking Levothyroxine Sodium 75 MCG Tablet 1 tab(s) orally once a day , Taking Pantoprazole Sodium 40 MG Tablet Delayed Release 1 tab(s) orally once a day , Taking Losartan Potassium 25 MG Tablet 1 tab(s) orally once a day * Allergies: C iprofloxacin, Neomycin, Quinapril, Penicillin: rash/shortness of breath. Objective: * Vitals: Assessment: * Assessment: 1. C ough, unspecified - R05.9 (Primary) 2 . A llergic rhinitis due to pollen - J30.1 Plan: * Treatment: 2. A llergic rhinitis due to pollen Continue Levocetirizine Dihydrochloride Tablet, 5 MG, 1 tab(s), orally, once a day (in the evening), 30 days, 30, Refills 0; C ontinue Azelastine HCl Solution, 137 MCG/SPRAY, 2 spray(s), intranasally, 2 times a day, 30 days, 1, Refills 0. 3. O thers Start Breo Ellipta POWDER, 200 MCG-25 MCG/INH, 1 PUFF(S), INHALED, ONCE A DAY, 30 DAYS, 1, Refills 5, Notes to Pharmacist: *Please review and pick correct strength-formulation from [employer] options. If intended option is not shown, discontinue and re-order from Quick Search*. * Billing Information: * Visit Code: * Procedure Codes: * Electronic signature of Kathrin VILLATORO-Migration on 07/08/2025 at 10:08 AM CDT Sign off status: Pending * Provider: Shahid che Migration Date: 0 03/21/2024 Generated for Terence gutierrez/Cris/Aleksander on: 10:08 AM CDT
--- OUTSIDE RECORDS SUMMARY | 2024-08-20 11:00 | XMS_ITS ---
Author Organization [facility] Address [address] [place] [address] Care Team Providers Care Axminster Weaver Name Role Phone Juan Pablo Easton M.D. Primary Care Provider Juan Lancaster REASON FOR VISIT LT PF Encounters Encounter Location Date Provider Diagnosis 1 OF Toin Serrano [facility] [address] [facility] [address] [place] [address] 08/20/2024 Juan Serrano Plan Of Treatment No Information History and Physical Notes * HPI (History of Present Illness) Category Sub-Category Detail Notes Category Not es Primary reason for visit: 68 year old female RTO for LT PF. At the last visit patient was given medrol pack, her foot was strapped, and pt was advised to discuss possible CMT with her neurologist. Today the pt reports MA assisting with visit: HPI/Rooming: ..... Examination Category Sub-Category Detail Notes Category Not es General Examination Mental status: Cooperative, Oriented to person, place and time, Mood and affect: normal, Judgement and intellect: normal with appropriate response to questions Shoes today: XXXX Exam unchanged from prior visit: with no significant changes in appearance or condition of feet Constitutional / Appearance: No acute di stress , Well nourished, Appropriate personal hygiene Progress Notes * Sherwin GUTIERREZ:1955 (69 yo F)Acc No.[id number]:08/20/2024 Progress Notes Patient: Peter chrisjameySchuyler Provider: Toni Serrano DPM :1955 A ge:68 Y S ex:Female Date:08/20/2024 Address:[address], [id number] Pcp:Juan Pablo Easton M.D. Subjective: * Chief Complaints: * L T PF * HPI: M A assisting with visit:: HPI/Rooming: . ..... [facility] reason for visit:: 68 year old female RTO for LT PF. At the last visit patient was given medrol pack, her f oot was strapped, and pt was advised to discuss possible CMT with her neurologist. Today the pt reports. Objective: * Examination: G eneral Examination: Constitutional / Appearance: N o acute distress , Well nourished, Appropriate personal hygiene. Mental status: C ooperative, Oriented to person, place and time, Mood and affect: normal, Judgement and intellect: normal with appropriate response to questions. Shoes today: X XXX. Exam unchanged from prior visit: w ith no significant changes in appearance or condition of feet . * Electronic signature of Laurie Serrano DPM on 07/08/2025 at 10:09 AM CDT Sign off status: Pending * Provider: Toni Serrano DPM Date: 10/20/2023 Generated for Terence gutierrez/Cris/Aleksander on: 10:09 AM CDT
--- NOTE | ~2025-07-08 | MM_ITS ---
EXAMINATION: MM screening [facility] BI w sarai HISTORY: Screening TECHNIQUE: Craniocaudal and mediolateral oblique 3-D tomosynthesis images were obtained and synthetic 2-D images were generated. CAD analysis was submitted and interpreted. COMPARISON: Comparison to multiple prior studies sequentially, with oldest reviewed study dated 02/07/2017. BREAST PARENCHYMAL COMPOSITION: Not dense: There are scattered areas of fibroglandular density. FINDINGS: There is no evidence of suspicious mass, calcification, or architectural distortion to suggest malignancy in either breast. There has been no suspicious interval change. IMPRESSION: 1. No mammographic evidence of malignancy. 2. Recommend routine screening mammography in one year. BI-RADS Category 1: Negative Reviewed, dictated and finalized at location C.
--- OUTSIDE RECORDS SUMMARY | 2025-07-08 10:08 | XMS_ITS | Encounter Summary ---
Author Organization [facility] Healthcare Address [address] [place] [address] Care Team Providers Care Plant Changer Name Role Phone Juan Pablo Easton MD Primary Care Provider +1 -[phone] Encounter Details Date Type Department Care Team (Late st Contact Info) Description 10/30/2023 Telephone [facility] [place] [facility] [address] 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 Minimize further functional decline 2. Maximize quality of life 3. Control pain Strategies: - Activity/exercise program recommendation - Conservative stepwise pain medicine strategy with multi-disciplinary approach - Recommend healthy lifestyle strategies and compensatory methods as needed documented as of this encounter Visit Diagnoses Not on filedocumented in this encounter Care Teams Plant Changer Relationship Specialty Start Date End Date Juan Pablo Easton MD PCP - General 02/24/15 documented as of this encounter
--- OUTSIDE RECORDS SUMMARY | 2025-07-08 10:08 | XMS_ITS | Encounter Summary ---
Author Organization [facility] Healthcare Address [address] [place] [address] Care Team Providers Care Data Collection Technician Name Role Phone Juan Pablo Easton MD Primary Care Provider +1 -[phone] Reason for Visit * Reason Onset Date Comments Scheduling Appointments 03/20/2024 Encounter Details Date Type Department Care Team (Late st Contact Info) Description 03/20/2024 Telephone [facility] [place] [facility] [address] [facility] Advanced Medicine [address] [place] [address] Chelita Ray MD PhD [address] [facility] [id number] [place], [place] [id number] Scheduling Appointments Social History Tobacco Use Types [...] on file 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 Author CCM Chronic Pain Care Plan Chronic Care Management On track(2023 1:38 PM HOME VISITOR HOME BASE HEAD START) No Lizette Resendiz, ASH Note: Problem: Chronic Pain Goals: 1. Minimize further functional decline 2. Maximize quality of life 3. Control pain Strategies: - Activity/exercise program recommendation - Conservative stepwise pain medicine strategy with multi-disciplinary approach - Recommend healthy lifestyle strategies and compensatory methods as needed documented as of this encounter Visit Diagnoses Not on filedocumented in this encounter Care Teams Data Collection Technician Relationship Specialty Start Date End Date Juan Pablo Easton MD PCP - General 02/24/15 documented as of this encounter
--- OUTSIDE RECORDS SUMMARY | 2025-07-08 10:08 | XMS_ITS | Encounter Summary ---
Author Organization [facility] Healthcare Address [address] [place] [address] Care Team Providers Care Biomedical Repair Technician Name Role Phone Juan Pablo Easton MD Primary Care Provider [phone] [phone] Reason for Visit * Reason Onset Date Comments PMC Preprocedure 08/24/2024 Encounter Details Date Type Department Care Team (Late st Contact Info) Description 08/24/2024 Telephone [facility] [place] [facility] [address] [facility] Advanced Medicine [address] [place], [place] [phone] Chelita Ray MD PhD [address] 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 Author CCM Chronic Pain Care Plan Chronic Care Management On track(2023 1:38 PM MANAGER OF PURCHASING) No Lizette Resendiz, ASH Note: Problem: Chronic Pain Goals: 1. Minimize further functional decline 2. Maximize quality of life 3. Control pain Strategies: - Activity/exercise program recommendation - Conservative stepwise pain medicine strategy with multi-disciplinary approach - Recommend healthy lifestyle strategies and compensatory methods as needed documented as of this encounter Visit Diagnoses Not on filedocumented in this encounter Care Teams Biomedical Repair Technician Relationship Specialty Start Date End Date Juan Pablo Easton MD PCP - General 02/24/15 documented as of this encounter
--- OUTSIDE RECORDS SUMMARY | 2025-07-08 10:08 | XMS_ITS | Clinical Summary ---
Author Organization [facility] [address] Address [address] [place] [address] Care Team Providers Care Weigher Packing Name Role Phone Juan Pablo Easton MD Primary Care Provider [phone] [phone] Allergies Active Allergy Reactions Criticality Noted Date [...] mg total) by mouth daily 5 Active hydroCHLOROthiaz princess (HYDRODIURIL) 25 mg [...] EVERY NIGHT 90 tablet 2 5 Active cyclobenzaprine (FLEXERIL) 10 mg tabletIndication s:Muscle spasm of back Take 1 tablet (10 mg total) by mouth 3 (three) times a day as needed for muscle spasms for muscle spasms 90 tablet 3 5 Active cyclobenzaprine (FLEXERIL) 10 mg tabletIndication s:Muscle spasm of back TAKE 1 TABLET(10 MG) BY MOUTH THREE TIMES DAILY NEEDED FOR MUSCLE SPASMS 90 tablet 3 5 025 Discontin ued(Reord er) Active Problems Problem [...] (06/27/2022): Added automatically from request for surgery [id number] Entrapment neuropathy of right sural nerve 04/24 [...] Other Medical surgery for FRANCISCO D; Comments: U 02/24/2015 - Hx Other Medical IBS, sensitive stomach, hypothyroidism, depression; Comments: ELU 02/24/2015 - Hx Other Medical Hysterectomy; C omments: ELU 02/24/2015 - Hx Other Medical Chronic back pa in; Comments: ELU 02/24/2015 - Asthma COPD (chronic obstructive pu lmonary disease) Hypertension Thyroid disease Diastolic dysfunction Cardiomyopathy 06/16/2021 Takotsubo cardio myopathy Hhutguu-Fnvnk-Nskho disease GERD (gastroesophageal reflu x disease) 1989 [...] Father Alek Clark Other Father Alek Clark [place] 48 yo, CABG 50, of massive [place] 53; Cancer Mother Sybil Clark Lung cancer [...] file 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 Gender Identity Not on file Sexual Orientation Not on file Obstetrics History Last Filed Vital Signs Vital Sign Reading Time Taken Comments Blood Pressure 130/62 03/04/2025 11:34 AM CDT Pulse 83 03/04/2025 11:34 AM CDT Temperature 36.3 C (97.3 F) 12/02/2024 7:31 AM ANIMAL STUNNER Respiratory Rate 16 12/02/2024 8:40 AM ANIMAL STUNNER Oxygen Saturation 98% 03/04/2025 11:34 AM CDT [...] Additional history exists Influenza Vaccine (#1) 2025 3, 08/01/2022, 07/07/2020, Additional history exists Colon Cancer Screening-CT Colonography Discontinued 11/03/2012 Colon Cancer Screening-DNA Stool Discontinued 11/03/19 13 Colon Cancer Screening-FIT Discontinued 11/03/2012 Colon Cancer Screening-Sigmoidoscopy Discontinued 11/03/2012 Goals Goal Patient Goal Type Associated Problems Recent Progress Patient-Stated? Author CCM Chronic Pain Care Plan Chronic Care Management On track(2023 1:38 PM ANIMAL STUNNER) Lizette Hughes, ASH Note: Problem: Chronic Pain Goals: 1. Minimize further functional decline 2. Maximize quality of life 3. Control pain Strategies: - Activity/exercise program recommendation - Conservative stepwise pain medicine strategy with multi-disciplinary approach - Recommend healthy lifestyle strategies and compensatory methods as needed Medical Devices Implanted Type Area Montessori Toddler Teacher Device Identifier Shelf Expiration Date Model / Serial / Lot Eterna Implantable Pulse Generator Implanted:Qty: 1 on 02/22/2023 by Chelita Ray MD PhD at [facility] Other - see comments N/A: Back [employer] [id number] 10/17/2024 [id number] / [id number] / Description:Implantable puls e generator reference # 44771 - PART OF KIT [employer] Avance 4-5mm 50mm Allograft Natural Connection Graft Soft Tissue [id number] - [id number] Implanted:Qty: 1 on 07/31/2022 by Padmini Mcnamara MD at [facility] Right: Ankle [employer] Inc 12/05/2023 [id number] / / [id number] Description:Implanted proxim al to right ankle. [employer] Lambert-Lock Badger Lead 1192 - [id number] Implanted:Qty: 2 on 02/22/2023 by Chelita Ray MD PhD at [facility] N/A: Back [employer] [id number] 10/21/2024 1192 / / [id number] [employer] Octrode 60cm 8 Electrode Lead Percutaneous Kit Neurostimulator [id number] - [id number] - [id number] Implanted:Qty: 1 on 02/22/2023 by Chelita Ray MD PhD at [facility] N/A: Back [employer] [id number] 02/04/2025 [id number] / [id number] / [employer] Octrode 60cm 8 Electrode Lead Percutaneous Kit Neurostimulator [id number] - [id number] - [id number] Implanted:Qty: 1 on 02/22/2023 by Chelita Ray MD PhD at [facility] N/A: Back [employer] [id number] 02/04/2025 [id number] / [id number] / [employer] Generator Neurostimulator Spine Rechargeable Eterna [id number] - [id number] Implanted:Qty: 1 on 02/22/2023 by Chelita Ray MD PhD at [facility] N/A: Back [employer] [id number] / / Explanted Type Area Montessori Toddler Teacher Device Identifier Shelf Expiration Date Model / Serial / Lot [employer] Invisible One Lead Trial System Spinal Cord Stimulation 1-Lead Trial [facility] - [id number] - [id number] Implanted:Qty: 1 on 01/10/2023 by Alcon Ayers MD at [facility] Explanted: 023 by Chelita Ray MD PhD (Quantity not on file) [employer] 10/04/2024 1-LEAD TRIAL SYS / [id number] / Procedures Procedure Name Priority Date/Time Associated Diagnosis Comments COLONOSCOPY REPORT 11/03/2012 from Last 3 Months or Most Recently Relevant to Health Maintenance Results * COLONOSCOPY REPORT (11/03/2012) Anatomical Region Laterality Modality Other Narrative 11/03/2012 Ordered by an unspecified provider. us Historical Provider GI PROCEDURE ORDERABLES F inal Result from Last 3 Months or Most Recently Relevant to Health Maintenance Insurance MEDICARE [facility] MEDICARE [facility] MEDICARE [facility] Advance Directives For more information, please contact: [phone] * Full Code (Latest Code Status on File) Date Activated Date Inactivated Comments 07/31/2022 4:32 PM 08/01/2022 4:34 PM Care Teams Weigher Packing Relationship Specialty Start Date End Date Juan Pablo Easton MD PCP - General 02/24/15
--- OUTSIDE RECORDS SUMMARY | 2025-07-08 10:08 | XMS_ITS | Encounter Summary ---
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 Author CCM Chronic Pain Care Plan Chronic Care Management On track(2023 1:38 PM CLINICAL BIOCHEMIST) No Lizette Resendiz RN Note: Problem: Chronic [...] on filedocumented in this encounter Care Teams Husbandry Technician Relationship Specialty Start Date End Date Juan Pablo Easton MD PCP - General 02/24/15 documented as of this encounter
--- OUTSIDE RECORDS SUMMARY | 2025-07-08 10:09 | XMS_ITS | Patient Health Record ---
Author Organization [address] [facility] Address [address] [address] [place] [address] Care Team Providers Care Die Press Operator Name Role Phone Juan Pablo Easton M.D. Primary Care Provider Jaycee Juan Eisenberg Unavailable [phone] Allergies Allergen (clinical drug ingredient) Drug/Non Drug Allergy documented on EMR Reaction Allergy Type Onset Date Status ciprofloxacin (uncoded) Unknown Allergy Active Latex latex (uncoded) Unknown Allergy Acti ve penicillin (uncoded) Unknown Allergy Active Reason For Referral No Information Medications Medication SIG (Take, Route, Frequency, Duration) Notes Start Date End Date Status Flexeril Active traMADol HCl Active Atorvastatin Calcium Active HYDROcodone-Acetaminophen 5-325 MG Tablet 1 tablet Orally every 6 hrs As needed; discontinue Tramadol while taking this medication 09/09/2024 Active Pantoprazole Sodium Active Medrol (Vadim) 4 MG Tablet as directed Ora lly as directed; Duration: 6 days 07/23/2024 Active Zolpidem Tartrate Ac tive Celecoxib 200 MG Capsule Take 1 capsule by mouth once daily; Duration: 30 days Active Levothyroxine Sodium Active Sertraline HCl Activ e Losartan Potassium A ctive Aspirin Active Social History Tobacco Use: Social History Observation Description Date Details (start date - stop date) Never Smoker NA - NA Social History Tobacco Use: Social Info Question Answer Notes Tobacco Use/Smoking Are you a nonsmoker Additional Details Category Social Info Options Details Miscellaneous: Exercise: Sedentary Marital status: Housing: owns a home Occupation: Works part-time Living with: spouse Drugs/Alcohol: Alcohol use: Maria Del Carmen wheatley alcohol use Recreational drugs Patient dentrisha s recreational drug use Problems Problem Type SNOMED Code ICD Code Onset Dates Problem Status W/U Status Risk Notes Problem Gout (00231810) Gout of right foot, unspecified cause, unspecified chronicity (M10.9) Active confirmed Problem Plantar fasciitis of left foot (31595383885331826) Plantar fasciitis of left foot (M72.2) Active confirmed Problem 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 Problem Vitamin D deficiency (16908933) Vitamin D deficiency (E55.9) Active confirmed Problem 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) (25202036050359848) Congenital pes cavus, 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) Active confirmed Problem Gouty arthritis of right foot (7911472553845837) Gouty arthritis of right foot (M10.9) Active confirmed Problem 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) Kimxdhu-Kyovq-K ooth disease (G60.0) Active confirmed Problem Common peroneal nerve lesion (502180376) 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 Problem Mononeuropathy of lower limb (997880012) Neuritis of right lower extremity (G57.91) Active confirmed Vital Signs Height 63 in 08/31/2024 Weight 170 lbs 08/31/2024 BMI 30.11 kg/m2 08/31/2024 Encounters Encounter Location Date Provider Diagnosis [facility] [address] [place] [phone] 07/23/2024 Juan Serrano Plantar fasciitis of left foot M72.2 ; Congenital pes cavus, left foot Q66.72 and Foot pain, left M79.672 1 OF [facility] [address] [place] [address] 08/31/2024 Juan Serrano Plantar fasciitis of left foot M72.2 ; Entrapment neuropathy of right sural nerve G57.31 ; Congenital pes cavus, left foot Q66.72 and Foot pain, left M79.672 1 OF Toni Serrano [facility] [address] [place] [address] 09/01/2024 Juan Serrano 1 OF Toni Serrano [facility] [address] [place] [address] 09/08/2024 Juan Serrano 1 OF Toni Serrano [facility] [address] [place] [address] 09/08/2024 Juan Serrano 1 OF Toni Serrano [facility] [address] [place] [address] 09/09/2024 Juan Serrano Assessments Encounter Date Diagnosis (ICD Code) Assessment Notes Treatment Notes Treatment Clinical Notes Section Notes 07/23/2024 Plantar fasciitis of left foot (ICD-10 [...] fasciitis of left foot (ICD-10 - M72.2) [place] was added to arch custom orthotics. Considered [...] to me at her visit that another manager analysis had told her she had Qhsprev-Jaere-Wjv th disease however today I advised does not appear she has any symptoms of Txqmpvc-Gfuwu-Bsr th and this may not have been a accurate diagnosis. She does have a neurologist that she sees regularly for her continued pain of the right foot and I recommended she consider asking her neurologist whether or not she might have Yiynefk-Zydjw-Mmv th disease. 08/31/2024 Foot pain, left (ICD-10 - M79.672) 07/23/2024 Foot pain, left (ICD-10 - M79.672) Plan Of Treatment No Information Insurance Providers Payer Name Payer Address Payer Phone Subscriber Number Group Number Insured Name Patient Relationship to Insured Coverage Start Date Coverage End Date Medicare [address] [place], [place] [id number] Schuyler Gutierrez Self - patient is the insured [facility] MEDICARE SUPPLEMENT [address] [place] [address] [id number] plan g Schuyler Gutierrez Self - patient is the insured Medical (General) History Medical History History ICD Code Arthritis, depression, gerd/ reflux, high cholesterol, high blood pressure, migraines, thyroid problems, Heart attack Surgical History Surgery Date(Month/Year) postcalcaneal spur resection 06/2018
--- OUTSIDE RECORDS SUMMARY | 2025-07-08 10:09 | XMS_ITS | Clinical Summary ---
Author Organization [facility] Address [address] [place] [address] Care Team Providers Care Senior Power Scheduler Name Role Phone Juan Pablo Easton MD Primary Care Provider [phone]- [phone] Source Comments [facility],non-owned Affiliates and Associated Physician Practices is amultiple site organization consisting of ambulatory clinics and hospital sitesin [place], [place], [place] and [place]. This disclosure is being madepursuant to the Care Everywhere program and may not contain all information available regarding this patient. 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 Gender Identity Not on file Sexual [...] patient's age to complete this topic Insurance [facility] Address: [facility] [address] [place] [address] MEDICARE MEDICARE [facility] SELF PAY NO INSURANCE Member Subscriber Plan / Payer (Ef fective for All Dates) Name:WeimarSchuyler Member ID:Not on file Relation to Subscriber:Not on file Name:CECILIOSCHUYLER Subscriber ID:Not on file (Home) Address: [address] [place] [address] Payer ID:Not on file Group ID:Not on file Type:Self Pay Address: [place], [place] MEDICARE Care Teams Senior Power Scheduler Relationship Specialty Start Date End Date Juan Pablo Easton MD [address] [place] [address] PCP - General 10/08/19
--- OUTSIDE RECORDS SUMMARY | 2025-07-08 10:09 | XMS_ITS | Patient Health Record ---
Author Organization [facility] [place] ([address]) Address [address] [place] [address] Care Team Providers Care Recovery Manager Name Role Phone Juan Pablo Easton M.D. Primary Care Provider Debbie Tovar Unavailable [phone] Marleen Atwood Unavailable Unavailable Allergies Allergen (clinical [...] review and pick correct strength-formula tion from PassionTag options. If intended option is not shown, [...] review and pick correct strength-formula tion from PassionTag options. If intended option is not shown, [...] Status Risk Notes Problem Allergy to penicillin (28618796) Allergy status to penicillin (Z88.0) Active confirmed Problem Chronic allergic conjunctivitis (41506522) Other chronic allergic conjunctivitis (H10.45) Active confirmed Problem Allergic rhinitis caused by pollen (disorder) (52367770) Allergic rhinitis due to pollen (J30.1) Active confirmed Problem Allergic rhinitis (11554638) Other allergic rhinitis (J30.89) Active confirmed Problem Allergic rhinitis caused by animal hair and dander (145443462376328) Allergic rhinitis due to animal (cat) (dog) hair and dander (J30.81) Active confirmed Problem Cough (finding) (98564970) Cough, unspecified (R05.9) Active confirmed Plan Of Treatment No Information Insurance Providers Payer Name Payer Address Payer Phone Subscriber Number Group Number Insured Name Patient Relationship to Insured Coverage Start Date Coverage End Date [employer] (Medicare) Attention Claims [address] [place] [address] [id number] Schuyler Gutierrez Self - patient is the insured [facility] [address] [place] [address] [id number] Schuyler Gutierrez Self - patient is the insured Medical (General) History Medical History History ICD Code Hypertension Surgical History Surgery Date(Month/Year) cholecystectomy Foot surgery Tonsillectomy hysterectomy
--- OUTSIDE RECORDS SUMMARY | 2025-07-08 10:09 | XMS_ITS | Encounter Summary ---
Author Organization [facility] Healthcare Address [address] [place] [address] Care Team Providers Care Manager Chinese Name Role Phone Juan Pablo Easton MD Primary Care Provider [phone] [phone] Reason for Visit * Reason Onset Date Comments Scheduling Appointments 01/19/2025 Encounter Details Date Type Department Care Team (Late st Contact Info) Description 01/19/2025 Telephone 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 Author CCM Chronic Pain Care Plan Chronic Care Management On track(2023 1:38 PM MASTER SHEET CLERK) No Lizette Resendiz, ASH Note: Problem: Chronic Pain Goals: 1. Minimize further functional decline 2. Maximize quality of life 3. Control pain Strategies: - Activity/exercise program recommendation - Conservative stepwise pain medicine strategy with multi-disciplinary approach - Recommend healthy lifestyle strategies and compensatory methods as needed documented as of this encounter Visit Diagnoses Not on filedocumented in this encounter Care Teams Manager Chinese Relationship Specialty Start Date End Date Juan Pablo Easton MD PCP - General 02/24/15 documented as of this encounter
--- OUTSIDE RECORDS SUMMARY | 2025-07-08 10:09 | XMS_ITS | Patient Health Record ---
Author Organization [facility] [place] [facility] Address [address] [place] [address] Support Name Relationship Address Phone Unavailable Emergency Contact Unknown Unavailabl e Schuyler Gutierrez Guarantor Unknown [phone] Allergies Allergen (clinical drug ingredient) Drug/Non Drug [...] W/U Status Risk Notes Problem Essential hypertension (56321958) Essential hypertension (I10) Active confirmed Problem Hypothyroidism (37465177) Hypothyroidism, unspecified type (E03.9) Active confirmed Plan Of Treatment No Information Insurance Providers Payer Name Payer Address Payer Phone Subscriber Number Group Number Insured Name Patient Relationship to Insured Coverage Start Date Coverage End Date [facility] ([facility]) [address] [address] [place] [address] [id number] Schuyler Gutierrez Self - patient is the insured 6 Medical (General) History Medical History History ICD Code Essential hypertension I10 Hypothyroidism, unspecified type Surgical History Surgery Date(Month/Year) hysterectomy Gallbladder back surgery
--- OUTSIDE RECORDS SUMMARY | 2025-07-08 10:09 | XMS_ITS | Clinical Summary ---
Author Organization [facility] Address [address] [place] [address] Care Team Providers Care Advertising Associate Name Role Phone Juan Pablo Easton MD Primary Care Provider [phone]- [phone] Social History Tobacco Use Types Packs/Day Years [...] age to complete this topic Insurance [facility]ICARE [facility] Care Teams Advertising Associate Relationship Specialty Start Date End Date Juan Pablo Easton MD PCP - General FAMILY PRACTICE 01/23/21
== END 2025-07-08 09:31 | disposition home or self-care (01) ==
LOC: ANHFOHIMG 09:40
PROVIDERS: PCP Family Medicine; Visit Provider Family Medicine
DX: Z12.31 Encounter for screening mammogram for malignant neoplasm of breast (principal)
CPT/HCPCS: 77063; 77067

== ENCOUNTER 2025-07-22 11:00 | Outpatient (RCR) | payer MEDICARE, SELFPAY ==
--- NOTE | 2025-05-11 10:00 | OPREHPOC ---
Outpatient Therapy Plan of Care This is a Multidisciplinary Plan of Care that may contain components documented by all disciplines (PT, OT, and ST.) PT Problem 1 PT Problem #1 Knowledge Deficit PT Goal 1 Goal / Goal Update 1*independent with HEP 2* correct gait pattern and use of cane Target Visit 10 PT Problem 2 PT Problem #2 Pain PT Goal 1 Goal / Goal Update 1* pt report pain rating of 3/10 at worst 2* pt report NO problems with sleeping and rolling over Target Visit 10 PT Problem 3 PT Problem #3 Impaired Range of Motion PT Goal 1 Goal / Goal Update increase R knee active ROM, to improve transfer and mobility skills active in sitting 1* extension 0' 2* flexion 120' Target Visit 10 PT Problem 4 PT Problem #4 Impaired Strength PT Goal 1 Goal / Goal Update increase strength of R hip and knee, to improve gait and transfer skills 1* gross strength of 4+/5 2* pt ambulate with full knee extension in stance phase of gait Target Visit 10 PT Problem 5 PT Problem #5 Impaired Functional Mobility PT Goal 1 Goal / Goal Update 1* 5 reps sit/stand time of 20 seconds, without use of UE's 2* 2 minute walking test distance of 350' with cane 3* up/down 8 steps with one hand railing and alternating step pattern 4* pt reports no issues/concerns with walking in community Target Visit 10
--- NOTE | 2025-05-11 10:00 | PTOPEVAL1 ---
Assessment and note entered by Bria Archer, PT Evaluation Information Assessment Status Evaluation ICD-10 Condition Codes (PT) Abnormalities of gait and mobility R26.9,Weakness R53.1,Encounter for other orthopedic aftercare Z47 .89,Aftercare following joint replacement surgery Z47.1 Other ICD-10 Condition Codes ( z96.651 R TKR PT) Onset 04-27-25 Subjective Information since surgery, use wheeled walker in home and comfortable with mobility in home; have 8 steps with bilateral hand rails- doing OK on them; been doing the exercises from the hospital- 20 reps; stretching knee ~ 10x/day Prior to surgery- ambulated without device; activity: home with ; active, limited driving due to R foot pain/neuropathy; out in community; walk for fitness- have been limited due to R knee, foot and back pain; hobby of sewing and crafts; Reported Pain Level Pain Score Self Report Additional Pain Score Comments pain range in the past few days 4- 8/10; increase to 8/10 after going to the [employer] and more walking , sitting in w/c the day before; increase pain: walking/standing 20 minutes decrease pain: sit/rest, elevate, ice 20 minutes, oxycodone every 6 hours; with sleeping problems sleeping and turning, use pillow between knees and ankles and bed is adjustable history: back and R ankle pain with neuropathy Assessment PT Clinical Summary Schuyler is s/p R TKR, 2 weeks. She is motivated, doing her exercises at home and going out into the community. Her is assisting with home tasks. Prior to surgery, she did not use an assistive device and was active, independent with all self care and light in home tasks. 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 She is under the care of cardiology, pain management and has a back nerve stimulator. With the evaluation: 2 minute walking test with the wheeled walker, distance of 210'; 4 steps with bilateral hand railing and single step pattern; 5 reps sit/stand with 1 UE use in 38 seconds; LE functional scale self rating of 54% limitation in activity level. ROM of R knee: active in sitting (-15') to 105' and supine passive (-8') to 110'. Skilled PT services are indicated for modalities PRN for pain and edema control, therapeutic exercises and activity to increase knee ROM, transfer, gait and mobility skills, to return to prior level of activity; education for HEP and gait training, progression to cane and no device as tolerated. Plan of Care Interventions Hot Pack/Cold Pack,Intermittent Compression Pump, Manual Therapy,Neuro Re-education,Patient/ Caregiver Education,Therapeutic Activities, Therapeutic Exercise,Other Other Interventions taping PT Services Indicated Yes Treatment Frequency and 2x/wk for 10 visits Duration These treatments will address the objective and functional deficits as defined above. The patient will be advanced safely and appropriately in order for the patient to progress towards his/her prior level of function. Additional exercises will be introduced and as well as a comprehensive home exercise program upon discharge, if needed, ?to ensure carryover of functional gains achieved in the clinic. This treatment plan has been reviewed and agreement upon by the patient.
--- NOTE | 2025-06-08 10:01 | OPREHPOC ---
Outpatient Therapy Plan of Care This is a Multidisciplinary Plan of Care that may contain components documented by all disciplines (PT, OT, and ST.) PT Problem 1 PT Problem #1 Knowledge Deficit PT Goal 1 Goal / Goal Update 1*independent with HEP 2* correct gait pattern and use of cane 06-08-25 progress met goals continue to progress HEP and gait training without device. Target Visit 15 PT Problem 2 PT Problem #2 Pain PT Goal 1 Goal / Goal Update 1* pt report pain rating of 3/10 at worst 2* pt report NO problems with sleeping and rolling over 06-08-25 progress met goal 2; #1 is 5/10 at worst continue towards goal 1 Target Visit 15 PT Problem 3 PT Problem #3 Impaired Range of Motion PT Goal 1 Goal / Goal Update increase R knee active ROM, to improve transfer and mobility skills active in sitting 1* extension 0' 2* flexion 120' 06-08-25 progress met goal 2; #1 is (-3') continue towards goal 1 Target Visit 15 PT Problem 4 PT Problem #4 Impaired Strength PT Goal 1 Goal / Goal Update increase strength of R hip and knee, to improve gait and transfer skills 1* gross strength of 4+/5 2* pt ambulate with full knee extension in stance phase of gait 06-08-25 progress goals not met continue towards goals Target Visit 15 PT Problem 5 PT Problem #5 Impaired Functional Mobility PT Goal 1 Goal / Goal Update 1* 5 reps sit/stand time of 20 seconds, without use of UE's 2* 2 minute walking test distance of 350' with cane 3* up/down 8 steps with one hand railing and alternating step pattern 4* pt reports no issues/concerns with walking in community 06-08-25 progress goal 3 met: #1 is 24 seconds with 1 UE; #2 is 260 '; #4 is using the cane and wheelchair for community distances continue towards goals 1,2,4 Target Visit 15
--- NOTE | 2025-06-08 10:01 | PTOPPROG ---
Assessment and note entered by Bria Archer, PT Assessment Status progress ICD-10 Condition Codes (PT) Abnormalities of gait and mobility R26.9,Weakness R53.1,Encounter for other orthopedic aftercare Z47 .89,Aftercare following joint replacement surgery Z47.1 Other ICD-10 Condition Codes ( z96.651 R TKR PT) Onset 04-27-25 Subjective Information feel like balance is still a little off; use the cane when going places and nothing in the house- can hold onto furniture; slow on stairs; have been going out-- grocery shopping, casino; at casino- take the wheelchair and push it to walk; want to be able to go back to the gym with my and do exercises there; feel like I need some more therapy to get my knee better. PAIN: range in the past week 0-5/10; swollen knee, sore; also limited due to low back pain and neuropathy in legs increase pain: walking, standing too lon minutes decrease pain: ice, elevation, take oxycodone -- think it was every day last week; also use tramadol, hydrocodone also; wearing the compression socks that are knee high; sleeping is not disrupted due to knee pain; Assessment PT Clinical Summary Schuyler has received 9 PT sessions. Today with assessment: pain rating 0-5/10; self assessment with LE functional scale rating of 50% limitation in activity level; reports standing/ walking tolerance of 30 minutes; sleeping is not disrupted due to knee pain; is using the cane and wheel chair in community and no device at home , but holding onto furniture as needed; continues to have edema over knee, with 3 circumferential measurements of knee are 2-5 cm larger than L knee ; 5 reps sit/stand time of 24 seconds with use of 1 UE; 2 minute walking test distance of 260' with cane; on 4 steps: alternate step pattern with 1 hand railing and single step pattern without railing; gross strength of R knee is 4/5; education for HEP. AROM of knee in sitting: (-3') to 125'. The goals were partially met; she has improved in all areas. Continue PT for further increase in strength and mobility. Plan of Care Interventions Hot Pack/Cold Pack,Intermittent Compression Pump, Manual Therapy,Neuro Re-education,Patient/ Caregiver Education,Therapeutic Activities, Therapeutic Exercise,Other Other Interventions taping PT Services Indicated Yes Treatment Frequency and 1x/wk for 6 visits Duration These treatments will address the objective and functional deficits as defined above. The patient will be advanced safely and appropriately in order for the patient to progress towards his/her prior level of function. Additional exercises will be introduced and as well as a comprehensive home exercise program upon discharge, if needed, ?to ensure carryover of functional gains achieved in the clinic. This treatment plan has been reviewed and agreement upon by the patient.
--- NOTE | 2025-07-22 11:55 | OPREHPOC ---
Outpatient Therapy Plan of Care This is a Multidisciplinary Plan of Care that may contain components documented by all disciplines (PT, OT, and ST.) PT Problem 1 PT Problem #1 Knowledge Deficit PT Goal 1 Goal / Goal Update 1*independent with HEP 2* correct gait pattern and use of cane 06-08-25 progress met goals continue to progress HEP and gait training without device. 07-22-25 d/c goals met Target Visit 15 Progress Met PT Problem 2 PT Problem #2 Pain PT Goal 1 Goal / Goal Update 1* pt report pain rating of 3/10 at worst 2* pt report NO problems with sleeping and rolling over 06-08-25 progress met goal 2; #1 is 5/10 at worst 07-22-25 d/c goal 2 met goal 1 is 5/10 Target Visit 15 Progress Partially Met PT Problem 3 PT Problem #3 Impaired Range of Motion PT Goal 1 Goal / Goal Update increase R knee active ROM, to improve transfer and mobility skills active in sitting 1* extension 0' 2* flexion 120' 06-08-25 progress met goal 2; #1 is (-3') continue towards goal 1 07-22-25 d/c goals met Target Visit 15 Progress Met PT Problem 4 PT Problem #4 Impaired Strength PT Goal 1 Goal / Goal Update increase strength of R hip and knee, to improve gait and transfer skills 1* gross strength of 4+/5 2* pt ambulate with full knee extension in stance phase of gait 06-08-25 progress goals not met continue towards goals 07-22-25 d/c goals met Target Visit 15 Progress Met PT Problem 5 PT Problem #5 Impaired Functional Mobility PT Goal 1 Goal / Goal Update 1* 5 reps sit/stand time of 20 seconds, without use of UE's 2* 2 minute walking test distance of 350' with cane 3* up/down 8 steps with one hand railing and alternating step pattern 4* pt reports no issues/concerns with walking in community 06-08-25 progress goal 3 met: #1 is 24 seconds with 1 UE; #2 is 260 '; #4 is using the cane and wheelchair for community distances continue towards goals 1,2,4 07-22-25 d/c goals 3,4 met improved with #1 to 26 seconds; #2 to 330' Target Visit 15 Progress Partially Met
--- NOTE | 2025-07-22 11:56 | PTOPDC ---
Assessment and note entered by Bria Archer, PT Assessment Status Discharge ICD-10 Condition Codes (PT) Abnormalities of gait and mobility R26.9,Weakness R53.1,Encounter for other orthopedic aftercare Z47 .89,Aftercare following joint replacement surgery Z47.1 Other ICD-10 Condition Codes ( z96.651 R TKR PT) Onset 04-27-25 Subjective Information walking more of a distance, stairs are easier, moving over is better; continue to have pain back and L foot; assists with vacuuming and doing laundry at home- he usually does those chores; doing all the exercises at home; have gone grocery shopping with ; does not drive very far due to R foot numbness; have not tried getting onto the floor to play with her dog; ready for discharge from therapy. Reported Pain Level Pain Score Self Report Additional Pain Score Comments pain range in the past week 0-5/10; increase to 5 with walking and doing more standing and walking; no problems with sleeping or moving in bed; Assessment PT Clinical Summary Schuyler has received a total of 14 PT sessions, s/p TKR. She has improved, with today's assessment reports pain range of 0-5/10; LE self rating functional scale of 36% limitation in activity level; active ROM of R knee 0-125'; 5 reps sit/stand time of without use of UE's 26 seconds; 2 minute walking test distance of 330'; good gait pattern without assistive device; education completed for HEP. The goals were partially achieved. Discharge PT. She is to continue with her HEP, plans to return to the fitness center, activity as tolerated. Plan of Care PT Services Indicated No
== END 2025-07-22 14:45 | disposition home or self-care (01) ==
LOC: ANHPT 11:00
PROVIDERS: PCP Family Medicine; Visit Provider Orthopaedic Surgery
DX: Z47.1 Aftercare following joint replacement surgery (principal); Z96.651 Presence of right artificial knee joint; Z12.31 Encounter for screening mammogram for malignant neoplasm of breast
CPT/HCPCS: 77063; 77067; 97016; 97110; 97116; 97140; 97161; 97530

== ENCOUNTER 2025-09-29 10:09 | Outpatient (CLI) | payer MEDICARE, SELFPAY ==
--- OUTSIDE RECORDS SUMMARY | 2025-09-29 10:12 | XMS_ITS | Clinical Summary ---
Author Organization [facility] [address] Address [address] [place] [address] Care Team Providers Care Casino Operations Supervisor Name Role Phone Juan Pablo Easton MD Primary Care Provider [phone] [phone] Allergies Active Allergy Reactions Criticality Noted Date [...] (81 mg total) by mouth daily Active traMADoL (ULTRAM) 50 mg tablet Take 1-2 tablets (50-100 mg total) by mouth every 6 (six) hours as needed for pain for up to 7 days 42 tablet 4 Active levothyroxine (SYNTHROID) 88 mcg tablet Take 1 tablet (88 mcg total) by mouth daily 4 Active celecoxib (CeleBREX) 200 mg capsule Take 1 capsule (200 mg total) by mouth daily 5 Active hydroCHLOROthiazi de (HYDRODIURIL) 25 mg tablet Take 1 tablet (25 mg total) by mouth daily 5 Active lidocaine (LIDODERM) 5 % Place 1 patch on the skin daily for 12 hours Remove & discard patch within 12 hours or as directed by . 30 patch 3 5 Active atorvastatin (LIPITOR) 40 mg tablet TAKE 1 TABLET(40 MG) BY MOUTH EVERY NIGHT 90 tablet 2 5 Active cyclobenzaprine (FLEXERIL) 10 mg tabletIndications :Muscle spasm of back Take 1 tablet (10 mg total) by mouth 3 (three) times a day as needed for muscle spasms for muscle spasms 90 tablet 3 5 Active losartan (COZAAR) 25 mg tablet Take 1 tablet (25 mg total) by mouth daily 90 tablet 5 Active oxyBUTYnin XL (DITROPAN-XL) 5 mg 24 hr tablet Take 1 tablet (5 mg total) by mouth 5 Active Active Problems Problem Noted Date [...] (06/27/2022): Added automatically from request for surgery [id number] Entrapment neuropathy of right sural nerve 04/24 [...] Encounters Date Type Department Care Team Description 09/01/2025 9:03 AM ENVIRONMENTAL ADVISOR - 09/01/2025 11:59 PM ENVIRONMENTAL ADVISOR Hospital Encounter [facility] [place] at the [address] Advanced Medicine [address] [place] [address] Chelita Ray MD PhD Sacroiliitis (Primary Dx); Neuroma of lower extremity; Lumbar radiculopathy; Gait abnormality Discharge Disposition: Discharge to home or self care 08/26/2025 Telephone [facility] at the [address] [facility] [address] [place] [address] Chelita Ray MD PhD PMC Preprocedure 08/04/2025 7:52 AM CDT - 08/04/2025 11:59 PM CDT Hospital Encounter [facility] at the [address] Medicine [address] [place] [address] Chelita Ray MD PhD Sacroiliitis (Primary Dx); Post laminectomy syndrome; S/P insertion of spinal cord stimulator; Complex regional pain syndrome type 2 of right lower extremity Discharge Disposition: Discharge to home or self care 07/30/2025 Telephone [facility] [address] [place] [address] Joana Rios NP Med Refill from Last 3 Months Immunizations Immunization Administration [...] SPINAL CORD STIMULATOR IMPLANT 10/07/2018 - 10/06/2019 REPLACEMENT TOTAL KNEE 04/27/2025 Right Medical History Medical History Date Comments Hx [...] Diastolic dysfunction Cardiomyopathy 06/16/2021 Takotsubo cardio myopathy Ztxzlds-Lfgnu-Soztv disease GERD (gastroesophageal reflu x disease) 1989 Arthritis 2005 Depression 2001 Heart disease 2020 Shortness of breath Cataract 2018 Migraines 2004 PONV (postoperative nausea a nd vomiting) Low back pain Constipation Plantar fasciitis L Family History Medical History Relation Name Comments Early Brother Alek Clark Heart attack Brother Alek Clark Hyperlipidemia Brother Alek Clark Hyperlipidem ia; Early Father Alek Clark Heart attack Father Alek Clark Hypertension Father Alek Clark Other Father Alek Clark [place] 48 yo, CABG 50, of massive [place] 53; Cancer Mother Sybil Clark Lung cancer [...] Not Answered Alcohol Use Standard Drinks/Week Comments Never 0 (1 standard drink = 0.6 oz pur e alcohol) Hunger Vital Sign Answer Date Recorded Within the past 12 months, y ou worried that your food would run out before you got the money to buy more. Never true 06/16/20 24 Within the past 12 months, t he food you bought just didn't last and you didn't have money to get more. Never true 06/16/2024 AUDIT-C Answer Date Recorded Q1: How often do you have a drink containing alcohol? Never 09/01/2025 Q2: How many drinks containi ng alcohol do you have on a typical day when you are drinking? Patient does not drink Q3: How often do you have si x or more drinks on one occasion? Never 09/01/2025 Personal Safety Answer Date Recorded Have you ever been in or are you currently in a harmful physical or emotional relationship or is someone making you feel afraid or unsafe? Denies 09/04/2023 Comments No Sex and Gender Information Value Date Recorded Sex Assigned at Not on file Legal Sex Female 3:40 AM ENVIRONMENTAL ADVISOR Gender Identity Not on file Sexual Orientation Not on file Last Filed Vital Signs Vital Sign Reading Time Taken Comments Blood Pressure 105/61 09/01/2025 10:35 AM ENVIRONMENTAL ADVISOR Pulse 67 09/01/2025 10:35 AM ENVIRONMENTAL ADVISOR Temperature 36.4 C (97.5 F) 09/01/2025 9:16 AM ENVIRONMENTAL ADVISOR Respiratory Rate 14 09/01/2025 10:35 AM ENVIRONMENTAL ADVISOR Oxygen Saturation 100% 09/01/2025 10:35 AM ENVIRONMENTAL ADVISOR Inhaled Oxygen Concentration - - Weight 79.4 kg (175 lb) 09/01/2025 9:16 AM ENVIRONMENTAL ADVISOR Height 160 cm (5' 3) 09/01/2025 9:16 AM ENVIRONMENTAL ADVISOR Body Mass Index 31 09/01/2025 9:16 AM ENVIRONMENTAL ADVISOR Plan of Treatment Health Maintenance Due Date Last Done Comments Breast Cancer Screening-Mammogram 1954 Depression Screening 1954 Hepatitis C Screening 1954 Osteoporosis Screening-Bone Density Scan 1954 Hepatitis B Screening 1972 Pneumococcal vaccine 65+ (1 of 2 - PCV) 1973 Zoster Vaccine (1 of 2) 2004 Well Visit 65+ 2019 Colon Cancer Screening-Colonoscopy 11/03/2022 11/03/2012 Fall Risk Assessment 09/04/2024 09/04/2023 Covid-19 Vaccine (5 - 2024-2 6 season) 2025 02/23/2022, 02/23/2022, 08/18/2021, Additional history exists Influenza Vaccine (#1) 2025 3, 06/28/2023, 08/01/2022, Additional history exists DTaP/Tdap/Td Vaccine (3 - Td or Tdap) 01/16/2033 01/16/2023, 06/23/2009 Colon Cancer Screening-CT Colonography Discontinued 11/03/2012 Colon Cancer Screening-DNA Stool Discontinued 11/03/19 13 Colon Cancer Screening-FIT Discontinued 11/03/2012 Colon Cancer Screening-Sigmoidoscopy Discontinued 11/03/2012 Goals Goal Patient Goal Type Associated Problems Recent Progress Patient-Stated? Author CCM Chronic Pain Care Plan Chronic Care Management No change(09/01 9:22 AM ENVIRONMENTAL ADVISOR) No Lizette Resendiz RN Note: Problem: Chronic Pain Goals: 1. Minimize further functional decline 2. Maximize quality of life 3. Control pain Strategies: - Activity/exercise program recommendation - Conservative stepwise pain medicine strategy with multi-disciplinary approach - Recommend healthy lifestyle strategies and compensatory methods as needed Medical Devices Implanted Type Area Manufacturer'S Representative Device Identifier Shelf Expiration Date Model / Serial / Lot Eterna Implantable Pulse Generator Implanted:Qty: 1 on 02/22/2023 by Chelita Ray MD PhD at [facility] Other - see comments N/A: Back [employer] [id number] 10/17/2024 [id number] / [id number] / Description:Implantable puls e generator reference # 40456 - PART OF KIT [employer] Avance 4-5mm 50mm Allograft Natural Connection Graft Soft Tissue [id number] - [id number] Implanted:Qty: 1 on 07/31/2022 by Padmini Mcnamara MD at [facility] Right: Ankle [employer] 12/05/2023 [id number] / / [id number] Description:Implanted proxim al to right ankle. [employer] Lambert-Lock Stewart Lead 1192 - [id number] Implanted:Qty: 2 on 02/22/2023 by Chelita Ray MD PhD at [facility] N/A: Back [employer] [id number] 10/21/2024 1192 / / [id number] [employer] Octrode 60cm 8 Electrode Lead Percutaneous Kit Neurostimulator [id number] - [id number] - [id number] Implanted:Qty: 1 on 02/22/2023 by Chelita Ray MD PhD at [facility] Medicine N/A: Back [employer] [id number] 02/04/2025 [id number] / [id number] / [employer] Octrode 60cm 8 Electrode Lead Percutaneous Kit Neurostimulator [id number] - [id number] - [id number] Implanted:Qty: 1 on 02/22/2023 by Chelita Ray MD PhD at [facility] N/A: Back [employer] [id number] 02/04/2025 [id number] / [id number] / [employer] Generator Neurostimulator Spine Rechargeable Eterna [id number] - [id number] Implanted:Qty: 1 on 02/22/2023 by Chelita Ray MD PhD at [facility] N/A: Back [employer] [id number] / / Explanted Type Area Manufacturer'S Representative Device Identifier Shelf Expiration Date Model / Serial / Lot [employer] Invisible One Lead Trial System Spinal Cord Stimulation 1-Lead Trial s - [id number] - [id number] Implanted:Qty: 1 on 01/10/2023 by Alcon Ayers MD at [facility] Explanted: 023 by Chelita Ray MD PhD (Quantity not on file) [employer] 10/04/2024 1-LEAD TRIAL SYS / [id number] / Procedures Procedure Name Priority Date/Time Associated Diagnosis Comments PAIN MGMT IMAGING SI JOINT LEFT Schedule Routine, Read Routine (OP Routine) 09/01/2025 10:26 AM ENVIRONMENTAL ADVISOR Sacroiliitis COLONOSCOPY REPORT 11/03/2012 from Last 3 Months or Most Recently Relevant to Health Maintenance Results * Imaging SI Joint Injection Left ([id number]) (09/01/2025 10:26 AM ENVIRONMENTAL ADVISOR) Narrative [facility] - 09/01/2025 10:26 AM ENVIRONMENTAL ADVISOR The images from this study are not [...] Advance Directives For more information, please contact: [phone] * Full Code (Latest Code Status on File) Date Activated Date Inactivated Comments 07/31/2022 4:32 PM 08/01/2022 4:34 PM Care Teams Casino Operations Supervisor Relationship Specialty Start Date End Date Juan Pablo Easton MD PCP - General 02/24/15
--- OUTSIDE RECORDS SUMMARY | 2025-09-29 10:12 | XMS_ITS | Clinical Summary ---
Author Organization [facility] Address [address] [place] [address] Care Team Providers Care Purchasing Clerk Name Role Phone Juan Pablo Easton MD Primary Care Provider +1- [phone] Social History Tobacco Use Types Packs/Day Years [...] 1973 Mammogram Screening 1994 Pneumococcal Vaccine: 50+ Years (1 of 1 - PCV) 2004 Zoster Vaccines (1 of 2) 2004 Annual Medicare Wellness Visit 2019 Dexa Scan (General) 2019 COVID-19 Vaccine (2 - 2024-2 6 season) 2025 12/01/2020 Influenza Adult (#1) 2025 07/07/2020, 07/23/2019 RSV Immunization or 60+ Years (1 - 1-dose 75+ series) 2029 Hepatitis A Vaccines Aged Out No long er eligible based on patient's age to complete this topic Meningococcal B Vaccine Aged Out No l onger eligible based on patient's age to complete this topic Meningococcal Vaccine Aged Out No luan freeman eligible based on patient's age to complete this topic RSV Immunizations Under 20 Months Aged Out No longer eligible b ased on patient's age to complete this topic Insurance MEDICARE [facility] Care Teams Purchasing Clerk Relationship Specialty Start Date End Date Juan Pablo Easton MD PCP - General FAMILY PRACTICE 01/23/21
--- OUTSIDE RECORDS SUMMARY | 2025-09-29 10:12 | XMS_ITS | Encounter Summary ---
Author Organization [facility] Healthcare Address [address] [place] [address] Care Team Providers Care Application Development Liaison Name Role Phone Juan Pablo Easton MD Primary Care Provider +1 -[phone] Reason for Visit * Reason Onset Date Comments Scheduling Appointments 01/19/2025 Encounter Details Date Type Department Care Team (Late st Contact Info) Description 01/19/2025 Telephone [facility] at the [place] [facility] [address] [facility] Advanced Medicine [address] [place] [address] Chelita Ray MD PhD [address] [facility] [phone] [place], [place] [id number] Scheduling Appointments Social History Tobacco Use Types [...] on file Legal Sex Female 3:40 AM AGING DEPARTMENT SUPERVISOR Gender Identity Not on file Sexual Orientation Not on file documented as of this encounter Plan of Treatment Not on file documented as of this encounter Goals Goal Patient Goal Type Associated Problems Recent Progress Patient-Stated? Author CCM Chronic Pain Care Plan Chronic Care Management No change(09/01 9:22 AM AGING DEPARTMENT SUPERVISOR) No Lizette Resendiz, ASH Note: Problem: Chronic Pain Goals: 1. Minimize further functional decline 2. Maximize quality of life 3. Control pain Strategies: - Activity/exercise program recommendation - Conservative stepwise pain medicine strategy with multi-disciplinary approach - Recommend healthy lifestyle strategies and compensatory methods as needed documented as of this encounter Visit Diagnoses Not on filedocumented in this encounter Care Teams Application Development Liaison Relationship Specialty Start Date End Date Juan Pablo Easton MD PCP - General 02/24/15 documented as of this encounter
--- OUTSIDE RECORDS SUMMARY | 2025-09-29 10:12 | XMS_ITS | Clinical Summary ---
Author Organization [facility] Address [address] [place] [address] Care Team Providers Care Culinary Art Teacher Name Role Phone Juan Pablo Easton MD Primary Care Provider +1- [phone] Source Comments [facility],non-owned Affiliates and Associated Physician Practices is amultiple site organization consisting of ambulatory clinics and hospital sitesin [place], [place], [place] and [place]. This disclosure is being madepursuant to the Care Everywhere program and may not contain all information available regarding this patient. Last updated 18.[facility] Social History Tobacco Use Types Packs/Day Years Used Date Smoking Tobacco: Never Assessed Comments Unknown Sex and Gender Information Value Date Recorded Sex Assigned at Not on file Legal Sex Female 6:31 AM RESEARCH PROGRAMMER Gender Identity Not on file Sexual Orientation [...] 2) 2004 DEPRESSION SCREENING 10/07/2024 COVID-19 VACCINE ( - 2024-2 6 season) 2025 INFLUENZA VACCINE (#1) 2025 Respiratory [...] patient's age to complete this topic Insurance [facility] Address: [facility] [id number] [place] [address] MEDICARE MEDICARE [facility] SELF PAY NO INSURANCE Member Subscriber Plan / Payer (Ef fective for All Dates) Name:MattSchuyler Member ID:Not on file Relation to Subscriber:Not on file Name:MATTSCHUYLER Subscriber ID:Not on file (Home) Address: [address] [place] [address] Payer ID:Not on file Group ID:Not on file Type:Self Pay Address: [place], [place] MEDICARE Care Teams Culinary Art Teacher Relationship Specialty Start Date End Date Juan Pablo Easton MD [address] [place] [id number] PCP - General 10/08/19
--- OUTSIDE RECORDS SUMMARY | 2025-09-29 10:12 | XMS_ITS | Encounter Summary ---
Author Organization [facility] Healthcare Address [address] [place] [address] Care Team Providers Care Bottle Blowing Machine Tender Name Role Phone Juan Pablo Easton MD Primary Care Provider [phone] Reason for Visit * Reason Onset Date Comments PMC Preprocedure 08/24/2024 Encounter Details Date Type Department Care Team (Late st Contact Info) Description 08/24/2024 Telephone [facility] [place] [facility] [address] [facility] [address] [place], [place] [id number] Chelita Ray MD PhD [address] [facility] [phone] [place], [place] [id number] PMC Preprocedure Social History Tobacco Use Types [...] on file Legal Sex Female 3:40 AM DELI ASSOCIATE Gender Identity Not on file Sexual Orientation Not on file documented as of this encounter Plan of Treatment Not on file documented as of this encounter Goals Goal Patient Goal Type Associated Problems Recent Progress Patient-Stated? Author CCM Chronic Pain Care Plan Chronic Care Management No change(09/01 9:22 AM DELI ASSOCIATE) No Lizette Resendiz, ASH Note: Problem: Chronic Pain Goals: 1. Minimize further functional decline 2. Maximize quality of life 3. Control pain Strategies: - Activity/exercise program recommendation - Conservative stepwise pain medicine strategy with multi-disciplinary approach - Recommend healthy lifestyle strategies and compensatory methods as needed documented as of this encounter Visit Diagnoses Not on filedocumented in this encounter Care Teams Bottle Blowing Machine Tender Relationship Specialty Start Date End Date Juan Pablo Easton MD PCP - General 02/24/15 documented as of this encounter
--- OUTSIDE RECORDS SUMMARY | 2025-09-29 10:12 | XMS_ITS | Encounter Summary ---
Author Organization [facility] Healthcare Address [address] [place] [address] Care Team Providers Care Tape Control Skin Or Spar Mill Operator Name Role Phone Juan Pablo Easton MD Primary Care Provider [phone] Reason for Visit * Reason Onset Date Comments Scheduling Appointments 03/20/2024 Encounter Details Date Type Department Care Team (Late st Contact Info) Description 03/20/2024 Telephone [facility] [place] [facility] [address] [facility] [address] [place] [address] Chelita Ray MD PhD [phone] [place], [place] [id number] Scheduling Appointments Social History Tobacco Use Types [...] on file Legal Sex Female 3:40 AM PRACTICAL NURSE Gender Identity Not on file Sexual Orientation Not on file documented as of this encounter Plan of Treatment Not on file documented as of this encounter Goals Goal Patient Goal Type Associated Problems Recent Progress Patient-Stated? Author CCM Chronic Pain Care Plan Chronic Care Management No change(09/01 9:22 AM PRACTICAL NURSE) No Lizette Resendiz, ASH Note: Problem: Chronic Pain Goals: 1. Minimize further functional decline 2. Maximize quality of life 3. Control pain Strategies: - Activity/exercise program recommendation - Conservative stepwise pain medicine strategy with multi-disciplinary approach - Recommend healthy lifestyle strategies and compensatory methods as needed documented as of this encounter Visit Diagnoses Not on filedocumented in this encounter Care Teams Tape Control Skin Or Spar Mill Operator Relationship Specialty Start Date End Date Juan Pablo Easton MD PCP - General 02/24/15 documented as of this encounter
--- OUTSIDE RECORDS SUMMARY | 2025-09-29 10:12 | XMS_ITS | Encounter Summary ---
Author Organization [facility] Healthcare Address [address] [place] [address] Care Team Providers Care Data Services Developer Name Role Phone Juan Pablo Easton MD Primary Care Provider [phone] Encounter Details Date Type Department Care Team (Late st Contact Info) Description 12/04/2024 Orders Only [facility] Information Management [address] [place] [id number] Scanning, Provider Social History Tobacco Use Types [...] on file Legal Sex Female 3:40 AM WILDLIFE ENFORCEMENT MAJOR Gender Identity Not on file Sexual Orientation Not on file documented as of this encounter Plan of Treatment Not on file documented as of this encounter Goals Goal Patient Goal Type Associated Problems Recent Progress Patient-Stated? Author CCM Chronic Pain Care Plan Chronic Care Management No change(09/01 9:22 AM WILDLIFE ENFORCEMENT MAJOR) No Lizette Resendiz RN Note: Problem: Chronic [...] filedocumented in this encounter Care Teams Data Services Developer Relationship Specialty Start Date End Date Juan Pablo Easton MD PCP - General 02/24/15 documented as of this encounter
--- OUTSIDE RECORDS SUMMARY | 2025-09-29 10:12 | XMS_ITS | Encounter Summary ---
Author Organization [facility] Healthcare Address [address] [place] [address] Care Team Providers Care Head Sugar Reprocess Operator Name Role Phone Juan Pablo Easton MD Primary Care Provider [phone] Encounter Details Date Type Department Care Team (Late st Contact Info) Description 10/30/2023 Telephone [facility] [place] [facility] [address] [facility] [address] [place], [place] [id number] Chelita Ray MD PhD [address] [facility] [phone] [place], [place] [id number] Social History Tobacco Use Types Packs/Day Years [...] on file Legal Sex Female 3:40 AM TAKER DOWN Gender Identity Not on file Sexual Orientation Not on file documented as of this encounter Plan of Treatment Not on file documented as of this encounter Goals Goal Patient Goal Type Associated Problems Recent Progress Patient-Stated? Author CCM Chronic Pain Care Plan Chronic Care Management No change(09/01 9:22 AM TAKER DOWN) No Lizette Resendiz, ASH Note: Problem: Chronic Pain Goals: 1. Minimize further functional decline 2. Maximize quality of life 3. Control pain Strategies: - Activity/exercise program recommendation - Conservative stepwise pain medicine strategy with multi-disciplinary approach - Recommend healthy lifestyle strategies and compensatory methods as needed documented as of this encounter Visit Diagnoses Not on filedocumented in this encounter Care Teams Head Sugar Reprocess Operator Relationship Specialty Start Date End Date Juan Pablo Easton MD PCP - General 02/24/15 documented as of this encounter
[2025-09-29 17:14] LABS: Anion Gap 6 mmol/L (4-12); Blood Urea Nitrogen 14 mg/dL (7-17); Calcium 8.9 mg/dL (8.4-10.2); Carbon Dioxide 28 mmol/L (22-30); Chloride 104 mmol/L (98-107); Estimated Glomerular Filt Rate 46; Glucose 100 mg/dL (65-110); Potassium 4.3 mmol/L (3.4-5.0); Sodium 138 mmol/L (137-145)
== END 2025-09-29 10:10 | disposition home or self-care (01) ==
PROVIDERS: PCP Family Medicine; Visit Provider Nurse Practitioner Family
DX: E87.6 Hypokalemia (principal)
CPT/HCPCS: 36415; 80048